=== PATIENT | male | born 1955 | race Caucasian/White ===

== ENCOUNTER 2016-09-27 17:22 | Inpatient (IN) ==
[2016-09-27] MEDS ORDERED: Nitroglycerin 0.4 MG TAB.SUBL SL ONE (17:30)
[2016-09-27] MEDS ORDERED: Aspirin 81 MG TAB.CHEW PO ONE (17:30)
[2016-09-27 17:51] LABS: Basophils % 0.3 %; Eosinophils # 0.2 K/mcL (0.0-0.6); Eosinophils % 1.7 %; Hematocrit 31.4 % (37.5-50.1); Hemoglobin 9.6 g/dL (12.9-16.9); Immature Granulocytes % 0.4 % (0-4); Immature Platelets 2.6 % (1.1-6.1); Lymphocytes # 0.9 K/mcL (0.6-4.6); Lymphocytes % 7.9 %; Mean Corpuscular HGB Conc 30.6 g/dL (31.6-35.5); Mean Corpuscular Hemoglobin 28.2 pg (28.0-33.3); Mean Corpuscular Volume 92.1 fL (83.0-100.0); Mean Platelet Volume 9.5 fL (9.4-12.4); Monocytes # 0.7 K/mcL (0.0-1.3); Monocytes % 5.8 %; Neutrophils # 9.5 K/mcL (1.6-8.9); Platelet Count 266 K/mcL (140-400); Red Blood Count 3.41 M/mcL (4.19-5.50); Red Cell Distribution Width 14.7 % (11.5-14.5); Segmented Neutrophils % 83.9 %
[2016-09-27 17:54] LABS: INR 3.6; Prothrombin Time 40.9 Seconds (9.4-12.1)
--- NOTE | 2016-09-27 17:55 | Emergency Department Note ---
START Narrative - START START: I examined this patient and my medical decision-making was reviewed with the SUPERVISOR HARVESTING/PA/Advanced Practice Nurse/Resident Physician. I agree with the documented findings, disposition and treatment plan as described except to the extent set forth below. ED attending note: Patient seen with emergency medicine resident Dr. Granados. Please see a copy of his note for details of the H&P, evaluation, management and disposition of this patient. We independently had [id number] contact with the patient Briefly: A 61-year-old morbidly obese patient with history of congestive heart failure presents with dyspnea on exertion and increasing shortness of breath and edema. She does mild chest discomfort but denies chest pain. EKG shows no acute ischemic changes. He does have moderate to severe bilateral lower extremity symmetrical pitting edema. He has bibasilar rales and some expiratory wheezes. Patient is 94% with supplemental oxygen on 4 L/m nasal cannula. Patient will be getting a cardiac workup admission anticipated. Provided 40 minutes of critical care services for this patient. Disposition pending.
[2016-09-27 17:56] LABS: Activated Partial Thrombo Time 54.4 Seconds (26.0-36.0)
[2016-09-27 18:00] LABS: Calcium 9.4 mg/dL (8.6-10.8); Potassium 4.2 mEq/L (3.5-4.5)
[2016-09-27] MEDS ORDERED: Furosemide 40 MG/4 ML VIAL IVP ONE (18:41)
[2016-09-27] MEDS ORDERED: Nitroglycerin 1 INCH/GM PACKET TP ONE (18:41)
[2016-09-27] MEDS ORDERED: *HR* HYDROcodone/Acet 5/325 mg TABLET PO ONE (18:50)
--- NOTE | 2016-09-27 18:53 | Emergency Department Note ---
Disposition Clinical Impression: CHF (congestive heart failure) Disposition: Admitted As Inpatient Condition: Good Referrals: Ruby Cano CNP [Primary Care Provider] - Forms: ED Satisfaction Letter Time of Disposition: 19:00 SOB HPI - General Chief Complaint: ED Shortness of Breath/Dyspnea Stated Complaint: FABI / Fluid retention Time Seen by Provider: 09/27/16 17:30 Source: patient Mode of arrival: ambulatory Limitations: no limitations Nursing Notes Reviewed: Yes Vital Signs Reviewed: Yes - History of Present Illness 61-year-old male with reported history of congestive heart failure present from primary care office with shortness of breath and pedal edema that is significantly worse than baseline over the last few days. He states that he has been taking his Lasix 80 mg daily as well as hydrochlorothiazide as directed. Dr. Cano felt that he should be admitted for his significant shortness of breath with associated chest heaviness with any exertion. He states that he is not able to go from one room to another without having chest heaviness and shortness of breath. Patient reports that he has had a normal left heart catheter in the last 6 months. He states that his symptoms are worse with lying flat. He admits to nonproductive cough. He denies fever, chills, nausea or vomiting, change in urination or bowel movements. He states that his left lower extremity is slightly more swollen than his right which is usual for him due to a history of a blood clot in that leg. He is anticoagulated with Coumadin. He has history of PE and states that that did not feel anything like this. Pt Subjective Complaint: shortness of breath - Related Data Home Medications Medication Instructions Recorded Confirmed Amlodipine Besylate 10 mg PO DAILY 05/16/16 09/27/16 Carvedilol [Coreg] 25 mg PO BID 05/16/16 09/27/16 Duloxetine [Cymbalta] 30 mg PO QPM 05/16/16 09/27/16 Duloxetine [Cymbalta] 60 mg PO QAM 05/16/16 09/27/16 GlipiZIDE [Glipizide] 10 mg PO DAILY 05/16/16 09/27/16 HYDROcodone/Acet 5/325 mg [[place] 1 tab PO TID PRN 05/16/16 09/27/16 5-325 mg] Insulin NPH Hum/Reg Insulin Hm 55 unit SQ BID 05/16/16 09/27/16 [Novolin 70-30 100 Unit/ml Vial] Pravastatin Sodium [Pravachol] 80 mg PO DAILY 05/16/16 09/27/16 Warfarin [Coumadin] 6 mg PO QPM 05/22/16 09/27/16 Furosemide [Lasix] 40 mg PO BID 09/27/16 09/27/16 Losartan Potassium [Cozaar] 100 mg PO DAILY 09/27/16 09/27/16 Previous Rx's Medication Instructions Recorded Hydrochlorothiazide 50 mg PO DAILY #30 tablet 05/23/16 HydrALAZINE 50 mg PO Q8HR #60 tab 07/31/16 Allergies Allergy/AdvReac Type Severity Reaction Status Date / Time acetaminophen [From Percocet] Allergy Hives Verified 05/22/16 17:15 Oxycodone [From Percocet] Allergy Hives Verified 05/22/16 17:15 tetanus immune globulin Allergy Anaphylaxis Verified 05/22/16 17:15 All systems ED: reviewed and negative except as stated. Past Medical History - Past Medical History Attestation: Yes The following information was validated with the patient. Source: patient Medical history: Reports: CHF, COPD, coronary artery disease, DVT, diabetes, fibromyalgia, hyperlipidemia, hypertension, pulmonary embolus Surgical history: Reports: other Psychiatric history: Reports: anxiety, depression, other - Social History Smoking Status: Never smoker Smokeless Tobacco Status: Yes (Chews tobacco) Alcohol use: Reports: none Drug use: Reports: none Physical Exam - Head Head exam: atraumatic, normocephalic, normal inspection - Eye Eye exam: Present: normal appearance, PERRL, EOMI - ENT ENT exam: normal exam, normal oropharynx, mucous membranes moist - Neck Neck exam: Present: normal inspection, full ROM, trachea midline - Chest Chest inspection: Present: normal inspection, symmetric chest wall rise - Respiratory Limited by obesity, but diminished at the bilateral bases. Cardiovascular Cardiovascular exam: Present: regular rate, normal rhythm, normal heart sounds - Abdominal Exam Abdominal exam: Present: soft, Non-Tender. Absent: tenderness, distention, guarding, rebound, rigidity - Extremities Exam Pedal edema bilaterally left slightly greater than right. - Back Exam Back exam: Present: normal inspection, full ROM. Absent: tenderness, CVA tenderness (R), CVA tenderness (L) - Neurological Exam Neurological exam: Present: alert, oriented X3, CN II-XII intact - Psychiatric Psychiatric exam: Present: normal affect, normal mood - Skin Skin exam: Present: warm, dry, intact, normal color - General Limitations: no limitations General appearance: alert, in no apparent distress Course - Reevaluation(s) Reevaluation #1: Shortness of breath significantly improved after nitroglycerin sublingual. Patient feeling much better with BiPAP on. Hospitalist paged for admission. Topical nitroglycerin and Lasix ordered. Time: 18:54 Reevaluation #2: Accepted by Dr. Cyr. Time: 19:01 Vital Signs Temperature 97.3 F L 09/27/16 17:24 Pulse Rate 62 09/27/16 17:24 Respiratory Rate 20 09/27/16 17:24 Blood Pressure 180/82 09/27/16 17:24 O2 Sat by Pulse Oximetry 95 09/27/16 17:24 Temperature 97.3 F L 09/27/16 17:24 Pulse Rate 62 09/27/16 18:53 Respiratory Rate 14 09/27/16 18:56 Blood Pressure 143/73 09/27/16 18:53 O2 Sat by Pulse Oximetry 97 09/27/16 18:56 Oxygen Delivery Oxygen Delivery CPAP Mask O2 Shortness of Breath/Dyspnea - Lab Data Result diagrams: 09/27/16 17:42 09/27/16 17:42 Lab Results 09/27/16 09/27/16 09/27/16 Range/Units 17:42 17:42 17:42 WBC 11.3 H (4.3-11.1) K/mcL RBC 3.41 L (4.19-5.50) M/mcL Hgb 9.6 L (12.9-16.9) g/dL Hct 31.4 L (37.5-50.1) % MCV 92.1 (83.0-100.0) fL MCH 28.2 (28.0-33.3) pg MCHC 30.6 L (31.6-35.5) g/dL RDW 14.7 H (11.5-14.5) % Plt Count 266 (140-400) K/mcL MPV 9.5 (9.4-12.4) fL Immature Gran % 0.4 (0-4) % Seg Neutrophils % 83.9 % Lymphocytes % 7.9 % Monocytes % 5.8 % Eosinophils % 1.7 % Basophils % 0.3 % Neutrophils # 9.5 H (1.6-8.9) K/mcL Lymphocytes # 0.9 (0.6-4.6) K/mcL Monocytes # 0.7 (0.0-1.3) K/mcL Eosinophils # 0.2 (0.0-0.6) K/mcL Basophils # 0.0 (0.0-0.2) K/mcL Immature Plt Fraction 2.6 (1.1-6.1) % PT 40.9 H (9.4-12.1) Seconds INR 3.6 APTT 54.4 H (26.0-36.0) Seconds Sodium (136-145) mEq/L Potassium (3.5-4.5) mEq/L Chloride (98-109) mEq/L Carbon Dioxide (19-29) mEq/L BUN (8-26) mg/dL Creatinine (0.72-1.25) mg/dL Est GFR ( Amer) (> 60) Est GFR (Non-Af Amer) (> 60) BUN/Creatinine Ratio (6-26) Glucose (70-99) mg/dL Calculated Osmolality (280-300) Calcium (8.6-10.8) mg/dL Troponin I (0-0.03) ng/mL B-Natriuretic Peptide 238 H (0-100) pg/mL 09/27/16 09/27/16 Range/Units 17:42 17:42 WBC (4.3-11.1) K/mcL RBC (4.19-5.50) M/mcL Hgb (12.9-16.9) g/dL Hct (37.5-50.1) % MCV (83.0-100.0) fL MCH (28.0-33.3) pg MCHC (31.6-35.5) g/dL RDW (11.5-14.5) % Plt Count (140-400) K/mcL MPV (9.4-12.4) fL Immature Gran % (0-4) % Seg Neutrophils % % Lymphocytes % % Monocytes % % Eosinophils % % Basophils % % Neutrophils # (1.6-8.9) K/mcL Lymphocytes # (0.6-4.6) K/mcL Monocytes # (0.0-1.3) K/mcL Eosinophils # (0.0-0.6) K/mcL Basophils # (0.0-0.2) K/mcL Immature Plt Fraction (1.1-6.1) % PT (9.4-12.1) Seconds INR APTT (26.0-36.0) Seconds Sodium 142 (136-145) mEq/L Potassium 4.2 (3.5-4.5) mEq/L Chloride 101 (98-109) mEq/L Carbon Dioxide 26 (19-29) mEq/L BUN 36 H (8-26) mg/dL Creatinine 2.00 H (0.72-1.25) mg/dL Est GFR ( Amer) 41 L (> 60) Est GFR (Non-Af Amer) 34 L (> 60) BUN/Creatinine Ratio 18 (6-26) Glucose 251 H (70-99) mg/dL Calculated Osmolality 311 H (280-300) Calcium 9.4 (8.6-10.8) mg/dL Troponin I 0.02 (0-0.03) ng/mL B-Natriuretic Peptide (0-100) pg/mL - Radiology Data Radiology results reviewed: Yes I reviewed the patient's radiology results. - EKG Data EKG attestation: Yes I reviewed and interpreted this EKG. EKG results narrative: Normal sinus rhythm at 60 with left axis deviation and normal intervals. No ST elevation or depression. There is no significant change compared with 2015.
[2016-09-27] MEDS ORDERED: Naloxone 0.4 MG/ML INJ IVP PRN (19:32)
[2016-09-27] MEDS ORDERED: Ondansetron 4 MG/2 ML VIAL IVP PRN (19:32)
[2016-09-27] MEDS ORDERED: *HR* HYDROcodone/Acet 5/325 mg TABLET PO PRN (19:33)
[2016-09-27] MEDS ORDERED: Dextrose Gel 15 GM PO PRN ×2 (19:39)
[2016-09-27] MEDS ORDERED: D5% in Water 1,000 ML IV PRN (19:39)
[2016-09-27] MEDS ORDERED: *HR* Dextrose 50 % in Water (Syg) 50 ML SYRINGE IVP PRN (19:39)
--- NOTE | 2016-09-27 20:54 | Internal Med History&Physical ---
Date of Encounter: 09/27/16 Time of Encounter: 20:30 Assessment and Plan (1) Acute exacerbation of CHF (congestive heart failure) Current visit: Yes Status: Acute Patient reported to have multiple CHF exacerbation in the last few months Last 2-D echo from April 2016 is nonconclusive with LVEF of 60-65% We will repeat 2-D echo Patient reported taking 40 mg of by mouth Lasix at home and received 40 mg of IV Lasix in the ER We will continue Lasix 40 mg IV every 12h Monitor daily weight, monitor strict I's/O's Strict fluid restriction diet Continue to monitor O2 saturation O2 supplementation as needed BiPAP overnight Consider cardiology eval if heart failure symptoms persist despite diuretic therapy. Qualifiers: Congestive heart failure type: unspecified congestive heart failure type Qualified Code(s): I50.9 - Heart failure, unspecified (2) [id number] kidney injury Current visit: Yes Status: Acute Likely secondary to diuretic therapy however given acute exacerbation will need to continue diuretic therapy will hold ARB and glipizide at this time Continue to monitor kidney function (3) Hyperglycemia due to type 2 diabetes mellitus Current visit: Yes Status: Resolved Restart home basal insulin dosage Hold oral antihyperglycemic agents Continue to monitor fingerstick and blood glucose Started on medium dose insulin sliding scale correctional as needed Qualifiers: Diabetes mellitus senior care insulin use: with senior care use Qualified Code( s): E11.65 - Type 2 diabetes mellitus with hyperglycemia; Z79.4 - penitentiary ( current) use of insulin (4) Chest pain Current visit: Yes Status: Acute Chest pain relieved with nitroglycerin and typical presentation of the pain is concerning for ACS will trend serial troponins Serial EKG Consider cardiology eval if symptoms persist Given the acute exacerbation of CHF, patient not a candidate for nuclear stress test at this time Qualifiers: Chest pain type: unspecified Qualified Code(s): R07.9 - Chest pain, unspecified (5) Hypertension Current visit: Yes Status: Chronic BP within acceptable range Continue home medications Qualifiers: Hypertension type: essential hypertension Qualified Code(s): I10 - Essential (primary) hypertension (6) Obstructive sleep apnea Current visit: Yes Status: Chronic BiPAP support overnight Patient scheduled for a sleep study this coming Saturday (7) Morbid obesity with BMI of 45.0-49.9, adult Current visit: Yes Status: Chronic (8) On anticoagulant therapy Current visit: Yes Status: Acute Supratherapeutic INR Hold Coumadin until INR within therapeutic range, INR goal 2-3 On anticoagulation for history of DVT/PE (9) DVT prophylaxis Current visit: Yes Status: Acute Anticoagulated with Coumadin (10) Leukocytosis, unspecified Current visit: Yes Status: Acute No clinical signs of infection present at this time will monitor off antibiotics Qualifiers: Leukocytosis type: unspecified Qualified Code(s): D72.829 - Elevated white blood cell count, unspecified Internal Medicine - H&P: HPI Chief complaint: shortness of breath Admitted From: Home Plans for Post Hospital Care: Home History of present illness: Mr. Hernandez is a 61 year old male with past medical history of CHF, DVT/PE on anticoagulation, hypertension, COPD, CT, diabetes, CKD stage III, hyperlipidemia was brought to the ER for evaluation of shortness of breath. Patient states he went to see his primary care physician earlier today and was noted to be in severe shortness of breath for which he was directed to the ER. He states his primary care physician was looking into increasing his diuretic therapy along with adding another agent for his CHF. In the ER patient also reported of having pressure-like midsternal chest pain which was relieved with nitroglycerin sublingual. He states he has been having this pressure-like chest pain for months now which gets resolved with rest. He also reports of being scheduled for a sleep study this coming Saturday. At this time he is resting comfortably in bed and saturating well on BiPAP support. As per son, present at bedside, patient is not able to tolerate BiPAP at home due to the uncomfortable mask, however at this time patient appears to not have any issues with the BiPAP. Patient denies any headache, dizziness, lightheadedness, chest pain, palpitations, shortness of breath, abdominal pain, nausea, vomiting, fever , or chills at this time. I had detailed discussion about patient's advanced directives, and patient wishes to be full code at this time. Past Med Surg Social Fam HX - Past Medical History Medical history: CHF, COPD, coronary artery disease, DVT, diabetes, fibromyalgia , hyperlipidemia, hypertension, pulmonary embolus Psychiatric history: anxiety, depression, other - Past Surgical History Surgical History: other - Social History Smoking Status: Never smoker Smokeless Tobacco Status: Yes (Chews tobacco) Alcohol use: none Drug use: none - Family History Mother Adopted: No Family Member Ethnicity: Non- Living Status: Hx Family Cardiac Disorders: Yes (HTN; Aneurysm) Brother Hx Family Cardiac Disorders: Yes (HTN) Hx Family Endocrine Disorder: Yes (DM-2) Internal Medicine - H&P: Meds Amlodipine Besylate 10 mg PO DAILY 05/16/16 [History] Carvedilol [Coreg] 25 mg PO BID 05/16/16 [History] Duloxetine [Cymbalta] 30 mg PO QPM 05/16/16 [History] Duloxetine [Cymbalta] 60 mg PO QAM 05/16/16 [History] GlipiZIDE [Glipizide] 10 mg PO DAILY 05/16/16 [History] HYDROcodone/Acet 5/325 mg [[place] 5-325 mg] 1 tab PO TID PRN 05/16/16 [History] Insulin NPH Hum/Reg Insulin Hm [Novolin 70-30 100 Unit/ml Vial] 55 unit SQ BID 05/16/16 [History] Pravastatin Sodium [Pravachol] 80 mg PO DAILY 05/16/16 [History] Warfarin [Coumadin] 6 mg PO QPM 05/22/16 [History] Hydrochlorothiazide 50 mg PO DAILY #30 tablet 05/23/16 [Rx] HydrALAZINE 50 mg PO Q8HR #60 tab 07/31/16 [Rx] Furosemide [Lasix] 40 mg PO BID 09/27/16 [History] Losartan Potassium [Cozaar] 100 mg PO DAILY 09/27/16 [History] Allergies acetaminophen [From Percocet] Allergy (Verified 05/22/16 17:15) Hives Oxycodone [From Percocet] Allergy (Verified 05/22/16 17:15) Hives tetanus immune globulin Allergy (Verified 05/22/16 17:15) Anaphylaxis All Systems PM: A 10-system review of systems was performed and is negative for pertinent findings except as documented above in the HPI. - Constitutional Constitutional: as per HPI - Constitutional Vitals: Temp Pulse Resp BP Pulse Ox 0 F L 62 0 0/0 97 09/27/16 20:16 09/27/16 18:53 09/27/16 20:16 09/27/16 20:16 09/27/16 18:56 General appearance: Present: cooperative, A&O X 3, morbidly obese, pleasant, no acute distress, answers questions appropriately - Head Head exam: Present: atraumatic, normocephalic - Eye Eye exam: Present: normal appearance, conjuntiva pink, sclera anicteric - Respiratory Respiratory exam: Present: decreased breath sounds. Absent: respiratory distress, wheezes - Cardiovascular Cardiovascular exam: Present: RRR, +S1, +S2 - GI/Abdominal GI/Abdominal exam: Present: distended (obese), normal bowel sounds, soft. Absent: tenderness - Extremities Exam Extremities exam: Present: pedal edema (bilateral 2+pitting edema), warm, radial pulses palpable and symetrical. Absent: calf tenderness, tenderness - Neurological Exam Neurological exam: Present: alert, oriented X3 - Psychiatric Psychiatric exam: Present: normal affect, normal mood Internal Med - H&P Results - Labs CBC & Chem 7: 09/27/16 17:42 09/27/16 17:42
[2016-09-27] MEDS ORDERED: Insulin LISPRO 300 UNITS/3 ML VIAL SQ SCH (21:00)
[2016-09-27] MEDS: Insulin NPH/REG 70/30 100 UNIT/ML (x5UNIT) SQ SCH (21:27)
[2016-09-27] MEDS: hydrALAZINE 25 MG TABLET PO SCH (22:43)
[2016-09-28 05:28] LABS: Basophils % 0.5 %; Eosinophils # 0.2 K/mcL (0.0-0.6); Eosinophils % 3.2 %; Hematocrit 29.7 % (37.5-50.1); Immature Granulocytes % 0.3 % (0-4); Lymphocytes # 1.1 K/mcL (0.6-4.6); Lymphocytes % 17.4 %; Mean Corpuscular HGB Conc 30.3 g/dL (31.6-35.5); Mean Corpuscular Volume 92.5 fL (83.0-100.0); Monocytes # 0.7 K/mcL (0.0-1.3); Monocytes % 11.4 %; Neutrophils # 4.4 K/mcL (1.6-8.9); Platelet Count 259 K/mcL (140-400); Red Blood Count 3.21 M/mcL (4.19-5.50); Red Cell Distribution Width 14.7 % (11.5-14.5); Segmented Neutrophils % 67.2 %
[2016-09-28] MEDS: Furosemide 20 MG/2 ML VIAL IVP SCH ×3 (05:34→21:10)
[2016-09-28 05:49] LABS: Calcium 8.9 mg/dL (8.6-10.8); Magnesium 1.8 mg/dL (1.6-2.6); Phosphorous 4.3 mg/dL (2.3-4.7); Potassium 4.1 mEq/L (3.5-4.5)
[2016-09-28] MEDS: Insulin LISPRO 300 UNITS/3 ML VIAL SQ SCH ×2 (07:54→11:47)
[2016-09-28] MEDS: Insulin NPH/REG 70/30 100 UNIT/ML (x5UNIT) SQ SCH ×2 (09:31→17:30)
[2016-09-28] MEDS: amLODIPine 5 MG TABLET PO SCH (09:41)
[2016-09-28] MEDS: hydroCHLOROthiazide 25 MG TABLET PO SCH (09:41)
[2016-09-28] MEDS: hydrALAZINE 25 MG TABLET PO SCH ×2 (09:42→17:30)
--- NOTE | 2016-09-28 15:09 | Electrocardiograph Report ---
[place] [id number] Test Date: 2016-09-27 Pat Name: Imtiaz Hernandez Department: 105 Room: [facility] Gender: M Weed Control Inspector: : 1955 Requested By: Onesimo Granados Order Number: [id number] Reading MD: Lorraine Cruz Measurements Intervals Bouse Rate: 60 P: 10 LA: 126 QRS: 4 QRSD: 118 T: 60 QT: 462 QTc: 464 Interpretive Statements SINUS RHYTHM MODERATE INTRAVENTRICULAR CONDUCTION DELAY [110+ ms QRS DURATION] NONSPECIFIC T-WAVE ABNORMALITY PROLONGED QT INTERVAL Electronically Signed On 09-28-2016 15:07:30 EST by Lorraine Cruz
--- NOTE | 2016-09-28 15:35 | ECHO - Doppler Report ---
Echocardiogram Name: Imtiaz Hernandez Date of Study: 09/28/2016 Date: 1955 Ht: 72.0 in Medical Record#: [id number] Age: 61 Wt: 340.0 lb Gender: Male BSA: 2.67 Order #: [id number] Location: [facility] Room #: [id number] Reading Physician: Marek Alcantar DO, BARRY, NATE AARON Tortilla Maker: Alexandre Rojo RDCS Ordering Physician: Payton Cyr MD Primary Physician: Ruby Cano CNP Indications: Congestive heart failure Impressions: LVEF 60%. Mild concentric left ventricular hypertrophy. Normal LV chamber size, wall thickness and function. Moderate left ventricular diastolic dysfunction. Right ventricle was not well visualized. Grossly, it is normal in function. Severely dilated left atrium. Pulmonic valve not well visualized. No pulmonic regurgitation. No evidence of pulmonary hypertension. RVSP not well obtained and could be underestimated. No obvious significant valvular dysfunction. Findings: Study Quality * Technically sub-optimal due to body habitus. ECG Findings * Normal sinus rhythm. Left Ventricle * LVEF 60%. * Normal LV chamber size and function. * Mild concentric left ventricular hypertrophy. * Moderate left ventricular diastolic dysfunction. Right Ventricle * Right ventricle was not well visualized. Grossly, it is normal in function. Left Atrium * Severely dilated left atrium. Right Atrium * Moderately dilated right atrium. Interatrial Septum * Interatrial septum not well evaluated. Aortic Valve * Aortic valve not well visualized. * No aortic regurgitation. * No aortic stenosis. Mitral Valve * Normal mitral valve structure and function. * No mitral regurgitation. * No mitral stenosis. Tricuspid Valve * Normal tricuspid valve structure and function. * Trace tricuspid regurgitation. * No evidence of pulmonary hypertension. RVSP not well obtained and could be underestimated. Pulmonic Valve * Pulmonic valve not well visualized. * No pulmonic regurgitation. Aorta * Normally sized aortic root. Pericardium * The pericardium appears normal. IVC * Normal IVC dimensions and inspiratory collapse. Pulmonary Artery * Normal visualized portions of the main pulmonary artery. History Hypertension Diabetes Hypercholesteremia Family History of CAD History of CAD/PTCA Congestive Heart Failure 05/17/16 a Previous Echo was performed. Measurements: BP: 181/ 92 2D Normal Values RVIDd: 2.30 cm <2.7 cm IVSd: 1.30 cm 0.6 - 1.0 cm LVIDd: 6.10 cm 3.7 - 5.6 cm LVPWd: 1.20 cm 0.6 - 1.1 cm LVIDs: 3.80 cm 1.5 - 3.6 cm AO: 3.00 cm < 4.0 cm LA: 4.40 cm 2.0 - 4.0cm %FS: 37.70 cm >25 % LA volume: 108 Mitral Valve Peak E:1.04 m/sec Peak A:.62 m/sec E/A Ratio:1.7 Peak E' Lat Lewis:9.36 cm/s Peak E' Med Lewis:9.85 cm/s E/E' Lat Ratio:11.1 E/E' Med Ratio:10.6 Tricuspid Valve TV Regurg Peak Grad: 21.00mmHg TV Regurg Peak Lewis: 2.29m/sec Updated by Marek Alcantar DO, BARRY, NATE AARON on 09/28/2016 3:30:16 PM electronically signed on 09/28/2016 3:30:53 PM with status of Final
--- NOTE | 2016-09-28 18:22 | Internal Med Progress Note ---
<Ashutosh Francis - Last Filed: 09/28/16 18:34> Date of Encounter: 09/28/16 - Constitutional Vitals: Temp Pulse Resp BP Pulse Ox 98.2 F 65 18 186/88 94 L 09/28/16 11:20 09/28/16 15:00 09/28/16 15:00 09/28/16 15:00 09/28/16 15:00 Internal Medicine: Result - Labs CBC & Chem 7: 09/28/16 04:52 09/28/16 04:52 Labs: Short CBC 09/28/16 Range/Units 04:52 WBC 6.5 (4.3-11.1) K/mcL Hgb 9.0 L (12.9-16.9) g/dL Hct 29.7 L (37.5-50.1) % Plt Count 259 (140-400) K/mcL Neutrophils # 4.4 (1.6-8.9) K/mcL BMP 09/28/16 04:52 Sodium 143 Potassium 4.1 Chloride 104 Carbon Dioxide 29 BUN 40 H Creatinine 2.01 H Glucose 55 L Calcium 8.9 Cardiac Enzymes 09/27/16 09/28/16 Range/Units 21:47 04:52 Troponin I 0.02 0.02 (0-0.03) ng/mL - ABG Interpretation ABG results: PT/INR, D-dimer PT 40.9 Seconds (9.4-12.1) H 09/27/16 17:42 Consult Discharge Plan - Plan Referrals: Ruby Cano, FUR FEEDER [Primary Care Provider] - - Attending Attestation I examined this patient and my medical decision-making was reviewed with the COMPUTER COMPOSITOR/PA/Advanced Practice Nurse/Resident Physician. I agree with the documented findings, disposition and treatment plan as described except to the extent set forth below. <Napoleon Fischer - Last Filed: 09/28/16 20:36> Date of Encounter: 09/28/16 Time of Encounter: 08:15 - Assessment and plan (1) Chest pain Current Visit: Yes Status: Acute Assessment and plan: 09/28/16 -Chest pain that is exceptional and resolves with rest -Extensive PMH. -Trop 0.2 x 2. CXR shows no acute process, -ECHO LVEF 60% with Severely dilated Left Atrium. BMP <300. With BMP <500, CHF less likely on differential. However, patient has pitting edema and ECHO abnormality and symptoms are improving with current treatment. -PE on differential, However, patient HR <90, O2 stats >95, patient INR 3.6. Wont get D-dimer because creatinine 2.0 and level will most likely be elevated regardless. -Leukocytosis resolved, no fever, chills. Not concern for pneumonia. Plan -Continue current treatment including laxis. Monitor Cr. -Continue Bipap, and O2 NC Qualifiers: Chest pain type: unspecified Qualified Code(s): R07.9 - Chest pain, unspecified (2) CHF (congestive heart failure) Current Visit: Yes Status: Acute Assessment and plan: -see above Qualifiers: Congestive heart failure type: diastolic Congestive heart failure chronicity: chronic Qualified Code(s): I50.32 - Chronic diastolic (congestive ) heart failure (3) CKD (chronic kidney disease) stage 3, GFR 30-59 ml/min Current Visit: No Status: Acute Assessment and plan: -See above (4) Morbid obesity with BMI of 45.0-49.9, adult Current Visit: Yes Status: Chronic (5) Obstructive sleep apnea Current Visit: Yes Status: Chronic Assessment and plan: -Will get overnight pulse ox on 09/28/16 Plan -5am ABG (6) On anticoagulant therapy Current Visit: Yes Status: Acute Assessment and plan: -History of DVT/PE -Patient INR 3.6, holding warfarin for now. However, patient INR may fall dramatically once fluid overload is resolved. Continue to monitor closely. Plan -Monitor INR closely. -Hold warfarin for now. Desire INR 2-3 (7) Diabetes Current Visit: No Status: Chronic Assessment and plan: -Patient hyoglycemic episode because patient had not eaten and patient given insulin. Recheck this morning was 125 -Patient home DM regimen obtained. Would rather have patient hyperglycemic than hypo. Plan -Please work with patients eating habits and administer insulin based upon his home regimen. -Home regimine slightly reduced to avoid another hypoglycemic episode. Sliding scale cancelled. -Continue to monitor. Qualifiers: Diabetes mellitus type: type 2 Diabetes mellitus complication status: with kidney complications Diabetes mellitus complication detail: with chronic kidney disease Diabetes mellitus termite exterminator helper insulin use: with termite exterminator helper use Chronic kidney disease stage: stage 3 (moderate) Qualified Code(s): E11.22 - Type 2 diabetes mellitus with diabetic chronic kidney disease; N18.3 - Chronic kidney disease, stage 3 (moderate); Z79.4 - jail (current) use of insulin (8) Hypertension Current Visit: Yes Status: Chronic Assessment and plan: -Spoke with patient personally. Per his PCP and other health reservoir caretaker , patient has permissive HTN. His bloodpressure should not be lower than 140/x. Blood pressure 220/x is acceptable. If lower than 140/x, patient begins to become symptomatic-dizzy, headache, syncope. Plan -Will resume home medication and allow permissive HTN. Qualifiers: Hypertension type: essential hypertension Qualified Code(s): I10 - Essential (primary) hypertension - Time Spent With Patient 25 - 35 minutes - Subjective Interval history: 61-year-old male past medical history of CHF, DVT/PE on anticoagulation, hypertension, COPD, [place], diabetes, CAD stage III, hyperlipidemia admitted for SOB. Patient on way to PCP, in which he was going to increase dieuretic therapy for CHF. Also had pressure-like midernal chestpain which was relieved with Nirto sublingual. This CP has been occuring for months and resolves with rest. Patient uses friends home oxygen and BIPAP.Scheduled for sleep study within the week. Patient has been hospitalized for CHF exacerbation 3 times in the past 4 months. Family and friends present at bedside. 09/28/16 Patient resting comfortably in bed on nasal cannula. Bipap off and in patients lap. Admits to mild SOB. Denies headache, dizziness, CP, palpitations, cough, abdominal pain, N/V, fevers or chills. Patient able to have a full conversation and answer questions appropriately. - Constitutional Vitals: Temp Pulse Resp BP Pulse Ox 98.2 F 65 18 186/88 94 L 09/28/16 11:20 09/28/16 15:00 09/28/16 15:00 09/28/16 15:00 09/28/16 15:00 General appearance: Present: cooperative, A&O X 3, morbidly obese, pleasant, no acute distress, answers questions appropriately - Head Head exam: Present: atraumatic, normocephalic - Eye Eye exam: Present: PERRL, conjuntiva pink, sclera anicteric Pupils: Present: PERRL - Neck Neck exam general surgery: Present: supple, trachea midline. Absent: lymphadenopathy - Respiratory Respiratory exam: Present: wheezes. Absent: accessory muscle use, CTAB, rales, rhonchi - Cardiovascular Cardiovascular exam: Present: RRR, +S1, +S2. Absent: diastolic murmur, gallop, rubs, systolic murmur - GI/Abdominal GI/Abdominal exam: Present: normal bowel sounds, soft, no peritoneal signs. Absent: distended, tenderness - Extremities Exam Extremities exam: Present: pedal edema (Mild to moderate pedal edema.), warm, radial pulses palpable and symetrical. Absent: calf tenderness, cyanotic - Neurological Exam Neurological exam: Present: CN II-XII intact, oriented X3, no focal deficits. Absent: pronater drift, facial droop, speech deficit - Skin Skin exam: Present: dry, intact Internal Medicine: Result - Labs CBC & Chem 7: 09/28/16 04:52 09/28/16 04:52 Labs: Short CBC 09/28/16 Range/Units 04:52 WBC 6.5 (4.3-11.1) K/mcL Hgb 9.0 L (12.9-16.9) g/dL Hct 29.7 L (37.5-50.1) % Plt Count 259 (140-400) K/mcL Neutrophils # 4.4 (1.6-8.9) K/mcL BMP 09/28/16 04:52 Sodium 143 Potassium 4.1 Chloride 104 Carbon Dioxide 29 BUN 40 H Creatinine 2.01 H Glucose 55 L Calcium 8.9 Cardiac Enzymes 09/27/16 09/28/16 Range/Units 21:47 04:52 Troponin I 0.02 0.02 (0-0.03) ng/mL - ABG Interpretation ABG results: PT/INR, D-dimer PT 40.9 Seconds (9.4-12.1) H 09/27/16 17:42
[2016-09-29] MEDS: hydrALAZINE 25 MG TABLET PO SCH ×3 (00:26→17:44)
[2016-09-29 00:55] LABS: Bilirubin,Urine Negative (Negative); Blood,Urine Negative (Negative); Clarity,Urine Clear (Clear); Color,Urine Yellow (Yellow); Glucose,Urine (UA) Normal (Normal); Ketones,Urine Negative (Negative); Leukocyte Esterase,Urine Negative (Negative); Nitrite,Urine Negative (Negative); Protein,Urine 100 mg/dL (Neg-Trace); Urobilinogen,Urine Normal (Normal)
[2016-09-29 00:57] LABS: Bacteria,Urine None Seen per hpf (None-Few); Hyaline Casts,Urine None Seen per lpf (None-Few); RBC,Urine 0-3 per hpf (0-3); Squamous Epithelial Cell,Urine Moderate per lpf (None-Few); WBC,Urine 0-3 per hpf (0-3)
[2016-09-29 06:21] LABS: Basophils % 0.4 %; Eosinophils # 0.2 K/mcL (0.0-0.6); Eosinophils % 2.7 %; Hematocrit 28.8 % (37.5-50.1); Hemoglobin 8.8 g/dL (12.9-16.9); Immature Granulocytes % 0.5 % (0-4); Lymphocytes # 1.1 K/mcL (0.6-4.6); Lymphocytes % 13.5 %; Mean Corpuscular HGB Conc 30.6 g/dL (31.6-35.5); Mean Corpuscular Hemoglobin 27.8 pg (28.0-33.3); Mean Corpuscular Volume 91.1 fL (83.0-100.0); Mean Platelet Volume 10.3 fL (9.4-12.4); Monocytes # 0.8 K/mcL (0.0-1.3); Monocytes % 9.2 %; Neutrophils # 6.1 K/mcL (1.6-8.9); Platelet Count 226 K/mcL (140-400); Red Blood Count 3.16 M/mcL (4.19-5.50); Red Cell Distribution Width 14.8 % (11.5-14.5); Segmented Neutrophils % 73.7 %
[2016-09-29 06:32] LABS: INR 2.4; Prothrombin Time 27.1 Seconds (9.4-12.1)
[2016-09-29 06:42] LABS: Calcium 8.7 mg/dL (8.6-10.8); Potassium 4.2 mEq/L (3.5-4.5)
[2016-09-29 09:02] LABS: ABG PCO2 46 mmHg (35-45); ABG PH 7.47 pH Units (7.32-7.45)
[2016-09-29 09:03] LABS: ABG Base Excess 8.7 mEq/L (-2.0 to 3.0); ABG HCO3 33.5 mEQ/L (21-27); ABG Oxygen Saturation 79 % (95-98); ABG TCO2 34.9 mEq/L (20-26)
[2016-09-29 09:07] LABS: ABG PO2 40 mmHg (85-104); Blood Gas FiO2 28 %
[2016-09-29] MEDS: hydroCHLOROthiazide 25 MG TABLET PO SCH (09:47)
[2016-09-29] MEDS: Insulin NPH/REG 70/30 100 UNIT/ML (x5UNIT) SQ SCH ×2 (09:48→17:40)
[2016-09-29] MEDS: amLODIPine 5 MG TABLET PO SCH (09:48)
[2016-09-29] MEDS: Furosemide 20 MG/2 ML VIAL IVP SCH ×2 (09:48→22:08)
[2016-09-29] MEDS: *HR* HYDROcodone/Acet 5/325 mg TABLET PO PRN ×3 (13:35→22:08)
[2016-09-29] MEDS ORDERED: *HR* Warfarin 5 MG TABLET PO ONE (18:00)
[2016-09-29] MEDS ORDERED: Warfarin perPT PO PRN (18:00)
--- NOTE | 2016-09-29 18:01 | Internal Med Progress Note ---
Date of Encounter: 09/29/16 Time of Encounter: 17:59 - Assessment and plan (1) Chest pain Current Visit: Yes Status: Acute Assessment and plan: 09/28/16 -Chest pain that is exceptional and resolves with rest -Extensive PMH. -Trop 0.2 x 2. CXR shows no acute process, -ECHO LVEF 60% with Severely dilated Left Atrium. BMP <300. With BMP <500, CHF less likely on differential. However, patient has pitting edema and ECHO abnormality and symptoms are improving with current treatment. -PE on differential, However, patient HR <90, O2 stats >95, patient INR 3.6. Wont get D-dimer because creatinine 2.0 and level will most likely be elevated regardless. -Leukocytosis resolved, no fever, chills. Not concern for pneumonia. Plan -Continue current treatment including laxis. Monitor Cr. -Continue Bipap, and O2 NC 09/29/2016 no chest pain will continue present treatment. Qualifiers: Chest pain type: unspecified Qualified Code(s): R07.9 - Chest pain, unspecified (2) CHF (congestive heart failure) Current Visit: Yes Status: Acute Assessment and plan: multifactorial will continue present treatment Qualifiers: Congestive heart failure type: diastolic Congestive heart failure chronicity: chronic Qualified Code(s): I50.32 - Chronic diastolic (congestive ) heart failure (3) CKD (chronic kidney disease) stage 3, GFR 30-59 ml/min Current Visit: No Status: Acute Assessment and plan: base line around 1.6 will observe (4) Hypertension Current Visit: Yes Status: Chronic Assessment and plan: -Spoke with patient personally. Per his PCP and other health career resource technician , patient has permissive HTN. His bloodpressure should not be lower than 140/x. Blood pressure 220/x is acceptable. If lower than 140/x, patient begins to become symptomatic-dizzy, headache, syncope. Plan -Will resume home medication and allow permissive HTN. Qualifiers: Hypertension type: essential hypertension Qualified Code(s): I10 - Essential (primary) hypertension - Subjective Interval history: seen and examined no new complaints results of ABG and overnight Oxygen saturation noted. - Constitutional Vitals: Temp Pulse Resp BP Pulse Ox 97.9 F 58 16 169/82 95 09/29/16 16:00 09/29/16 16:00 09/29/16 16:00 09/29/16 16:00 09/29/16 16:00 General appearance: Present: cooperative, A&O X 3, morbidly obese, pleasant, no acute distress, answers questions appropriately - Head Head exam: Present: atraumatic, normocephalic - Eye Eye exam: Present: PERRL, conjuntiva pink, sclera anicteric Pupils: Present: PERRL - Neck Neck exam general surgery: Present: supple, trachea midline. Absent: lymphadenopathy - Respiratory Respiratory exam: Present: CTAB. Absent: accessory muscle use, rales, rhonchi, wheezes - Cardiovascular Cardiovascular exam: Present: RRR, +S1, +S2. Absent: diastolic murmur, gallop, rubs, systolic murmur - GI/Abdominal GI/Abdominal exam: Present: normal bowel sounds, soft, no peritoneal signs. Absent: distended, tenderness - Extremities Exam Extremities exam: Present: warm, radial pulses palpable and symetrical. Absent : calf tenderness, cyanotic, pedal edema - Neurological Exam Neurological exam: Present: CN II-XII intact, oriented X3, no focal deficits. Absent: pronater drift, facial droop, speech deficit - Skin Skin exam: Present: dry, intact Internal Medicine: Result - Labs CBC & Chem 7: 09/29/16 05:57 09/29/16 05:57 - ABG Interpretation ABG results: ABG ABG pH 7.47 pH Units (7.32-7.45) H 09/29/16 08:00 ABG pCO2 46 mmHg (35-45) H 09/29/16 08:00 ABG pO2 40 mmHg (85-104) L* 09/29/16 08:00 ABG O2 Saturation 79 % (95-98) L 09/29/16 08:00 PT/INR, D-dimer PT 27.1 Seconds (9.4-12.1) H 09/29/16 05:57 Consult Discharge Plan - Plan Referrals: Ruby Cano, PLANNING MANAGER [Primary Care Provider] -
[2016-09-30] MEDS: hydrALAZINE 25 MG TABLET PO SCH ×3 (00:07→17:35)
[2016-09-30 05:02] LABS: Basophils % 0.3 %; Eosinophils # 0.3 K/mcL (0.0-0.6); Eosinophils % 3.8 %; Hematocrit 28.6 % (37.5-50.1); Hemoglobin 8.7 g/dL (12.9-16.9); Immature Granulocytes % 0.4 % (0-4); Lymphocytes # 1.1 K/mcL (0.6-4.6); Lymphocytes % 15.9 %; Mean Corpuscular HGB Conc 30.4 g/dL (31.6-35.5); Mean Corpuscular Hemoglobin 28.4 pg (28.0-33.3); Mean Corpuscular Volume 93.5 fL (83.0-100.0); Mean Platelet Volume 10.3 fL (9.4-12.4); Monocytes # 0.7 K/mcL (0.0-1.3); Monocytes % 9.2 %; Platelet Count 218 K/mcL (140-400); Red Blood Count 3.06 M/mcL (4.19-5.50); Red Cell Distribution Width 14.7 % (11.5-14.5); Segmented Neutrophils % 70.4 %
[2016-09-30 05:06] LABS: INR 1.8
[2016-09-30 05:08] LABS: Activated Partial Thrombo Time 42.1 Seconds (26.0-36.0)
[2016-09-30 05:13] LABS: Potassium 4.1 mEq/L (3.5-4.5)
[2016-09-30] MEDS: Insulin NPH/REG 70/30 100 UNIT/ML (x5UNIT) SQ SCH ×2 (11:11→17:35)
[2016-09-30] MEDS: amLODIPine 5 MG TABLET PO SCH (11:11)
[2016-09-30] MEDS: hydroCHLOROthiazide 25 MG TABLET PO SCH (11:11)
[2016-09-30] MEDS: Furosemide 20 MG/2 ML VIAL IVP SCH ×2 (11:11→22:05)
[2016-09-30] MEDS: *HR* HYDROcodone/Acet 5/325 mg TABLET PO PRN ×3 (11:17→22:05)
[2016-09-30] MEDS ORDERED: *HR* Warfarin 5 MG TABLET PO ONE (18:00)
--- NOTE | 2016-09-30 18:15 | Internal Med Progress Note ---
Date of Encounter: 09/30/16 Time of Encounter: 18:13 - Assessment and plan (1) Chest pain Current Visit: Yes Status: Acute Assessment and plan: 09/28/16 -Chest pain that is exceptional and resolves with rest -Extensive PMH. -Trop 0.2 x 2. CXR shows no acute process, -ECHO LVEF 60% with Severely dilated Left Atrium. BMP <300. With BMP <500, CHF less likely on differential. However, patient has pitting edema and ECHO abnormality and symptoms are improving with current treatment. -PE on differential, However, patient HR <90, O2 stats >95, patient INR 3.6. Wont get D-dimer because creatinine 2.0 and level will most likely be elevated regardless. -Leukocytosis resolved, no fever, chills. Not concern for pneumonia. Plan -Continue current treatment including laxis. Monitor Cr. -Continue Bipap, and O2 NC 09/29/2016 no chest pain will continue present treatment. 09/30/2016 no more chest pain will continue present treatment. Qualifiers: Chest pain type: unspecified Qualified Code(s): R07.9 - Chest pain, unspecified (2) CHF (congestive heart failure) Current Visit: Yes Status: Acute Assessment and plan: multifactorial will continue present treatment Qualifiers: Congestive heart failure type: diastolic Congestive heart failure chronicity: chronic Qualified Code(s): I50.32 - Chronic diastolic (congestive ) heart failure (3) CKD (chronic kidney disease) stage 3, GFR 30-59 ml/min Current Visit: No Status: Acute Assessment and plan: base line around 1.6 will observe (4) Hypertension Current Visit: Yes Status: Chronic Assessment and plan: -Spoke with patient personally. Per his PCP and other health acute care occupational therapist , patient has permissive HTN. His bloodpressure should not be lower than 140/x. Blood pressure 220/x is acceptable. If lower than 140/x, patient begins to become symptomatic-dizzy, headache, syncope. Plan -Will resume home medication and allow permissive HTN. Qualifiers: Hypertension type: essential hypertension Qualified Code(s): I10 - Essential (primary) hypertension - Subjective Interval history: seen and examined no new complaints results of ABG and overnight Oxygen saturation noted. 09/30/2016 seen and examined. possible home tomorrow after approval of DME - Constitutional Vitals: Temp Pulse Resp BP Pulse Ox 97.9 F 61 18 171/79 95 09/30/16 16:13 09/30/16 16:13 09/30/16 16:13 09/30/16 16:13 09/30/16 16:13 General appearance: Present: cooperative, A&O X 3, morbidly obese, pleasant, no acute distress, answers questions appropriately - Head Head exam: Present: atraumatic, normocephalic - Eye Eye exam: Present: PERRL, conjuntiva pink, sclera anicteric Pupils: Present: PERRL - Neck Neck exam general surgery: Present: supple, trachea midline. Absent: lymphadenopathy - Respiratory Respiratory exam: Present: CTAB. Absent: accessory muscle use, rales, rhonchi, wheezes - Cardiovascular Cardiovascular exam: Present: RRR, +S1, +S2. Absent: diastolic murmur, gallop, rubs, systolic murmur - GI/Abdominal GI/Abdominal exam: Present: normal bowel sounds, soft, no peritoneal signs. Absent: distended, tenderness - Extremities Exam Extremities exam: Present: warm, radial pulses palpable and symetrical. Absent : calf tenderness, cyanotic, pedal edema - Neurological Exam Neurological exam: Present: CN II-XII intact, oriented X3, no focal deficits. Absent: pronater drift, facial droop, speech deficit - Skin Skin exam: Present: dry, intact Internal Medicine: Result - Labs CBC & Chem 7: 09/30/16 04:39 09/30/16 04:39 Labs: Short CBC 09/30/16 Range/Units 04:39 WBC 7.2 (4.3-11.1) K/mcL Hgb 8.7 L (12.9-16.9) g/dL Hct 28.6 L (37.5-50.1) % Plt Count 218 (140-400) K/mcL Neutrophils # 5.0 (1.6-8.9) K/mcL BMP 09/30/16 04:39 Sodium 142 Potassium 4.1 Chloride 102 Carbon Dioxide 31 H BUN 43 H Creatinine 2.18 H Glucose 196 H Calcium 9.0 - ABG Interpretation ABG results: ABG ABG pH 7.47 pH Units (7.32-7.45) H 09/29/16 08:00 ABG pCO2 46 mmHg (35-45) H 09/29/16 08:00 ABG pO2 40 mmHg (85-104) L* 09/29/16 08:00 ABG O2 Saturation 79 % (95-98) L 09/29/16 08:00 PT/INR, D-dimer PT 20.0 Seconds (9.4-12.1) H 09/30/16 04:39 Consult Discharge Plan - Plan Referrals: Ruby Cano, PRODUCT DESIGN SPECIALIST [Primary Care Provider] -
[2016-10-01] MEDS: hydrALAZINE 25 MG TABLET PO SCH ×3 (00:58→17:42)
[2016-10-01 04:48] LABS: Basophils % 0.4 %; Eosinophils # 0.3 K/mcL (0.0-0.6); Eosinophils % 3.3 %; Hematocrit 30.8 % (37.5-50.1); Hemoglobin 9.2 g/dL (12.9-16.9); Immature Granulocytes % 0.4 % (0-4); Lymphocytes # 1.2 K/mcL (0.6-4.6); Lymphocytes % 13.5 %; Mean Corpuscular HGB Conc 29.9 g/dL (31.6-35.5); Mean Corpuscular Hemoglobin 27.7 pg (28.0-33.3); Mean Corpuscular Volume 92.8 fL (83.0-100.0); Mean Platelet Volume 10.1 fL (9.4-12.4); Monocytes # 0.7 K/mcL (0.0-1.3); Neutrophils # 6.9 K/mcL (1.6-8.9); Platelet Count 251 K/mcL (140-400); Red Blood Count 3.32 M/mcL (4.19-5.50); Red Cell Distribution Width 14.6 % (11.5-14.5); Segmented Neutrophils % 74.4 %
[2016-10-01 05:05] LABS: Calcium 9.2 mg/dL (8.6-10.8); Potassium 4.1 mEq/L (3.5-4.5)
[2016-10-01 05:06] LABS: INR 1.6; Prothrombin Time 17.5 Seconds (9.4-12.1)
[2016-10-01 05:09] LABS: Activated Partial Thrombo Time 39.1 Seconds (26.0-36.0)
--- NOTE | 2016-10-01 07:03 | Discharge Summary ---
<AmadoNapoleon Sreekanth - Last Filed: 10/01/16 12:04> Date of Encounter: 10/01/16 Time of Encounter: 09:00 - Discharge Diagnosis (1) Chest pain Status: Acute Qualifiers: Chest pain type: unspecified Qualified Code(s): R07.9 - Chest pain, unspecified (2) CHF (congestive heart failure) Status: Acute Qualifiers: Congestive heart failure type: diastolic Congestive heart failure chronicity: chronic Qualified Code(s): I50.32 - Chronic diastolic (congestive ) heart failure (3) CKD (chronic kidney disease) stage 3, GFR 30-59 ml/min Status: Acute (4) Morbid obesity with BMI of 45.0-49.9, adult Status: Chronic (5) Obstructive sleep apnea Status: Chronic (6) On anticoagulant therapy Status: Acute (7) Diabetes Status: Chronic Qualifiers: Diabetes mellitus type: type 2 Diabetes mellitus complication status: with kidney complications Diabetes mellitus complication detail: with chronic kidney disease Diabetes mellitus terminal carman insulin use: with nursing home use Chronic kidney disease stage: stage 3 (moderate) Qualified Code(s): E11.22 - Type 2 diabetes mellitus with diabetic chronic kidney disease; N18.3 - Chronic kidney disease, stage 3 (moderate); Z79.4 - terminal supervisor (current) use of insulin (8) Hypertension Status: Chronic Qualifiers: Hypertension type: essential hypertension Qualified Code(s): I10 - Essential (primary) hypertension (9) COPD (chronic obstructive pulmonary disease) Status: Chronic Comments: -Patient is stable. -Will need home oxygen Qualifiers: COPD type: emphysema Emphysema type: panlobular Qualified Code(s): J43.1 - Panlobular emphysema - Discharge Medications Home Medications: Amlodipine Besylate 10 mg PO DAILY 05/16/16 [History] Carvedilol [Coreg] 25 mg PO BID 05/16/16 [History] Duloxetine [Cymbalta] 30 mg PO QPM 05/16/16 [History] Duloxetine [Cymbalta] 60 mg PO QAM 05/16/16 [History] GlipiZIDE [Glipizide] 10 mg PO DAILY 05/16/16 [History] HYDROcodone/Acet 5/325 mg [Crockett 5-325 mg] 1 tab PO TID PRN 05/16/16 [History] Insulin NPH Hum/Reg Insulin Hm [Novolin 70-30 100 Unit/ml Vial] 55 unit SQ BID 05/16/16 [History] Pravastatin Sodium [Pravachol] 80 mg PO DAILY 05/16/16 [History] Warfarin [Coumadin] 6 mg PO QPM 05/22/16 [History] Hydrochlorothiazide 50 mg PO DAILY #30 tablet 05/23/16 [Rx] HydrALAZINE 50 mg PO Q8HR #60 tab 07/31/16 [Rx] Furosemide [Lasix] 40 mg PO BID 09/27/16 [History] Losartan Potassium [Cozaar] 100 mg PO DAILY 09/27/16 [History] Allergies/Adverse Reactions: Allergies acetaminophen [From Percocet] Allergy (Verified 05/22/16 17:15) Hives Oxycodone [From Percocet] Allergy (Verified 05/22/16 17:15) Hives tetanus immune globulin Allergy (Verified 05/22/16 17:15) Anaphylaxis Date of admission: 09/29/16 15:22 Primary care physician: Ruby Cano CNP Discharging clinician: Napoleon Fiscehr Anticipated date of discharge: 10/01/16 - Patient Status Disposition: Home, Self-Care Condition: Good Functional capacity at discharge: independent ambulation Overall status at discharge: patient is back to baseline - Discharge Instructions Instructions: Heart Failure (DC), Chest Pain (DC), Dyspnea (GEN), Heart Failure , Maintenance Job Titles (GEN) Follow Up With: Ruby Cano CNP [Primary Care Provider] - 10/05/16 10:10 am (CHF exacerbation. ECHO showed Severely Dialated Left atrium. Patient didn't want cardiology followup at this time. ) Additional Instructions: Please followup with PCP in next 4-5 days. Return to the ED to be evaluated if you have new or worsening symptoms. - Diet and Activity Activity: increase activity as tolerated Diet: diabetic diet, low salt diet Hospital course: Mr. Hernandez is a 61 year old male who was admitted for shortness of breath/CHF exacerbation and chest pain. EKG unchanged, troponin negative, echo showed LVEF 60-65% with severe dilated left atrium. cxr showed CHF. Patient placed on BIpap , lasixs. Throughout the hospital course, patients condition improved. Discussed results with patient, particularly his ECHO showing severely dilated L atrium and creatinine elevatoion (2.0). patient has CKD, uncontrolled DM, and permissive HTN >180/100. Prior hospital admissions show elevated creatinine, so I feel like this is not an acute process that the patient would need to stay admitted for. Patient does not wish to have a refractory technician followup, did see Dr. Najera previously. Patient denies SOB, CP, cough, fever, nausea, vomiting or trouble with his bowels. Resting comfortably in bed and on room air. Patient would like to go home and feels like he is back to his baseline. Nutrition/ adult educator has come and talked to the patient at bedside. Patient does not wish to have home health. - Time Spent with Patient Total time spent providing and/or coordinating discharge services: Greater than 30 minutes - Constitutional Vitals: Temp Pulse Resp BP Pulse Ox 97.3 F L 65 18 188/86 94 L 10/01/16 04:00 10/01/16 04:00 10/01/16 04:00 10/01/16 04:00 10/01/16 06:41 General appearance: Present: cooperative, A&O X 3, morbidly obese, pleasant, no acute distress, answers questions appropriately - Head Head exam: Present: atraumatic, normocephalic - Eye Eye exam: Present: PERRL, conjuntiva pink, sclera anicteric Pupils: Present: PERRL Additional comments: Lazy eye. Chronic condition. - Neck Neck exam general surgery: Present: supple, trachea midline. Absent: lymphadenopathy - Respiratory Respiratory exam: Present: CTAB. Absent: accessory muscle use, rales, rhonchi, wheezes - Cardiovascular Cardiovascular exam: Present: diastolic murmur, gallop, RRR, +S1, +S2. Absent: rubs - GI/Abdominal GI/Abdominal exam: Present: normal bowel sounds, soft, no peritoneal signs. Absent: distended, tenderness - Extremities Exam Extremities exam: Present: warm, radial pulses palpable and symetrical. Absent : calf tenderness, cyanotic, pedal edema - Neurological Exam Neurological exam: Present: CN II-XII intact, oriented X3, no focal deficits. Absent: pronater drift, facial droop, speech deficit - Skin Skin exam: Present: dry, intact <Penny,Ashutosh P - Last Filed: 10/01/16 18:40> Date of Encounter: 10/01/16 - Discharge Diagnosis (1) Chest pain Priority: Primary Status: Acute Qualifiers: Chest pain type: unspecified Qualified Code(s): R07.9 - Chest pain, unspecified (2) CHF (congestive heart failure) Priority: Primary Status: Acute Qualifiers: Congestive heart failure type: diastolic Congestive heart failure chronicity: chronic Qualified Code(s): I50.32 - Chronic diastolic (congestive ) heart failure (3) CKD (chronic kidney disease) stage 3, GFR 30-59 ml/min Priority: Secondary Status: Acute (4) Hypertension Priority: Secondary Status: Chronic Qualifiers: Hypertension type: essential hypertension Qualified Code(s): I10 - Essential (primary) hypertension Date of admission: 09/29/16 15:22 Primary care physician: Ruby Cano CNP Consults: 10/01/16 07:29 Consult to Nutrition [CONS] Routine Comment: Consulting Provider: NUTRITION Reason for Dietary Consult: Diet Education Other:: Patient wants advice on eating healthier with his health history before d/c Hospital course: Mr. Hernandez is a 61 year old male - Time Spent with Patient Total time spent providing and/or coordinating discharge services: - Constitutional Vitals: Temp Pulse Resp BP Pulse Ox 98.2 F 61 14 184/89 94 L 10/01/16 15:16 10/01/16 15:16 10/01/16 15:16 10/01/16 15:16 10/01/16 06:41 - Attending Attestation I examined this patient and my medical decision-making was reviewed with the ENVIRONMENTAL COMPLIANCE INSPECTOR/PA/Advanced Practice Nurse/Resident Physician. I agree with the documented findings, disposition and treatment plan as described except to the extent set forth below.
[2016-10-01] MEDS: amLODIPine 5 MG TABLET PO SCH (08:45)
[2016-10-01] MEDS: *HR* HYDROcodone/Acet 5/325 mg TABLET PO PRN ×2 (08:45→17:42)
[2016-10-01] MEDS: Insulin NPH/REG 70/30 100 UNIT/ML (x5UNIT) SQ SCH ×2 (08:45→17:22)
[2016-10-01] MEDS: hydroCHLOROthiazide 25 MG TABLET PO SCH (08:45)
[2016-10-01] MEDS: Furosemide 20 MG/2 ML VIAL IVP SCH (08:45)
[2016-10-01 15:20] VITALS: BP 184/89
[2016-10-01] MEDS ORDERED: *HR* Warfarin 3 MG TABLET PO ONE (18:00)
== END 2016-10-01 18:11 | disposition home or self-care (01) | DRG 291 ==
LOC: 2NENU 17:22 → EMEROO 17:22 → 2NENU 20:45
PROVIDERS: ADMIT Internal Medicine; ATTEND Internal Medicine

== ENCOUNTER 2017-12-03 14:07 | Inpatient (IN) ==
[2017-12-03] MEDS ORDERED: Furosemide 40 MG/4 ML VIAL IVP ONE (14:32)
[2017-12-03] MEDS ORDERED: Nitroglycerin 0.4 MG TAB.SUBL SL PRN (14:33)
--- NOTE | 2017-12-03 14:39 | Emergency Department Note ---
Disposition Clinical Impression: Acute exacerbation of CHF (congestive heart failure) Disposition: Admitted As Inpatient Condition: Critical Referrals: Ruby Cano CNP [Primary Care Provider] - Forms: ED Satisfaction Letter Time of Disposition: 16:29 SOB HPI - General Chief Complaint: ED Shortness of Breath/Dyspnea Stated Complaint: FABI Time Seen by Provider: 12/03/17 14:20 Source: patient Limitations: no limitations Nursing Notes Reviewed: Yes Vital Signs Reviewed: Yes - History of Present Illness Mr. Hernandez, a 62-year-old male, presents from home for evaluation of dyspnea. Onset gradual over the last 2 days when he stopped taking all his medications as he did not feel up to taking any medications. Patient states, "it is my CHF. " He notes progressive dyspnea. Worse with laying flat, worse with light exertion. Associated dry cough. No fevers or chills. No nausea or vomiting. Patient has not noticed any increase in pedal edema. No chest pains or diaphoresis. No unusual weakness. No hematochezia, melena chronic secondary to iron supplement. Patient has history of COPD secondary to remote PE; no current anticoagulation. He uses no home oxygen. CKD not on dialysis, follows with Dr. Raul Loredo. 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 Hypertension, insulin-dependent type 2 diabetes (has not been taking his insulin ). Iron deficient anemia on iron supplement. Approximately 2 weeks ago had a colonoscopy with a "bleeding spot" that was cauterized. - Related Data Home Medications Medication Instructions Recorded Confirmed Carvedilol [Coreg] 25 mg PO BID 05/16/16 12/03/17 DULoxetine [Cymbalta] 30 mg PO QPM 05/16/16 10/14/17 DULoxetine [Cymbalta] 60 mg PO QAM 05/16/16 12/03/17 HYDROcodone/Acet 5/325 mg [[place] 1 tab PO TID PRN 05/16/16 12/03/17 5-325 mg] Insulin NPH Hum/Reg Insulin Hm 55 unit SQ BID 05/16/16 12/03/17 [Novolin 70-30 100 Unit/ml Vial] glipiZIDE [Glipizide] 10 mg PO DAILY 05/16/16 12/03/17 Furosemide [Lasix] 80 mg PO BID 09/27/16 12/03/17 Ferrous Sulfate [Iron] 325 mg PO BID 08/07/17 12/03/17 NIFEdipine XL (24 HR) [Procardia 60 mg PO BID 08/07/17 12/03/17 XL] hydrALAZINE [HydrALAZINE] 25 mg PO TID 08/07/17 12/03/17 Losartan Potassium [Cozaar] 50 mg PO DAILY 12/03/17 12/03/17 Pravastatin Sodium [Pravachol] 40 mg PO BID 12/03/17 Allergies Allergy/AdvReac Type Severity Reaction Status Date / Time acetaminophen [From Percocet] Allergy Hives Verified 09/04/17 09:46 gabapentin Allergy Itching Verified 10/14/17 14:22 Oxycodone [From Percocet] Allergy Hives Verified 09/04/17 09:46 tetanus immune globulin Allergy Anaphylaxis Verified 09/04/17 09:46 All systems ED: reviewed and negative except as stated. Review of Systems: As Per HPI Past Medical History - Past Medical History Medical history: Reports: CHF, COPD, diabetes, hypertension, renal disease, other Surgical history: Reports: non-contributory, other Psychiatric history: Reports: anxiety, depression, other - Social History Smoking Status: Never smoker Smokeless Tobacco Status: Yes Alcohol use: Reports: none Drug use: Reports: none Physical Exam Vital Signs Reviewed General: Patient is alert, oriented, and in acute respiratory distress-dyspneic on 4 L nasal cannula, dyspnea worse when transitioning from chair to bed. Head: atraumatic, normocephalic Eye: normal appearance, PERRL, EOMI, no scleral icterus, no conjunctival injection ENT: mucous membranes moist, normal external ear exam Neck: normal inspection, trachea midline, full ROM. Chest: normal inspection, symmetric chest rise. Diminished global breath sounds , sparse wheezing bibasliar crackles. Respiratory: Good respiratory effort. Bilateral breath sounds are clear without wheezing, crackles, or rhonchi. Cardiovascular: Regular rate and rhythm. No clicks, rubs, gallops, or murmors. Normal heart sounds. Abdomen: Bowel sounds present normoactive x-4 quadrants. Abdomen is soft, nondistended, and nontender. No guarding or rebound. Unable to assess organomegaly secondary to patient's body habitus-obese abdomen. Musculoskeletal: Spontaneously moving all extremities. Skin: Pale. warm, dry, intact. Neuro: Alert and oriented x4. Sensation light touch intact. Psych: Patient's affect is appropriate for situation. - General Limitations: no limitations General appearance: alert Course Course Narrative: Patient's history and physical exam are concerning for congestive heart failure. Last cardiac echo was September 2016: LVEF 60%. Chest x-ray shows bilateral interstitial edema consistent with CHF. Patient's symptoms did improve with BiPAP in subacromial nitroglycerin. Will begin nitroglycerin drip. He remains hypertensive; will continue to monitor. He does have elevated BNP. Additionally, his troponin slightly elevated at 0.05. No acute ischemic changes on EKG. Will provide aspirin. This is also in the context of chronic kidney disease with creatinine 2.88 which is below his baseline normal. Clinically suspect demand ischemia in the setting of his acute exacerbation of congestive heart failure. I discussed the patient with the admitting hospitalist, Dr. Burns, who prefers the patient be admitted to the ICU. Discussed the patient with the admitting elementary school music teacher, Dr. Sin, who agrees to accept the patient for continued evaluation and management. Vital Signs Temperature 98.3 F 12/03/17 14:10 Pulse Rate 88 12/03/17 14:10 Respiratory Rate 18 12/03/17 14:10 Blood Pressure 227/98 12/03/17 14:10 O2 Sat by Pulse Oximetry 70 12/03/17 14:10 Temperature 98.3 F 12/03/17 14:10 Pulse Rate 80 12/03/17 16:10 Respiratory Rate 16 12/03/17 16:10 Blood Pressure 206/109 12/03/17 16:10 O2 Sat by Pulse Oximetry 96 12/03/17 16:10 Oxygen Delivery Oxygen Delivery Bipap Shortness of Breath/Dyspnea - Lab Data Result diagrams: 12/03/17 14:36 12/03/17 14:36 Lab Results 12/03/17 12/03/17 12/03/17 Range/Units 14:36 14:36 14:36 WBC 13.3 H (4.3-11.1) K/mcL RBC 3.07 L (4.19-5.50) M/mcL Hgb 8.8 L (12.9-16.9) g/dL Hct 28.6 L (37.5-50.1) % MCV 93.2 (83.0-100.0) fL MCH 28.7 (28.0-33.3) pg MCHC 30.8 L (31.6-35.5) g/dL RDW 14.9 H (11.5-14.5) % Plt Count 245 (140-400) K/mcL MPV 9.8 (9.4-12.4) fL Immature Gran % 0.5 (0-4) % Seg Neutrophils % 87.0 % Lymphocytes % 4.5 % Monocytes % 6.1 % Eosinophils % 1.5 % Basophils % 0.4 % Neutrophils # 11.6 H (1.6-8.9) K/mcL Lymphocytes # 0.6 (0.6-4.6) K/mcL Monocytes # 0.8 (0.0-1.3) K/mcL Eosinophils # 0.2 (0.0-0.6) K/mcL Basophils # 0.1 (0.0-0.2) K/mcL Sample Site ABG pH (7.32-7.45) pH Units ABG pCO2 (35-45) mmHg ABG pO2 (85-104) mmHg ABG HCO3 (21-27) mEq/L ABG Total CO2 (20-26) mEq/L ABG O2 Saturation (95-98) % ABG Base Excess (-2 to 3) mEq/L Angelo Test O2 Delivery Device Blood Gas Modality Inspired O2 (1-15=lpm [id number]=%) Sodium 141 (136-145) mEq/L Potassium 4.0 (3.5-5.1) mEq/L Chloride 107 (98-107) mEq/L Carbon Dioxide 20 L (23-29) mEq/L BUN 53 H (8-23) mg/dL Creatinine 2.88 H (0.70-1.30) mg/dL Est GFR ( Amer) 27 L (> 60) Est GFR (Non-Af Amer) 22 L (> 60) BUN/Creatinine Ratio 18 (6-26) Glucose 193 H (70-105) mg/dL Calculated Osmolality 312 H (280-300) Calcium 9.5 (8.6-10.3) mg/dL Troponin I 0.05 H* (< 0.04) ng/mL B-Natriuretic Peptide 457 H (Less than 100) pg/mL 04/10/18 Range/Units 16:09 WBC (4.3-11.1) K/mcL RBC (4.19-5.50) M/mcL Hgb (12.9-16.9) g/dL Hct (37.5-50.1) % MCV (83.0-100.0) fL MCH (28.0-33.3) pg MCHC (31.6-35.5) g/dL RDW (11.5-14.5) % Plt Count (140-400) K/mcL MPV (9.4-12.4) fL Immature Gran % (0-4) % Seg Neutrophils % % Lymphocytes % % Monocytes % % Eosinophils % % Basophils % % Neutrophils # (1.6-8.9) K/mcL Lymphocytes # (0.6-4.6) K/mcL Monocytes # (0.0-1.3) K/mcL Eosinophils # (0.0-0.6) K/mcL Basophils # (0.0-0.2) K/mcL Sample Site R Radial ABG pH 7.35 (7.32-7.45) pH Units ABG pCO2 44 (35-45) mmHg ABG pO2 76 L (85-104) mmHg ABG HCO3 24 (21-27) mEq/L ABG Total CO2 26 (20-26) mEq/L ABG O2 Saturation 94 L (95-98) % ABG Base Excess -1 (-2 to 3) mEq/L Angelo Test N/A O2 Delivery Device BiPAP Blood Gas Modality BiLevel Inspired O2 35.0 (1-15=lpm [id number]=%) Sodium (136-145) mEq/L Potassium (3.5-5.1) mEq/L Chloride (98-107) mEq/L Carbon Dioxide (23-29) mEq/L BUN (8-23) mg/dL Creatinine (0.70-1.30) mg/dL Est GFR ( Amer) (> 60) Est GFR (Non-Af Amer) (> 60) BUN/Creatinine Ratio (6-26) Glucose (70-105) mg/dL Calculated Osmolality (280-300) Calcium (8.6-10.3) mg/dL Troponin I (< 0.04) ng/mL B-Natriuretic Peptide (Less than 100) pg/mL
[2017-12-03 14:52] LABS: Basophils # 0.1 K/mcL (0.0-0.2); Basophils % 0.4 %; Eosinophils # 0.2 K/mcL (0.0-0.6); Eosinophils % 1.5 %; Hematocrit 28.6 % (37.5-50.1); Hemoglobin 8.8 g/dL (12.9-16.9); Immature Granulocytes % 0.5 % (0-4); Lymphocytes # 0.6 K/mcL (0.6-4.6); Lymphocytes % 4.5 %; Mean Corpuscular HGB Conc 30.8 g/dL (31.6-35.5); Mean Corpuscular Hemoglobin 28.7 pg (28.0-33.3); Mean Corpuscular Volume 93.2 fL (83.0-100.0); Mean Platelet Volume 9.8 fL (9.4-12.4); Monocytes # 0.8 K/mcL (0.0-1.3); Monocytes % 6.1 %; Neutrophils # 11.6 K/mcL (1.6-8.9); Platelet Count 245 K/mcL (140-400); Red Blood Count 3.07 M/mcL (4.19-5.50); Red Cell Distribution Width 14.9 % (11.5-14.5)
[2017-12-03 15:19] LABS: Calcium 9.5 mg/dL (8.6-10.3)
[2017-12-03 15:21] LABS: Troponin I 0.05 ng/mL (< 0.04)
[2017-12-03] MEDS: Nitroglycerin 25 MG/250 ML INFUS..BTL IVC SCH ×2 (15:48→21:20)
[2017-12-03] MEDS ORDERED: Aspirin 81 MG TAB.CHEW PO ONE (15:54)
[2017-12-03 16:18] LABS: ABG Base Excess -1 mEq/L (-2 to 3); ABG HCO3 24 mEq/L (21-27); ABG Oxygen Saturation 94 % (95-98); ABG PCO2 44 mmHg (35-45); ABG PH 7.35 pH Units (7.32-7.45); ABG PO2 76 mmHg (85-104); ABG TCO2 26 mEq/L (20-26); Blood Gas Modality BiLevel
[2017-12-03] MEDS ORDERED: Naloxone 0.4 MG/ML INJ IVP PRN (16:35)
[2017-12-03] MEDS ORDERED: Acetaminophen 325 MG TABLET PO PRN (16:35)
--- NOTE | 2017-12-03 16:48 | Pulmonology History & Physical ---
<Bala Crowe - Last Filed: 12/03/17 17:14> Date of Encounter: 12/03/17 Time of Encounter: 16:44 Assessment and Plan (1) Hypertensive crisis Current visit: Yes Status: Acute Patient presents with systolic blood pressures >200 systolic with evidence of acute heart failure with resultant pleural effusions and elevated troponin. Suspect secondary to noncompliance with antihypertensive regimen. EKG reviewed without ischemic features. Continue nitroglycerin infusion with goal systolic blood pressure of 160. Resume home antihypertensive medications. Continue serial troponin levels Q6H Consider changing to Cardene infusion if no improvement with nitroglycerin. (2) Acute exacerbation of CHF (congestive heart failure) Current visit: Yes Status: Acute As evident by elevated BNP, elevated troponin as well as chest x-ray demonstrating pulmonary vascular congestion and bilateral effusions. Again likely secondary to medication noncompliance. Previous echo reviewed. Echo: 2016 Impressions: LVEF 60-65%. This was a limited echocardiogram with contrast to evaluate LV function. Left Ventricle * LVEF 60-65%. * Normal LV chamber size and function. * Mild concentric left ventricular hypertrophy. Plan to continue preload reduction with nitroglycerin infusion as well as resumption of home Lasix regimen 80 mg twice daily. Repeat echocardiogram for assessment of ejection fraction and function. Qualifiers: Heart failure type: unspecified Qualified Code(s): I50.9 - Heart failure, unspecified (3) Acute respiratory failure Current visit: Yes Status: Acute Likely secondary to acute exacerbation of congestive heart failure. Necessitated BiPAP initiation in the emergency department. Settings of 14/8 with 35% FiO2. Wean as tolerated to nasal cannula. Qualifiers: Respiratory failure complication: unspecified whether with hypoxia or hypercapnia Qualified Code(s): J96.00 - Acute respiratory failure, unspecified whether with hypoxia or hypercapnia (4) Anemia Current visit: No Status: Acute Prior history of iron deficiency anemia followed previously by oncology Hemoglobin of 8.8 upon admission. Type and screen. Transfuse if less than 8. Resume iron supplementation. CBC daily. Qualifiers: Anemia type: iron deficiency Iron deficiency anemia type: unspecified iron deficiency Qualified Code(s): D50.9 - Iron deficiency anemia, unspecified (5) Renal insufficiency Current visit: No Status: Acute Baseline history of renal insufficiency followed with nephrology. Creatinine 2.88 on presentation. Electrolytes within normal limits. Avoid nephrotoxic agents. Daily BMP. (6) COPD (chronic obstructive pulmonary disease) Current visit: No Status: Chronic BiPAP at night as needed and tolerated. Qualifiers: COPD type: emphysema Emphysema type: panlobular Qualified Code(s): J43.1 - Panlobular emphysema (7) Diabetes Current visit: No Status: Chronic Glucose 193 on arrival. Resume home insulin regimen. Accu-Chek every 6 hours. 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 Prior history of noncompliance. History of Present Illness Chief complaint: Shortness of breath HPI: Mr. Hernandez is a 62 year old male with a past medical history of COPD, obstructive sleep apnea with noncompliance with his BiPAP, congestive heart failure, renal insufficiency, GERD, prior DVT and pulmonary embolism previously on anticoagulation who presented to the ED on 12/03/17 with a chief complaint of shortness of breath. Patient reports he has been noncompliant with his medications for the last 2 days. During this time he has noticed increasing shortness of breath more noted with exertion or with laying flat. He reports that he does wear oxygen at home by nasal cannula as needed usually more in the morning and afternoon. He remarks over the last few days that it has been increasingly difficult to do any of his usual activities. No recent illnesses. He denies any fevers chest pain nausea vomiting or diarrhea. He does report a nonproductive cough. He has not noted any weight gain or swelling in his legs outside of his usual. Reports that he saw his emergency veterinarian last week and everything was okay from a kidney standpoint. He denies any recent admissions to any health care facilities. Denies a prior history requiring dialysis. He was previously on Coumadin for multiple DVTs and pulmonary embolism but was stopped due to bleeding. No other complaints. Past Med Surg Social Fam HX - Past Medical History Attestation: Yes The following information was validated with the patient. Source: patient Medical history: CHF, COPD, diabetes, hypertension, renal disease, other Psychiatric history: anxiety, depression, other - Past Surgical History Surgical History: non-contributory, other - Social History Smoking Status: Never smoker Smokeless Tobacco Status: Yes Alcohol use: none Drug use: none - Family History Mother Adopted: No Family Member Ethnicity: Non- Living Status: Hx Family Cardiac Disorders: Yes (HTN; Aneurysm) Brother Hx Family Cardiac Disorders: Yes (HTN) Hx Family Endocrine Disorder: Yes (DM-2) Medications and Allergies Carvedilol [Coreg] 25 mg PO BID 05/16/16 [History] DULoxetine [Cymbalta] 30 mg PO QPM 05/16/16 [History] DULoxetine [Cymbalta] 60 mg PO QAM 05/16/16 [History] HYDROcodone/Acet 5/325 mg [[place] 5-325 mg] 1 tab PO TID PRN 05/16/16 [History] Insulin NPH Hum/Reg Insulin Hm [Novolin 70-30 100 Unit/ml Vial] 55 unit SQ BID 05/16/16 [History] glipiZIDE [Glipizide] 10 mg PO DAILY 05/16/16 [History] Furosemide [Lasix] 80 mg PO BID 09/27/16 [History] Ferrous Sulfate [Iron] 325 mg PO BID 08/07/17 [History] NIFEdipine XL (24 HR) [Procardia XL] 60 mg PO BID 08/07/17 [History] hydrALAZINE [HydrALAZINE] 25 mg PO TID 08/07/17 [History] Losartan Potassium [Cozaar] 50 mg PO DAILY 12/03/17 [History] Pravastatin Sodium [Pravachol] 40 mg PO BID 12/03/17 [History] 3 Allergy/AdvReac Type Severity Reaction Status Date / Time acetaminophen [From Percocet] Allergy Hives Verified 09/04/17 09:46 gabapentin Allergy Itching Verified 10/14/17 14:22 Oxycodone [From Percocet] Allergy Hives Verified 09/04/17 09:46 tetanus immune globulin Allergy Anaphylaxis Verified 09/04/17 09:46 All Systems: The remainder of the systems were reviewed and are negative - Constitutional Constitutional: as per HPI - EENT Eyes: as per HPI Ears: as per HPI Nose, mouth and throat: as per HPI - Cardiovascular Cardiovascular: as per HPI - Respiratory Respiratory: as per HPI - Gastrointestinal Gastrointestinal: as per HPI - Genitourinary Genitourinary: as per HPI - Integumentary Integumentary: as per HPI - Neurological Neurological: as per HPI Physical Examination Vital Signs: Vital Signs, Last 4 Hours Temp Pulse Resp BP Pulse Ox 12/03/17 16:10 80 16 206/109 96 12/03/17 15:45 79 18 233/114 97 12/03/17 15:00 80 18 258/144 97 12/03/17 14:42 22 95 12/03/17 14:10 98.3 F 88 18 227/98 70 General appearance: no acute distress Eyes: nonicteric Neck: supple Effort: other (Currently on BiPAP. 08/04 at 35% FiO2. His breathing is unlabored. He is clear to auscultation with diminishment in the bases.) Inspection: normal Cardiovascular: regular rate and rhythm Gastrointestinal: normoactive bowel sounds, soft, non-tender Integumentary: normal Extremities: no cyanosis, other (1+ bilateral lower extremity pitting edema) Musculoskeletal: no deformities normal mental status, non-focal exam mood appropriate Results - Laboratory Findings CBC and BMP: 12/03/17 14:36 12/03/17 14:36 ABG ABG pH 7.35 pH Units (7.32-7.45) 12/03/17 16:09 ABG pCO2 44 mmHg (35-45) 12/03/17 16:09 ABG pO2 76 mmHg (85-104) L 12/03/17 16:09 ABG O2 Saturation 94 % (95-98) L 12/03/17 16:09 Abnormal lab findings: Abnormal lab results WBC 13.3 K/mcL (4.3-11.1) H 12/03/17 14:36 RBC 3.07 M/mcL (4.19-5.50) L 12/03/17 14:36 Hgb 8.8 g/dL (12.9-16.9) L 12/03/17 14:36 Hct 28.6 % (37.5-50.1) L 12/03/17 14:36 MCHC 30.8 g/dL (31.6-35.5) L 12/03/17 14:36 RDW 14.9 % (11.5-14.5) H 12/03/17 14:36 Neutrophils # 11.6 K/mcL (1.6-8.9) H 12/03/17 14:36 ABG pO2 76 mmHg (85-104) L 12/03/17 16:09 ABG O2 Saturation 94 % (95-98) L 12/03/17 16:09 Carbon Dioxide 20 mEq/L (23-29) L 12/03/17 14:36 BUN 53 mg/dL (8-23) H 12/03/17 14:36 Creatinine 2.88 mg/dL (0.70-1.30) H 12/03/17 14:36 Est GFR ( Amer) 27 (> 60) L 12/03/17 14:36 Est GFR (Non-Af Amer) 22 (> 60) L 12/03/17 14:36 Glucose 193 mg/dL (70-105) H 12/03/17 14:36 Calculated Osmolality 312 (280-300) H 12/03/17 14:36 Troponin I 0.05 ng/mL (< 0.04) H* 12/03/17 14:36 B-Natriuretic Peptide 457 pg/mL (Less than 100) H 12/03/17 14:36 - Diagnostic Findings Chest x-ray: report reviewed, image reviewed <Jemma Sin - Last Filed: 12/03/17 21:27> Date of Encounter: 12/03/17 History of Present Illness HPI: Mr. Hernandez is a 62 year old male All Systems: The remainder of the systems were reviewed and are negative Results - Laboratory Findings CBC and BMP: 12/03/17 14:36 12/03/17 14:36 ABG ABG pH 7.35 pH Units (7.32-7.45) 12/03/17 16:09 ABG pCO2 44 mmHg (35-45) 12/03/17 16:09 ABG pO2 76 mmHg (85-104) L 12/03/17 16:09 ABG O2 Saturation 94 % (95-98) L 12/03/17 16:09 Abnormal lab findings: Abnormal lab results WBC 13.3 K/mcL (4.3-11.1) H 12/03/17 14:36 RBC 3.07 M/mcL (4.19-5.50) L 12/03/17 14:36 Hgb 8.8 g/dL (12.9-16.9) L 12/03/17 14:36 Hct 28.6 % (37.5-50.1) L 12/03/17 14:36 MCHC 30.8 g/dL (31.6-35.5) L 12/03/17 14:36 RDW 14.9 % (11.5-14.5) H 12/03/17 14:36 Neutrophils # 11.6 K/mcL (1.6-8.9) H 12/03/17 14:36 ABG pO2 76 mmHg (85-104) L 12/03/17 16:09 ABG O2 Saturation 94 % (95-98) L 12/03/17 16:09 Carbon Dioxide 20 mEq/L (23-29) L 12/03/17 14:36 BUN 53 mg/dL (8-23) H 12/03/17 14:36 Creatinine 2.88 mg/dL (0.70-1.30) H 12/03/17 14:36 Est GFR ( Amer) 27 (> 60) L 12/03/17 14:36 Est GFR (Non-Af Amer) 22 (> 60) L 12/03/17 14:36 Glucose 193 mg/dL (70-105) H 12/03/17 14:36 Calculated Osmolality 312 (280-300) H 12/03/17 14:36 Troponin I 0.05 ng/mL (< 0.04) H* 12/03/17 14:36 B-Natriuretic Peptide 457 pg/mL (Less than 100) H 12/03/17 14:36 - Attending Attestation I examined this patient and my medical decision-making was reviewed with the Resident Physician. I agree with the documented findings, disposition and treatment plan as described except to the extent set forth below. I was called by ER physician to evaluate this patient in the ER and I have found patient sick looking patient on NIV and he is hypertensive. Patient started to feel slightly better with current treatment. In short he is 62 year male non-compliant with his treatment and have hypertensive crises. Patient seen and examined. Labs, radiology, chart personally reviewed. 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 Patient with NIV and diuresis, I expect he will feel better. Patient is not compliant with his treatment for his sleep-disordered breathing and advised him to follow up as outpatient when his discharged from hospital. Cardiovascular: Hypertensive crises and suspect acute/chronic diastolic heart failure. GI: Nutrition per dietary and GI prophylaxis per routine Heme: DVT prophylaxis per routine ID: Continue antibiotics and plan to de-escalation Renal; urine out put and renal funtion reviewed. May need nephrology consult. Endorcine: blood glucose is monitored Lines: all lines checked and no evidence of infections Skin: skin care to prevent pressure ulcers per nursing routine care I spent 35 min of Critical Care time with this patient. It involved decision making of high complexity to assess, manipulate, and support vital organ system failure and/or to prevent further life threatening deterioration of the patient' s condition. The time involved in the performance of separately reportable procedures was not counted toward critical care time.
--- NOTE | 2017-12-03 17:52 | Emergency Department Note ---
Disposition Clinical Impression: Acute exacerbation of CHF (congestive heart failure) Qualifiers: Heart failure type: unspecified Qualified Code(s): I50.9 - Heart failure, unspecified Disposition: Admitted As Inpatient Condition: Critical Referrals: Ruby Cano CNP [Primary Care Provider] - SOB HPI - General Chief Complaint: ED Shortness of Breath/Dyspnea Stated Complaint: FABI Time Seen by Provider: 12/03/17 14:20 Source: patient Limitations: no limitations Nursing Notes Reviewed: Yes Vital Signs Reviewed: Yes - Related Data Home Medications Medication Instructions Recorded Confirmed Carvedilol [Coreg] 25 mg PO BID 05/16/16 12/03/17 DULoxetine [Cymbalta] 30 mg PO QPM 05/16/16 10/14/17 DULoxetine [Cymbalta] 60 mg PO QAM 05/16/16 12/03/17 HYDROcodone/Acet 5/325 mg [[place] 1 tab PO TID PRN 05/16/16 12/03/17 5-325 mg] Insulin NPH Hum/Reg Insulin Hm 55 unit SQ BID 05/16/16 12/03/17 [Novolin 70-30 100 Unit/ml Vial] glipiZIDE [Glipizide] 10 mg PO DAILY 05/16/16 12/03/17 Furosemide [Lasix] 80 mg PO BID 09/27/16 12/03/17 Ferrous Sulfate [Iron] 325 mg PO BID 08/07/17 12/03/17 NIFEdipine XL (24 HR) [Procardia 60 mg PO BID 08/07/17 12/03/17 XL] hydrALAZINE [HydrALAZINE] 25 mg PO TID 08/07/17 12/03/17 Losartan Potassium [Cozaar] 50 mg PO DAILY 12/03/17 12/03/17 Pravastatin Sodium [Pravachol] 40 mg PO BID 12/03/17 Allergies Allergy/AdvReac Type Severity Reaction Status Date / Time acetaminophen [From Percocet] Allergy Hives Verified 09/04/17 09:46 gabapentin Allergy Itching Verified 10/14/17 14:22 Oxycodone [From Percocet] Allergy Hives Verified 09/04/17 09:46 tetanus immune globulin Allergy Anaphylaxis Verified 09/04/17 09:46 Past Medical History - Past Medical History Medical history: Reports: arthritis, CHF, COPD, DVT, diabetes, hypertension, myocardial infarction, pulmonary embolus, renal disease, other Surgical history: Reports: non-contributory, other Psychiatric history: Reports: anxiety, depression, other - Social History Smoking Status: Never smoker Smokeless Tobacco Status: Yes Alcohol use: Reports: none Drug use: Reports: none Physical Exam - General Limitations: no limitations General appearance: alert Course Vital Signs Temperature 98.3 F 12/03/17 14:10 Pulse Rate 88 12/03/17 14:10 Respiratory Rate 18 12/03/17 14:10 Blood Pressure 227/98 12/03/17 14:10 O2 Sat by Pulse Oximetry 70 12/03/17 14:10 Temperature 98.3 F 12/03/17 14:10 Pulse Rate 80 12/03/17 16:10 Respiratory Rate 17 12/03/17 17:17 Blood Pressure 231/99 12/03/17 17:17 O2 Sat by Pulse Oximetry 99 12/03/17 17:38 Oxygen Delivery Oxygen Delivery Bipap Shortness of Breath/Dyspnea - Lab Data Result diagrams: 12/03/17 14:36 12/03/17 14:36 Lab Results 12/03/17 12/03/17 12/03/17 Range/Units 14:36 14:36 14:36 WBC 13.3 H (4.3-11.1) K/mcL RBC 3.07 L (4.19-5.50) M/mcL Hgb 8.8 L (12.9-16.9) g/dL Hct 28.6 L (37.5-50.1) % MCV 93.2 (83.0-100.0) fL MCH 28.7 (28.0-33.3) pg MCHC 30.8 L (31.6-35.5) g/dL RDW 14.9 H (11.5-14.5) % Plt Count 245 (140-400) K/mcL MPV 9.8 (9.4-12.4) fL Immature Gran % 0.5 (0-4) % Seg Neutrophils % 87.0 % Lymphocytes % 4.5 % Monocytes % 6.1 % Eosinophils % 1.5 % Basophils % 0.4 % Neutrophils # 11.6 H (1.6-8.9) K/mcL Lymphocytes # 0.6 (0.6-4.6) K/mcL Monocytes # 0.8 (0.0-1.3) K/mcL Eosinophils # 0.2 (0.0-0.6) K/mcL Basophils # 0.1 (0.0-0.2) K/mcL Sample Site ABG pH (7.32-7.45) pH Units ABG pCO2 (35-45) mmHg ABG pO2 (85-104) mmHg ABG HCO3 (21-27) mEq/L ABG Total CO2 (20-26) mEq/L ABG O2 Saturation (95-98) % ABG Base Excess (-2 to 3) mEq/L Angelo Test O2 Delivery Device Blood Gas Modality Inspired O2 (1-15=lpm [id number]=%) Sodium 141 (136-145) mEq/L Potassium 4.0 (3.5-5.1) mEq/L Chloride 107 (98-107) mEq/L Carbon Dioxide 20 L (23-29) mEq/L BUN 53 H (8-23) mg/dL Creatinine 2.88 H (0.70-1.30) mg/dL Est GFR ( Amer) 27 L (> 60) Est GFR (Non-Af Amer) 22 L (> 60) BUN/Creatinine Ratio 18 (6-26) Glucose 193 H (70-105) mg/dL POC Glucose (70-99) mg/dL Calculated Osmolality 312 H (280-300) Calcium 9.5 (8.6-10.3) mg/dL Troponin I 0.05 H* (< 0.04) ng/mL B-Natriuretic Peptide 457 H (Less than 100) pg/mL Blood Type Antibody Screen 12/03/17 12/03/17 12/03/17 Range/Units 16:09 16:45 16:45 WBC (4.3-11.1) K/mcL RBC (4.19-5.50) M/mcL Hgb (12.9-16.9) g/dL Hct (37.5-50.1) % MCV (83.0-100.0) fL MCH (28.0-33.3) pg MCHC (31.6-35.5) g/dL RDW (11.5-14.5) % Plt Count (140-400) K/mcL MPV (9.4-12.4) fL Immature Gran % (0-4) % Seg Neutrophils % % Lymphocytes % % Monocytes % % Eosinophils % % Basophils % % Neutrophils # (1.6-8.9) K/mcL Lymphocytes # (0.6-4.6) K/mcL Monocytes # (0.0-1.3) K/mcL Eosinophils # (0.0-0.6) K/mcL Basophils # (0.0-0.2) K/mcL Sample Site R Radial ABG pH 7.35 (7.32-7.45) pH Units ABG pCO2 44 (35-45) mmHg ABG pO2 76 L (85-104) mmHg ABG HCO3 24 (21-27) mEq/L ABG Total CO2 26 (20-26) mEq/L ABG O2 Saturation 94 L (95-98) % ABG Base Excess -1 (-2 to 3) mEq/L Angelo Test N/A O2 Delivery Device BiPAP Blood Gas Modality BiLevel Inspired O2 35.0 (1-15=lpm [id number]=%) Sodium (136-145) mEq/L Potassium (3.5-5.1) mEq/L Chloride (98-107) mEq/L Carbon Dioxide (23-29) mEq/L BUN (8-23) mg/dL Creatinine (0.70-1.30) mg/dL Est GFR ( Amer) (> 60) Est GFR (Non-Af Amer) (> 60) BUN/Creatinine Ratio (6-26) Glucose (70-105) mg/dL POC Glucose (70-99) mg/dL Calculated Osmolality (280-300) Calcium (8.6-10.3) mg/dL Troponin I 0.05 H* (< 0.04) ng/mL B-Natriuretic Peptide (Less than 100) pg/mL Blood Type A NEGATIVE Antibody Screen NEGATIVE 12/03/17 Range/Units 17:23 WBC (4.3-11.1) K/mcL RBC (4.19-5.50) M/mcL Hgb (12.9-16.9) g/dL Hct (37.5-50.1) % MCV (83.0-100.0) fL MCH (28.0-33.3) pg MCHC (31.6-35.5) g/dL RDW (11.5-14.5) % Plt Count (140-400) K/mcL MPV (9.4-12.4) fL Immature Gran % (0-4) % Seg Neutrophils % % Lymphocytes % % Monocytes % % Eosinophils % % Basophils % % Neutrophils # (1.6-8.9) K/mcL Lymphocytes # (0.6-4.6) K/mcL Monocytes # (0.0-1.3) K/mcL Eosinophils # (0.0-0.6) K/mcL Basophils # (0.0-0.2) K/mcL Sample Site ABG pH (7.32-7.45) pH Units ABG pCO2 (35-45) mmHg ABG pO2 (85-104) mmHg ABG HCO3 (21-27) mEq/L ABG Total CO2 (20-26) mEq/L ABG O2 Saturation (95-98) % ABG Base Excess (-2 to 3) mEq/L Angelo Test O2 Delivery Device Blood Gas Modality Inspired O2 (1-15=lpm [id number]=%) Sodium (136-145) mEq/L Potassium (3.5-5.1) mEq/L Chloride (98-107) mEq/L Carbon Dioxide (23-29) mEq/L BUN (8-23) mg/dL Creatinine (0.70-1.30) mg/dL Est GFR ( Amer) (> 60) Est GFR (Non-Af Amer) (> 60) BUN/Creatinine Ratio (6-26) Glucose (70-105) mg/dL POC Glucose 188 H (70-99) mg/dL Calculated Osmolality (280-300) Calcium (8.6-10.3) mg/dL Troponin I (< 0.04) ng/mL B-Natriuretic Peptide (Less than 100) pg/mL Blood Type Antibody Screen Attestation Statement - Attestation Attestation: I, Pete Schwartz, examined this patient and my medical decision-making was reviewed with the MAGENTO DEVELOPER/PA/Advanced Practice Nurse/Resident Physician. I agree with the documented findings, disposition and treatment plan as described except to the extent set forth below. 62-year-old male presents emergency Department with concerns of difficulty in breathing has been worsening over the past 5 days. Patient has increased swelling in his bilateral lower extremities. This feels similar to his previous CHF exacerbations. Patient neglected to take his medications over the past 3-4 days per the . Patient denies any fever, chills, nausea, vomiting. Patient hypoxic on initial evaluation. Patient improved significantly with BiPAP. Patient given nitroglycerin for elevated BP in the setting of acute congestive heart failure. He was then started on nitro drip. Patient resting comfortably prior to admission to the ICU
[2017-12-03] MEDS: *HR* Heparin 5,000 UNIT/ML VIAL SQ SCH (19:02)
[2017-12-03] MEDS: hydrALAZINE 25 MG TABLET PO SCH (19:40)
[2017-12-03] MEDS: Furosemide 40 MG TABLET PO SCH (19:40)
[2017-12-03] MEDS: NIFEdipine XL (24 HR) 60 MG TAB.ER.24 PO SCH (19:40)
[2017-12-03] MEDS: Insulin NPH/REG 70/30 100 UNIT/ML (x5UNIT) SQ SCH (21:20)
[2017-12-03] MEDS: niCARdipine 40 MG/200 ML MLS IVC SCH (23:21)
[2017-12-04] MEDS: *HR* HYDROcodone/Acet 5/325 mg TABLET PO PRN ×3 (02:40→15:57)
[2017-12-04] MEDS ORDERED: *HR* Dextrose 50 % in Water (Syg) 50 ML SYRINGE ONE (03:12)
[2017-12-04] MEDS ORDERED: *HR* Dextrose 50 % in Water (Syg) 50 ML SYRINGE IVP PRN (03:24)
[2017-12-04] MEDS ORDERED: D5% in Water 1,000 ML IVC PRN (03:24)
[2017-12-04] MEDS ORDERED: Dextrose Gel 15 GM/37.5 ML TUBE PO PRN ×2 (03:24)
[2017-12-04 03:41] LABS: Basophils % 0.5 %; Eosinophils # 0.4 K/mcL (0.0-0.6); Hematocrit 23.6 % (37.5-50.1); Hemoglobin 7.3 g/dL (12.9-16.9); Immature Granulocytes % 0.5 % (0-4); Lymphocytes # 0.8 K/mcL (0.6-4.6); Mean Corpuscular HGB Conc 30.9 g/dL (31.6-35.5); Mean Corpuscular Hemoglobin 28.4 pg (28.0-33.3); Mean Corpuscular Volume 91.8 fL (83.0-100.0); Mean Platelet Volume 10.3 fL (9.4-12.4); Monocytes # 0.9 K/mcL (0.0-1.3); Monocytes % 10.4 %; Neutrophils # 6.6 K/mcL (1.6-8.9); Platelet Count 231 K/mcL (140-400); Red Blood Count 2.57 M/mcL (4.19-5.50); Red Cell Distribution Width 14.8 % (11.5-14.5); Segmented Neutrophils % 75.6 %
[2017-12-04 03:51] LABS: Troponin I 0.07 ng/mL (< 0.04)
[2017-12-04] MEDS: *HR* Heparin 5,000 UNIT/ML VIAL SQ SCH ×2 (06:51→18:07)
[2017-12-04] MEDS: niCARdipine 40 MG/200 ML MLS IVC SCH ×3 (06:58→23:20)
--- NOTE | 2017-12-04 07:21 | Pulmonology Progress Note ---
<Bala Crowe - Last Filed: 12/04/17 11:10> Date of Encounter: 12/04/17 Time of Encounter: 07:21 Assessment and Plan (1) Hypertensive crisis Current Visit: Yes Status: Acute Patient presented with systolic blood pressures >200 systolic with evidence of acute heart failure with resultant pleural effusions and elevated troponin. Suspect secondary to noncompliance with antihypertensive regimen. EKG reviewed without ischemic features. Blood pressure has improved with systolic less than 160. We will hold nitroglycerin infusion at this time and wean nicardipine. Consultation to nephrology for hypertension management. On home antihypertensive medication regimen with the exception of his ARB (2) Acute exacerbation of CHF (congestive heart failure) Current Visit: Yes Status: Acute As evident by elevated BNP, elevated troponin as well as chest x-ray demonstrating pulmonary vascular congestion and bilateral effusions. Again likely secondary to medication noncompliance. Previous echo reviewed. Echo: 2016 Impressions: LVEF 60-65%. This was a limited echocardiogram with contrast to evaluate LV function. Left Ventricle * LVEF 60-65%. * Normal LV chamber size and function. * Mild concentric left ventricular hypertrophy. Continue home Lasix 80 mg twice daily Repeat echocardiogram for assessment of ejection fraction and function. Qualifiers: Heart failure type: unspecified Qualified Code(s): I50.9 - Heart failure, unspecified (3) Acute respiratory failure Current Visit: Yes Status: Acute Likely secondary to acute exacerbation of congestive heart failure. Necessitated BiPAP initiation in the emergency department. Weaned to nasal cannula on 12/03/17 at 5 L Qualifiers: Respiratory failure complication: unspecified whether with hypoxia or hypercapnia Qualified Code(s): J96.00 - Acute respiratory failure, unspecified whether with hypoxia or hypercapnia (4) Anemia Current Visit: No Status: Acute Prior history of iron deficiency anemia followed previously by oncology Hemoglobin of 8.8 upon admission. Repeat hemoglobin of 7.3 this morning. Will send a repeat H&H this morning. Type and screen. Continue iron supplementation. CBC daily. Qualifiers: Anemia type: iron deficiency Iron deficiency anemia type: unspecified iron deficiency Qualified Code(s): D50.9 - Iron deficiency anemia, unspecified (5) Renal insufficiency Current Visit: No Status: Acute Baseline history of renal insufficiency followed with nephrology. Creatinine 2.88 on presentation. Up to 3.06 Consult to nephrology Electrolytes within normal limits. Avoid nephrotoxic agents. Daily BMP. (6) COPD (chronic obstructive pulmonary disease) Current Visit: No Status: Chronic BiPAP at night as needed and tolerated. Qualifiers: COPD type: emphysema Emphysema type: panlobular Qualified Code(s): J43.1 - Panlobular emphysema (7) Diabetes Current Visit: No Status: Chronic Glucose 193 on arrival. Patient was hypoglycemic overnight requiring D50. His renal function is slightly worse than yesterday with hypoglycemia likely secondary to decreased clearance of glipizide. Plan to stop NPH and glipizide and start sliding scale insulin. Qualifiers: Diabetes mellitus type: type 2 Diabetes mellitus penitentiary insulin use: with penitentiary use Diabetes mellitus complication status: with kidney complications Diabetes mellitus complication detail: with chronic kidney disease Chronic kidney disease stage: stage 3 (moderate) Qualified Code(s): E11.22 - Type 2 diabetes mellitus with diabetic chronic kidney disease; N18.3 - Chronic kidney disease, stage 3 (moderate); N18.3 - Chronic kidney disease, stage 3 (moderate); Z79.4 - half-way (current) use of insulin; Z79.4 - half-way (current) use of insulin; Z79.4 - half-way (current) use of insulin; Z79.4 - half-way (current) use of insulin (8) Obstructive sleep apnea Current Visit: No Status: Chronic BiPAP at night as tolerated. Prior history of noncompliance. Subjective Principal diagnosis: Hypertensive crisis, acute CHF exacerbation Interval history: Admitted to the ICU on 12/03/17 secondary to acute hypertensive crisis precipitating congestive heart failure exacerbation. Overnight nicardipine infusion was initiated with an appropriate response. Patient able to weaned from BiPAP to nasal cannula 5 L. Appears improved this morning and remarks that his shortness of breath has improved. Noted to have a hemoglobin of 7.3 this morning down from 8.8. Objective PUL Vital signs: Last Vital Signs Temp 98.5 F 12/04/17 05:30 Pulse 59 12/04/17 06:00 Resp 16 12/04/17 06:00 BP 141/71 12/04/17 06:00 Pulse Ox 94 12/04/17 06:00 General appearance: no acute distress Eyes: nonicteric ENT: oropharynx moist Neck: supple Effort: normal Auscultation: bilateral: diminished breath sounds Cardiovascular: regular rate and rhythm Gastrointestinal: soft, non-tender, non-distended Integumentary: normal Extremities: no cyanosis, edema (Scant lower extremity pitting edema) Musculoskeletal: no deformities normal mental status mood appropriate, affect normal Results - Laboratory Findings CBC and BMP: 12/04/17 10:15 12/04/17 02:48 ABG ABG pH 7.35 pH Units (7.32-7.45) 12/03/17 16:09 ABG pCO2 44 mmHg (35-45) 12/03/17 16:09 ABG pO2 76 mmHg (85-104) L 12/03/17 16:09 ABG O2 Saturation 94 % (95-98) L 12/03/17 16:09 Abnormal lab findings: Abnormal lab results RBC 2.57 M/mcL (4.19-5.50) L 12/04/17 02:48 Hgb 7.3 g/dL (12.9-16.9) L D 12/04/17 02:48 Hct 23.6 % (37.5-50.1) L 12/04/17 02:48 MCHC 30.9 g/dL (31.6-35.5) L 12/04/17 02:48 RDW 14.8 % (11.5-14.5) H 12/04/17 02:48 ABG pO2 76 mmHg (85-104) L 12/03/17 16:09 ABG O2 Saturation 94 % (95-98) L 12/03/17 16:09 Carbon Dioxide 20 mEq/L (23-29) L 12/03/17 14:36 BUN 53 mg/dL (8-23) H 12/03/17 14:36 Creatinine 2.88 mg/dL (0.70-1.30) H 12/03/17 14:36 Est GFR ( Amer) 27 (> 60) L 12/03/17 14:36 Est GFR (Non-Af Amer) 22 (> 60) L 12/03/17 14:36 Glucose 193 mg/dL (70-105) H 12/03/17 14:36 Calculated Osmolality 312 (280-300) H 12/03/17 14:36 Troponin I 0.07 ng/mL (< 0.04) H* 12/04/17 02:48 B-Natriuretic Peptide 520 pg/mL (Less than 100) H 12/04/17 02:48 - Clinical Findings Intake & Output: Intake & Output 12/03/17 12/03/17 12/04/17 15:59 23:59 07:59 Intake Total 255 / 255 383 / 383 Output Total 575 / 575 150 / 150 Balance -320 / -320 233 / 233 Weight 133.6 kg - VTE Documentation of Mechanical Device: Graduated compression elastic hosiery Consult Discharge Plan - Plan Referrals: Ruby Cano, JOB MOLDER [Primary Care Provider] - <Jemma Sin - Last Filed: 12/04/17 13:10> Date of Encounter: 12/04/17 Objective PUL Vital signs: Last Vital Signs Temp 98.5 F 12/04/17 11:53 Pulse 60 12/04/17 11:43 Resp 18 12/04/17 11:00 BP 151/75 12/04/17 11:00 Pulse Ox 96 12/04/17 11:00 Results - Laboratory Findings CBC and BMP: 12/04/17 10:15 12/04/17 02:48 ABG ABG pH 7.35 pH Units (7.32-7.45) 12/03/17 16:09 ABG pCO2 44 mmHg (35-45) 12/03/17 16:09 ABG pO2 76 mmHg (85-104) L 12/03/17 16:09 ABG O2 Saturation 94 % (95-98) L 12/03/17 16:09 Abnormal lab findings: Abnormal lab results RBC 2.57 M/mcL (4.19-5.50) L 12/04/17 02:48 Hgb 7.4 g/dL (12.9-16.9) L 12/04/17 10:15 Hct 23.9 % (37.5-50.1) L 12/04/17 10:15 MCHC 30.9 g/dL (31.6-35.5) L 12/04/17 02:48 RDW 14.8 % (11.5-14.5) H 12/04/17 02:48 ABG pO2 76 mmHg (85-104) L 12/03/17 16:09 ABG O2 Saturation 94 % (95-98) L 12/03/17 16:09 Chloride 108 mEq/L (98-107) H 12/04/17 02:48 BUN 54 mg/dL (8-23) H 12/04/17 02:48 Creatinine 3.06 mg/dL (0.70-1.30) H 12/04/17 02:48 Est GFR ( Amer) 25 (> 60) L 12/04/17 02:48 Est GFR (Non-Af Amer) 21 (> 60) L 12/04/17 02:48 Glucose 49 mg/dL (70-105) L 12/04/17 02:48 POC Glucose 254 mg/dL (70-99) H 12/04/17 11:19 Calculated Osmolality 308 (280-300) H 12/04/17 02:48 Troponin I 0.07 ng/mL (< 0.04) H* 12/04/17 02:48 B-Natriuretic Peptide 520 pg/mL (Less than 100) H 12/04/17 02:48 - Clinical Findings Intake & Output: Intake & Output 12/03/17 12/04/17 12/04/17 23:59 07:59 15:59 Intake Total 255 / 255 432.5 / 432.5 606 / 606 Output Total 575 / 575 150 / 150 Balance -320 / -320 282.5 / 282.5 606 / 606 Weight 133.6 kg - Attending Attestation I examined this patient and my medical decision-making was reviewed with the Resident Physician. I agree with the documented findings, disposition and treatment plan as described except to the extent set forth below. Patient seen and examined. Labs, radiology, chart personally reviewed. Agree with resident's history and physical, assessment, plan with following comments: OFFICE SERVICES MANAGER: Patient follows commands, Pulmonary: Acceptable oxygenation and ventilation Cardiovascular: Hypertension is better and once completely wean off Cardene and nitroglycerin drip will consider transferring patient out of ICU. GI: Nutrition per dietary and GI prophylaxis per routine Heme: DVT prophylaxis per routine Renal; urine out put and renal funtion reviewed Endorcine: blood glucose is monitored Lines: all lines checked and no evidence of infections Skin: skin care to prevent pressure ulcers per nursing routine care
[2017-12-04 07:38] LABS: Calcium 8.9 mg/dL (8.6-10.3)
[2017-12-04] MEDS: Furosemide 40 MG TABLET PO SCH ×2 (08:54→20:33)
[2017-12-04] MEDS: NIFEdipine XL (24 HR) 60 MG TAB.ER.24 PO SCH ×2 (08:54→23:22)
[2017-12-04] MEDS: hydrALAZINE 25 MG TABLET PO SCH ×3 (08:54→20:34)
[2017-12-04] MEDS ORDERED: *HR* GlipiZIDE XL (24 HR) 10 MG TABLET PO SCH (09:00)
[2017-12-04 10:40] LABS: Hematocrit 23.9 % (37.5-50.1); Hemoglobin 7.4 g/dL (12.9-16.9)
[2017-12-04] MEDS: Insulin NPH/REG 70/30 100 UNIT/ML (x5UNIT) SQ SCH (10:47)
--- NOTE | 2017-12-04 11:46 | Nephrology Consult Note ---
Date of Encounter: 12/04/17 Time of Encounter: 11:44 Assessment and Plan (1) [id number] kidney injury Current Visit: No Status: Acute The patient is CKD stage IV with slight worsening of his creatinine that is likely secondary to hypertensive crisis. His chronic kidney disease is likely the result of both hypertension and diabetes. I will check a limited workup including a renal ultrasound. I am hopeful that his renal function returns to baseline. There is also the possibility that his rising creatinine is simply a progression of his underlying kidney disease. Adjust medications for renal function. Avoid nephrotoxins. Qualifiers: Qualified Code(s): N17.9 - Acute kidney failure, unspecified; N18.9 - Chronic kidney disease, unspecified; N18.9 - Chronic kidney disease, unspecified (2) Acute exacerbation of CHF (congestive heart failure) Current Visit: Yes Status: Acute Management per primary team. Respiratory status is improving. Awaiting echo to evaluate for diastolic dysfunction versus systolic dysfunction. Qualifiers: Heart failure type: unspecified Qualified Code(s): I50.9 - Heart failure, unspecified (3) Hypertensive crisis Current Visit: Yes Status: Acute Patient's hypertensive crisis may be secondary to nonadherence to medical therapy. Agree with aggressive control, but his blood pressure needs to be brought down slowly. At this time his symptoms seem to be improving and his blood pressure seems to be controlled although not ideal. Resume at Dr. Murguia's last appointment was controlled. (4) Anemia Current Visit: No Status: Acute Start folic acid. Continue iron supplementation. Check iron stores. Vitamin B12 levels seem normal. Monitor for bleeding. Qualifiers: Anemia type: iron deficiency Iron deficiency anemia type: unspecified iron deficiency Qualified Code(s): D50.9 - Iron deficiency anemia, unspecified (5) Acute respiratory failure Current Visit: Yes Status: Acute See CHF Qualifiers: Respiratory failure complication: unspecified whether with hypoxia or hypercapnia Qualified Code(s): J96.00 - Acute respiratory failure, unspecified whether with hypoxia or hypercapnia (6) Diabetes Current Visit: No Status: Chronic We will check hemoglobin A1c. Management per primary team. 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 Agree with aggressive control, but his blood pressure needs to be brought down slowly. At this time his symptoms seem to be improving and his blood pressure seems to be controlled although not ideal. Resume at Dr. Murguai's last appointment was controlled. Qualifiers: Hypertension type: essential hypertension Qualified Code(s): I10 - Essential (primary) hypertension (8) Hypercoagulable state Current Visit: Yes Status: Acute Per review of the oncology note the patient has a history of DVT in his legs and a pulmonary embolus, but his anticoagulation was discontinued secondary to concerns of bleeding. We will defer management to the primary team. Repeat lupus anticoagulant. (9) Obesity (BMI 30-39.9) Current Visit: Yes Status: Acute Outpatient management. History of Present Illness - Reason for Consult Consult date: 12/04/17 Acute Kidney Injury, Chronic Kidney Disease, accelerated hypertension - Chief Complaint GLORIA on CKD 4 and hypertension - History of Present Illness Mr. Hernandez is a 62 yo man with a history of CKD Stage [address] Murguia. He presents with dyspnea and accelerated hypertension. He was seen with his family in the ICU room at the time of evaluation. The patient reports that he thinks he missed a few days of his medications. At the time of evaluation he denies chest pain and states his breathing is improving. He denies any nausea or lower extremity swelling. He denies chest pain, he denies dysuria, he denies hematuria. Past Med Surg Social Fam HX - Past Medical History Medical history: arthritis, CHF, COPD, DVT, diabetes, hypertension, myocardial infarction, pulmonary embolus, renal disease, other Psychiatric history: anxiety, depression, other - Past Surgical History Surgical History: non-contributory, other - Social History Smoking Status: Never smoker Smokeless Tobacco Status: Yes Alcohol use: none Drug use: none - Family History Mother Adopted: No Family Member Ethnicity: Non- Living Status: Hx Family Cardiac Disorders: Yes Brother Hx Family Cardiac Disorders: Yes (HTN) Hx Family Endocrine Disorder: Yes (DM-2) Medications and Allergies Carvedilol [Coreg] 25 mg PO BID 05/16/16 [History] DULoxetine [Cymbalta] 30 mg PO QPM 05/16/16 [History] DULoxetine [Cymbalta] 60 mg PO QAM 05/16/16 [History] HYDROcodone/Acet 5/325 mg [[place] 5-325 mg] 1 tab PO TID PRN 05/16/16 [History] Insulin NPH Hum/Reg Insulin Hm [Novolin 70-30 100 Unit/ml Vial] 55 unit SQ BID 05/16/16 [History] glipiZIDE [Glipizide] 10 mg PO DAILY 05/16/16 [History] Furosemide [Lasix] 80 mg PO BID 09/27/16 [History] Ferrous Sulfate [Iron] 325 mg PO BID 08/07/17 [History] NIFEdipine XL (24 HR) [Procardia XL] 60 mg PO BID 08/07/17 [History] hydrALAZINE [HydrALAZINE] 25 mg PO TID 08/07/17 [History] Losartan Potassium [Cozaar] 50 mg PO DAILY 12/03/17 [History] Pravastatin Sodium [Pravachol] 40 mg PO BID 12/03/17 [History] 3 Allergy/AdvReac Type Severity Reaction Status Date / Time acetaminophen [From Percocet] Allergy Hives Verified 09/04/17 09:46 gabapentin Allergy Itching Verified 10/14/17 14:22 Oxycodone [From Percocet] Allergy Hives Verified 09/04/17 09:46 tetanus immune globulin Allergy Anaphylaxis Verified 09/04/17 09:46 Review of Systems All Systems: reviewed and no additional remarkable complaints except as stated ( As documented in the history of present illness) Exam - Vital Signs Vital signs: Initial Vital Signs Temp Pulse Resp BP Pulse Ox 98.3 F 88 18 227/98 70 12/03/17 14:10 12/03/17 14:10 12/03/17 14:10 12/03/17 14:10 12/03/17 14:10 Vital Signs - Last 8 Hours Temp Pulse Resp BP Pulse Ox 12/04/17 09:00 67 20 151/74 95 12/04/17 08:00 61 18 137/70 97 12/04/17 07:50 98.7 F 12/04/17 07:00 61 16 147/78 96 12/04/17 06:00 59 16 141/71 94 12/04/17 05:30 98.5 F 12/04/17 05:00 56 16 130/70 94 12/04/17 04:00 56 16 117/72 95 Intake and Output 12/03/17 12/04/17 12/04/17 23:59 07:59 15:59 Intake Total 255 / 255 432.5 / 432.5 606 / 606 Output Total 575 / 575 150 / 150 Balance -320 / -320 282.5 / 282.5 606 / 606 Intake: IV Fluids 255 / 255 432.5 / 432.5 6 / 6 Nitroglycerin Premix 25 MG/250 250 / 250 225 / 225 6 / 6 ML 25 mg In 250 ml @ 80 MCG/MIN 48 mls/hr IVC .Q5H13M [facility] Rx#: [id number] Cardene Premix 40mg/200ml 40 mg 5 / 5 207.5 / 207.5 In 200 ml @ 5 MG/HR 25 mls/hr IVC .Q8H [facility] Rx#:[id number] Oral 600 / 600 Output: Urine 575 / 575 150 / 150 Other: Meal Breakfast Percent of Meal Consumed 100% Weight 133.6 kg Blood Glucose* 250 100 Patient Weight 12/04/17 23:59 Weight 133.6 kg - General Appearance General appearance: well-developed, well-nourished EENT: ATNC Neck: supple Respiratory: clear, course breath sounds Cardiology: no edema, regular rate Gastrointestinal: no tenderness, obese Integumentary: warm and dry Neurologic: alert and oriented x3 Musculoskeletal: no cyanosis Psychiatric: mood/affect appropriate Results - Lab Results 12/04/17 10:15 12/04/17 02:48 Most recent lab results ABG pH 7.35 pH Units (7.32-7.45) 12/03/17 16:09 ABG pCO2 44 mmHg (35-45) 12/03/17 16:09 ABG pO2 76 mmHg (85-104) L 12/03/17 16:09 ABG HCO3 24 mEq/L (21-27) 12/03/17 16:09 ABG O2 Saturation 94 % (95-98) L 12/03/17 16:09 Calcium 8.9 mg/dL (8.6-10.3) 12/04/17 02:48 Consult Discharge Plan - Plan Referrals: Ruby Cano, EDUCATIONAL AUDIOLOGIST [Primary Care Provider] -
[2017-12-04] MEDS ORDERED: Insulin LISPRO 300 UNITS/3 ML VIAL SQ SCH (12:00)
[2017-12-04] MEDS: Insulin LISPRO 300 UNITS/3 ML VIAL SQ SCH ×3 (12:01→20:35)
[2017-12-04] MEDS: Folic Acid 1 MG TABLET PO SCH (12:33)
[2017-12-04 17:00] LABS: Chol/HDL Ratio 6.5 (0-4.9)
[2017-12-05] MEDS: *HR* HYDROcodone/Acet 5/325 mg TABLET PO PRN ×3 (01:28→15:19)
[2017-12-05 01:58] LABS: Bilirubin,Urine Negative (Negative); Blood,Urine Negative (Negative); Clarity,Urine Cloudy (Clear); Color,Urine Yellow (Yellow); Glucose,Urine (UA) 100 mg/dL (Normal); Ketones,Urine Negative (Negative); Leukocyte Esterase,Urine Negative (Negative); Nitrite,Urine Negative (Negative); PH,Urine 5.5 pH Units (5.0-8.0); Protein,Urine >=300 mg/dL (Neg-Trace); Specific Gravity,Urine 1.023 (1.010-1.025); Urobilinogen,Urine Normal (Normal)
[2017-12-05 02:01] LABS: Squamous Epithelial Cell,Urine Many per lpf (None-Few)
[2017-12-05 02:25] LABS: Bacteria,Urine Few per hpf (None-Few); Hyaline Casts,Urine Few per lpf (None-Few); Mucus,Urine Few (Few)
[2017-12-05 05:11] LABS: Basophils % 0.5 %; Eosinophils # 0.5 K/mcL (0.0-0.6); Eosinophils % 5.6 %; Hemoglobin 7.1 g/dL (12.9-16.9); Immature Granulocytes % 0.5 % (0-4); Lymphocytes # 0.7 K/mcL (0.6-4.6); Lymphocytes % 8.5 %; Mean Corpuscular HGB Conc 30.9 g/dL (31.6-35.5); Mean Corpuscular Hemoglobin 28.3 pg (28.0-33.3); Mean Corpuscular Volume 91.6 fL (83.0-100.0); Mean Platelet Volume 10.4 fL (9.4-12.4); Monocytes # 0.6 K/mcL (0.0-1.3); Monocytes % 7.4 %; Neutrophils # 6.7 K/mcL (1.6-8.9); Platelet Count 209 K/mcL (140-400); Red Blood Count 2.51 M/mcL (4.19-5.50); Red Cell Distribution Width 14.7 % (11.5-14.5); Segmented Neutrophils % 77.5 %
[2017-12-05 05:35] LABS: Calcium 8.8 mg/dL (8.6-10.3); Potassium 4.2 mEq/L (3.5-5.1)
[2017-12-05 05:36] LABS: Uric Acid 9.9 mg/dL (2.3-7.6)
[2017-12-05] MEDS: *HR* Heparin 5,000 UNIT/ML VIAL SQ SCH ×2 (06:07→16:43)
--- NOTE | 2017-12-05 06:53 | Pulmonology Progress Note ---
<HarriettJemma rios M - Last Filed: 12/05/17 09:05> Date of Encounter: 12/05/17 Objective PUL Vital signs: Last Vital Signs Temp 98.8 F 12/05/17 08:00 Pulse 65 12/05/17 08:00 Resp 20 12/05/17 08:00 BP 193/94 12/05/17 08:00 Pulse Ox 96 12/05/17 08:00 Results - Laboratory Findings CBC and BMP: 12/05/17 04:44 12/05/17 04:44 ABG ABG pH 7.35 pH Units (7.32-7.45) 12/03/17 16:09 ABG pCO2 44 mmHg (35-45) 12/03/17 16:09 ABG pO2 76 mmHg (85-104) L 12/03/17 16:09 ABG O2 Saturation 94 % (95-98) L 12/03/17 16:09 Abnormal lab findings: Abnormal lab results RBC 2.51 M/mcL (4.19-5.50) L 12/05/17 04:44 Hgb 7.1 g/dL (12.9-16.9) L 12/05/17 04:44 Hct 23.0 % (37.5-50.1) L 12/05/17 04:44 MCHC 30.9 g/dL (31.6-35.5) L 12/05/17 04:44 RDW 14.7 % (11.5-14.5) H 12/05/17 04:44 ABG pO2 76 mmHg (85-104) L 12/03/17 16:09 ABG O2 Saturation 94 % (95-98) L 12/03/17 16:09 BUN 67 mg/dL (8-23) H 12/05/17 04:44 Creatinine 3.83 mg/dL (0.70-1.30) H 12/05/17 04:44 Est GFR ( Amer) 19 (> 60) L 12/05/17 04:44 Est GFR (Non-Af Amer) 16 (> 60) L 12/05/17 04:44 Glucose 198 mg/dL (70-105) H 12/05/17 04:44 POC Glucose 188 mg/dL (70-99) H 12/05/17 07:39 Hemoglobin A1c 6.9 % (-5.6) H 12/05/17 04:44 Calculated Osmolality 311 (280-300) H 12/05/17 04:44 Uric Acid 9.9 mg/dL (2.3-7.6) H 12/05/17 04:44 Iron 24 mcg/dL (65-175) L 12/05/17 04:44 % Saturation 11 % (20-55) L 12/05/17 04:44 Transferrin 159 mg/dL (203-362) L 12/05/17 04:44 Ferritin 393 ng/ml (20-250) H 12/05/17 04:44 Troponin I 0.07 ng/mL (< 0.04) H* 12/04/17 02:48 B-Natriuretic Peptide 520 pg/mL (Less than 100) H 12/04/17 02:48 Triglycerides 152 mg/dL (< 150) H 12/04/17 16:27 LDL Cholesterol, Calc 125 mg/dL (0-99) H 12/04/17 16:27 HDL Cholesterol 28 mg/dL (40-59) L 12/04/17 16:27 Cholesterol/HDL Ratio 6.5 (0-4.9) H 12/04/17 16:27 Urine Clarity Cloudy (Clear) A 12/05/17 01:40 Urine Protein >=300 mg/dL (Neg-Trace) H 12/05/17 01:40 Urine Glucose (UA) 100 mg/dL (Normal) H 12/05/17 01:40 Urine Microscopic RBC 5-15 per hpf (0-3) H 12/05/17 01:40 Urine Microscopic WBC 5-15 per hpf (0-3) H 12/05/17 01:40 Ur Squamous Epith Cells Many per lpf (None-Few) H 12/05/17 01:40 - Clinical Findings Intake & Output: Intake & Output 12/04/17 12/05/17 12/05/17 23:59 07:59 15:59 Intake Total 720 / 720 0 / 0 Output Total 200 / 200 Balance 719 / 719 -200 / -200 Consult Discharge Plan - Plan Referrals: Ruby Cano, [employer] [Primary Care Provider] - - Attending Attestation I examined this patient and my medical decision-making was reviewed with the Resident Physician. I agree with the documented findings, disposition and treatment plan as described except to the extent set forth below. Patient seen and examined. Labs, radiology, chart personally reviewed. Agree with resident's history and physical, assessment, plan with following comments: EXPORT ADMINISTRATOR: Patient follows commands, Pulmonary: Acceptable oxygenation and ventilation Cardiovascular: Remain hypertensive and adjustment of his medication will be deferred to shank archer GI: Nutrition per dietary and GI prophylaxis per routine Heme: DVT prophylaxis per routine Renal; urine out put and renal funtion reviewed Endorcine: blood glucose is monitored Lines: all lines checked and no evidence of infections Skin: skin care to prevent pressure ulcers per nursing routine care Patient can be transferred to [facility]. <Bala Crowe - Last Filed: 12/05/17 10:38> Date of Encounter: 12/05/17 Time of Encounter: 07:22 Assessment and Plan (1) Hypertensive crisis Current Visit: Yes Status: Resolved Resolved Patient presented with systolic blood pressures >200 systolic with evidence of acute heart failure with resultant pleural effusions and elevated troponin. Suspect secondary to noncompliance with antihypertensive regimen. EKG reviewed without ischemic features. Off nicardipine and nitroglycerin infusions. Nephrology following On home antihypertensive medication regimen with the exception of his ARB (2) Acute exacerbation of CHF (congestive heart failure) Current Visit: Yes Status: Acute As evident by elevated BNP, elevated troponin as well as chest x-ray demonstrating pulmonary vascular congestion and bilateral effusions. Again likely secondary to medication noncompliance. Continue home Lasix 80 mg twice daily Echo 12/04: Impression: LVEF 60-65%. Mild concentric left ventricular hypertrophy. Moderate left ventricular diastolic dysfunction. Normal right ventricular structure and function. Mild mitral regurgitation. No pulmonary hypertension. Qualifiers: Heart failure type: unspecified Qualified Code(s): I50.9 - Heart failure, unspecified (3) Acute respiratory failure Current Visit: Yes Status: Acute Likely secondary to acute exacerbation of congestive heart failure. Necessitated BiPAP initiation in the emergency department. Weaned to nasal cannula on 12/03/17 at 5 L Qualifiers: Respiratory failure complication: unspecified whether with hypoxia or hypercapnia Qualified Code(s): J96.00 - Acute respiratory failure, unspecified whether with hypoxia or hypercapnia (4) Anemia Current Visit: No Status: Chronic Prior history of iron deficiency anemia followed previously by oncology Hemoglobin of 8.8 upon admission. Repeat hemoglobin of 7.1 this morning. No obvious bleeding. Type and screen. Continue iron supplementation. CBC daily. Qualifiers: Anemia type: iron deficiency Iron deficiency anemia type: unspecified iron deficiency Qualified Code(s): D50.9 - Iron deficiency anemia, unspecified (5) Acute kidney injury superimposed on chronic kidney disease Current Visit: Yes Status: Acute Baseline history of renal insufficiency followed with nephrology. Creatinine 2.88 on presentation. Up to 3.83 Retroperitoneal US 12/04: Unremarkable Consult to nephrology Electrolytes within normal limits. Avoid nephrotoxic agents. Daily BMP. (6) COPD (chronic obstructive pulmonary disease) Current Visit: No Status: Chronic BiPAP at night as needed and tolerated. Qualifiers: COPD type: emphysema Emphysema type: panlobular Qualified Code(s): J43.1 - Panlobular emphysema (7) Diabetes Current Visit: No Status: Chronic Glucose 193 on arrival. His renal function is slightly worse than yesterday Sliding scale insulin coverage. 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: with terminal computer operator use Diabetes mellitus complication status: with kidney complications Diabetes mellitus complication detail: with chronic kidney disease Chronic kidney disease stage: stage 3 (moderate) Qualified Code(s): E11.22 - Type 2 diabetes mellitus with diabetic chronic kidney disease; N18.3 - Chronic kidney disease, stage 3 (moderate); N18.3 - Chronic kidney disease, stage 3 (moderate); Z79.4 - retirement (current) use of insulin; Z79.4 - retirement (current) use of insulin; Z79.4 - medical 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 Prior history of noncompliance. (9) DVT prophylaxis Current Visit: No Status: Acute Heparin 5000U SubQ Q12H Subjective Principal diagnosis: Hypertensive crisis, acute CHF exacerbation Interval history: Admitted to the ICU on 12/03/17 secondary to acute hypertensive crisis precipitating congestive heart failure exacerbation. 12/05/17: No IV antihypertensives required overnight. Pressures did continue to slightly trend up at roughly 190/90. His Procardia was held due to concerns for bradycardia. Also noted to have slightly worsening renal function today. Nephrology evaluated the patient yesterday and we will follow up today. At the time of evaluation the patient reports no complaints. Objective PUL Vital signs: Last Vital Signs Temp 97.8 F 12/04/17 23:30 Pulse 64 12/05/17 05:52 Resp 18 12/05/17 04:00 BP 164/76 12/05/17 04:00 Pulse Ox 94 12/05/17 04:00 General appearance: no acute distress Eyes: nonicteric ENT: oropharynx moist Effort: normal Auscultation: bilateral: diminished breath sounds Cardiovascular: regular rate and rhythm Gastrointestinal: soft, non-tender, non-distended Integumentary: normal Extremities: no cyanosis Musculoskeletal: no deformities normal mental status mood appropriate, affect normal Results - Laboratory Findings CBC and BMP: 12/05/17 04:44 12/05/17 04:44 ABG ABG pH 7.35 pH Units (7.32-7.45) 12/03/17 16:09 ABG pCO2 44 mmHg (35-45) 12/03/17 16:09 ABG pO2 76 mmHg (85-104) L 12/03/17 16:09 ABG O2 Saturation 94 % (95-98) L 12/03/17 16:09 Abnormal lab findings: Abnormal lab results RBC 2.51 M/mcL (4.19-5.50) L 12/05/17 04:44 Hgb 7.1 g/dL (12.9-16.9) L 12/05/17 04:44 Hct 23.0 % (37.5-50.1) L 12/05/17 04:44 MCHC 30.9 g/dL (31.6-35.5) L 12/05/17 04:44 RDW 14.7 % (11.5-14.5) H 12/05/17 04:44 ABG pO2 76 mmHg (85-104) L 12/03/17 16:09 ABG O2 Saturation 94 % (95-98) L 12/03/17 16:09 BUN 67 mg/dL (8-23) H 12/05/17 04:44 Creatinine 3.83 mg/dL (0.70-1.30) H 12/05/17 04:44 Est GFR ( Amer) 19 (> 60) L 12/05/17 04:44 Est GFR (Non-Af Amer) 16 (> 60) L 12/05/17 04:44 Glucose 198 mg/dL (70-105) H 12/05/17 04:44 POC Glucose 155 mg/dL (70-99) H 12/04/17 20:25 Calculated Osmolality 311 (280-300) H 12/05/17 04:44 Uric Acid 9.9 mg/dL (2.3-7.6) H 12/05/17 04:44 Iron 24 mcg/dL (65-175) L 12/05/17 04:44 % Saturation 11 % (20-55) L 12/05/17 04:44 Transferrin 159 mg/dL (203-362) L 12/05/17 04:44 Ferritin 393 ng/ml (20-250) H 12/05/17 04:44 Troponin I 0.07 ng/mL (< 0.04) H* 12/04/17 02:48 B-Natriuretic Peptide 520 pg/mL (Less than 100) H 12/04/17 02:48 Triglycerides 152 mg/dL (< 150) H 12/04/17 16:27 LDL Cholesterol, Calc 125 mg/dL (0-99) H 12/04/17 16:27 HDL Cholesterol 28 mg/dL (40-59) L 12/04/17 16:27 Cholesterol/HDL Ratio 6.5 (0-4.9) H 12/04/17 16:27 Urine Clarity Cloudy (Clear) A 12/05/17 01:40 Urine Protein >=300 mg/dL (Neg-Trace) H 12/05/17 01:40 Urine Glucose (UA) 100 mg/dL (Normal) H 12/05/17 01:40 Urine Microscopic RBC 5-15 per hpf (0-3) H 12/05/17 01:40 Urine Microscopic WBC 5-15 per hpf (0-3) H 12/05/17 01:40 Ur Squamous Epith Cells Many per lpf (None-Few) H 12/05/17 01:40 - Clinical Findings Intake & Output: Intake & Output 12/04/17 12/04/17 12/05/17 15:59 23:59 07:59 Intake Total 1086 / 1086 720 / 720 0 / 0 Output Total 100 / 100 1 / 1 200 / 200 Balance 986 / 986 719 / 719 -200 / -200 - VTE Documentation of Mechanical Device: Graduated compression elastic hosiery
[2017-12-05] MEDS: niCARdipine 40 MG/200 ML MLS IVC SCH ×2 (07:27→14:36)
[2017-12-05] MEDS: NIFEdipine XL (24 HR) 60 MG TAB.ER.24 PO SCH ×2 (07:28→20:24)
[2017-12-05] MEDS: Folic Acid 1 MG TABLET PO SCH (07:28)
[2017-12-05] MEDS: Furosemide 40 MG TABLET PO SCH ×2 (07:28→20:23)
[2017-12-05] MEDS: hydrALAZINE 25 MG TABLET PO SCH ×3 (07:28→20:23)
[2017-12-05] MEDS: Insulin LISPRO 300 UNITS/3 ML VIAL SQ SCH ×3 (07:57→16:43)
[2017-12-05 08:59] LABS: Estimated Average Glucose 151 mg/dl; Hemoglobin A1C 6.9 %
[2017-12-05 10:08] LABS: Protein/Creatinine Ratio,Urine 2.22 mg/mg (0.00-0.20)
--- NOTE | 2017-12-05 10:58 | Nephrology Progress Note ---
Date of Encounter: 12/05/17 Time of Encounter: 10:52 - Assessment and Plan (1) [id number]-irqbzon kidney injury Current Visit: No Status: Acute Patient with acute on chronic kidney disease this is likely secondary to uncontrolled hypertension and now his blood pressure is at a lower level. At this time is unclear if his renal function will stabilize or we will continue to get worse. I did speak to him about the possibility of getting a renal biopsy secondary to nephrotic range proteinuria, worsening renal function , and a slightly abnormal lupus anticoagulant. The lupus anticoagulant has been repeated. I will allow permissive hypertension until his renal function stabilizes. At this time he does not need dialysis, but I did raise the issue in the event that his renal function continues to deteriorate. Avoid nephrotoxins and adjust medications for renal function. Will hold evening dose of furosemide. Qualifiers: Qualified Code(s): N17.9 - Acute kidney failure, unspecified; N18.9 - Chronic kidney disease, unspecified; N18.9 - Chronic kidney disease, unspecified (2) Acute exacerbation of CHF (congestive heart failure) Current Visit: Yes Status: Acute Echo reveals a preserved ejection fraction and diastolic dysfunction. Qualifiers: Heart failure type: unspecified Qualified Code(s): I50.9 - Heart failure, unspecified (3) Hypertensive crisis Current Visit: Yes Status: Resolved Patient presented with hypertensive crisis secondary to nonadherence to medical regimen. His blood pressures improved on his home medical regimen. (4) Anemia Current Visit: No Status: Chronic Patient with iron deficiency. We will start IV iron. We will also start Aranesp. Patient needs evaluation for iron deficiency anemia. This can be done inpatient or outpatient basis. Qualifiers: Anemia type: iron deficiency Iron deficiency anemia type: unspecified iron deficiency Qualified Code(s): D50.9 - Iron deficiency anemia, unspecified (5) Acute respiratory failure Current Visit: Yes Status: Acute Improving. Per primary team. Qualifiers: Respiratory failure complication: unspecified whether with hypoxia or hypercapnia Qualified Code(s): J96.00 - Acute respiratory failure, unspecified whether with hypoxia or hypercapnia (6) Diabetes Current Visit: No Status: Chronic Qualifiers: Diabetes mellitus type: type 2 Diabetes mellitus terminal gauger supervisor insulin use: with terminal gauger supervisor use Diabetes mellitus complication status: with kidney complications Diabetes mellitus complication detail: with chronic kidney disease Chronic kidney disease stage: stage 3 (moderate) Qualified Code(s): E11.22 - Type 2 diabetes mellitus with diabetic chronic kidney disease; N18.3 - Chronic kidney disease, stage 3 (moderate); N18.3 - Chronic kidney disease, stage 3 (moderate); Z79.4 - intermediate designer (current) use of insulin; Z79.4 - intermediate designer (current) use of insulin; Z79.4 - penitentiary (current) use of insulin; Z79.4 - intermediate designer (current) use of insulin (7) Hypertension Current Visit: No Status: Chronic Titrate antihypertensive medications as needed. Qualifiers: Hypertension type: essential hypertension Qualified Code(s): I10 - Essential (primary) hypertension (8) Hypercoagulable state Current Visit: Yes Status: Acute (9) Obesity (BMI 30-39.9) Current Visit: Yes Status: Acute Subjective Principal diagnosis: Hypertensive crisis, acute CHF exacerbation Interval history: Mr. Hernandez is a 62 yo man with a history of CKD Stage 4 who presented with uncontrolled hypertension. Today he is sleepy, but easily awakened. He has no new complaint. Objective - Vital Signs Vital signs: Vital Signs Temp Pulse Resp BP Pulse Ox 12/05/17 08:00 98.8 F 65 20 193/94 96 12/05/17 07:00 65 12/05/17 05:52 64 12/05/17 04:00 62 18 164/76 94 12/05/17 03:00 62 12/05/17 02:00 54 12/04/17 23:30 97.8 F 52 18 153/74 94 12/04/17 23:00 52 12/04/17 20:00 97.7 F 55 18 130/65 95 12/04/17 19:00 55 12/04/17 18:00 75 18 150/78 94 12/04/17 16:17 97.6 F 12/04/17 16:00 59 16 144/78 93 12/04/17 15:00 66 12/04/17 14:00 55 18 145/81 92 12/04/17 13:00 56 16 125/63 93 12/04/17 12:00 60 18 142/65 95 12/04/17 11:53 98.5 F 12/04/17 11:43 60 12/04/17 11:00 62 18 151/75 96 Intake and Output 12/04/17 12/05/17 12/05/17 23:59 07:59 15:59 Intake Total 720 / 720 0 / 0 120 / 120 Output Total 200 / 200 300 / 300 Balance 719 / 719 -200 / -200 -180 / -180 Intake: Oral 720 / 720 0 / 0 120 / 120 Output: Urine 200 / 200 300 / 300 Urine/Stool Mix Other: Meal Dinner Breakfast Percent of Meal Consumed 100% 95% # Voids 1 Blood Glucose* 166 188 - General Appearance General appearance: Present: well-developed, well-nourished, obese EENT: Present: ATNC Neck: Present: supple Respiratory: Present: course breath sounds Cardiology: Present: no edema, regular rate Gastrointestinal: Present: obese Integumentary: Present: warm and dry Neurologic: Present: alert and oriented x3 Musculoskeletal: Present: no cyanosis Psychiatric: Present: mood/affect appropriate - Lab 12/05/17 04:44 12/05/17 04:44 Most recent lab results ABG pH 7.35 pH Units (7.32-7.45) 12/03/17 16:09 ABG pCO2 44 mmHg (35-45) 12/03/17 16:09 ABG pO2 76 mmHg (85-104) L 12/03/17 16:09 ABG HCO3 24 mEq/L (21-27) 12/03/17 16:09 ABG O2 Saturation 94 % (95-98) L 12/03/17 16:09 Calcium 8.8 mg/dL (8.6-10.3) 12/05/17 04:44 Urine Creatinine 111 mg/dL 12/05/17 08:36 Urine Total Protein 246 mg/dL (1-14) H 12/05/17 08:36 - VTE Documentation of Mechanical Device: Graduated compression elastic hosiery Consult Discharge Plan - Plan Referrals: Ruby Cano, PATIENT ACCOUNT SPECIALIST [Primary Care Provider] -
[2017-12-05] MEDS: Iron Sucrose Complex 200 MG in 0.9 % Sodium Chloride 100 ML IVPB SCH (11:46)
--- NOTE | 2017-12-05 16:58 | Electrocardiograph Report ---
[address] [address] Test Date: 2017-12-03 Pat Name: Imitaz Hernandez Department: 103 Room: [facility] Gender: M Advertising Assistant: AM : 1955 Requested By: Gerard Mckeon Order Number: [id number] Reading MD: Pete Cruz Measurements Intervals [place] Rate: 86 P: 23 MD: 147 QRS: 18 QRSD: 120 T: 97 QT: 355 QTc: 398 Interpretive Statements SINUS RHYTHM MODERATE INTRAVENTRICULAR CONDUCTION DELAY ARTIFACT Electronically Signed On 12-05-2017 16:57:18 EDT by Pete Cruz
[2017-12-06] MEDS: Insulin LISPRO 300 UNITS/3 ML VIAL SQ SCH ×4 (00:02→16:47)
[2017-12-06 04:53] LABS: Basophils % 0.5 %; Eosinophils # 0.5 K/mcL (0.0-0.6); Eosinophils % 5.6 %; Hematocrit 22.7 % (37.5-50.1); Immature Granulocytes % 0.5 % (0-4); Lymphocytes # 0.8 K/mcL (0.6-4.6); Lymphocytes % 9.6 %; Mean Corpuscular HGB Conc 30.8 g/dL (31.6-35.5); Mean Corpuscular Hemoglobin 28.5 pg (28.0-33.3); Mean Corpuscular Volume 92.3 fL (83.0-100.0); Mean Platelet Volume 10.2 fL (9.4-12.4); Monocytes # 0.7 K/mcL (0.0-1.3); Monocytes % 8.4 %; Neutrophils # 6.3 K/mcL (1.6-8.9); Platelet Count 199 K/mcL (140-400); Red Blood Count 2.46 M/mcL (4.19-5.50); Red Cell Distribution Width 14.8 % (11.5-14.5); Segmented Neutrophils % 75.4 %
[2017-12-06 05:19] LABS: Calcium 8.8 mg/dL (8.6-10.3); Potassium 4.4 mEq/L (3.5-5.1)
[2017-12-06] MEDS: *HR* Heparin 5,000 UNIT/ML VIAL SQ SCH (06:03)
[2017-12-06] MEDS: Furosemide 40 MG TABLET PO SCH ×2 (10:06→22:26)
[2017-12-06] MEDS: NIFEdipine XL (24 HR) 60 MG TAB.ER.24 PO SCH ×2 (10:06→22:27)
[2017-12-06] MEDS: hydrALAZINE 25 MG TABLET PO SCH ×3 (10:06→22:27)
[2017-12-06] MEDS: Folic Acid 1 MG TABLET PO SCH (10:06)
[2017-12-06] MEDS: *HR* HYDROcodone/Acet 5/325 mg TABLET PO PRN ×2 (10:08→16:36)
[2017-12-06] MEDS ORDERED: 0.9 % Sodium Chloride 500 ML ONE (13:16)
--- NOTE | 2017-12-06 14:15 | Internal Med Progress Note ---
<Genaro Ward - Last Filed: 12/06/17 15:46> Date of Encounter: 12/06/17 Time of Encounter: 14:13 - Assessment and plan (1) Anemia Current Visit: Yes Status: Acute Assessment and plan: hgb today was 7.0. has slowly dropped since hospitalization. Per chart review , patient has known hemorrhagic ulcers in GI tract. Paged GI, Dr. Mario, and patient will most likely be scoped on Saturday. - closely follow h/h - serial exam for anemic symptoms - continue B12, folate, iron - possible scope on saturday - replenish rbc hgb <7.0 Qualifiers: Qualified Code(s): D64.9 - Anemia, unspecified (2) Acute respiratory failure Current Visit: Yes Status: Acute Assessment and plan: currently controlled. Qualifiers: Respiratory failure complication: unspecified whether with hypoxia or hypercapnia Qualified Code(s): J96.00 - Acute respiratory failure, unspecified whether with hypoxia or hypercapnia (3) Obesity (BMI 30-39.9) Current Visit: Yes Status: Acute Assessment and plan: chronic. educated patient on the benefit of weight loss. Patient states the he is unwilling to move around "and I can't make him" (4) Diabetes Current Visit: Yes Status: Chronic Assessment and plan: poorly controlled at home. Will continue SSI, and monitor BG Qualifiers: Diabetes mellitus type: type 2 Diabetes mellitus prison insulin use: with prison use Diabetes mellitus complication status: with kidney complications Diabetes mellitus complication detail: with chronic kidney disease Chronic kidney disease stage: stage 3 (moderate) Qualified Code(s): E11.22 - Type 2 diabetes mellitus with diabetic chronic kidney disease; N18.3 - Chronic kidney disease, stage 3 (moderate); N18.3 - Chronic kidney disease, stage 3 (moderate); Z79.4 - keno terminal operator (current) use of insulin; Z79.4 - long-term (current) use of insulin; Z79.4 - long-term (current) use of insulin; Z79.4 - keno terminal operator (current) use of insulin (5) Hypertensive crisis Current Visit: Yes Status: Resolved Assessment and plan: currently controlled. continue to closely monitor (6) Acute exacerbation of CHF (congestive heart failure) Current Visit: Yes Status: Acute Assessment and plan: continue patient on home meds. Will continue to monitor for PND, orthopnea, swelling, and SOB. - cardiac diet: 1.5 L fluids and 2g Na+ restrictions Qualifiers: Heart failure type: unspecified Qualified Code(s): I50.9 - Heart failure, unspecified (7) Obstructive sleep apnea Current Visit: Yes Status: Chronic Assessment and plan: patient has known hx of noncompliance, BiPAP at night. (8) DVT prophylaxis Current Visit: Yes Status: Acute Assessment and plan: subq heparin ct. (9) Acute kidney injury superimposed on chronic kidney disease Current Visit: Yes Status: Acute Assessment and plan: Neph is following. Cr mildly improved to 3.80. - encourage PO fluid intake - appreciate nephro input: renal diet, avoid nephrotoxins - Time Spent With Patient Total time spent is greater than 50% in coordination of care (as documented) at patient's floor/unit and/or counseling patient: - Subjective Interval history: Mr Hernandez is seen and examined. He was recently transferred from ICU for management of hypertensive crisis, exacerbation of CHF, and GLORIA on CKD. Patient denies events over night or new complaints. Patient states that he does not want a renal biopsy but is ok with getting RBC. He says he still feels awful. Patient denies n/v/f/c/cp/sob. - Constitutional Vitals: Temp Pulse Resp BP Pulse Ox 98 F 57 16 172/74 94 12/06/17 13:55 12/06/17 13:55 12/06/17 13:55 12/06/17 13:55 12/06/17 13:55 General appearance: Present: mild distress, A&O X 3, morbidly obese, answers questions appropriately. Absent: pleasant - Neck Neck exam general surgery: Present: supple - GI/Abdominal GI/Abdominal exam: Present: normal bowel sounds - Psychiatric Psychiatric exam: Present: normal affect, normal mood Internal Medicine: Result - Labs CBC & Chem 7: 12/06/17 04:36 12/06/17 04:36 Labs: Short CBC 12/06/17 Range/Units 04:36 WBC 8.4 (4.3-11.1) K/mcL Hgb 7.0 L (12.9-16.9) g/dL Hct 22.7 L (37.5-50.1) % Plt Count 199 (140-400) K/mcL Neutrophils # 6.3 (1.6-8.9) K/mcL BMP 12/06/17 04:36 Sodium 137 Potassium 4.4 Chloride 105 Carbon Dioxide 22 L BUN 68 H Creatinine 3.80 H Glucose 156 H Calcium 8.8 - ABG Interpretation ABG results: ABG ABG pH 7.35 pH Units (7.32-7.45) 12/03/17 16:09 ABG pCO2 44 mmHg (35-45) 12/03/17 16:09 ABG pO2 76 mmHg (85-104) L 12/03/17 16:09 ABG O2 Saturation 94 % (95-98) L 12/03/17 16:09 - VTE Documentation of Mechanical Device: Graduated compression elastic hosiery Consult Discharge Plan - Plan Referrals: Ruby Cano CNP [Primary Care Provider] - <Alejandro Fontaine - Last Filed: 12/06/17 20:24> Date of Encounter: 12/06/17 - Assessment and plan (1) Acute respiratory failure Current Visit: Yes Status: Acute Qualifiers: Respiratory failure complication: hypoxia Qualified Code(s): J96.01 - Acute respiratory failure with hypoxia (2) Diabetes Current Visit: Yes Status: Chronic Qualifiers: Diabetes mellitus type: type 2 Diabetes mellitus prison insulin use: with prison use Diabetes mellitus complication status: with kidney complications Diabetes mellitus complication detail: with chronic kidney disease Chronic kidney disease stage: stage 3 (moderate) Qualified Code(s): E11.22 - Type 2 diabetes mellitus with diabetic chronic kidney disease; N18.3 - Chronic kidney disease, stage 3 (moderate); N18.3 - Chronic kidney disease, stage 3 (moderate); Z79.4 - keno terminal operator (current) use of insulin; Z79.4 - keno terminal operator (current) use of insulin; Z79.4 - long-term (current) use of insulin; Z79.4 - long-term (current) use of insulin (3) Hypertensive crisis Current Visit: Yes Status: Resolved (4) Acute exacerbation of CHF (congestive heart failure) Current Visit: Yes Status: Acute Qualifiers: Heart failure type: diastolic Qualified Code(s): I50.33 - Acute on chronic diastolic (congestive) heart failure (5) Obstructive sleep apnea Current Visit: Yes Status: Chronic (6) DVT prophylaxis Current Visit: Yes Status: Acute (7) Anemia Current Visit: Yes Status: Acute Qualifiers: Anemia type: iron deficiency Iron deficiency anemia type: chronic blood loss Qualified Code(s): D50.0 - Iron deficiency anemia secondary to blood loss (chronic) (8) Obesity (BMI 30-39.9) Current Visit: Yes Status: Acute (9) Acute kidney injury superimposed on chronic kidney disease Current Visit: Yes Status: Acute - Time Spent With Patient Total time spent is greater than 50% in coordination of care (as documented) at patient's floor/unit and/or counseling patient: - Constitutional Vitals: Temp Pulse Resp BP Pulse Ox 97.8 F 56 17 163/85 93 12/06/17 19:26 12/06/17 19:26 12/06/17 19:26 12/06/17 19:26 12/06/17 19:26 Internal Medicine: Result - Labs CBC & Chem 7: 12/06/17 17:13 12/06/17 04:36 Labs: Short CBC 12/06/17 12/06/17 Range/Units 04:36 17:13 WBC 8.4 8.1 (4.3-11.1) K/mcL Hgb 7.0 L 8.0 L (12.9-16.9) g/dL Hct 22.7 L 25.9 L (37.5-50.1) % Plt Count 199 227 (140-400) K/mcL Neutrophils # 6.3 (1.6-8.9) K/mcL BMP 12/06/17 04:36 Sodium 137 Potassium 4.4 Chloride 105 Carbon Dioxide 22 L BUN 68 H Creatinine 3.80 H Glucose 156 H Calcium 8.8 - ABG Interpretation ABG results: ABG ABG pH 7.35 pH Units (7.32-7.45) 12/03/17 16:09 ABG pCO2 44 mmHg (35-45) 12/03/17 16:09 ABG pO2 76 mmHg (85-104) L 12/03/17 16:09 ABG O2 Saturation 94 % (95-98) L 12/03/17 16:09 - Attending Attestation I examined this patient and my medical decision-making was reviewed with the Resident Physician on 12/06/17. I agree with the documented findings, disposition and treatment plan as described except to the extent set forth below. Mr Hernandez is currently admitted for resp failure. He is anemic today and will get blood. He remains moderate to high risk due to potential for worsening clinical status. Mr David feels oK. He is to get blood. No CP or SOB at this time. No abd pain. Exam alert Comfortable Mucus membranes dry Heart not tachy Lungs diminished Abd soft I/P 1. Resp failure 2. Anemia Further diagnoses and plan as above.
--- NOTE | 2017-12-06 16:25 | Nephrology Progress Note ---
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 Objective - Vital Signs Vital signs: Vital Signs Temp Pulse Resp BP Pulse Ox 12/06/17 13:55 98 F 57 16 172/74 94 12/06/17 13:40 98.6 F 56 16 158/74 96 12/06/17 11:12 97.9 F 64 16 175/76 96 12/06/17 07:54 98 F 59 17 158/70 93 12/06/17 04:42 98.6 F 60 16 182/75 96 12/06/17 04:17 59 12/05/17 23:28 97.9 F 65 19 153/62 90 12/05/17 20:19 58 12/05/17 19:45 97.9 F 58 16 135/72 96 12/05/17 16:30 97.5 F L 64 18 170/71 93 Intake and Output 12/06/17 12/06/17 12/06/17 07:59 15:59 23:59 Intake Total 400 / 400 360 / 360 Output Total 150 / 150 Balance 250 / 250 360 / 360 Intake: Oral 400 / 400 360 / 360 Blood Product 0 / 0 Rbcs Leuko Poor As-1 Unit 0 / 0 [id number] Output: Urine 150 / 150 Other: Meal Lunch Percent of Meal Consumed 65% # Voids 1 Weight 134.9 kg Blood Glucose* 183 231 Patient Weight 12/06/17 23:59 Weight 134.9 kg - General Appearance General appearance: Present: well-developed, well-nourished EENT: Present: ATNC, mucous membranes moist Neck: Present: no JVD, supple Respiratory: Present: clear Cardiology: Present: no edema, normal S1, normal S2 Gastrointestinal: Present: no guarding, obese Integumentary: Present: warm and dry Neurologic: Present: no focal deficit Musculoskeletal: Present: no deformities Psychiatric: Present: mood/affect appropriate - Lab 12/10/17 03:46 12/10/17 03:46 Most recent lab results ABG pH 7.35 pH Units (7.32-7.45) 12/03/17 16:09 ABG pCO2 44 mmHg (35-45) 12/03/17 16:09 ABG pO2 76 mmHg (85-104) L 12/03/17 16:09 ABG HCO3 24 mEq/L (21-27) 12/03/17 16:09 ABG O2 Saturation 94 % (95-98) L 12/03/17 16:09 Calcium 8.8 mg/dL (8.6-10.3) 12/06/17 04:36 Urine Creatinine 111 mg/dL 12/05/17 08:36 Urine Total Protein 246 mg/dL (1-14) H 12/05/17 08:36 - VTE Documentation of Mechanical Device: Graduated compression elastic hosiery Consult Discharge Plan - Plan Instructions: Hypertensive Crisis (DC) Referrals: Ruby Cano CNP [Primary Care Provider] - 12/17/17 3:00 pm Agustin Ramirez MD [Partnered Physician] - 12/30/17 9:45 am
[2017-12-06] MEDS: Sucralfate 1 GM TABLET PO SCH ×2 (16:36→22:27)
[2017-12-06] MEDS: Pantoprazole 40 MG VIAL IVP SCH (16:37)
[2017-12-06 18:02] LABS: Hematocrit 25.9 % (37.5-50.1); Mean Corpuscular HGB Conc 30.9 g/dL (31.6-35.5); Mean Corpuscular Hemoglobin 28.4 pg (28.0-33.3); Mean Corpuscular Volume 91.8 fL (83.0-100.0); Mean Platelet Volume 10.7 fL (9.4-12.4); Platelet Count 227 K/mcL (140-400); Red Blood Count 2.82 M/mcL (4.19-5.50); Red Cell Distribution Width 14.6 % (11.5-14.5)
[2017-12-06] MEDS ORDERED: Insulin LISPRO 300 UNITS/3 ML VIAL SQ SCH (21:00)
[2017-12-07 04:59] LABS: Hematocrit 25.5 % (37.5-50.1); Hemoglobin 8.1 g/dL (12.9-16.9); Mean Corpuscular HGB Conc 31.8 g/dL (31.6-35.5); Mean Corpuscular Hemoglobin 28.8 pg (28.0-33.3); Mean Corpuscular Volume 90.7 fL (83.0-100.0); Mean Platelet Volume 10.6 fL (9.4-12.4); Platelet Count 231 K/mcL (140-400); Red Blood Count 2.81 M/mcL (4.19-5.50); Red Cell Distribution Width 14.6 % (11.5-14.5)
[2017-12-07 05:18] LABS: Potassium 4.4 mEq/L (3.5-5.1)
[2017-12-07] MEDS: *HR* HYDROcodone/Acet 5/325 mg TABLET PO PRN ×2 (05:30→12:06)
[2017-12-07] MEDS: Pantoprazole 40 MG VIAL IVP SCH ×2 (05:31→16:49)
[2017-12-07] MEDS: Insulin LISPRO 300 UNITS/3 ML VIAL SQ SCH ×3 (08:19→16:51)
[2017-12-07] MEDS: Folic Acid 1 MG TABLET PO SCH (08:22)
[2017-12-07] MEDS: hydrALAZINE 25 MG TABLET PO SCH ×3 (08:23→21:20)
[2017-12-07] MEDS: NIFEdipine XL (24 HR) 60 MG TAB.ER.24 PO SCH ×2 (08:23→21:20)
[2017-12-07] MEDS: Furosemide 40 MG TABLET PO SCH ×2 (08:23→21:29)
[2017-12-07] MEDS: Sucralfate 1 GM TABLET PO SCH ×4 (08:23→21:29)
[2017-12-07] MEDS ORDERED: Insulin LISPRO 300 UNITS/3 ML VIAL SQ SCH ×3 (09:40→09:43)
--- NOTE | 2017-12-07 09:43 | Internal Med Progress Note ---
<Genaro Ward - Last Filed: 12/07/17 13:10> Date of Encounter: 12/07/17 Time of Encounter: 09:24 - Assessment and plan (1) Anemia Current Visit: Yes Status: Acute Assessment and plan: hgb yesterday was 7.0, replaced with 1 unit, appropriately responded last night to 8.1 Currently holding stable. Per chart review, patient has known hemorrhagic ulcers in GI tract. Paged GI, Dr. Mario, and patient will most likely be scoped on Saturday. Iron workup shows Iron is low but Ferritin is high ; suggestive that iron deficiency is in the setting of acute illness. - closely follow h/h - serial exam for anemic symptoms - continue B12, folate, iron - possible scope on saturday - replenish rbc hgb <7.0 - hemoccult pending - continue ferrous sulfate replacement - concern for GI bleed, continue carafate and protonix IV Qualifiers: Anemia type: iron deficiency Iron deficiency anemia type: chronic blood loss Qualified Code(s): D50.0 - Iron deficiency anemia secondary to blood loss (chronic) (2) Diabetes Current Visit: Yes Status: Chronic Assessment and plan: poorly controlled at home. BG is above >200 today; if continues tomorrow will increase SSI to high dose. Qualifiers: Diabetes mellitus type: type 2 Diabetes mellitus snf insulin use: with long term care administrator use Diabetes mellitus complication status: with kidney complications Diabetes mellitus complication detail: with chronic kidney disease Chronic kidney disease stage: stage 3 (moderate) Qualified Code(s): E11.22 - Type 2 diabetes mellitus with diabetic chronic kidney disease; N18.3 - Chronic kidney disease, stage 3 (moderate); N18.3 - Chronic kidney disease, stage 3 (moderate); Z79.4 - senior care (current) use of insulin; Z79.4 - terminal superintendent (current) use of insulin; Z79.4 - terminal superintendent (current) use of insulin; Z79.4 - terminal superintendent (current) use of insulin (3) Hypertensive crisis Current Visit: Yes Status: Resolved Assessment and plan: currently controlled. continue to closely monitor (4) Acute exacerbation of CHF (congestive heart failure) Current Visit: Yes Status: Acute Assessment and plan: continue patient on home meds. Will continue to monitor for PND, orthopnea, swelling, and SOB. - cardiac diet: 1.5 L fluids and 2g Na+ restrictions Qualifiers: Heart failure type: diastolic Qualified Code(s): I50.33 - Acute on chronic diastolic (congestive) heart failure (5) Obstructive sleep apnea Current Visit: Yes Status: Chronic Assessment and plan: patient has known hx of noncompliance, BiPAP at night. - Ordered oxygen, BiPAP, and elevate bed for support (6) DVT prophylaxis Current Visit: Yes Status: Acute Assessment and plan: concern for GI bleed, continue intermittent pneumatic compression devices (7) Acute respiratory failure Current Visit: Yes Status: Acute Assessment and plan: currently controlled. Qualifiers: Respiratory failure complication: hypoxia Qualified Code(s): J96.01 - Acute respiratory failure with hypoxia (8) Obesity (BMI 30-39.9) Current Visit: Yes Status: Acute Assessment and plan: chronic. educated patient on the benefit of weight loss. Patient states the he is unwilling to move around "and I can't make him" (9) Acute kidney injury superimposed on chronic kidney disease Current Visit: Yes Status: Acute Assessment and plan: Neph is following. Cr mildly improved to 3.80. - encourage PO fluid intake - appreciate nephro input: renal diet, avoid nephrotoxins - Time Spent With Patient Total time spent is greater than 50% in coordination of care (as documented) at patient's floor/unit and/or counseling patient: - Subjective Interval history: Mr Hernandez is seen and examined. Patient states he's feeling better after receiving the blood transfusion yesterday. He denies any new complaints. Patient denies n/v/f/c/cp/sob. - Constitutional Vitals: Temp Pulse Resp BP Pulse Ox 97.9 F 72 16 182/80 93 12/07/17 07:27 12/07/17 07:27 12/07/17 07:27 12/07/17 07:27 12/07/17 07:27 General appearance: Present: mild distress, A&O X 3, morbidly obese, answers questions appropriately. Absent: pleasant - Respiratory Respiratory exam: Present: decreased breath sounds - Cardiovascular Cardiovascular exam: Present: RRR - GI/Abdominal GI/Abdominal exam: Present: normal bowel sounds - Neurological Exam Neurological exam: Present: alert, oriented X3 - Psychiatric Psychiatric exam: Present: normal affect, normal mood Internal Medicine: Result - Labs CBC & Chem 7: 12/07/17 04:20 12/07/17 04:20 Labs: Short CBC 12/06/17 12/07/17 Range/Units 17:13 04:20 WBC 8.1 8.6 (4.3-11.1) K/mcL Hgb 8.0 L 8.1 L (12.9-16.9) g/dL Hct 25.9 L 25.5 L (37.5-50.1) % Plt Count 227 231 (140-400) K/mcL BMP 12/07/17 04:20 Sodium 136 Potassium 4.4 Chloride 105 Carbon Dioxide 20 L BUN 73 H Creatinine 3.75 H Glucose 226 H Calcium 9.0 - ABG Interpretation ABG results: ABG ABG pH 7.35 pH Units (7.32-7.45) 12/03/17 16:09 ABG pCO2 44 mmHg (35-45) 12/03/17 16:09 ABG pO2 76 mmHg (85-104) L 12/03/17 16:09 ABG O2 Saturation 94 % (95-98) L 12/03/17 16:09 - VTE Documentation of Mechanical Device: Intermittent pneumatic compression device Consult Discharge Plan - Plan Referrals: Ruby Cano, POLICE CRIME SCENE TECHNICIAN [Primary Care Provider] - <Alejandro Fontaine - Last Filed: 12/07/17 18:29> Date of Encounter: 12/07/17 - Assessment and plan (1) Acute respiratory failure Current Visit: Yes Status: Acute Qualifiers: Respiratory failure complication: hypoxia Qualified Code(s): J96.01 - Acute respiratory failure with hypoxia (2) Acute exacerbation of CHF (congestive heart failure) Current Visit: Yes Status: Acute Qualifiers: Heart failure type: diastolic Qualified Code(s): I50.33 - Acute on chronic diastolic (congestive) heart failure (3) Diabetes Current Visit: Yes Status: Chronic Qualifiers: Diabetes mellitus type: type 2 Diabetes mellitus snf insulin use: with snf use Diabetes mellitus complication status: with kidney complications Diabetes mellitus complication detail: with chronic kidney disease Chronic kidney disease stage: stage 3 (moderate) Qualified Code(s): E11.22 - Type 2 diabetes mellitus with diabetic chronic kidney disease; N18.3 - Chronic kidney disease, stage 3 (moderate); N18.3 - Chronic kidney disease, stage 3 (moderate); Z79.4 - terminal superintendent (current) use of insulin; Z79.4 - senior care (current) use of insulin; Z79.4 - terminal superintendent (current) use of insulin; Z79.4 - terminal superintendent (current) use of insulin (4) Hypertensive crisis Current Visit: Yes Status: Resolved (5) Obstructive sleep apnea Current Visit: Yes Status: Chronic (6) DVT prophylaxis Current Visit: Yes Status: Acute (7) Anemia Current Visit: Yes Status: Acute Qualifiers: Anemia type: iron deficiency Iron deficiency anemia type: chronic blood loss Qualified Code(s): D50.0 - Iron deficiency anemia secondary to blood loss (chronic) (8) Obesity (BMI 30-39.9) Current Visit: Yes Status: Acute (9) Acute kidney injury superimposed on chronic kidney disease Current Visit: Yes Status: Acute - Time Spent With Patient Total time spent is greater than 50% in coordination of care (as documented) at patient's floor/unit and/or counseling patient: - Constitutional Vitals: Temp Pulse Resp BP Pulse Ox 98.2 F 60 16 176/87 100 12/07/17 16:46 12/07/17 16:46 12/07/17 16:46 12/07/17 16:46 12/07/17 16:46 Internal Medicine: Result - Labs CBC & Chem 7: 12/07/17 04:20 12/07/17 04:20 Labs: Short CBC 12/07/17 Range/Units 04:20 WBC 8.6 (4.3-11.1) K/mcL Hgb 8.1 L (12.9-16.9) g/dL Hct 25.5 L (37.5-50.1) % Plt Count 231 (140-400) K/mcL BMP 12/07/17 04:20 Sodium 136 Potassium 4.4 Chloride 105 Carbon Dioxide 20 L BUN 73 H Creatinine 3.75 H Glucose 226 H Calcium 9.0 - ABG Interpretation ABG results: ABG ABG pH 7.35 pH Units (7.32-7.45) 12/03/17 16:09 ABG pCO2 44 mmHg (35-45) 12/03/17 16:09 ABG pO2 76 mmHg (85-104) L 12/03/17 16:09 ABG O2 Saturation 94 % (95-98) L 12/03/17 16:09 - Attending Attestation I examined this patient and my medical decision-making was reviewed with the Resident Physician on 12/07/17. I agree with the documented findings, disposition and treatment plan as described except to the extent set forth below. Mr Hernandez is currently admitted for acute CHF and anemia. He remains moderate to high risk due to potential for worsening clinical status. Mr Hernandez is resting comfortably. He refused PT today. No fever. No CP or worsening SOB. No cough. Exam Alert Comfortable Mucus membranes dry Heart distant No wheeze Abd soft I/P 1. Anemia 2. CHF Further diagnoses and plan as above.
[2017-12-07 11:07] LABS: Folate > 22.3 ng/mL (3.0-16.0); Vitamin B12 700 pg/mL (250-1100)
[2017-12-07] MEDS: Iron Sucrose Complex 200 MG in 0.9 % Sodium Chloride 100 ML IVPB SCH (12:04)
--- NOTE | 2017-12-07 14:34 | Nephrology Progress Note ---
Date of Encounter: 12/07/17 Time of Encounter: 14:25 - Assessment and Plan (1) Acute kidney injury superimposed on chronic kidney disease Status: Acute SCr improving ever so slightly at 3.75, GFR 16 No acute indication for FINE JEWELRY SALES ASSOCIATE at thi point Continue to avoid nephrotoxins if possible UOP acceptable at 900cc in the past 24hrs, will monitor (2) Anemia Status: Acute Hgb improved after transfuison 1u pRBCs at 8.1, continue EPO as well Qualifiers: Anemia type: iron deficiency Iron deficiency anemia type: chronic blood loss Qualified Code(s): D50.0 - Iron deficiency anemia secondary to blood loss (chronic) (3) CKD (chronic kidney disease) stage 4, GFR 15-29 ml/min Status: Acute baseline GFR in the 20s prior to admission (4) Hypertensive crisis Status: Resolved BP still fluctuating but pt reportedly also has a history of orthostatic hypotension making too low of BP readings problematic. goal BP likely around 150s systolic. He also reportedly has a history of isolated systolic hypertension meaning diastolic reading typically under 80s maintian current Bp regimen for now Subjective Principal diagnosis: Hypertensive crisis, acute CHF exacerbation Interval history: Pt seen and examined conversing with his head covered, says he is fine but tired.No new complaints Objective - Vital Signs Vital signs: Vital Signs Temp Pulse Resp BP Pulse Ox 12/07/17 11:45 98.6 F 64 16 170/80 97 12/07/17 07:27 97.9 F 72 16 182/80 93 12/07/17 04:00 97.6 F 66 18 173/77 100 12/06/17 23:36 98.0 F 63 19 163/77 93 12/06/17 19:26 97.8 F 56 17 163/85 93 12/06/17 16:38 98 F 62 158/92 Intake and Output 12/06/17 12/07/17 12/07/17 23:59 07:59 15:59 Intake Total 540 / 540 110 / 110 210 / 210 Output Total 750 / 750 250 / 250 Balance -210 / -210 -140 / -140 210 / 210 Intake: IV Fluids 110 / 110 110 / 110 Venofer 200 MG In 0.9 % Sodium 110 / 110 110 / 110 Chloride 100 ML @ 200 mls/hr IVPB Q48H [facility] Rx#:[id number] Oral 240 / 240 0 / 0 100 / 100 Blood Product 300 / 300 Rbcs Leuko Poor As-1 Unit 300 / 300 [id number] Output: Urine 750 / 750 250 / 250 Other: Meal Dinner Breakfast Percent of Meal Consumed 40% 0% Weight 132.2 kg Blood Glucose* 232 220 169 Patient Weight 12/07/17 23:59 Weight 132.2 kg - General Appearance General appearance: Present: well-developed, well-nourished EENT: Present: ATNC, mucous membranes moist Neck: Present: no JVD, supple Respiratory: Present: clear Cardiology: Present: edema, normal S1, normal S2 Gastrointestinal: Present: no tenderness, no guarding, obese Integumentary: Present: warm and dry Neurologic: Present: no focal deficit Musculoskeletal: Present: no deformities Psychiatric: Present: mood/affect appropriate, cooperative - Lab 12/10/17 03:46 12/10/17 03:46 Most recent lab results ABG pH 7.35 pH Units (7.32-7.45) 12/03/17 16:09 ABG pCO2 44 mmHg (35-45) 12/03/17 16:09 ABG pO2 76 mmHg (85-104) L 12/03/17 16:09 ABG HCO3 24 mEq/L (21-27) 12/03/17 16:09 ABG O2 Saturation 94 % (95-98) L 12/03/17 16:09 Calcium 9.0 mg/dL (8.6-10.3) 12/07/17 04:20 Urine Creatinine 111 mg/dL 12/05/17 08:36 Urine Total Protein 246 mg/dL (1-14) H 12/05/17 08:36 - VTE Documentation of Mechanical Device: Intermittent pneumatic compression device Consult Discharge Plan - Plan Instructions: Hypertensive Crisis (DC) Referrals: Ruby Cano CNP [Primary Care Provider] - 12/17/17 3:00 pm Agustin Ramirez MD [Partnered Physician] - 12/30/17 9:45 am
[2017-12-07 18:49] LABS: APTT (LE Anticoag) 61 sec (32-48); Diluted Russell Viper Venom 43 sec (33-44); LE Coag APTT Mixing 56 sec (32-48); PT (LE-Anticoag) 14.7 sec (12.0-15.5)
[2017-12-08 03:40] LABS: Hemoglobin 7.7 g/dL (12.9-16.9); Mean Corpuscular HGB Conc 32.1 g/dL (31.6-35.5); Mean Corpuscular Hemoglobin 29.4 pg (28.0-33.3); Mean Corpuscular Volume 91.6 fL (83.0-100.0); Mean Platelet Volume 10.4 fL (9.4-12.4); Platelet Count 222 K/mcL (140-400); Red Blood Count 2.62 M/mcL (4.19-5.50); Red Cell Distribution Width 14.7 % (11.5-14.5)
[2017-12-08 03:59] LABS: Calcium 8.8 mg/dL (8.6-10.3); Potassium 4.3 mEq/L (3.5-5.1)
[2017-12-08] MEDS: Pantoprazole 40 MG VIAL IVP SCH ×2 (05:29→17:45)
[2017-12-08] MEDS: *HR* HYDROcodone/Acet 5/325 mg TABLET PO PRN ×3 (05:56→17:44)
[2017-12-08] MEDS: NIFEdipine XL (24 HR) 60 MG TAB.ER.24 PO SCH ×2 (08:56→21:14)
[2017-12-08] MEDS: Sucralfate 1 GM TABLET PO SCH ×4 (08:56→21:15)
[2017-12-08] MEDS: hydrALAZINE 25 MG TABLET PO SCH ×3 (08:57→21:14)
[2017-12-08] MEDS: Folic Acid 1 MG TABLET PO SCH (08:57)
[2017-12-08] MEDS: Insulin LISPRO 300 UNITS/3 ML VIAL SQ SCH ×4 (08:57→21:14)
[2017-12-08] MEDS: Furosemide 40 MG TABLET PO SCH ×2 (08:57→21:14)
--- NOTE | 2017-12-08 10:17 | Internal Med Progress Note ---
<Genaro Ward - Last Filed: 12/08/17 10:15> Date of Encounter: 12/08/17 Time of Encounter: 10:15 - Assessment and plan (1) Diabetes Current Visit: Yes Status: Chronic Assessment and plan: poorly controlled at home. BG is above >200 again today; will increase to SSI high Qualifiers: Diabetes mellitus type: type 2 Diabetes mellitus superintendent marine oil terminal insulin use: with senior care use Diabetes mellitus complication status: with kidney complications Diabetes mellitus complication detail: with chronic kidney disease Chronic kidney disease stage: stage 3 (moderate) Qualified Code(s): E11.22 - Type 2 diabetes mellitus with diabetic chronic kidney disease; N18.3 - Chronic kidney disease, stage 3 (moderate); N18.3 - Chronic kidney disease, stage 3 (moderate); Z79.4 - assisted (current) use of insulin; Z79.4 - assisted (current) use of insulin; Z79.4 - assisted (current) use of insulin; Z79.4 - termite control technician (current) use of insulin (2) Hypertensive crisis Current Visit: Yes Status: Resolved Assessment and plan: elevated overnight, will continue to closely monitor if it goes any higher (3) Acute exacerbation of CHF (congestive heart failure) Current Visit: Yes Status: Acute Assessment and plan: continue patient on home meds. Will continue to monitor for PND, orthopnea, swelling, and SOB. - cardiac diet: 1.5 L fluids and 2g Na+ restrictions Qualifiers: Heart failure type: diastolic Qualified Code(s): I50.33 - Acute on chronic diastolic (congestive) heart failure (4) Obstructive sleep apnea Current Visit: Yes Status: Chronic Assessment and plan: patient has known hx of noncompliance, BiPAP at night. - Ordered oxygen, BiPAP, and elevate bed for support (5) DVT prophylaxis Current Visit: Yes Status: Acute Assessment and plan: concern for GI bleed, continue intermittent pneumatic compression devices (6) Anemia Current Visit: Yes Status: Acute Assessment and plan: replaced with 1 unit after hgb was 7.0, responded to 8.1, today remains stable at 7.7. Will continue to closely monitor. Per chart review, patient has known hemorrhagic ulcers in GI tract. Paged GI, Dr. Mario, and patient will most likely be scoped on Saturday. Iron workup shows Iron is low but Ferritin is high ; suggestive that iron deficiency is in the setting of acute illness. - closely follow h/h - serial exam for anemic symptoms - continue B12, folate, iron - possible scope on saturday - replenish rbc hgb <7.0 - hemoccult pending - continue ferrous sulfate replacement - concern for GI bleed, continue carafate and protonix IV Qualifiers: Anemia type: iron deficiency Iron deficiency anemia type: chronic blood loss Qualified Code(s): D50.0 - Iron deficiency anemia secondary to blood loss (chronic) (7) Acute respiratory failure Current Visit: Yes Status: Acute Assessment and plan: currently controlled. Qualifiers: Respiratory failure complication: hypoxia Qualified Code(s): J96.01 - Acute respiratory failure with hypoxia (8) Obesity (BMI 30-39.9) Current Visit: Yes Status: Acute Assessment and plan: chronic. educated patient on the benefit of weight loss. Patient states the he is unwilling to move around "and I can't make him" (9) Acute kidney injury superimposed on chronic kidney disease Current Visit: Yes Status: Acute Assessment and plan: Neph is following. Cr continues to mildly improve today. PAtient in the last 24 hours has been non-oliguric - encourage PO fluid intake - appreciate nephro input: renal diet, avoid nephrotoxins - Time Spent With Patient Total time spent is greater than 50% in coordination of care (as documented) at patient's floor/unit and/or counseling patient: - Subjective Interval history: Mr Hernandez is seen and examined. PAtient states he's feeling fine today. He denies any new complaints. Patient denies n/v/f/c/cp/sob. - Constitutional Vitals: Temp Pulse Resp BP Pulse Ox 97.6 F 63 18 173/88 97 12/08/17 07:35 12/08/17 07:35 12/08/17 07:35 12/08/17 07:35 12/08/17 07:35 General appearance: Present: mild distress, A&O X 3, morbidly obese, answers questions appropriately. Absent: pleasant - Head Head exam: Present: normal inspection - ENT ENT exam: Present: mucous membranes moist - Respiratory Respiratory exam: Present: CTAB - Cardiovascular Cardiovascular exam: Present: RRR - GI/Abdominal GI/Abdominal exam: Present: normal bowel sounds Internal Medicine: Result - Labs CBC & Chem 7: 12/08/17 03:12 12/08/17 03:12 Labs: Short CBC 12/08/17 Range/Units 03:12 WBC 8.2 (4.3-11.1) K/mcL Hgb 7.7 L (12.9-16.9) g/dL Hct 24.0 L (37.5-50.1) % Plt Count 222 (140-400) K/mcL BMP 12/08/17 03:12 Sodium 139 Potassium 4.3 Chloride 106 Carbon Dioxide 23 BUN 71 H Creatinine 3.64 H Glucose 245 H Calcium 8.8 - ABG Interpretation ABG results: ABG ABG pH 7.35 pH Units (7.32-7.45) 12/03/17 16:09 ABG pCO2 44 mmHg (35-45) 12/03/17 16:09 ABG pO2 76 mmHg (85-104) L 12/03/17 16:09 ABG O2 Saturation 94 % (95-98) L 12/03/17 16:09 - VTE Documentation of Mechanical Device: Graduated compression elastic hosiery Consult Discharge Plan - Plan Referrals: Ruby Cano, COMMUNICATION LECTURER [Primary Care Provider] - <Alejandro Fontaine - Last Filed: 12/08/17 15:52> Date of Encounter: 12/08/17 - Assessment and plan (1) Acute respiratory failure Current Visit: Yes Status: Acute Qualifiers: Respiratory failure complication: hypoxia Qualified Code(s): J96.01 - Acute respiratory failure with hypoxia (2) Acute exacerbation of CHF (congestive heart failure) Current Visit: Yes Status: Acute Qualifiers: Heart failure type: diastolic Qualified Code(s): I50.33 - Acute on chronic diastolic (congestive) heart failure (3) Anemia Current Visit: Yes Status: Acute Qualifiers: Anemia type: iron deficiency Iron deficiency anemia type: chronic blood loss Qualified Code(s): D50.0 - Iron deficiency anemia secondary to blood loss (chronic) (4) Diabetes Current Visit: Yes Status: Chronic Qualifiers: Diabetes mellitus type: type 2 Diabetes mellitus senior care insulin use: with senior care use Diabetes mellitus complication status: with kidney complications Diabetes mellitus complication detail: with chronic kidney disease Chronic kidney disease stage: stage 3 (moderate) Qualified Code(s): E11.22 - Type 2 diabetes mellitus with diabetic chronic kidney disease; N18.3 - Chronic kidney disease, stage 3 (moderate); N18.3 - Chronic kidney disease, stage 3 (moderate); Z79.4 - termite control technician (current) use of insulin; Z79.4 - termite control technician (current) use of insulin; Z79.4 - assisted (current) use of insulin; Z79.4 - termite control technician (current) use of insulin (5) Obstructive sleep apnea Current Visit: Yes Status: Chronic (6) Hypertensive crisis Current Visit: Yes Status: Resolved (7) Obesity (BMI 30-39.9) Current Visit: Yes Status: Acute (8) Acute kidney injury superimposed on chronic kidney disease Current Visit: Yes Status: Acute (9) DVT prophylaxis Current Visit: Yes Status: Acute - Time Spent With Patient Total time spent is greater than 50% in coordination of care (as documented) at patient's floor/unit and/or counseling patient: - Constitutional Vitals: Temp Pulse Resp BP Pulse Ox 97.6 F 61 18 176/80 93 12/08/17 07:35 12/08/17 11:00 12/08/17 11:00 12/08/17 11:00 12/08/17 11:00 Internal Medicine: Result - Labs CBC & Chem 7: 12/08/17 03:12 12/08/17 03:12 Labs: Short CBC 12/08/17 Range/Units 03:12 WBC 8.2 (4.3-11.1) K/mcL Hgb 7.7 L (12.9-16.9) g/dL Hct 24.0 L (37.5-50.1) % Plt Count 222 (140-400) K/mcL BMP 12/08/17 03:12 Sodium 139 Potassium 4.3 Chloride 106 Carbon Dioxide 23 BUN 71 H Creatinine 3.64 H Glucose 245 H Calcium 8.8 - ABG Interpretation ABG results: ABG ABG pH 7.35 pH Units (7.32-7.45) 12/03/17 16:09 ABG pCO2 44 mmHg (35-45) 12/03/17 16:09 ABG pO2 76 mmHg (85-104) L 12/03/17 16:09 ABG O2 Saturation 94 % (95-98) L 12/03/17 16:09 - Attending Attestation I examined this patient and my medical decision-making was reviewed with the Resident Physician on 12/08/17. I agree with the documented findings, disposition and treatment plan as described except to the extent set forth below. Mr Hernandez is currently admitted for HTN and anemia. He remains moderate to high risk due to potential for worsening clinical status. Mr Hernandez is doing OK. He is resting at this time. No fever. No CP or SOB. Hemoglobin dropped again today. Exam alert Comfortable Mucus membranes dry Heart not tachy No wheeze abd soft I/P 1. HTN 2. anemia with probable GI bleed Further diagnoses and plan as above.
--- NOTE | 2017-12-08 15:17 | Nephrology Progress Note ---
Date of Encounter: 12/08/17 Time of Encounter: 13:00 - Assessment and Plan (1) Acute kidney injury superimposed on chronic kidney disease Status: Acute SCr improving ever so slightly at 3.64, GFR 17 No acute indication for MANAGER MANUFACTURING at this point Continue to avoid nephrotoxins if possible UOP acceptable at 1150cc in the past 24hrs, will monitor (2) Anemia Status: Acute Hgb improved after transfusion 1u pRBCs at 8.1 but dropped to 7.7, agree with GI workup per primary team continue EPO as well but will increase dose transfusion parameters per primary team Qualifiers: Anemia type: iron deficiency Iron deficiency anemia type: chronic blood loss Qualified Code(s): D50.0 - Iron deficiency anemia secondary to blood loss (chronic) (3) CKD (chronic kidney disease) stage 4, GFR 15-29 ml/min Status: Acute baseline GFR in the 20s prior to admission (4) Hypertensive crisis Status: Resolved BP still fluctuating but pt reportedly also has a history of orthostatic hypotension making too low of BP readings problematic. goal BP likely around 150s systolic. He also reportedly has a history of isolated systolic hypertension meaning diastolic reading typically under 80s maintian current Bp regimen for now Subjective Principal diagnosis: Hypertensive crisis, acute CHF exacerbation Interval history: Pt seen and examined with no new complaints, eager to go home Objective - Vital Signs Vital signs: Vital Signs Temp Pulse Resp BP Pulse Ox 12/08/17 11:00 61 18 176/80 93 12/08/17 07:35 97.6 F 63 18 173/88 97 12/08/17 03:35 98.0 F 65 17 188/86 94 12/07/17 23:41 97.6 F 62 17 180/87 96 12/07/17 19:25 97.5 F L 58 18 152/70 94 12/07/17 16:46 98.2 F 60 16 176/87 100 Intake and Output 12/07/17 12/08/17 12/08/17 23:59 07:59 15:59 Intake Total 200 / 200 0 / 0 780 / 780 Output Total 900 / 900 400 / 400 Balance -700 / -700 -400 / -400 780 / 780 Intake: Oral 200 / 200 0 / 0 780 / 780 Output: Urine 900 / 900 400 / 400 Other: Meal Lunch Percent of Meal Consumed 80% Weight 131.9 kg Blood Glucose* 147 226 212 Patient Weight 12/08/17 23:59 Weight 131.9 kg - General Appearance General appearance: Present: well-developed, well-nourished EENT: Present: ATNC, mucous membranes moist Neck: Present: no JVD, supple Respiratory: Present: clear Cardiology: Present: edema, normal S1, normal S2 Gastrointestinal: Present: no tenderness, no guarding, obese Integumentary: Present: warm and dry Neurologic: Present: no focal deficit Musculoskeletal: Present: no deformities Psychiatric: Present: mood/affect appropriate - Lab 12/10/17 03:46 12/10/17 03:46 Most recent lab results ABG pH 7.35 pH Units (7.32-7.45) 12/03/17 16:09 ABG pCO2 44 mmHg (35-45) 12/03/17 16:09 ABG pO2 76 mmHg (85-104) L 12/03/17 16:09 ABG HCO3 24 mEq/L (21-27) 12/03/17 16:09 ABG O2 Saturation 94 % (95-98) L 12/03/17 16:09 Calcium 8.8 mg/dL (8.6-10.3) 12/08/17 03:12 Urine Creatinine 111 mg/dL 12/05/17 08:36 Urine Total Protein 246 mg/dL (1-14) H 12/05/17 08:36 - VTE Documentation of Mechanical Device: Graduated compression elastic hosiery Consult Discharge Plan - Plan Instructions: Hypertensive Crisis (DC) Referrals: Ruby Cano CNP [Primary Care Provider] - 12/17/17 3:00 pm Agustin Ramirez MD [Partnered Physician] - 12/30/17 9:45 am
[2017-12-08] MEDS: Insulin NPH/REG 70/30 100 UNIT/ML (x5UNIT) SQ SCH (17:46)
[2017-12-09 04:41] LABS: Hematocrit 24.3 % (37.5-50.1); Hemoglobin 7.6 g/dL (12.9-16.9); Mean Corpuscular HGB Conc 31.3 g/dL (31.6-35.5); Mean Corpuscular Hemoglobin 28.6 pg (28.0-33.3); Mean Corpuscular Volume 91.4 fL (83.0-100.0); Mean Platelet Volume 10.1 fL (9.4-12.4); Platelet Count 198 K/mcL (140-400); Red Blood Count 2.66 M/mcL (4.19-5.50); Red Cell Distribution Width 14.6 % (11.5-14.5)
[2017-12-09 04:59] LABS: Calcium 8.8 mg/dL (8.6-10.3); Potassium 4.3 mEq/L (3.5-5.1)
[2017-12-09] MEDS: Pantoprazole 40 MG VIAL IVP SCH ×2 (06:15→17:56)
[2017-12-09] MEDS: Furosemide 40 MG TABLET PO SCH ×2 (08:32→21:08)
[2017-12-09] MEDS: hydrALAZINE 25 MG TABLET PO SCH ×3 (08:32→21:08)
[2017-12-09] MEDS: NIFEdipine XL (24 HR) 60 MG TAB.ER.24 PO SCH ×2 (08:33→21:08)
[2017-12-09] MEDS: Sucralfate 1 GM TABLET PO SCH ×4 (08:33→21:08)
[2017-12-09] MEDS: Folic Acid 1 MG TABLET PO SCH (08:33)
[2017-12-09] MEDS: Insulin LISPRO 300 UNITS/3 ML VIAL SQ SCH ×4 (08:34→21:09)
[2017-12-09] MEDS: Insulin NPH/REG 70/30 100 UNIT/ML (x5UNIT) SQ SCH ×3 (08:38→18:04)
[2017-12-09] MEDS: *HR* HYDROcodone/Acet 5/325 mg TABLET PO PRN ×3 (08:40→21:12)
[2017-12-09] MEDS ORDERED: Lidocaine -MPF 2% 2 ML VIAL ONE (10:13)
[2017-12-09] MEDS ORDERED: *HR* Propofol 200 MG/20 ML VIAL IVP ONE (10:13)
[2017-12-09] MEDS ORDERED: Ondansetron 4 MG/2 ML VIAL ONE (10:13)
--- NOTE | 2017-12-09 10:56 | Internal Med Progress Note ---
<Genaro Ward - Last Filed: 12/09/17 13:54> Date of Encounter: 12/09/17 Time of Encounter: 10:49 - Assessment and plan (1) Anemia Current Visit: Yes Status: Acute Assessment and plan: replaced with 1 unit after hgb was 7.0, responded to 8.1. Today hgb had mild decrease. Will continue to closely monitor. Per chart review, patient has known hemorrhagic ulcers in GI tract. Paged GI, Dr. Mario, and patient will most likely be scoped on Saturday. Iron workup shows Iron is low but Ferritin is high ; suggestive that iron deficiency is in the setting of acute illness. patient had elevation in lupus anticoagulants, will most likely need heme/onc outpatient follow up. Patient to also have GI outpatient follow up. - transfuse 1 unit prbc, and blood smear - closely follow h/h - serial exam for anemic symptoms - continue B12, folate, iron - replenish rbc hgb <7.0 - hemoccult pending - continue ferrous sulfate replacement - concern for GI bleed, continue carafate and protonix IV - per GI post EGD - EGD, and will have outpatient follow up Qualifiers: Anemia type: iron deficiency Iron deficiency anemia type: chronic blood loss Qualified Code(s): D50.0 - Iron deficiency anemia secondary to blood loss (chronic) (2) Hypertensive crisis Current Visit: Yes Status: Resolved Assessment and plan: elevated overnight, will continue to closely monitor if it goes any higher (3) Acute exacerbation of CHF (congestive heart failure) Current Visit: Yes Status: Acute Assessment and plan: continue patient on home meds. Will continue to monitor for PND, orthopnea, swelling, and SOB. - cardiac diet: 1.5 L fluids and 2g Na+ restrictions Qualifiers: Heart failure type: diastolic Qualified Code(s): I50.33 - Acute on chronic diastolic (congestive) heart failure (4) Obstructive sleep apnea Current Visit: Yes Status: Chronic Assessment and plan: patient has known hx of noncompliance, BiPAP at night. - Ordered oxygen, BiPAP, and elevate bed for support (5) DVT prophylaxis Current Visit: Yes Status: Acute Assessment and plan: concern for GI bleed, continue intermittent pneumatic compression devices (6) Acute respiratory failure Current Visit: Yes Status: Acute Assessment and plan: currently controlled. Qualifiers: Respiratory failure complication: hypoxia Qualified Code(s): J96.01 - Acute respiratory failure with hypoxia (7) Obesity (BMI 30-39.9) Current Visit: Yes Status: Acute Assessment and plan: chronic. educated patient on the benefit of weight loss. Patient states the he is unwilling to move around "and I can't make him" (8) Diabetes Current Visit: Yes Status: Chronic Assessment and plan: poorly controlled at home. BG is above >200 again today; will increase to SSI high Qualifiers: Diabetes mellitus type: type 2 Diabetes mellitus moth exterminator insulin use: with longterm use Diabetes mellitus complication status: with kidney complications Diabetes mellitus complication detail: with chronic kidney disease Chronic kidney disease stage: stage 3 (moderate) Qualified Code(s): E11.22 - Type 2 diabetes mellitus with diabetic chronic kidney disease; N18.3 - Chronic kidney disease, stage 3 (moderate); N18.3 - Chronic kidney disease, stage 3 (moderate); Z79.4 - correction (current) use of insulin; Z79.4 - vermin exterminator (current) use of insulin; Z79.4 - vermin exterminator (current) use of insulin; Z79.4 - correction (current) use of insulin (9) Acute kidney injury superimposed on chronic kidney disease Current Visit: Yes Status: Acute Assessment and plan: Neph is following. Cr continues to mildly improve today, most likely stable. BUN has been elevated since hospitalization, azotemia most likely suggestive of GI bleed. Patient in the last 24 hours has been non-oliguric - encourage PO fluid intake - appreciate nephro input: renal diet, avoid nephrotoxins - Time Spent With Patient Total time spent is greater than 50% in coordination of care (as documented) at patient's floor/unit and/or counseling patient: - Subjective Interval history: Mr Hernandez is seen and examined. Patient states he's feeling fine today. He denies any new complaints. He says he didn't sleep well last night, and has a mild headache. Patient denies PND, orthopnea, or swelling. Patient denies n/v /f/c/cp/sob. - Constitutional Vitals: Temp Pulse Resp BP Pulse Ox 98 F 64 5 165/78 96 12/09/17 07:03 12/09/17 07:03 12/09/17 07:03 12/09/17 07:03 12/09/17 07:03 General appearance: Present: mild distress, A&O X 3, morbidly obese, answers questions appropriately. Absent: pleasant - Head Head exam: Present: atraumatic, normocephalic - Respiratory Respiratory exam: Present: CTAB. Absent: accessory muscle use, rales, rhonchi, wheezes - Cardiovascular Cardiovascular exam: Present: RRR - GI/Abdominal GI/Abdominal exam: Present: normal bowel sounds. Absent: distended - Extremities Exam Extremities exam: Absent: pedal edema Internal Medicine: Result - Labs CBC & Chem 7: 12/09/17 04:22 12/09/17 04:22 Labs: Short CBC 12/09/17 Range/Units 04:22 WBC 8.2 (4.3-11.1) K/mcL Hgb 7.6 L (12.9-16.9) g/dL Hct 24.3 L (37.5-50.1) % Plt Count 198 (140-400) K/mcL BMP 12/09/17 04:22 Sodium 139 Potassium 4.3 Chloride 108 H Carbon Dioxide 24 BUN 69 H Creatinine 3.48 H Glucose 181 H Calcium 8.8 - ABG Interpretation ABG results: ABG ABG pH 7.35 pH Units (7.32-7.45) 12/03/17 16:09 ABG pCO2 44 mmHg (35-45) 12/03/17 16:09 ABG pO2 76 mmHg (85-104) L 12/03/17 16:09 ABG O2 Saturation 94 % (95-98) L 12/03/17 16:09 - VTE Documentation of Mechanical Device: Graduated compression elastic hosiery Consult Discharge Plan - Plan Referrals: Ruby Cano, POSTMASTER [Primary Care Provider] - <Alejandro Fontaine - Last Filed: 12/09/17 18:59> Date of Encounter: 12/09/17 - Assessment and plan (1) Acute respiratory failure Current Visit: Yes Status: Acute Qualifiers: Respiratory failure complication: hypoxia Qualified Code(s): J96.01 - Acute respiratory failure with hypoxia (2) Acute exacerbation of CHF (congestive heart failure) Current Visit: Yes Status: Acute Qualifiers: Heart failure type: diastolic Qualified Code(s): I50.33 - Acute on chronic diastolic (congestive) heart failure (3) Anemia Current Visit: Yes Status: Acute Qualifiers: Anemia type: iron deficiency Iron deficiency anemia type: chronic blood loss Qualified Code(s): D50.0 - Iron deficiency anemia secondary to blood loss (chronic) (4) Diabetes Current Visit: Yes Status: Chronic Qualifiers: Diabetes mellitus type: type 2 Diabetes mellitus longterm insulin use: with longterm use Diabetes mellitus complication status: with kidney complications Diabetes mellitus complication detail: with chronic kidney disease Chronic kidney disease stage: stage 3 (moderate) Qualified Code(s): E11.22 - Type 2 diabetes mellitus with diabetic chronic kidney disease; N18.3 - Chronic kidney disease, stage 3 (moderate); N18.3 - Chronic kidney disease, stage 3 (moderate); Z79.4 - vermin exterminator (current) use of insulin; Z79.4 - vermin exterminator (current) use of insulin; Z79.4 - correction (current) use of insulin; Z79.4 - vermin exterminator (current) use of insulin (5) Hypertensive crisis Current Visit: Yes Status: Resolved (6) Obstructive sleep apnea Current Visit: Yes Status: Chronic (7) DVT prophylaxis Current Visit: Yes Status: Acute (8) Obesity (BMI 30-39.9) Current Visit: Yes Status: Acute (9) Acute kidney injury superimposed on chronic kidney disease Current Visit: Yes Status: Acute - Time Spent With Patient Total time spent is greater than 50% in coordination of care (as documented) at patient's floor/unit and/or counseling patient: - Constitutional Vitals: Temp Pulse Resp BP Pulse Ox 97.9 F 61 16 167/75 96 12/09/17 17:50 12/09/17 17:50 12/09/17 17:50 12/09/17 17:50 12/09/17 17:07 Internal Medicine: Result - Labs CBC & Chem 7: 12/09/17 04:22 12/09/17 04:22 Labs: Short CBC 12/09/17 Range/Units 04:22 WBC 8.2 (4.3-11.1) K/mcL Hgb 7.6 L (12.9-16.9) g/dL Hct 24.3 L (37.5-50.1) % Plt Count 198 (140-400) K/mcL BMP 12/09/17 04:22 Sodium 139 Potassium 4.3 Chloride 108 H Carbon Dioxide 24 BUN 69 H Creatinine 3.48 H Glucose 181 H Calcium 8.8 - ABG Interpretation ABG results: ABG ABG pH 7.35 pH Units (7.32-7.45) 12/03/17 16:09 ABG pCO2 44 mmHg (35-45) 12/03/17 16:09 ABG pO2 76 mmHg (85-104) L 12/03/17 16:09 ABG O2 Saturation 94 % (95-98) L 12/03/17 16:09 - Attending Attestation I examined this patient and my medical decision-making was reviewed with the Resident Physician on 12/09/17. I agree with the documented findings, disposition and treatment plan as described except to the extent set forth below. Mr Hernandez is currently admitted for HTN crisis, anemia and renal failure. He remains moderate to high risk due to potential for worsening clinical status. Mr Hernandez had EGD today -no active bleeding. No fever. Still anemic. Renal following for BP and renal failure. No other issues. Exam alert Comfortable Mucus membranes dry Heart distant Lungs diminished I/P 1. Anemia - ? cause. Peripheral smear ordered. Receiving IV iron and Aranesp. 2. Renal failure 3. HTN - per nephrology Further diagnoses and plan as above.
--- NOTE | 2017-12-09 12:01 | Anesthesia Evaluation PreOp ---
Date of Encounter: 12/09/17 Time of Encounter: 11:59 - Past History Planned Operation: EGD Cardiac History: Denies any Significant Hx, [place] (> 10 years ago), CHF, HTN, Hyperlipidemia, Other (CAD, DVT) Pulmonary History: COPD, GRIS Dx POLO COACH History: Other (A/D) Other Medical History: Renal (CRF), Diabetes Type II Anesthesia History: Past Anesthesia Alcohol Use: none Drug use: none Medications and Allergies Carvedilol [Coreg] 25 mg PO BID 05/16/16 [History] DULoxetine [Cymbalta] 30 mg PO QPM 05/16/16 [History] DULoxetine [Cymbalta] 60 mg PO QAM 05/16/16 [History] HYDROcodone/Acet 5/325 mg [Cardwell 5-325 mg] 1 tab PO TID PRN 05/16/16 [History] Insulin NPH Hum/Reg Insulin Hm [Novolin 70-30 100 Unit/ml Vial] 55 unit SQ BID 05/16/16 [History] glipiZIDE [Glipizide] 10 mg PO DAILY 05/16/16 [History] Furosemide [Lasix] 80 mg PO BID 09/27/16 [History] Ferrous Sulfate [Iron] 325 mg PO BID 08/07/17 [History] NIFEdipine XL (24 HR) [Procardia XL] 60 mg PO BID 08/07/17 [History] hydrALAZINE [HydrALAZINE] 25 mg PO TID 08/07/17 [History] Losartan Potassium [Cozaar] 50 mg PO DAILY 12/03/17 [History] Pravastatin Sodium [Pravachol] 40 mg PO BID 12/03/17 [History] 3 Allergy/AdvReac Type Severity Reaction Status Date / Time acetaminophen [From Percocet] Allergy Hives Verified 09/04/17 09:46 gabapentin Allergy Itching Verified 10/14/17 14:22 Oxycodone [From Percocet] Allergy Hives Verified 09/04/17 09:46 tetanus immune globulin Allergy Anaphylaxis Verified 09/04/17 09:46 - Meds/Allergy Pre-op Review Medications Reviewed: Yes Allergies Reviewed: Yes Anesthesia Results - Labs 12/09/17 04:22 12/09/17 04:22 Echo 12/04/17 EF-60% Mild MR Moderate Diastolic Dysfunction No Pulm. HTN - Imaging EKG: report reviewed (SINUS RHYTHM MODERATE INTRAVENTRICULAR CONDUCTION DELAY) Anesthesia Exam Vital Signs/O2 Sat, Most Current Temp Pulse Resp BP Pulse Ox 97.9 F 57 16 173/78 93 12/09/17 11:38 12/09/17 11:38 12/09/17 11:38 12/09/17 11:38 12/09/17 11:38 NPO (# of Hours): > 8 hrs Pain Scale: 0 Pain Scale Used: Numeric (1 - 10) - HEENT Pupil (Motor): Pupils equal, EOMI Mallampati: III Teeth: Normal Oral Opening: Greater than 3 - POLO COACH LOC: Oriented POLO COACH Motor: Normal RUE, Normal LUE, Normal RLE, Normal LLE, Normal Face POLO COACH Sensory: Normal: RUE, LUE, RLE, LLE, Face - Cardiac Rhythm: Regular Murmur: None JVD: No Carotid Bruit: No - Pulmonary Breath Sounds: bilateral Clear Respiratory Effort: Symmetrical Anesthesia Assess/Plan ASA Score: 3 Modified Emory Scale for Level of Consciousness: Cooperative, oriented, and tranquil Anesthetic Plan: MAC Autologous Blood: Yes Monitoring Plan: Standard Monitors Recovery Plan: Other
--- NOTE | 2017-12-09 12:40 | Gastroenterology Consult Note ---
<Stu Rodriguezlyn M - Last Filed: 12/09/17 12:36> Date of Encounter: 12/09/17 Time of Encounter: 09:45 - Assessment and plan (1) Anemia Status: Acute Assessment and plan: Pt has a history of hemorrhagic gastritis. Will proceed with EGD. Continue PPI. pt has been transfused, continue PPI. Qualifiers: Anemia type: iron deficiency Iron deficiency anemia type: chronic blood loss Qualified Code(s): D50.0 - Iron deficiency anemia secondary to blood loss (chronic) - Time Spent With Patient Total time spent is greater than 50% in coordination of care (as documented) at patient's floor/unit and/or counseling patient: GI History of Present Illness - Data of Consult Patient: known to practice within the last 3 years Consult date: 12/09/17 Requesting Physician: Alejandro Fontaine DO - Consult Narrative Reason for consult: anemia History of present illness: Mr. Hernandez is a 62 year old male with a past medical history of COPD, obstructive sleep apnea with noncompliance with his BiPAP, congestive heart failure, renal insufficiency, GERD, prior DVT and pulmonary embolism previously on anticoagulation who presented to the ED on 12/03/17 with a chief complaint of shortness of breath. He remarks over the last few days that it has been increasingly difficult to do any of his usual activities. No recent illnesses. He denies any fevers. He was previously on Coumadin for multiple DVTs and pulmonary embolism but was stopped due to bleeding. No other complaints. He was admitted with a Hgb of 7.0 and has a history of gastric ulcer and GI bleed therefore GI was consulted. He denies any bloody or black tarry stools. He states his stools are dark but he is on po iron and has been on iron injections for the past couple months. He complains of GERD and states he has been taking pepto bismol or douglas seltzer denies any PPI at home. He denies nausea, vomiting, abdominal pain, or constipation. He states he only has diarrhea if he eats onions. Colonoscopy: 09/12 15 mm polyp sigmoid colon (tubular adenoma), diverticulosis EGD: 08/11 chronic gastritis with hemorrhage (biopsy negative) NSAIDS/ASA: Anticoagulants: stopped 6 months ago Past Med Surg Social Fam HX - Past Medical History Medical history: arthritis, CHF, COPD, DVT, diabetes, hypertension, myocardial infarction, pulmonary embolus, renal disease, other Psychiatric history: anxiety, depression, other - Past Surgical History Surgical History: non-contributory, other - Social History Smoking Status: Never smoker Smokeless Tobacco Status: Yes Alcohol use: none Drug use: none - Family History Mother Adopted: No Family Member Ethnicity: Non- Living Status: Hx Family Cardiac Disorders: Yes Brother Hx Family Cardiac Disorders: Yes (HTN) Hx Family Endocrine Disorder: Yes (DM-2) Review of Systems: GI: as per KAW GENERAL: denies fever, or chills EYES: denies yellow discoloration ENT: denies pain with swallowing or difficulty swallowing CARDIO: denies chest pain, palpitations RESP: increased Shortness of breath with exertion : denies change in color of urine NEURO: weakness HEME: Denies any bruising MS: chronic back and joint pain DERM: denies rash or itching PSYCH: Denies history of anxiety or depression - Constitutional Vitals: Temp Pulse Resp BP Pulse Ox 97.9 F 57 16 173/78 93 12/09/17 11:38 12/09/17 11:38 12/09/17 11:38 12/09/17 11:38 12/09/17 11:38 Exam: CONSTITUTIONAL:~alert, no acute distress.~HEAD:~normocephalic.~EYES:~no jaundice.~NECK:~no obvious swelling.~HEART:~regular rate and rhythm, no murmurs. ~LUNGS:~bilateral fair air entry.~ABDOMEN:~non distended, soft, non tender, no masses palpable, no organomegaly.~RECTAL EXAM:~Deferred.~EXTREMITIES:~no clubbing, cyanosis, 1+ ble edema.~SKIN:~no stigmata of chronic liver disease.~ NEUROLOGIC:~no obvious focal defect.~~~~ Results - Labs CBC & Chem 7: 12/09/17 04:22 12/09/17 04:22 Labs: Last Result Calcium 8.8 mg/dL (8.6-10.3) 12/09/17 04:22 Iron 24 mcg/dL (65-175) L 12/05/17 04:44 % Saturation 11 % (20-55) L 12/05/17 04:44 Transferrin 159 mg/dL (203-362) L 12/05/17 04:44 Ferritin 393 ng/ml (20-250) H 12/05/17 04:44 Troponin I 0.07 ng/mL (< 0.04) H* 12/04/17 02:48 Triglycerides 152 mg/dL (< 150) H 12/04/17 16:27 Vitamin B12 700 pg/mL (250-1100) 12/07/17 09:58 Folate > 22.3 ng/mL (3.0-16.0) H 12/07/17 09:58 Entire Visit Hgb 7.6 g/dL (12.9-16.9) L 12/09/17 04:22 Hct 24.3 % (37.5-50.1) L 12/09/17 04:22 Ferritin 393 ng/ml (20-250) H 12/05/17 04:44 Folate > 22.3 ng/mL (3.0-16.0) H 12/07/17 09:58 - ABG ABG results: ABG ABG pH 7.35 pH Units (7.32-7.45) 12/03/17 16:09 ABG pCO2 44 mmHg (35-45) 12/03/17 16:09 ABG pO2 76 mmHg (85-104) L 12/03/17 16:09 ABG O2 Saturation 94 % (95-98) L 12/03/17 16:09 Consult Discharge Plan - Plan Instructions: Hypertensive Crisis (DC) Referrals: Ruby Cano CNP [Primary Care Provider] - 12/17/17 3:00 pm Agustin Ramirez MD [Partnered Physician] - 12/30/17 9:45 am <Camden Busch - Last Filed: 12/18/17 05:23> Date of Encounter: 12/09/17 - Time Spent With Patient Total time spent is greater than 50% in coordination of care (as documented) at patient's floor/unit and/or counseling patient: GI History of Present Illness - Data of Consult Requesting Physician: Pancho Mason MD - Consult Narrative History of present illness: Mr. Hernandez is a 62 year old male - Constitutional Vitals: Temp Pulse Resp BP Pulse Ox 98.2 F 60 18 185/80 94 12/10/17 07:21 12/10/17 07:21 12/10/17 07:21 12/10/17 11:27 12/10/17 07:21 Results - Labs CBC & Chem 7: 12/10/17 03:46 12/10/17 03:46 Labs: Last Result Calcium 9.2 mg/dL (8.6-10.3) 12/10/17 03:46 Iron 24 mcg/dL (65-175) L 12/05/17 04:44 % Saturation 11 % (20-55) L 12/05/17 04:44 Transferrin 159 mg/dL (203-362) L 12/05/17 04:44 Ferritin 393 ng/ml (20-250) H 12/05/17 04:44 Troponin I 0.07 ng/mL (< 0.04) H* 12/04/17 02:48 Triglycerides 152 mg/dL (< 150) H 12/04/17 16:27 Vitamin B12 700 pg/mL (250-1100) 12/07/17 09:58 Folate > 22.3 ng/mL (3.0-16.0) H 12/07/17 09:58 Stool Occult Blood Positive (Negative) A 12/09/17 14:10 Entire Visit Hgb 8.5 g/dL (12.9-16.9) L 12/10/17 03:46 Hct 27.0 % (37.5-50.1) L 12/10/17 03:46 Ferritin 393 ng/ml (20-250) H 12/05/17 04:44 Folate > 22.3 ng/mL (3.0-16.0) H 12/07/17 09:58 - ABG ABG results: ABG ABG pH 7.35 pH Units (7.32-7.45) 12/03/17 16:09 ABG pCO2 44 mmHg (35-45) 12/03/17 16:09 ABG pO2 76 mmHg (85-104) L 12/03/17 16:09 ABG O2 Saturation 94 % (95-98) L 12/03/17 16:09 - Attending Attestation Iron deficiency anemia. Agree with assessment. I examined this patient and my medical decision-making was reviewed with the Resident Physician. I agree with the documented findings, disposition and treatment plan as described except to the extent set forth below.
[2017-12-09] MEDS: Iron Sucrose Complex 200 MG in 0.9 % Sodium Chloride 100 ML IVPB SCH (14:14)
[2017-12-09] MEDS ORDERED: 0.9 % Sodium Chloride 500 ML ONE (15:06)
--- NOTE | 2017-12-09 23:38 | Nephrology Progress Note ---
Date of Encounter: 12/09/17 Time of Encounter: 12:00 - Assessment and Plan (1) Acute kidney injury superimposed on chronic kidney disease Current Visit: Yes Status: Acute SCr improving slowly at 3.48, GFR 18, continue supportive measures No acute indication for AGENT TICKETING GATE at this point Continue to avoid nephrotoxins if possible UOP acceptable at 1750cc in the past 24hrs, will monitor (2) Anemia Current Visit: Yes Status: Acute Hgb improved after transfusion 1u pRBCs at 8.1 but dropped to 7.7 yesterday and now down to 7.6. GI workup today continue EPO dose increased yesterday transfusion parameters per primary team Qualifiers: Anemia type: iron deficiency Iron deficiency anemia type: chronic blood loss Qualified Code(s): D50.0 - Iron deficiency anemia secondary to blood loss (chronic) (3) CKD (chronic kidney disease) stage 4, GFR 15-29 ml/min Current Visit: Yes Status: Acute baseline GFR in the 20s prior to admission (4) Hypertensive crisis Current Visit: Yes Status: Resolved BP still fluctuating but pt reportedly also has a history of orthostatic hypotension making too low of BP readings problematic. goal BP likely around 150s systolic. He also reportedly has a history of isolated systolic hypertension meaning diastolic reading typically under 80s maintain current Bp regimen for now Subjective Principal diagnosis: Hypertensive crisis, acute CHF exacerbation Interval history: Pt seen and examined with no new complaints, EGD pending today. Objective - Vital Signs Vital signs: Vital Signs Temp Pulse Resp BP Pulse Ox 12/09/17 19:23 98.1 F 62 17 183/89 93 12/09/17 17:50 97.9 F 61 16 167/75 12/09/17 17:07 98.6 F 65 16 141/80 96 12/09/17 15:44 97.9 F 60 16 177/77 93 12/09/17 15:29 97.6 F 62 16 174/81 12/09/17 12:50 98.0 F 61 16 179/82 93 12/09/17 11:38 97.9 F 57 16 173/78 93 12/09/17 07:03 98 F 64 5 165/78 96 12/09/17 03:00 98.3 F 63 19 174/69 94 Intake and Output 12/09/17 12/09/17 12/09/17 07:59 15:59 23:59 Intake Total 600 / 600 0 / 0 350 / 350 Output Total 1000 / 1000 Balance -400 / -400 0 / 0 350 / 350 Intake: Oral 600 / 600 0 / 0 0 / 0 Blood Product 0 / 0 350 / 350 Rbcs Leuko Poor As-1 Unit 0 / 0 350 / 350 [id number] Output: Urine 1000 / 1000 Other: Meal Breakfast Dinner Percent of Meal Consumed 0% 0% # Voids 1 Weight 137.7 kg Blood Glucose* 189 142 216 Patient Weight 12/09/17 23:59 Weight 137.7 kg - General Appearance General appearance: Present: well-developed, well-nourished EENT: Present: ATNC, mucous membranes moist Neck: Present: no JVD, supple Respiratory: Present: clear Cardiology: Present: no edema, normal S1, normal S2 Gastrointestinal: Present: no tenderness, no guarding, obese Integumentary: Present: warm and dry Neurologic: Present: no focal deficit Musculoskeletal: Present: no deformities Psychiatric: Present: mood/affect appropriate - Lab 12/09/17 04:22 12/09/17 04:22 Most recent lab results ABG pH 7.35 pH Units (7.32-7.45) 12/03/17 16:09 ABG pCO2 44 mmHg (35-45) 12/03/17 16:09 ABG pO2 76 mmHg (85-104) L 12/03/17 16:09 ABG HCO3 24 mEq/L (21-27) 12/03/17 16:09 ABG O2 Saturation 94 % (95-98) L 12/03/17 16:09 Calcium 8.8 mg/dL (8.6-10.3) 12/09/17 04:22 Urine Creatinine 111 mg/dL 12/05/17 08:36 Urine Total Protein 246 mg/dL (1-14) H 12/05/17 08:36 - VTE Documentation of Mechanical Device: Graduated compression elastic hosiery Consult Discharge Plan - Plan Referrals: Ruby Cano, PHOTO OPT[employer] TECHNICIAN [Primary Care Provider] -
[2017-12-10 04:01] LABS: Hemoglobin 8.5 g/dL (12.9-16.9); Mean Corpuscular HGB Conc 31.5 g/dL (31.6-35.5); Mean Corpuscular Hemoglobin 28.6 pg (28.0-33.3); Mean Corpuscular Volume 90.9 fL (83.0-100.0); Mean Platelet Volume 10.3 fL (9.4-12.4); Platelet Count 220 K/mcL (140-400); Red Blood Count 2.97 M/mcL (4.19-5.50); Red Cell Distribution Width 15.8 % (11.5-14.5)
[2017-12-10 04:23] LABS: Calcium 9.2 mg/dL (8.6-10.3); Potassium 3.8 mEq/L (3.5-5.1)
[2017-12-10] MEDS: Pantoprazole 40 MG VIAL IVP SCH (06:28)
[2017-12-10] MEDS: *HR* HYDROcodone/Acet 5/325 mg TABLET PO PRN (08:04)
[2017-12-10] MEDS: hydrALAZINE 25 MG TABLET PO SCH (08:04)
[2017-12-10] MEDS: Sucralfate 1 GM TABLET PO SCH ×2 (08:04→12:12)
[2017-12-10] MEDS: NIFEdipine XL (24 HR) 60 MG TAB.ER.24 PO SCH (08:04)
[2017-12-10] MEDS: Furosemide 40 MG TABLET PO SCH (08:04)
[2017-12-10] MEDS: Insulin NPH/REG 70/30 100 UNIT/ML (x5UNIT) SQ SCH (08:05)
[2017-12-10] MEDS: Insulin LISPRO 300 UNITS/3 ML VIAL SQ SCH ×2 (08:05→12:13)
[2017-12-10] MEDS: Folic Acid 1 MG TABLET PO SCH (08:05)
--- NOTE | 2017-12-10 10:21 | Discharge Summary ---
<Genaro Ward - Last Filed: 12/10/17 13:21> Orders not resulted at time of discharge: Pending orders 12/11/17 04:00 BMP [Basic Metabolic Panel] AM 0400 CBC no Diff [Complete Blood Count w/o Diff] [HEME] AM 0400 12/12/17 04:00 BMP [Basic Metabolic Panel] AM 0400 CBC no Diff [Complete Blood Count w/o Diff] [HEME] AM 0400 12/13/17 04:00 BMP [Basic Metabolic Panel] AM 0400 CBC no Diff [Complete Blood Count w/o Diff] [HEME] AM 0400 Date of Encounter: 12/10/17 Time of Encounter: 09:00 - Discharge Diagnosis (1) Diabetes Priority: Secondary Status: Chronic Qualifiers: Diabetes mellitus type: type 2 Diabetes mellitus longterm insulin use: with longterm use Diabetes mellitus complication status: with kidney complications Diabetes mellitus complication detail: with chronic kidney disease Chronic kidney disease stage: stage 3 (moderate) Qualified Code(s): E11.22 - Type 2 diabetes mellitus with diabetic chronic kidney disease; N18.3 - Chronic kidney disease, stage 3 (moderate); N18.3 - Chronic kidney disease, stage 3 (moderate); Z79.4 - director long term care (current) use of insulin; Z79.4 - group home (current) use of insulin; Z79.4 - group home (current) use of insulin; Z79.4 - group home (current) use of insulin (2) Hypertensive crisis Priority: Primary Status: Resolved (3) Acute exacerbation of CHF (congestive heart failure) Priority: Secondary Status: Acute Qualifiers: Heart failure type: diastolic Qualified Code(s): I50.33 - Acute on chronic diastolic (congestive) heart failure (4) Obstructive sleep apnea Priority: Secondary Status: Chronic (5) DVT prophylaxis Priority: Secondary Status: Acute (6) Anemia Priority: Secondary Status: Acute Qualifiers: Anemia type: iron deficiency Iron deficiency anemia type: chronic blood loss Qualified Code(s): D50.0 - Iron deficiency anemia secondary to blood loss (chronic) (7) Acute respiratory failure Priority: Secondary Status: Acute Qualifiers: Respiratory failure complication: hypoxia Qualified Code(s): J96.01 - Acute respiratory failure with hypoxia (8) Obesity (BMI 30-39.9) Priority: Secondary Status: Acute (9) Acute kidney injury superimposed on chronic kidney disease Priority: Secondary Status: Acute Hospital course: Mr. Hernandez is a 62 year old male Who presented from home for difficulty breathing that had been progressing for the last 2 days. Patient has pmh of CHF, COPD, PE, poor medication compliance, DM, Iron deficiency anemia, and gastritis seen on colonoscopy two weeks prior to admission. Patient supported SOB, PND, orthopnea, and edema. On admission patient BP was found to be SBP > 200 2/2 acute heart failure w/ resultant pleural effusion and elevated trops. Patient was admitted to ICU. EKG was reviewed and showed now ischemic features. PAtient was started on nitroglycerin with goal SBP of 160 in 24 hours. And home hypertensives were restarted. Patient was initeated on BiPAP at this time and soon after weaned to 5L NC. Patient then was put on nicardipine drip for BP control. Patient remained in ICU for 2 days prior to being brought to the floor. BP remianed in target range on floor with home BP medications. Patient on initial presentation also presented with GLORIA on CKD4. Cr steadly improved throughout hospitalization. The GLORIA was most likely due to secondary to hypertensive crisis with contributions of known GI bleed as patient also had azotemia. Nephrology was consulted. Patient was also found to be anemic, GI was consulted for EGD, and 2 units of pRBC were transfused. No active bleeds were seen on EGD, and GI recommended outpatient follow up. Patient after 2 units remained stable around hgb 8.5. Patient was also given b12, folate, iron. Patient had previous workup suspicious of Lupus, patient recommended to follow up with rheumatology outpatient. Patient educated on the importance of taking home BP medications multiple times during stay. Patient to have follow up with GI, PCP, nephrology, and rheumatology within 1 week of discharge. *update* patient's elevated BP was discussed with Dr. Triana, summer camp counselor, due to patients orthostatic hypertension and isolated systolic hypertension. Patient's normally SBP elevated and would not recommend treating BP at this time as it could be detrimental to patient. Discharge discussed with: patient - Time Spent with Patient Total time spent providing and/or coordinating discharge services: Greater than 30 minutes - Discharge Medications Home Medications: Carvedilol [Coreg] 25 mg PO BID 05/16/16 [History] DULoxetine [Cymbalta] 30 mg PO QPM 05/16/16 [History] DULoxetine [Cymbalta] 60 mg PO QAM 05/16/16 [History] HYDROcodone/Acet 5/325 mg [[place] 5-325 mg] 1 tab PO TID PRN 05/16/16 [History] Insulin NPH Hum/Reg Insulin Hm [Novolin 70-30 100 Unit/ml Vial] 55 unit SQ BID 05/16/16 [History] glipiZIDE [Glipizide] 10 mg PO DAILY 05/16/16 [History] Furosemide [Lasix] 80 mg PO BID 09/27/16 [History] Ferrous Sulfate [Iron] 325 mg PO BID 08/07/17 [History] NIFEdipine XL (24 HR) [Procardia XL] 60 mg PO BID 08/07/17 [History] hydrALAZINE [HydrALAZINE] 25 mg PO TID 08/07/17 [History] Losartan Potassium [Cozaar] 50 mg PO DAILY 12/03/17 [History] Pravastatin Sodium [Pravachol] 40 mg PO BID 12/03/17 [History] Allergies/Adverse Reactions: 3 Allergy/AdvReac Type Severity Reaction Status Date / Time acetaminophen [From Percocet] Allergy Hives Verified 09/04/17 09:46 gabapentin Allergy Itching Verified 10/14/17 14:22 Oxycodone [From Percocet] Allergy Hives Verified 09/04/17 09:46 tetanus immune globulin Allergy Anaphylaxis Verified 09/04/17 09:46 Date of admission: 12/03/17 16:44 Primary care physician: Ruby Cano CNP Consults: 12/04/17 08:13 Consult to Nephrology [CONS] Routine Consulting Provider: [facility]/EMILEE/NAHID/JANET Reason for Consult: hypertensive crisis, antihypertensive medication management Time Notified: 08:16 Call Completed: Yes 12/06/17 13:19 Consult to Proof Plate Maker [CONS] Routine Reason for SW Consult: Step-down from ICU. Will most likely need rehab placement at d/c. PT/OT consulted today. Please see Rachel's notes from ER. 12/06/17 14:09 Consult to Gastroenterology [CONS] Routine Consulting Provider: Gastroenterology [facility] Reason for Consult: hgb 7.0 previous gastric ulcer/hemorrhage last EGD 12/13/ 17 Call Completed: Yes Discharging clinician: Genaro Ward Anticipated date of discharge: 12/10/17 - Constitutional Vitals: Temp Pulse Resp BP Pulse Ox 98.2 F 60 18 166/76 94 12/10/17 07:21 12/10/17 07:21 12/10/17 07:21 12/10/17 07:21 12/10/17 07:21 General appearance: Present: mild distress, A&O X 3, morbidly obese, answers questions appropriately. Absent: pleasant - Head Head exam: Present: atraumatic, normocephalic - Respiratory Respiratory exam: Present: CTAB. Absent: accessory muscle use, rales, rhonchi, wheezes - Cardiovascular Cardiovascular exam: Present: RRR - GI/Abdominal GI/Abdominal exam: Absent: distended, firm, guarding, rebound - Extremities Exam Extremities exam: Present: pedal edema (1+ BLE) - Patient Status Disposition: Home, Self-Care Functional capacity at discharge: independent ambulation Overall status at discharge: patient is not back to baseline - Discharge Instructions Instructions: Hypertensive Crisis (DC) Follow Up With: Ruby Cano CNP [Primary Care Provider] - 12/17/17 3:00 pm Agustin Ramirez MD [Partnered Physician] - 12/30/17 9:45 am Forms: ED Satisfaction Letter - Diet and Activity Activity: as per physical therapy Diet: diabetic diet, low salt diet - VTE Documentation of Mechanical Device: Graduated compression elastic hosiery <Pancho Mason - Last Filed: 12/10/17 17:59> Date of Encounter: 12/10/17 Hospital course: Mr. Hernandez is a 62 year old male - Time Spent with Patient Total time spent providing and/or coordinating discharge services: Date of admission: 12/03/17 16:44 Primary care physician: Ruby Cano CNP Consults: 12/04/17 08:13 Consult to Nephrology [CONS] Routine Consulting Provider: [facility] [place]/EMILEE/NAHID/JANET Reason for Consult: hypertensive crisis, antihypertensive medication management Time Notified: 08:16 Call Completed: Yes 12/06/17 13:19 Consult to Proof Plate Maker [CONS] Routine Reason for SW Consult: Step-down from ICU. Will most likely need rehab placement at d/c. PT/OT consulted today. Please see Rachel's notes from ER. 12/06/17 14:09 Consult to Gastroenterology [CONS] Routine Consulting Provider: Gastroenterology Argelia Reason for Consult: hgb 7.0 previous gastric ulcer/hemorrhage last EGD Call Completed: Yes - Constitutional Vitals: Temp Pulse Resp BP Pulse Ox 98.2 F 60 18 185/80 94 12/10/17 07:21 12/10/17 07:21 12/10/17 07:21 12/10/17 11:27 12/10/17 07:21 - Patient Status Functional capacity at discharge: independent ambulation - Diet and Activity Activity: as per physical therapy - Attending Attestation I saw and examined this patient independently, and my medical decision making was reviewed with the resident physician on 12/10/2017. I agree with the documented findings, assessment and treatment plan as described in the discharge summary.
[2017-12-10 11:27] VITALS: BP 185/80
[2017-12-10] MEDS ORDERED: hydrALAZINE 25 MG TABLET PO SCH ×2 (11:45→16:00)
== END 2017-12-10 14:27 | disposition home or self-care (01) | DRG 291 ==
LOC: EMEROO 14:07 → SUATTDRO 16:44 → ICNU 16:44 → 2NENU 12-05 16:18
PROVIDERS: ADMIT Internal Medicine Pulmonary Disease; ATTEND Hospitalist

== ENCOUNTER 2018-05-07 20:04 | Observation (INO) ==
[2018-05-07] MEDS ORDERED: Aspirin 325 MG TABLET PO ONE (21:50)
--- NOTE | 2018-05-07 21:54 | Emergency Department Note ---
Disposition Clinical Impression: Hypoglycemia Chest pain Qualifiers: Chest pain type: unspecified Qualified Code(s): R07.9 - Chest pain, unspecified Disposition: Still a Patient Referrals: Ruby Cano CNP [Primary Care Provider] - Forms: ED Satisfaction Letter General Adult HPI - General Chief complaint: ED Shortness of Breath/Dyspnea Stated complaint: FABI Time Seen by Provider: 05/07/18 21:26 Source: patient Mode of arrival: private vehicle Limitations: no limitations Nursing Notes Reviewed: Yes Vital Signs Reviewed: Yes - History of Present Illness HPI Narrative: Patient is a 63-year-old male with past medical history including diabetes mellitus on insulin, hypertension, coronary artery disease, who presents with chief complaint of chest pain after an episode of low blood sugar. Patient states he took 25 units of his insulin today and his blood sugar still remained elevated this afternoon so he took an additional 10 units. Around 6 PM he states he started becoming very lightheaded and confused. He also became short of breath and he knew his blood sugar was low as this has happened in the past and his blood sugar has dropped as low as 30. He called his brother who came to his house. He is able to drink some milk shakes to bring up his sugar. After some time he started becoming more awake and alert and his brother brought him to the ED. He states he developed left-sided chest pain that worsens when he takes a deep breath. He states he has had this in the past and was diagnosed with a heart attack but he did not have any stents placed. At present his chest pain is improved. Pain Scale: 6 - Related Data Home Medications Medication Instructions Recorded Confirmed Carvedilol [Coreg] 25 mg PO BID 05/16/16 12/03/17 DULoxetine [Cymbalta] 30 mg PO QPM 05/16/16 10/14/17 DULoxetine [Cymbalta] 60 mg PO QAM 05/16/16 12/03/17 HYDROcodone/Acet 5/325 mg [[place] 1 tab PO TID PRN 05/16/16 12/03/17 5-325 mg] Insulin NPH Hum/Reg Insulin Hm 55 unit SQ BID 05/16/16 12/03/17 [Novolin 70-30 100 Unit/ml Vial] glipiZIDE [Glipizide] 10 mg PO DAILY 05/16/16 12/03/17 Furosemide [Lasix] 80 mg PO BID 09/27/16 12/03/17 Ferrous Sulfate [Iron] 325 mg PO BID 08/07/17 12/03/17 NIFEdipine XL (24 HR) [Procardia 60 mg PO BID 08/07/17 12/03/17 XL] hydrALAZINE [HydrALAZINE] 25 mg PO TID 08/07/17 12/03/17 Losartan Potassium [Cozaar] 50 mg PO DAILY 12/03/17 12/03/17 Pravastatin Sodium [Pravachol] 40 mg PO BID 12/03/17 Allergies Allergy/AdvReac Type Severity Reaction Status Date / Time acetaminophen [From Percocet] Allergy Hives Verified 05/07/18 22:54 All systems ED: reviewed and negative except as stated. Review of Systems: As Per HPI Constitutional: Denies: fever, chills Eyes: Denies: vision change ENT ED: Denies: throat pain, congestion Cardiovascular: Reports: chest pain, other (lightheaded). Denies: palpitations Respiratory: Reports: dyspnea. Denies: cough, hemoptysis Gastrointestinal: Denies: abdominal pain, nausea, diarrhea Genitourinary: Denies: dysuria, hematuria Musculoskeletal: Denies: back pain, neck pain Integumentary: Denies: rash Neurological: Reports: confusion. Denies: headache Allergic/Immunologic: Denies: itchy eyes Past Medical History - Past Medical History Attestation: Yes The following information was validated with the patient. Source: patient Medical history: Reports: arthritis, CHF, COPD, DVT, diabetes, hypertension, myocardial infarction, pulmonary embolus, renal disease, other Surgical history: Reports: non-contributory, other Psychiatric history: Reports: anxiety, depression, other - Social History Smoking Status: Never smoker Smokeless Tobacco Status: Yes Alcohol use: Reports: none Drug use: Reports: none Physical Exam - General Limitations: no limitations General appearance: alert, in no apparent distress - Head Head exam: atraumatic, normocephalic - Eye Eye exam: Present: normal appearance, EOMI - ENT ENT exam: mucous membranes moist - Respiratory Respiratory exam: Present: normal lung sounds bilaterally. Absent: respiratory distress, wheezes - Cardiovascular Cardiovascular exam: Present: regular rate, normal rhythm, normal heart sounds - Abdominal Exam Abdominal exam: Present: soft, Non-Tender. Absent: guarding - Extremities Exam Extremities exam: Present: full ROM - Neurological Exam Neurological exam: Present: alert, oriented X3, CN II-XII intact, other (tremor at rest of left hand) - Psychiatric Psychiatric exam: Present: normal affect, normal mood - Skin Skin exam: Present: warm, dry. Absent: diaphoresis, pallor Course Vital Signs Temperature 97.9 F 05/07/18 20:22 Pulse Rate 69 05/07/18 20:22 Respiratory Rate 16 05/07/18 20:22 Blood Pressure 182/74 05/07/18 20:22 O2 Sat by Pulse Oximetry 96 05/07/18 20:22 Temperature 97.9 F 05/07/18 20:22 Pulse Rate 71 05/07/18 21:43 Respiratory Rate 18 05/07/18 21:43 Blood Pressure 208/81 05/07/18 21:43 O2 Sat by Pulse Oximetry 98 05/07/18 21:43 Oxygen Delivery Oxygen Delivery Room Air Medical Decision Making - MDM Narrative Medical decision making narrative: Patient's glucose is 151. He is alert and oriented. Chest pain is improved at this time. Will obtain cardiac workup, urinalysis, CXR. EKG and troponin pending. Aspirin ordered. HEART score is 4. EKG shows new T wave inversion in aVL. No ST elevation. 22:43 BMP hemolized and will need to be redrawn. Troponin is 0.03. CXR with stable cardiomegaly with mild edema. Patient will need to be admitted for further cardiac workup. 23:00 BMP still pending at this time. WIll sign the patient out to Dr. Schwartz. CANDIDO completed and plan of care discussed with him. - Medical Records Medical records reviewed: Yes I reviewed the patient's medical records. - Lab Data Lab results reviewed: Yes I reviewed the patient's lab results. Result diagrams: 05/07/18 21:00 Lab Results 05/07/18 05/07/18 05/07/18 Range/Units 20:30 21:00 21:44 WBC 12.4 H (4.3-11.1) K/mcL RBC 3.63 L (4.19-5.50) M/mcL Hgb 11.0 L (12.9-16.9) g/dL Hct 33.5 L (37.5-50.1) % MCV 92.3 (83.0-100.0) fL MCH 30.3 (28.0-33.3) pg MCHC 32.8 (31.6-35.5) g/dL RDW 13.2 (11.5-14.5) % Plt Count 184 (140-400) K/mcL MPV 10.2 (9.4-12.4) fL Immature Gran % 0.6 (0-4) % Seg Neutrophils % 87.8 % Lymphocytes % 5.1 % Monocytes % 4.3 % Eosinophils % 1.9 % Basophils % 0.3 % Neutrophils # 10.8 H (1.6-8.9) K/mcL Lymphocytes # 0.6 (0.6-4.6) K/mcL Monocytes # 0.5 (0.0-1.3) K/mcL Eosinophils # 0.2 (0.0-0.6) K/mcL Basophils # 0.0 (0.0-0.2) K/mcL PT 9.9 (9.4-12.1) Seconds INR 0.9 APTT 32.5 (26.0-36.0) Seconds POC Glucose 151 H (70-99) mg/dL - EKG Data EKG #1 EKG attestation: Yes I reviewed and interpreted this EKG. EKG results narrative: EKG on 05/07/2018 at 20:34 shows sinus rhythm with rate 67. SD interval 166. QT 447. QTc 463. There is no T-wave inversions in aVL no ST elevation. The T wave depression in aVL is new compared to prior EKG on 12/03/2017. Both EKGs have moderate intraventricular conduction delay. Heart Score - Score History: Slightly Suspicious EKG: Non Specific repolarisation Disturbance Age: 45-65 Risk Factors: Equal/Greater than 3 risk factor or history of atherosclerotic disease Troponin: Less than normal limit HEART Score Total: 4
[2018-05-07 22:03] LABS: Hematocrit 33.5 % (37.5-50.1); Immature Granulocytes % 0.6 % (0-4); Lymphocytes % 5.1 %; Mean Corpuscular HGB Conc 32.8 g/dL (31.6-35.5); Mean Corpuscular Hemoglobin 30.3 pg (28.0-33.3); Mean Corpuscular Volume 92.3 fL (83.0-100.0); Mean Platelet Volume 10.2 fL (9.4-12.4); Platelet Count 184 K/mcL (140-400); Red Blood Count 3.63 M/mcL (4.19-5.50); Red Cell Distribution Width 13.2 % (11.5-14.5); Segmented Neutrophils % 87.8 %
[2018-05-07 22:04] LABS: Basophils % 0.3 %; Eosinophils # 0.2 K/mcL (0.0-0.6); Eosinophils % 1.9 %; Lymphocytes # 0.6 K/mcL (0.6-4.6); Monocytes # 0.5 K/mcL (0.0-1.3); Monocytes % 4.3 %; Neutrophils # 10.8 K/mcL (1.6-8.9)
[2018-05-07 22:09] LABS: INR 0.9; Prothrombin Time 9.9 Seconds (9.4-12.1)
[2018-05-07 22:12] LABS: Activated Partial Thrombo Time 32.5 Seconds (26.0-36.0)
--- NOTE | 2018-05-07 22:33 | Emergency Department Note ---
Disposition Clinical Impression: Hypoglycemia, Chest pain Disposition: Admitted As Inpatient Condition: Fair General Adult HPI - General Chief complaint: ED Shortness of Breath/Dyspnea Stated complaint: FABI Time Seen by Provider: 05/07/18 21:26 Source: patient Mode of arrival: private vehicle Limitations: no limitations - History of Present Illness Pain Scale: 6 - Related Data Home Medications Medication Instructions Recorded Confirmed Carvedilol [Coreg] 25 mg PO BID 05/16/16 05/07/18 DULoxetine [Cymbalta] 30 mg PO QPM 05/16/16 05/07/18 DULoxetine [Cymbalta] 60 mg PO QAM 05/16/16 05/07/18 HYDROcodone/Acet 5/325 mg [[facility] 1 tab PO TID PRN 05/16/16 05/07/18 5-325 mg] Insulin NPH Hum/Reg Insulin Hm 10 - 40 unit SQ BID 05/16/16 05/07/18 [Novolin 70-30 100 Unit/ml Vial] glipiZIDE [Glipizide] 10 mg PO DAILY 05/16/16 05/07/18 Furosemide [Lasix] 80 mg PO BID 09/27/16 05/07/18 Ferrous Sulfate [Iron] 325 mg PO BID 08/07/17 05/07/18 NIFEdipine XL (24 HR) [Procardia 60 mg PO BID 08/07/17 05/07/18 XL] hydrALAZINE [HydrALAZINE] 25 mg PO TID 08/07/17 05/07/18 Losartan Potassium [Cozaar] 50 mg PO DAILY 12/03/17 05/07/18 Pravastatin Sodium [Pravachol] 40 mg PO DAILY 12/03/17 05/07/18 Allergies Allergy/AdvReac Type Severity Reaction Status Date / Time acetaminophen [From Percocet] Allergy Hives Verified 05/07/18 22:54 Constitutional: Denies: fever, chills Eyes: Denies: vision change ENT ED: Denies: throat pain, congestion Cardiovascular: Reports: chest pain, other (lightheaded). Denies: palpitations Respiratory: Reports: dyspnea. Denies: cough, hemoptysis Gastrointestinal: Denies: abdominal pain, nausea, diarrhea Genitourinary: Denies: dysuria, hematuria Musculoskeletal: Denies: back pain, neck pain Integumentary: Denies: rash Neurological: Reports: confusion. Denies: headache Allergic/Immunologic: Denies: itchy eyes Past Medical History - Past Medical History Medical history: Reports: arthritis, CHF, COPD, DVT, diabetes, hypertension, myocardial infarction, pulmonary embolus, renal disease, other Surgical history: Reports: non-contributory, other Psychiatric history: Reports: anxiety, depression, other - Social History Smoking Status: Never smoker Smokeless Tobacco Status: Yes Alcohol use: Reports: none Drug use: Reports: none Physical Exam - General Limitations: no limitations General appearance: alert, in no apparent distress Course Vital Signs Temperature 97.9 F 05/07/18 20:22 Pulse Rate 69 05/07/18 20:22 Respiratory Rate 16 05/07/18 20:22 Blood Pressure 182/74 05/07/18 20:22 O2 Sat by Pulse Oximetry 96 05/07/18 20:22 Temperature 97.6 F 05/09/18 07:13 Pulse Rate 64 05/09/18 07:13 Respiratory Rate 18 05/09/18 07:13 Blood Pressure 188/80 05/09/18 07:13 O2 Sat by Pulse Oximetry 96 05/09/18 07:13 Oxygen Delivery Oxygen Delivery Room Air Medical Decision Making - Lab Data Result diagrams: 05/09/18 05:09 05/09/18 05:09 Lab Results 05/07/18 05/07/18 05/07/18 Range/Units 20:30 21:00 21:00 WBC 12.4 H (4.3-11.1) K/mcL RBC 3.63 L (4.19-5.50) M/mcL Hgb 11.0 L (12.9-16.9) g/dL Hct 33.5 L (37.5-50.1) % MCV 92.3 (83.0-100.0) fL MCH 30.3 (28.0-33.3) pg MCHC 32.8 (31.6-35.5) g/dL RDW 13.2 (11.5-14.5) % Plt Count 184 (140-400) K/mcL MPV 10.2 (9.4-12.4) fL Immature Gran % 0.6 (0-4) % Seg Neutrophils % 87.8 % Lymphocytes % 5.1 % Monocytes % 4.3 % Eosinophils % 1.9 % Basophils % 0.3 % Neutrophils # 10.8 H (1.6-8.9) K/mcL Lymphocytes # 0.6 (0.6-4.6) K/mcL Monocytes # 0.5 (0.0-1.3) K/mcL Eosinophils # 0.2 (0.0-0.6) K/mcL Basophils # 0.0 (0.0-0.2) K/mcL PT (9.4-12.1) Seconds INR APTT (26.0-36.0) Seconds Sodium Cancelled Potassium Cancelled Chloride Cancelled Carbon Dioxide Cancelled BUN Cancelled Creatinine Cancelled Est GFR ( Amer) Cancelled Est GFR (Non-Af Amer) Cancelled BUN/Creatinine Ratio Cancelled Glucose Cancelled POC Glucose 151 H (70-99) mg/dL Calculated Osmolality Cancelled Calcium Cancelled Troponin I 0.03 (< 0.04) ng/mL Urine Color (Yellow) Urine Clarity (Clear) Urine pH (5.0-8.0) pH Units Ur Specific [place] (1.010-1.025) Urine Protein (Neg-Trace) mg/dL Urine Glucose (UA) (Normal) mg/dL Urine Ketones (Negative) mg/dL Urine Blood (Negative) Urine Nitrite (Negative) Urine Bilirubin (Negative) Urine Urobilinogen (Normal) mg/dL Ur Leukocyte Esterase (Negative) Urine Microscopic RBC (0-3) per hpf Urine Microscopic WBC (0-3) per hpf Ur Squamous Epith Cells (None-Few) per lpf Urine Bacteria (None-Few) per hpf Hyaline Casts (None-Few) per lpf Ur Culture Indicated? (NO) 05/07/18 05/07/18 05/07/18 Range/Units 21:39 21:44 23:14 WBC (4.3-11.1) K/mcL RBC (4.19-5.50) M/mcL Hgb (12.9-16.9) g/dL Hct (37.5-50.1) % MCV (83.0-100.0) fL MCH (28.0-33.3) pg MCHC (31.6-35.5) g/dL RDW (11.5-14.5) % Plt Count (140-400) K/mcL MPV (9.4-12.4) fL Immature Gran % (0-4) % Seg Neutrophils % % Lymphocytes % % Monocytes % % Eosinophils % % Basophils % % Neutrophils # (1.6-8.9) K/mcL Lymphocytes # (0.6-4.6) K/mcL Monocytes # (0.0-1.3) K/mcL Eosinophils # (0.0-0.6) K/mcL Basophils # (0.0-0.2) K/mcL PT 9.9 (9.4-12.1) Seconds INR 0.9 APTT 32.5 (26.0-36.0) Seconds Sodium 138 Potassium 4.2 Chloride 104 Carbon Dioxide 24 BUN 70 H Creatinine 3.85 H Est GFR ( Amer) 19 L Est GFR (Non-Af Amer) 16 L BUN/Creatinine Ratio 18 Glucose 297 H POC Glucose 233 H (70-99) mg/dL Calculated Osmolality 318 H Calcium 9.4 Troponin I (< 0.04) ng/mL Urine Color (Yellow) Urine Clarity (Clear) Urine pH (5.0-8.0) pH Units Ur Specific [place] (1.010-1.025) Urine Protein (Neg-Trace) mg/dL Urine Glucose (UA) (Normal) mg/dL Urine Ketones (Negative) mg/dL Urine Blood (Negative) Urine Nitrite (Negative) Urine Bilirubin (Negative) Urine Urobilinogen (Normal) mg/dL Ur Leukocyte Esterase (Negative) Urine Microscopic RBC (0-3) per hpf Urine Microscopic WBC (0-3) per hpf Ur Squamous Epith Cells (None-Few) per lpf Urine Bacteria (None-Few) per hpf Hyaline Casts (None-Few) per lpf Ur Culture Indicated? (NO) 05/08/18 Range/Units 00:56 WBC (4.3-11.1) K/mcL RBC (4.19-5.50) M/mcL Hgb (12.9-16.9) g/dL Hct (37.5-50.1) % MCV (83.0-100.0) fL MCH (28.0-33.3) pg MCHC (31.6-35.5) g/dL RDW (11.5-14.5) % Plt Count (140-400) K/mcL MPV (9.4-12.4) fL Immature Gran % (0-4) % Seg Neutrophils % % Lymphocytes % % Monocytes % % Eosinophils % % Basophils % % Neutrophils # (1.6-8.9) K/mcL Lymphocytes # (0.6-4.6) K/mcL Monocytes # (0.0-1.3) K/mcL Eosinophils # (0.0-0.6) K/mcL Basophils # (0.0-0.2) K/mcL PT (9.4-12.1) Seconds INR APTT (26.0-36.0) Seconds Sodium Potassium Chloride Carbon Dioxide BUN Creatinine Est GFR ( Amer) Est GFR (Non-Af Amer) BUN/Creatinine Ratio Glucose POC Glucose (70-99) mg/dL Calculated Osmolality Calcium Troponin I (< 0.04) ng/mL Urine Color Yellow (Yellow) Urine Clarity Clear (Clear) Urine pH 6.0 (5.0-8.0) pH Units Ur Specific [place] 1.009 L (1.010-1.025) Urine Protein >=300 H (Neg-Trace) mg/dL Urine Glucose (UA) 500 H (Normal) mg/dL Urine Ketones Negative (Negative) mg/dL Urine Blood Negative (Negative) Urine Nitrite Negative (Negative) Urine Bilirubin Negative (Negative) Urine Urobilinogen Normal (Normal) mg/dL Ur Leukocyte Esterase Negative (Negative) Urine Microscopic RBC 5-15 H (0-3) per hpf Urine Microscopic WBC 0-3 (0-3) per hpf Ur Squamous Epith Cells Many H (None-Few) per lpf Urine Bacteria None Seen (None-Few) per hpf Hyaline Casts None Seen (None-Few) per lpf Ur Culture Indicated? NO (NO) Attestation Statement - Attestation Attestation: I examined this patient and my medical decision-making was reviewed with the Resident Physician. I agree with the documented findings, disposition and treatment plan as described except to the extent set forth below. Patient to the ED with a chief complaint of not feeling well. Week. Short of breath. Patient states he took a lot of insulin today because his sugar was high this morning. He is not eating much. He felt like his sugar got very low around 6 PM. He did not check it but states he is very familiar with how he feels when he is low. He states he feels like his sugar is up now but he still feels bad. Still short of breath. On exam he does not appear short of breath. His lungs are diminished but clear. Heart regular. Plan. Cardiac workup. Signed out at shift change pending labs and re-eval
[2018-05-07 23:51] LABS: Calcium 9.4 mg/dL (8.6-10.3); Potassium 4.2 mEq/L (3.5-5.1)
--- NOTE | 2018-05-08 01:03 | Emergency Department Note ---
Disposition Clinical Impression: Hypoglycemia Chest pain Qualifiers: Chest pain type: unspecified Qualified Code(s): R07.9 - Chest pain, unspecified Disposition: Admitted As Inpatient Condition: Fair Referrals: Ruby Cano CNP [Primary Care Provider] - Forms: ED Satisfaction Letter Time of Disposition: 01:00 General Adult HPI - General Chief complaint: ED Shortness of Breath/Dyspnea Stated complaint: FABI Time Seen by Provider: 05/07/18 21:26 Source: patient Mode of arrival: private vehicle Limitations: no limitations Nursing Notes Reviewed: Yes Vital Signs Reviewed: Yes - History of Present Illness Pain Scale: 6 - Related Data Home Medications Medication Instructions Recorded Confirmed Carvedilol [Coreg] 25 mg PO BID 05/16/16 05/07/18 DULoxetine [Cymbalta] 30 mg PO QPM 05/16/16 05/07/18 DULoxetine [Cymbalta] 60 mg PO QAM 05/16/16 05/07/18 HYDROcodone/Acet 5/325 mg [[facility] 1 tab PO TID PRN 05/16/16 05/07/18 5-325 mg] Insulin NPH Hum/Reg Insulin Hm 10 - 40 unit SQ BID 05/16/16 05/07/18 [Novolin 70-30 100 Unit/ml Vial] glipiZIDE [Glipizide] 10 mg PO DAILY 05/16/16 05/07/18 Furosemide [Lasix] 80 mg PO BID 09/27/16 05/07/18 Ferrous Sulfate [Iron] 325 mg PO BID 08/07/17 05/07/18 NIFEdipine XL (24 HR) [Procardia 60 mg PO BID 08/07/17 05/07/18 XL] hydrALAZINE [HydrALAZINE] 25 mg PO TID 08/07/17 05/07/18 Losartan Potassium [Cozaar] 50 mg PO DAILY 12/03/17 05/07/18 Pravastatin Sodium [Pravachol] 40 mg PO DAILY 12/03/17 05/07/18 Allergies Allergy/AdvReac Type Severity Reaction Status Date / Time acetaminophen [From Percocet] Allergy Hives Verified 05/07/18 22:54 Constitutional: Denies: fever, chills Eyes: Denies: vision change ENT ED: Denies: throat pain, congestion Cardiovascular: Reports: chest pain, other (lightheaded). Denies: palpitations Respiratory: Reports: dyspnea. Denies: cough, hemoptysis Gastrointestinal: Denies: abdominal pain, nausea, diarrhea Genitourinary: Denies: dysuria, hematuria Musculoskeletal: Denies: back pain, neck pain Integumentary: Denies: rash Neurological: Reports: confusion. Denies: headache Allergic/Immunologic: Denies: itchy eyes Past Medical History - Past Medical History Medical history: Reports: arthritis, CHF, COPD, DVT, diabetes, hypertension, myocardial infarction, pulmonary embolus, renal disease, other Surgical history: Reports: non-contributory, other Psychiatric history: Reports: anxiety, depression, other - Social History Smoking Status: Never smoker Smokeless Tobacco Status: Yes Alcohol use: Reports: none Drug use: Reports: none Physical Exam - General Limitations: no limitations General appearance: alert, in no apparent distress Course Vital Signs Temperature 97.9 F 05/07/18 20:22 Pulse Rate 69 05/07/18 20:22 Respiratory Rate 16 05/07/18 20:22 Blood Pressure 182/74 05/07/18 20:22 O2 Sat by Pulse Oximetry 96 05/07/18 20:22 Temperature 97.9 F 05/07/18 20:22 Pulse Rate 78 05/07/18 23:27 Respiratory Rate 18 05/07/18 23:27 Blood Pressure 182/89 05/07/18 23:27 O2 Sat by Pulse Oximetry 97 05/07/18 23:27 Oxygen Delivery Oxygen Delivery Room Air Medical Decision Making - MDM Narrative Medical decision making narrative: 63-year-old male received in sign out at 11:00 pending BMP and reevaluation and admission to the hospital. Patient has a history of diabetes and coronary artery disease, he had chest pain prior to arrival to the emergency department and he does not have pain in the emergency department. Initial troponin negative. Laboratory evaluation is not far from his baseline. He felt comfortable with the plan for admission to the hospital for further care and evaluation. Patient accepted by Dr. Cedillo - Medical Records Medical records reviewed: Yes I reviewed the patient's medical records. - Lab Data Result diagrams: 05/07/18 21:00 05/07/18 23:14 Lab Results 05/07/18 05/07/18 05/07/18 Range/Units 20:30 21:00 21:00 WBC 12.4 H (4.3-11.1) K/mcL RBC 3.63 L (4.19-5.50) M/mcL Hgb 11.0 L (12.9-16.9) g/dL Hct 33.5 L (37.5-50.1) % MCV 92.3 (83.0-100.0) fL MCH 30.3 (28.0-33.3) pg MCHC 32.8 (31.6-35.5) g/dL RDW 13.2 (11.5-14.5) % Plt Count 184 (140-400) K/mcL MPV 10.2 (9.4-12.4) fL Immature Gran % 0.6 (0-4) % Seg Neutrophils % 87.8 % Lymphocytes % 5.1 % Monocytes % 4.3 % Eosinophils % 1.9 % Basophils % 0.3 % Neutrophils # 10.8 H (1.6-8.9) K/mcL Lymphocytes # 0.6 (0.6-4.6) K/mcL Monocytes # 0.5 (0.0-1.3) K/mcL Eosinophils # 0.2 (0.0-0.6) K/mcL Basophils # 0.0 (0.0-0.2) K/mcL PT (9.4-12.1) Seconds INR APTT (26.0-36.0) Seconds Sodium Cancelled Potassium Cancelled Chloride Cancelled Carbon Dioxide Cancelled BUN Cancelled Creatinine Cancelled Est GFR ( Amer) Cancelled Est GFR (Non-Af Amer) Cancelled BUN/Creatinine Ratio Cancelled Glucose Cancelled POC Glucose 151 H (70-99) mg/dL Calculated Osmolality Cancelled Calcium Cancelled Troponin I 0.03 (< 0.04) ng/mL 05/07/18 05/07/18 Range/Units 21:44 23:14 WBC (4.3-11.1) K/mcL RBC (4.19-5.50) M/mcL Hgb (12.9-16.9) g/dL Hct (37.5-50.1) % MCV (83.0-100.0) fL MCH (28.0-33.3) pg MCHC (31.6-35.5) g/dL RDW (11.5-14.5) % Plt Count (140-400) K/mcL MPV (9.4-12.4) fL Immature Gran % (0-4) % Seg Neutrophils % % Lymphocytes % % Monocytes % % Eosinophils % % Basophils % % Neutrophils # (1.6-8.9) K/mcL Lymphocytes # (0.6-4.6) K/mcL Monocytes # (0.0-1.3) K/mcL Eosinophils # (0.0-0.6) K/mcL Basophils # (0.0-0.2) K/mcL PT 9.9 (9.4-12.1) Seconds INR 0.9 APTT 32.5 (26.0-36.0) Seconds Sodium 138 Potassium 4.2 Chloride 104 Carbon Dioxide 24 BUN 70 H Creatinine 3.85 H Est GFR ( Amer) 19 L Est GFR (Non-Af Amer) 16 L BUN/Creatinine Ratio 18 Glucose 297 H POC Glucose (70-99) mg/dL Calculated Osmolality 318 H Calcium 9.4 Troponin I (< 0.04) ng/mL
[2018-05-08 01:04] LABS: Bilirubin,Urine Negative (Negative); Blood,Urine Negative (Negative); Clarity,Urine Clear (Clear); Color,Urine Yellow (Yellow); Glucose,Urine (UA) 500 mg/dL (Normal); Ketones,Urine Negative (Negative); Leukocyte Esterase,Urine Negative (Negative); Nitrite,Urine Negative (Negative); Protein,Urine >=300 mg/dL (Neg-Trace); Specific Gravity,Urine 1.009 (1.010-1.025); Urobilinogen,Urine Normal (Normal)
[2018-05-08 01:06] LABS: Bacteria,Urine None Seen per hpf (None-Few); Hyaline Casts,Urine None Seen per lpf (None-Few); Squamous Epithelial Cell,Urine Many per lpf (None-Few); WBC,Urine 0-3 per hpf (0-3)
[2018-05-08] MEDS ORDERED: hydrALAZINE 25 MG TABLET PO ONE (01:22)
[2018-05-08] MEDS ORDERED: Dextrose Gel 15 GM/37.5 ML TUBE PO PRN ×2 (01:23)
[2018-05-08] MEDS ORDERED: Ondansetron 4 MG/2 ML VIAL IVP ONE (01:25)
[2018-05-08] MEDS ORDERED: Ondansetron 4 MG/2 ML VIAL IVP PRN (01:25)
[2018-05-08] MEDS ORDERED: Ipratropium/Albuterol Neb 3 ML IH PRN (01:33)
--- NOTE | 2018-05-08 01:36 | Internal Med History&Physical ---
Date of Encounter: 05/08/18 Time of Encounter: 01:34 Internal Medicine - H&P: HPI Chief complaint: chest pain Admitted From: Home Plans for Post Hospital Care: Home History of present illness: Mr. Hernandez is a 63 year old man with a past medical history of COPD, obstructive sleep apnea with noncompliance with his BiPAP, congestive heart failure, stage 4 CKD, GERD, prior DVT and pulmonary embolism previously on anticoagulation but stopped due to bleeding, who has been admitted on multiple occasions this year and now is brought in for chest pain which occurred during an episode of hypoglycemia while at home during the day. He states he took 25 units of his insulin today and his blood sugar still remained elevated this afternoon so he took an additional 10 units. Around 6 PM he states he started becoming very lightheaded and confused. He also became short of breath and he knew his blood sugar was low as this has happened in the past and his blood sugar has dropped as low as 30. He called his brother who came to his house. He was able to drink some milk shakes to bring up his sugar. After some time he started becoming more awake and alert and his brother brought him to the ED. He states he then developed left-sided chest pain that worsened when he takes a deep breath. He states he has had this in the past and was diagnosed with a heart attack but he did not have any stents placed. At present his chest pain is improved. In the ER his glycemic value was within normal limits and EKG non-diagnostic. His labs were grossly unremarkable. He is admitted for further observation. He says that he lives alone at home but has a girlfriend who cares for him during the day. He says he no longer has chest pain but now feels nauseated and is vomiting there in the ER as witnessed by me however he does not have diarrhea. Past Med Surg Social Fam HX - Past Medical History Medical history: arthritis, CHF, COPD, DVT, diabetes, hypertension, myocardial infarction, pulmonary embolus, renal disease, other Additional medical history: kidney failure, Psychiatric history: anxiety, depression, other - Past Surgical History Surgical History: non-contributory, other Additional surgical history: SPUR IN FOOT, EYE SURGERY - Social History Smoking Status: Never smoker Smokeless Tobacco Status: Yes Alcohol use: none Drug use: none - Family History Mother Adopted: No Family Member Ethnicity: Non- Living Status: Hx Family Cardiac Disorders: Yes Brother Hx Family Cardiac Disorders: Yes (HTN) Hx Family Endocrine Disorder: Yes (DM-2) Internal Medicine - H&P: Meds Carvedilol [Coreg] 25 mg PO BID 05/16/16 [History] DULoxetine [Cymbalta] 30 mg PO QPM 05/16/16 [History] DULoxetine [Cymbalta] 60 mg PO QAM 05/16/16 [History] HYDROcodone/Acet 5/325 mg [[facility] 5-325 mg] 1 tab PO TID PRN 05/16/16 [History] Insulin NPH Hum/Reg Insulin Hm [Novolin 70-30 100 Unit/ml Vial] 10 - 40 unit SQ BID 05/16/16 [History] glipiZIDE [Glipizide] 10 mg PO DAILY 05/16/16 [History] Furosemide [Lasix] 80 mg PO BID 09/27/16 [History] Ferrous Sulfate [Iron] 325 mg PO BID 08/07/17 [History] NIFEdipine XL (24 HR) [Procardia XL] 60 mg PO BID 08/07/17 [History] hydrALAZINE [HydrALAZINE] 25 mg PO TID 08/07/17 [History] Losartan Potassium [Cozaar] 50 mg PO DAILY 12/03/17 [History] Pravastatin Sodium [Pravachol] 40 mg PO DAILY 12/03/17 [History] 3 Allergy/AdvReac Type Severity Reaction Status Date / Time acetaminophen [From Percocet] Allergy Hives Verified 05/07/18 22:54 All Systems PM: A 10-system review of systems was performed and is negative for pertinent findings except as documented above in the HPI. - Constitutional Vitals: Temp Pulse Resp BP Pulse Ox 97.9 F 78 18 182/89 97 05/07/18 20:22 05/07/18 23:27 05/07/18 23:27 05/07/18 23:27 05/07/18 23:27 Exam: Vitals: Reviewed General: Obese, unkempt, NAD Skin: Warm and dry. HEENT: Moist mucous membranes. Neck: No lymphadenopathy. No JVD. No carotid bruits. Chest: Normal thoracic expansion. Normal breath sounds. Heart: Normal S1 & S2; rhythmic. Abdomen: Non-distended, soft and non-tender to palpation. Extremities: No clubbing, cyanosis or edema. No calf tenderness. Neurological: Awake, alert and oriented to person, place and time. Psych: Affect appropriate. Internal Med - H&P Results - Labs CBC & Chem 7: 05/07/18 21:00 05/07/18 23:14 - Assessment and plan (1) Chest pain Current Visit: Yes Status: Acute Assessment and plan: The one episode of chest pain from earlier in the day related to his hypoglycemic episode and no recurrences since then suggests a low likelihood that this is ACS. Given his significant medical history observation is warranted. For now he is comfortable and has no complaints. His EKG was non- ischemic appearing and first troponin is negative. Will obtain another troponin at 4am. If this second is negative, given the prolonged time span, would not order more. He can be followed as an outpatient and have a stress test scheduled as was done 2 year ago with his last negative stress test. For now monitor on telemetry. Qualifiers: Chest pain type: unspecified Qualified Code(s): R07.9 - Chest pain, unspecified (2) Hypoglycemia Current Visit: Yes Status: Acute Assessment and plan: Associated with excess exogenous insulin. Normoglycemic now. Tolerating diet. Will monitor fingersticks and keep on sliding scale for now. (3) Anemia Current Visit: Yes Status: Chronic Assessment and plan: Chronic. No signs of acute blood loss. Continue FeSO4 supplementation. Qualifiers: Anemia type: iron deficiency Iron deficiency anemia type: chronic blood loss Qualified Code(s): D50.0 - Iron deficiency anemia secondary to blood loss (chronic) (4) CHF (congestive heart failure) Current Visit: Yes Status: Chronic Assessment and plan: No clinical signs of exacerbation at this time. We will resume home medications of beta blockers and SEGUNDO inhibitor. Qualifiers: Qualified Code(s): I50.32 - Chronic diastolic (congestive) heart failure (5) CKD (chronic kidney disease) stage 4, GFR 15-29 ml/min Current Visit: Yes Status: Chronic Assessment and plan: Stable. Medications to be renally adjusted. (6) COPD (chronic obstructive pulmonary disease) Current Visit: Yes Status: Chronic Assessment and plan: Stable at this time and is not presenting signs of an acute exacerbation. We will keep on duo nebs when necessary. Qualifiers: COPD type: emphysema Emphysema type: panlobular Qualified Code(s): J43.1 - Panlobular emphysema (7) Hypertension Current Visit: Yes Status: Chronic Assessment and plan: Poorly controlled likely due to nonadherence to medications. We will resume his home antihypertensives and monitor trend. Qualifiers: Hypertension type: essential hypertension Qualified Code(s): I10 - Essential (primary) hypertension (8) DVT prophylaxis Current Visit: Yes Status: Acute Assessment and plan: subcutaneous heparin indicated - Time Spent With Patient Total time spent is greater than 50% in coordination of care (as documented) at patient's floor/unit and/or counseling patient: Greater than 35 minutes
[2018-05-08] MEDS: *HR* Heparin 5,000 UNIT/ML VIAL SQ SCH ×3 (05:44→23:44)
[2018-05-08] MEDS ORDERED: D5% in Water 1,000 ML IVC PRN (07:25)
[2018-05-08] MEDS ORDERED: *HR* Dextrose 50 % in Water (Syg) 50 ML SYRINGE IVP PRN (07:25)
[2018-05-08] MEDS ORDERED: Furosemide 40 MG TABLET PO SCH (09:00)
[2018-05-08] MEDS ORDERED: NIFEdipine XL (24 HR) 60 MG TAB.ER.24 PO SCH (09:00)
[2018-05-08] MEDS: Furosemide 40 MG TABLET PO SCH ×2 (09:15→16:58)
[2018-05-08] MEDS: Aspirin 81 MG TAB.CHEW PO SCH (09:17)
[2018-05-08] MEDS: NIFEdipine XL (24 HR) 60 MG TAB.ER.24 PO SCH (09:17)
[2018-05-08] MEDS: hydrALAZINE 25 MG TABLET PO SCH ×3 (09:17→21:00)
[2018-05-08] MEDS: *HR* HYDROcodone/Acet 5/325 mg TABLET PO PRN ×2 (09:25→14:13)
[2018-05-08] MEDS: Insulin LISPRO 300 UNITS/3 ML VIAL SQ SCH ×3 (09:26→16:59)
--- NOTE | 2018-05-08 12:22 | Event Note ---
Date of Encounter: 05/08/18 Time of Encounter: 12:20 Patient seen and examined at bedside. H&P reviewed and agree with assessment and plan. Patient with no further chest pain and troponins are negative. Patient with chronic kidney disease stage IV with slightly worsened creatinine. This could be progression of his kidney disease. Patient with mild edema on chest x-ray and crackles on exam as well as orthopnea therefore we will continue Lasix and evaluate renal function in the morning. We will monitor overnight if remains chest pain-free and renal function stable anticipate discharge tomorrow. If renal function worsens we will get nephrology involved.
--- NOTE | 2018-05-08 15:46 | Electrocardiograph Report ---
[place] [id number] Test Date: 2018-05-07 Pat Name: Imtiaz Hernandez Department: 104 Room: 2A Gender: M [place] Stitcher: MARLYS : 1955 Requested By: Carroll Kulkarni Order Number: [id number] Reading MD: Francisca Flores Measurements Intervals Sharon Rate: 67 P: 65 CO: 166 QRS: -37 QRSD: 118 T: 77 QT: 447 QTc: 463 Interpretive Statements SINUS RHYTHM LEFT AXIS DEVIATION INTRAVENTRICULAR CONDUCTION DELAY PROLONGED QT INTERVAL Electronically Signed On 05-08-2018 15:44:25 EDT by Francisca Flores
[2018-05-08] MEDS ORDERED: Insulin LISPRO 300 UNITS/3 ML VIAL SQ SCH (21:00)
[2018-05-09] MEDS: *HR* Heparin 5,000 UNIT/ML VIAL SQ SCH (05:28)
[2018-05-09 05:52] LABS: Basophils % 0.5 %; Eosinophils # 0.4 K/mcL (0.0-0.6); Eosinophils % 5.7 %; Hematocrit 26.7 % (37.5-50.1); Immature Granulocytes % 0.6 % (0-4); Lymphocytes # 1.2 K/mcL (0.6-4.6); Lymphocytes % 15.6 %; Mean Corpuscular HGB Conc 32.6 g/dL (31.6-35.5); Mean Corpuscular Hemoglobin 30.5 pg (28.0-33.3); Mean Corpuscular Volume 93.7 fL (83.0-100.0); Mean Platelet Volume 10.7 fL (9.4-12.4); Monocytes # 0.5 K/mcL (0.0-1.3); Monocytes % 6.8 %; Neutrophils # 5.5 K/mcL (1.6-8.9); Platelet Count 147 K/mcL (140-400); Red Blood Count 2.85 M/mcL (4.19-5.50); Red Cell Distribution Width 13.2 % (11.5-14.5); Segmented Neutrophils % 70.8 %
[2018-05-09 05:55] LABS: Hemoglobin 8.7 g/dL (12.9-16.9)
[2018-05-09 06:10] LABS: Calcium 8.8 mg/dL (8.6-10.3); Magnesium 1.8 mg/dL (1.6-2.6); Phosphorous 4.5 mg/dL (2.7-4.5); Potassium 4.4 mEq/L (3.5-5.1)
[2018-05-09] MEDS: NIFEdipine XL (24 HR) 60 MG TAB.ER.24 PO SCH (08:14)
[2018-05-09] MEDS: hydrALAZINE 25 MG TABLET PO SCH (08:14)
[2018-05-09] MEDS: Aspirin 81 MG TAB.CHEW PO SCH (08:15)
[2018-05-09] MEDS: Furosemide 40 MG TABLET PO SCH (08:15)
[2018-05-09] MEDS: Insulin LISPRO 300 UNITS/3 ML VIAL SQ SCH (08:17)
[2018-05-09] MEDS: *HR* HYDROcodone/Acet 5/325 mg TABLET PO PRN (08:20)
--- NOTE | 2018-05-09 10:41 | Nephrology Consult Note ---
Date of Encounter: 05/09/18 Time of Encounter: 10:41 Assessment and Plan (1) CKD (chronic kidney disease) stage 4, GFR 15-29 ml/min Current Visit: Yes Status: Chronic Past Med Surg Social Fam HX - Past Medical History Medical history: arthritis, CHF, COPD, DVT, diabetes, hypertension, myocardial infarction, pulmonary embolus, renal disease, other Additional medical history: kidney failure, Psychiatric history: anxiety, depression, other - Past Surgical History Surgical History: non-contributory, other Additional surgical history: SPUR IN FOOT, EYE SURGERY - Social History Smoking Status: Never smoker Smokeless Tobacco Status: Yes Alcohol use: none Drug use: none - Family History Mother Adopted: No Family Member Ethnicity: Non- Living Status: Hx Family Cardiac Disorders: Yes Brother Hx Family Cardiac Disorders: Yes (HTN) Hx Family Endocrine Disorder: Yes (DM-2) Medications and Allergies Carvedilol [Coreg] 25 mg PO BID 05/16/16 [History] DULoxetine [Cymbalta] 30 mg PO QPM 05/16/16 [History] DULoxetine [Cymbalta] 60 mg PO QAM 05/16/16 [History] HYDROcodone/Acet 5/325 mg [[place] 5-325 mg] 1 tab PO TID PRN 05/16/16 [History] Insulin NPH Hum/Reg Insulin Hm [Novolin 70-30 100 Unit/ml Vial] 10 - 40 unit SQ BID 05/16/16 [History] glipiZIDE [Glipizide] 10 mg PO DAILY 05/16/16 [History] Furosemide [Lasix] 80 mg PO BID 09/27/16 [History] Ferrous Sulfate [Iron] 325 mg PO BID 08/07/17 [History] NIFEdipine XL (24 HR) [Procardia XL] 60 mg PO BID 08/07/17 [History] hydrALAZINE [HydrALAZINE] 25 mg PO TID 08/07/17 [History] Losartan Potassium [Cozaar] 50 mg PO DAILY 12/03/17 [History] Pravastatin Sodium [Pravachol] 40 mg PO DAILY 12/03/17 [History] 3 Allergy/AdvReac Type Severity Reaction Status Date / Time acetaminophen [From Percocet] Allergy Hives Verified 05/07/18 22:54 Exam - Vital Signs Vital signs: Initial Vital Signs Temp Pulse Resp BP Pulse Ox 97.9 F 69 16 182/74 96 05/07/18 20:22 05/07/18 20:22 05/07/18 20:22 05/07/18 20:22 05/07/18 20:22 Vital Signs - Last 8 Hours Temp Pulse Resp BP Pulse Ox 05/09/18 07:13 97.6 F 64 18 188/80 96 05/09/18 04:40 98 F 68 17 167/75 95 Intake and Output 05/08/18 05/09/18 05/09/18 23:59 07:59 15:59 Intake Total 240 / 240 240 / 240 Output Total 300 / 300 400 / 400 250 / 250 Balance -60 / -60 -400 / -400 -10 / -10 Intake: Oral 240 / 240 240 / 240 Output: Urine 300 / 300 400 / 400 250 / 250 Other: Meal Dinner Breakfast Percent of Meal Consumed 100% 85% # Voids 1 Weight 124.6 kg Blood Glucose* 200 182 Patient Weight 05/09/18 23:59 Weight 124.6 kg Results - Lab Results 05/09/18 05:09 05/09/18 05:09 Most recent lab results Calcium 8.8 mg/dL (8.6-10.3) 05/09/18 05:09 Phosphorus 4.5 mg/dL (2.7-4.5) 05/09/18 05:09 Magnesium 1.8 mg/dL (1.6-2.6) 05/09/18 05:09 Consult Discharge Plan - Plan Referrals: Ruby Cano CNP [Primary Care Provider] - 05/13/18 2:00 pm (Please follow up as schedule..)
[2018-05-09 11:08] VITALS: BP 163/79
--- NOTE | 2018-05-09 11:16 | Discharge Summary ---
- NOTES TO OUTPATIENT PROVIDER Notes to Outpatient Provider: Pt with progression of CKD stage 4, follow up with nephrology likely needs referral for access soon. Date of Encounter: 05/09/18 Time of Encounter: 11:12 - Discharge Diagnosis (1) Chest pain Priority: Primary Status: Acute Qualifiers: Chest pain type: unspecified Qualified Code(s): R07.9 - Chest pain, unspecified (2) Hypertension Priority: Secondary Status: Chronic Qualifiers: Hypertension type: essential hypertension Qualified Code(s): I10 - Essential (primary) hypertension (3) COPD (chronic obstructive pulmonary disease) Priority: Secondary Status: Chronic Qualifiers: COPD type: emphysema Emphysema type: panlobular Qualified Code(s): J43.1 - Panlobular emphysema (4) DVT prophylaxis Priority: Secondary Status: Acute (5) Anemia Priority: Secondary Status: Chronic Qualifiers: Anemia type: iron deficiency Iron deficiency anemia type: chronic blood loss Qualified Code(s): D50.0 - Iron deficiency anemia secondary to blood loss (chronic) (6) CKD (chronic kidney disease) stage 4, GFR 15-29 ml/min Priority: Secondary Status: Chronic (7) Hypoglycemia Priority: Secondary Status: Acute Hospital course: Mr. Hernandez is a 63 year old male who presented with chest pain after hypoglycemic episode. The patient's troponins were trended and were negative. EKG was unremarkable for ischemic changes. Patient's chest pain resolved quickly after admission. Patient was observed overnight. Patient's renal function seems to be slowly progressing towards end-stage renal disease. Nephrology evaluated patient and states that he is stable for discharge from nephrology standpoint should follow-up with his coding compliance specialist and may need referral for access soon for hemodialysis; although no hemodialysis is indicated currently. The patient will be discharged and told to hold Lasix for 2 days. Patient is very eager to go home and is stable for discharge on Saturday05/09/2018. Patient will follow up with primary care physician within one week and will follow-up with nephrology at his scheduled appointment he thinks that maybe next week if not he will call to get it moved up. Agreeable for discharge and all questions answered. Told to return to the ED or call his primary care physician for any worsening of symptoms. Discharge discussed with: patient, nurse - Time Spent with Patient Total time spent providing and/or coordinating discharge services: Greater than 30 minutes - Discharge Medications Home Medications: Carvedilol [Coreg] 25 mg PO BID 05/16/16 [History] DULoxetine [Cymbalta] 30 mg PO QPM 05/16/16 [History] DULoxetine [Cymbalta] 60 mg PO QAM 05/16/16 [History] HYDROcodone/Acet 5/325 mg [[place] 5-325 mg] 1 tab PO TID PRN 05/16/16 [History] Insulin NPH Hum/Reg Insulin Hm [Novolin 70-30 100 Unit/ml Vial] 10 - 40 unit SQ BID 05/16/16 [History] glipiZIDE [Glipizide] 10 mg PO DAILY 05/16/16 [History] Ferrous Sulfate [Iron] 325 mg PO BID 08/07/17 [History] NIFEdipine XL (24 HR) [Procardia XL] 60 mg PO BID 08/07/17 [History] hydrALAZINE [HydrALAZINE] 25 mg PO TID 08/07/17 [History] Losartan Potassium [Cozaar] 50 mg PO DAILY 12/03/17 [History] Pravastatin Sodium [Pravachol] 40 mg PO DAILY 12/03/17 [History] Aspirin 81 mg PO DAILY #0 tab.chew 05/09/18 [Rx] Allergies/Adverse Reactions: 3 Allergy/AdvReac Type Severity Reaction Status Date / Time acetaminophen [From Percocet] Allergy Hives Verified 05/07/18 22:54 Date of admission: 05/08/18 01:14 Primary care physician: Ruby Cano CNP Consults: 05/09/18 07:42 Consult to Nephrology [CONS] Routine Consulting Provider: Kidney Argelia/EMILEE/NAHID/JANET Reason for Consult: progression of CKD, pt of Dr. Raul Snyder Completed: Yes - Constitutional Vitals: Temp Pulse Resp BP Pulse Ox 98.5 F 59 18 163/79 96 05/09/18 11:05 05/09/18 11:05 05/09/18 11:05 05/09/18 11:05 05/09/18 11:05 Exam: General: NAD Psych: AAO x 3 Cardio: RRR Resp: CTAB; crackles now resolved Abd: soft nt/nd Ext: no c/c/e - Patient Status Disposition: Home, Self-Care Condition: Fair Functional capacity at discharge: wheelchair bound Overall status at discharge: patient is back to baseline - Discharge Instructions Instructions: Heart Failure (DC) Follow Up With: Ruby Cano CNP [Primary Care Provider] - 05/13/18 2:00 pm (Please follow up as schedule..) - Diet and Activity Activity: increase activity as tolerated Diet: advance to your usual diet
== END 2018-05-09 12:27 | disposition home or self-care (01) ==
LOC: EMEROOARM 20:04 → 2ANU 20:04
PROVIDERS: ADMIT Internal Medicine; ATTEND Internal Medicine

== ENCOUNTER 2018-10-25 15:49 | Inpatient (IN) ==
--- NOTE | 2018-10-25 16:07 | Emergency Department Note ---
Disposition Clinical Impression: CKD (chronic kidney disease) stage 3, GFR 30-59 ml/min Bacteremia associated with intravascular line Qualifiers: Encounter type: initial encounter Qualified Code(s): T82.7XXA - Infection and inflammatory reaction due to other cardiac and vascular devices, implants and grafts, initial encounter; R78.81 - Bacteremia Disposition: Admitted As Inpatient Condition: Fair General Adult HPI - General Chief complaint: ED Recheck/Abnormal Lab/Rx Stated complaint: Abnormal Labs Time Seen by Provider: 10/25/18 15:59 Source: patient Limitations: no limitations Nursing Notes Reviewed: Yes Vital Signs Reviewed: Yes - History of Present Illness HPI Narrative: This documentation is done with the assistance of Dragon dictation. Despite efforts made to ensure accuracy, there may be inaccuracies in boat assembler or spelling and typographical errors. Chief complaint is infection and blood. History this is a 63-year-old gentleman who comes in with the son. He has been doing hemodialysis for the past couple months. They switched him over to [facility] this week. He last dialyzed on Saturday had been feeling well for 24 hours before that. Subjective fevers at home. On dialysis they said it a fever of 100.8 according to his son. They did blood cultures on Saturday and called today saying that he had 2 culture bottles positive for MRSE. Patient states that he does not think he has a fever now. He states just does not feel well altogether but is not specific on anything there had a few colds and things at home. He is not a runny nose no cough no abdominal pain. He does not have any abdominal dialysate fluid in and at this time. I spoke to his relationship advisor Bernda Sanford workup and bring him in the hospital. He is in agreement this plan. Pain Scale: 9 - Related Data Home Medications Medication Instructions Recorded Confirmed RX: Carvedilol [Coreg] 25 mg PO BID 05/16/16 09/26/18 RX: DULoxetine [Cymbalta] 30 mg PO QPM 05/16/16 09/26/18 RX: DULoxetine [Cymbalta] 60 mg PO QAM 05/16/16 09/26/18 RX: glipiZIDE [Glipizide] 10 mg PO DAILY 05/16/16 09/26/18 RX: Ferrous Sulfate [Iron] 325 mg PO BID 08/07/17 09/26/18 RX: NIFEdipine XL (24 HR) 60 mg PO BID 08/07/17 09/26/18 [Procardia XL] RX: hydrALAZINE [HydrALAZINE] 25 mg PO TID 08/07/17 09/26/18 RX: Losartan Potassium [Cozaar] 50 mg PO DAILY 12/03/17 09/26/18 RX: Pravastatin Sodium [Pravachol] 40 mg PO DAILY 12/03/17 09/26/18 RX: Furosemide [Lasix] 80 mg PO BID 07/25/18 09/26/18 RX: Cholecalciferol (Vitamin D3) 1,000 unit PO BID 09/26/18 09/26/18 [Vitamin D3] RX: HYDROcodone/Acet 5/325 mg 1 tab PO TID PRN 09/26/18 09/26/18 [[place] 5-325 mg] RX: Insulin DETEMIR [Levemir] 60 unit SQ DAILY 09/26/18 09/26/18 RX: Sevelamer [Renvela] 800 mg PO TID 09/26/18 09/26/18 RX: Vitamin B Complex [Balanced 1 each PO DAILY 09/26/18 09/26/18 B-50] Allergies Allergy/AdvReac Type Severity Reaction Status Date / Time gabapentin Allergy Dizziness Verified 09/19/18 11:07 oxycodone Allergy Hives Verified 09/19/18 11:07 propoxyphene Allergy Itching Verified 09/19/18 11:07 tetanus toxoid, adsorbed Allergy See Verified 09/19/18 11:07 Comments Onion AdvReac Severe Diarrhea Verified 09/19/18 11:05 Review of Systems: Positive for generalized weakness and subjective fevers. All systems ED: reviewed and negative except as stated. Past Medical History - Past Medical History Medical history: Reports: CHF, diabetes, fibromyalgia, hypertension, renal disease Surgical history: Reports: other Psychiatric history: Reports: anxiety, depression, other - Social History Smoking Status: Never smoker Smokeless Tobacco Status: Yes Alcohol use: Reports: none Drug use: Reports: none Physical Exam Temperature is 97.4, pulse is 60, respirations 18, BP is 220/89, pulse ox 97%. Gen. he is alert cooperative flat effect. Nontoxic in appearance. Alert person place and time GCS 14. HEENT is normocephalic makes members are dry neck is supple no nodes anterior posterior chain he has no scleral icterus. Supple neck no meningeal signs Cardia vascular is regular rate and rhythm without rubs or JVD Lungs are clear to auscultation bilaterally with good aeration Abdomen is soft nonsurgical good bowel sounds no masses he does have PD catheter site in place there is no signs of redness or drainage around the site. Chest wall has his dialysis catheter in place no signs of redness or drainage there are no tenderness. Extremities are present 4 good distal pulses Refill is brisk no calf tenderness dermatologic skin is warm and dry changes associated with age no signs or rash petechia or jaundice neurologic no focal deficits cranial nerve motor sensory exam. - General Limitations: no limitations General appearance: alert, in no apparent distress Course Vital Signs Temperature 97.4 F L 10/25/18 15:52 Pulse Rate 60 10/25/18 15:52 Respiratory Rate 18 10/25/18 15:52 Blood Pressure 220/89 10/25/18 15:52 O2 Sat by Pulse Oximetry 97 10/25/18 15:52 Temperature 97.4 F L 10/25/18 15:52 Pulse Rate 67 10/25/18 19:30 Respiratory Rate 20 10/25/18 19:30 Blood Pressure 173/72 10/25/18 19:30 O2 Sat by Pulse Oximetry 95 10/25/18 19:30 Oxygen Delivery Oxygen Delivery Nasal Cannula Medical Decision Making - [facility] Narrative Medical decision making narrative: We will go ahead and get cultures on him blood work start him on antibiotics. I am going to see if we can get the dialysis center to fax over a copy of his labs so we can see exactly what they are treating. He is in agreement with this plan and will need admission. 1648 hrs.: Her to the dialysis to try to get a copy of this lab is her second confusion as to what the patient actually has. I am and ago and started him on vancomycin here though this could be a vancomycin resistant organism. Patient EKG performed shows a sinus rhythm, rate is 64, QRS is 117, QTC is 474 left ventricular hypertrophy. He does have prominent ST complexes in V1 through V4, however he has no chest pain and now has no true ST segment elevation. Chest X-Ray 10/25/18 16:18 IMPRESSION: Mild pulmonary vascular congestion with mild perihilar and peribronchovascular opacity, which raise the possibility of pulmonary edema versus less likely pneumonia. D/ / Nathanael Buckley MD / Nathanael Buckley MD Interpreting Provider: Nathanael Buckley MD 1850 hrs: Spoke with hospitalist and with nephrology. Restroom on vancomycin here. We could not get the cultures revealed back from the dialysis center as they were closed. I spoke with Dr. Mondragon who says they told him it was MSRE. Patient's agreement to the admission he does not have a fever here does not have a white count. Hospitalist asked that we scan his chest and abdomen. Which we will put that N and he is waiting for a bed vancomycin is started. Impression is positive blood cultures in the outpatient setting with end-stage renal disease rule out bacteremia. Patient stable at this time and is in agreement to this plan - Lab Data Result diagrams: 10/25/18 16:18 10/25/18 16:18 Lab Results 10/25/18 10/25/18 10/25/18 Range/Units 16:18 16:18 16:18 WBC 5.8 (4.3-11.1) K/mcL RBC 3.34 L (4.19-5.50) M/mcL Hgb 10.4 L (12.9-16.9) g/dL Hct 31.3 L (37.5-50.1) % MCV 93.7 (83.0-100.0) fL MCH 31.1 (28.0-33.3) pg MCHC 33.2 (31.6-35.5) g/dL RDW 13.7 (11.5-14.5) % Plt Count 177 (140-400) K/mcL MPV 9.8 (9.4-12.4) fL Immature Gran % 0.5 (0-4) % Seg Neutrophils % 68.6 % Lymphocytes % 17.2 % Monocytes % 10.1 % Eosinophils % 3.3 % Basophils % 0.3 % Neutrophils # 4.0 (1.6-8.9) K/mcL Lymphocytes # 1.0 (0.6-4.6) K/mcL Monocytes # 0.6 (0.0-1.3) K/mcL Eosinophils # 0.2 (0.0-0.6) K/mcL Basophils # 0.0 (0.0-0.2) K/mcL Reactive Lymphocytes Present A (Not Present) Toxic Granulation Present A (Not Present) Platelet Estimate Normal (Normal) Sodium 136 (136-145) mEq/L Potassium 3.8 (3.5-5.1) mEq/L Chloride 101 (98-107) mEq/L Carbon Dioxide 24 (23-29) mEq/L BUN 70 H (8-23) mg/dL Creatinine 4.95 H (0.70-1.30) mg/dL Est GFR ( Amer) 14 L (> 60) Est GFR (Non-Af Amer) 12 L (> 60) BUN/Creatinine Ratio 14 (6-26) Glucose 193 H (70-105) mg/dL Calculated Osmolality 308 H (280-300) Lactic Acid (0.5-2.2) mmol/L Calcium 9.5 (8.6-10.3) mg/dL Troponin I 0.03 (< 0.04) ng/mL B-Natriuretic Peptide 171 H (Less than 100) pg/mL Urine Color (Yellow) Urine Clarity (Clear) Urine pH (5.0-8.0) pH Units Ur Specific Mcclellan (1.010-1.025) Urine Protein (Neg-Trace) mg/dL Urine Glucose (UA) (Normal) mg/dL Urine Ketones (Negative) mg/dL Urine Blood (Negative) Urine Nitrite (Negative) Urine Bilirubin (Negative) Urine Urobilinogen (Normal) mg/dL Ur Leukocyte Esterase (Negative) Urine Microscopic RBC (0-3) per hpf Urine Microscopic WBC (0-3) per hpf Ur Squamous Epith Cells (None-Few) per lpf Urine Bacteria (None-Few) per hpf Hyaline Casts (None-Few) per lpf Ur Culture Indicated? (NO) Hep Bs Antigen (Nonreactive) Hep Bs Antibody (10.00 - ) mIU/mL 10/25/18 10/25/18 10/25/18 Range/Units 16:45 16:45 19:08 WBC (4.3-11.1) K/mcL RBC (4.19-5.50) M/mcL Hgb (12.9-16.9) g/dL Hct (37.5-50.1) % MCV (83.0-100.0) fL MCH (28.0-33.3) pg MCHC (31.6-35.5) g/dL RDW (11.5-14.5) % Plt Count (140-400) K/mcL MPV (9.4-12.4) fL Immature Gran % (0-4) % Seg Neutrophils % % Lymphocytes % % Monocytes % % Eosinophils % % Basophils % % Neutrophils # (1.6-8.9) K/mcL Lymphocytes # (0.6-4.6) K/mcL Monocytes # (0.0-1.3) K/mcL Eosinophils # (0.0-0.6) K/mcL Basophils # (0.0-0.2) K/mcL Reactive Lymphocytes (Not Present) Toxic Granulation (Not Present) Platelet Estimate (Normal) Sodium (136-145) mEq/L Potassium (3.5-5.1) mEq/L Chloride (98-107) mEq/L Carbon Dioxide (23-29) mEq/L BUN (8-23) mg/dL Creatinine (0.70-1.30) mg/dL Est GFR ( Amer) (> 60) Est GFR (Non-Af Amer) (> 60) BUN/Creatinine Ratio (6-26) Glucose (70-105) mg/dL Calculated Osmolality (280-300) Lactic Acid 0.6 (0.5-2.2) mmol/L Calcium (8.6-10.3) mg/dL Troponin I (< 0.04) ng/mL B-Natriuretic Peptide (Less than 100) pg/mL Urine Color Yellow (Yellow) Urine Clarity Clear (Clear) Urine pH 6.0 (5.0-8.0) pH Units Ur Specific Mcclellan 1.018 (1.010-1.025) Urine Protein >=300 H (Neg-Trace) mg/dL Urine Glucose (UA) 250 H (Normal) mg/dL Urine Ketones Negative (Negative) mg/dL Urine Blood Negative (Negative) Urine Nitrite Negative (Negative) Urine Bilirubin Negative (Negative) Urine Urobilinogen Normal (Normal) mg/dL Ur Leukocyte Esterase Negative (Negative) Urine Microscopic RBC 5-15 H (0-3) per hpf Urine Microscopic WBC 0-3 (0-3) per hpf Ur Squamous Epith Cells Moderate H (None-Few) per lpf Urine Bacteria None Seen (None-Few) per hpf Hyaline Casts None Seen (None-Few) per lpf Ur Culture Indicated? NO (NO) Hep Bs Antigen Nonreactive (Nonreactive) Hep Bs Antibody 3.46 L (10.00 - ) mIU/mL Critical Care Time Critical Care Time: Yes Total Critical Care Time: 45 Attestation: Excluding any separately billable procedures. Attestation Statement - Attestation Attestation: This documentation is done with the assistance of Dragon dictation. Despite efforts made to ensure accuracy, there may be inaccuracies in boat assembler or spelling and typographical errors. Patient gets dialysis as an outpatient. He is a [facility] dialysis person. Had been feeling well they got cultures within the past 48 hours was called today and had MRSE and blood 2. I received a call from his relationship advisor and he said to go ahead and work him up admit him to hospitalist with him consulting this is Dr. Siddharth Mondragon. Cultures are not in our system as it was done at an outside lab.
[2018-10-25] MEDS ORDERED: 0.9 % Sodium Chloride 1,000 ML IVC SCH (16:30)
[2018-10-25] MEDS ORDERED: Vancomycin 1,750 MG in 0.9 % Sodium Chloride 250 ML IVPB ONE (16:49)
[2018-10-25 16:59] LABS: Basophils % 0.3 %; Eosinophils # 0.2 K/mcL (0.0-0.6); Eosinophils % 3.3 %; Hematocrit 31.3 % (37.5-50.1); Hemoglobin 10.4 g/dL (12.9-16.9); Immature Granulocytes % 0.5 % (0-4); Lymphocytes % 17.2 %; Mean Corpuscular HGB Conc 33.2 g/dL (31.6-35.5); Mean Corpuscular Hemoglobin 31.1 pg (28.0-33.3); Mean Corpuscular Volume 93.7 fL (83.0-100.0); Mean Platelet Volume 9.8 fL (9.4-12.4); Monocytes # 0.6 K/mcL (0.0-1.3); Monocytes % 10.1 %; Platelet Count 177 K/mcL (140-400); Red Blood Count 3.34 M/mcL (4.19-5.50); Red Cell Distribution Width 13.7 % (11.5-14.5); Segmented Neutrophils % 68.6 %
[2018-10-25 17:16] LABS: Platelet Estimate Normal (Normal); Reactive Lymphocytes Present (Not Present); Toxic Granulation Present (Not Present)
[2018-10-25 17:22] LABS: Calcium 9.5 mg/dL (8.6-10.3); Potassium 3.8 mEq/L (3.5-5.1); Troponin I 0.03 ng/mL (< 0.04)
[2018-10-25] MEDS ORDERED: Naloxone 0.4 MG/ML INJ IVP PRN (18:24)
[2018-10-25 18:27] LABS: Hepatitis B Surface Antibody 3.46 mIU/mL
--- NOTE | 2018-10-25 18:29 | Internal Med History&Physical ---
Date of Encounter: 10/25/18 Time of Encounter: 18:27 Internal Medicine - H&P: HPI Chief complaint: Positive blood culture Admitted From: Home Plans for Post Hospital Care: Home History of present illness: Mr. Hernandez is a 63 year old male with past medical history of diabetes, hypertension, diastolic CHF, anxiety, depression, fibromyalgia, end-stage renal disease recently started on hemodialysis about 3 months ago was sent from dialysis center because of positive blood cultures. Patient was admitted in July 2018 for CHF when he was diuresed and discharged with dialysis. His dialysis has been switched to peritoneal dialysis this week. He does still make urine about 5-6 times a day. He had his last dialysis on Saturday when he had some subjective fever and was noted to have fever of 100.8 per ER records as mentioned by the son. Blood cultures were collected at that time which today are growing MRSA. Patient denies having any fevers currently. He just feels some malaise and some chest cold and congestion since Saturday. Denies any difficulty breathing, chest pain, palpitation, abdominal pain, back pain, weakness numbness . 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 Past Med Surg Social Fam HX - Past Medical History Medical history: CHF, diabetes, fibromyalgia, hypertension, renal disease Additional medical history: neuropathy Psychiatric history: anxiety, depression, other - Past Surgical History Surgical History: other Additional surgical history: PD catheter placement - Social History Smoking Status: Never smoker Smokeless Tobacco Status: Yes Alcohol use: none Drug use: none - Family History Mother Adopted: No Family Member Ethnicity: Non- Living Status: Hx Family Cardiac Disorders: Yes Brother Hx Family Cardiac Disorders: Yes (HTN) Hx Family Endocrine Disorder: Yes (DM-2) - Additional Family History Additional family history: Sister had leukemia and Liver cancer. Father had liver cancer. Internal Medicine - H&P: Meds Carvedilol [Coreg] 25 mg PO BID 05/16/16 [History] DULoxetine [Cymbalta] 30 mg PO QPM 05/16/16 [History] DULoxetine [Cymbalta] 60 mg PO QAM 05/16/16 [History] glipiZIDE [Glipizide] 10 mg PO DAILY 05/16/16 [History] Ferrous Sulfate [Iron] 325 mg PO BID 08/07/17 [History] NIFEdipine XL (24 HR) [Procardia XL] 60 mg PO BID 08/07/17 [History] hydrALAZINE [HydrALAZINE] 25 mg PO TID 08/07/17 [History] Losartan Potassium [Cozaar] 50 mg PO DAILY 12/03/17 [History] Pravastatin Sodium [Pravachol] 40 mg PO DAILY 12/03/17 [History] Furosemide [Lasix] 80 mg PO BID 07/25/18 [History] Cholecalciferol (Vitamin D3) [Vitamin D3] 1,000 unit PO BID 09/26/18 [History] HYDROcodone/Acet 5/325 mg [[place] 5-325 mg] 1 tab PO TID PRN 09/26/18 [History] Insulin DETEMIR [Levemir] 60 unit SQ DAILY 09/26/18 [History] Sevelamer [Renvela] 800 mg PO TID 09/26/18 [History] Vitamin B Complex [Balanced B-50] 1 each PO DAILY 09/26/18 [History] Allergy/AdvReac Type Severity Reaction Status Date / Time gabapentin Allergy Dizziness Verified 09/19/18 11:07 oxycodone Allergy Hives Verified 09/19/18 11:07 propoxyphene Allergy Itching Verified 09/19/18 11:07 tetanus toxoid, adsorbed Allergy See Verified 09/19/18 11:07 Comments Onion AdvReac Severe Diarrhea Verified 09/19/18 11:05 All Systems PM: A 10-system review of systems was performed and is negative for pertinent findings except as documented above in the HPI. - Constitutional Vitals: Temp Pulse Resp BP Pulse Ox 97.4 F L 65 16 185/81 95 10/25/18 15:52 10/25/18 18:16 10/25/18 18:16 10/25/18 18:16 10/25/18 18:16 Exam: Constitutional: Vitals as noted. Conversant. No Apparent Distress. Obese Eyes : Sclera white, conjunctiva clear, no lid lag, PEARLA. ENT : Grossly normal hearing. Oropharyngeal exam unremarkable. Moist mucus membranes. No JVD, no cervical lymphadenopathy. no thyromegaly or mass. Respiratory : Clear to auscultation bilaterally. No accessory muscle use, rales, rhonchi or wheezes Cardiovascular : RRR, +S1, +S2. no murmur, gallop, rubs. No chest wall tenderness. Rt sided Dialysis catheter in place. GI/Abdominal : Soft, Non-tender, Non-distended, normal bowel sounds, soft, no peritoneal signs. no orgenomegaly or mass appreciated. no hernia. PD catheter in place. No sign of infection at entry point. Musculoskeletal: no deformity noted. no edema or cyanosis. warm extremities, pulses palpable and symmetrical in UE/LE. no calf tenderness. Neurological: AO X3, CN II-XII grossly intact, grossly normal motor and sensory exam. Skin: No skin rash, lesions or ulcers noted. Pych: Good insight and judgement. Intact memory. AOx3. Internal Med - H&P Results - Labs CBC & Chem 7: 10/25/18 16:18 10/25/18 16:18 Labs: Short CBC 10/25/18 Range/Units 16:18 WBC 5.8 (4.3-11.1) K/mcL Hgb 10.4 L (12.9-16.9) g/dL Hct 31.3 L (37.5-50.1) % Plt Count 177 (140-400) K/mcL Neutrophils # 4.0 (1.6-8.9) K/mcL BMP 10/25/18 16:18 Sodium 136 Potassium 3.8 Chloride 101 Carbon Dioxide 24 BUN 70 H Creatinine 4.95 H Glucose 193 H Calcium 9.5 Cardiac Enzymes 10/25/18 Range/Units 16:18 Troponin I 0.03 (< 0.04) ng/mL - Impressions ITS Impressions Chest X-Ray 10/25/18 16:18 IMPRESSION: Mild pulmonary vascular congestion with mild perihilar and peribronchovascular opacity, which raise the possibility of pulmonary edema versus less likely pneumonia. D/ / Nathanael Buckley MD / Nathanael Buckley MD Interpreting Provider: Nathanael Buckley MD - Assessment and Plan (1) MRSA bacteremia Current Visit: Yes Status: Acute Assessment and plan: MRSA bacteremia per previous blood cultures Patient clinically does not appear to be in sepsis Possible contamination. We will repeat blood cultures Received a dose of vancomycin in the ER. Pharmacy to dose further vancomycin based on renal function. Obtain echocardiogram. We will obtain infectious disease consult on Saturday. (2) ESRD (end stage renal disease) Current Visit: No Status: Acute Assessment and plan: Patient currently on hemodialysis being transitioned to peritoneal dialysis Consults nephrology for dialysis management. No acute need for emergent dialysis. (3) Hypertension Current Visit: No Status: Acute Assessment and plan: Blood pressure elevated in ER. Continue home medications, however will need confirmation of home dosages.. We will keep hydralazine IV 20 q8h scheduled for now. Qualifiers: Qualified Code(s): I10 - Essential (primary) hypertension (4) Anemia Current Visit: No Status: Chronic Assessment and plan: Chronic Stable . No acute bleeding. Monitor for now. Likely related to ESRD Continue iron supplements. Qualifiers: Iron deficiency anemia type: unspecified iron deficiency Qualified Code(s): D50.9 - Iron deficiency anemia, unspecified (5) Diabetes Current Visit: No Status: Chronic Assessment and plan: Hold home oral hypoglycemics Keep patient on Levemir 20 units at bedtime, sliding scale insulin and Accu- Cheks before meals at bedtime. Confirm home insulin dosages. Qualifiers: Diabetes mellitus type: type 2 Diabetes mellitus termite treater insulin use: with termite treater use Diabetes mellitus complication status: with kidney complications Diabetes mellitus complication detail: with chronic kidney disease Chronic kidney disease stage: stage 3 (moderate) Qualified Code(s): E11.22 - Type 2 diabetes mellitus with diabetic chronic kidney disease; N18.3 - Chronic kidney disease, stage 3 (moderate); Z79.4 - assisted (current) use of insulin (6) Diastolic CHF Current Visit: Yes Status: Acute Assessment and plan: Does not appear to be decompensated however chest x-ray with some congestion Continue home diuresis Patient would be getting dialyzed per nephrology. Qualifiers: Heart failure chronicity: chronic Qualified Code(s): I50.32 - Chronic diastolic (congestive) heart failure - Time Spent With Patient Total time spent is greater than 50% in coordination of care (as documented) at patient's floor/unit and/or counseling patient:
[2018-10-25 18:38] LABS: Hepatitis B Surface Antigen Nonreactive (Nonreactive)
[2018-10-25] MEDS ORDERED: Vancomycin 1,750 MG in 0.9 % Sodium Chloride 250 ML IVPB SCH (19:00)
[2018-10-25 19:22] LABS: Bilirubin,Urine Negative (Negative); Blood,Urine Negative (Negative); Clarity,Urine Clear (Clear); Color,Urine Yellow (Yellow); Glucose,Urine (UA) 250 mg/dL (Normal); Ketones,Urine Negative (Negative); Leukocyte Esterase,Urine Negative (Negative); Nitrite,Urine Negative (Negative); Protein,Urine >=300 mg/dL (Neg-Trace); Specific Gravity,Urine 1.018 (1.010-1.025); Urobilinogen,Urine Normal (Normal)
[2018-10-25 19:27] LABS: Bacteria,Urine None Seen per hpf (None-Few); Hyaline Casts,Urine None Seen per lpf (None-Few); Squamous Epithelial Cell,Urine Moderate per lpf (None-Few); WBC,Urine 0-3 per hpf (0-3)
[2018-10-26] MEDS: Cholecalciferol (D-3) 1,000 UNIT TABLET PO SCH ×3 (00:29→20:56)
[2018-10-26] MEDS: Furosemide 40 MG TABLET PO SCH ×3 (00:29→16:58)
[2018-10-26] MEDS: NIFEdipine XL (24 HR) 60 MG TAB.ER.24 PO SCH ×3 (00:29→20:56)
[2018-10-26] MEDS: Insulin DETEMIR 100 UNIT/ML X5UNITS SQ SCH ×2 (00:29→21:48)
[2018-10-26] MEDS: *HR* Heparin 5,000 UNIT/ML VIAL SQ SCH ×3 (00:29→16:57)
[2018-10-26] MEDS ORDERED: Ondansetron 4 MG/2 ML VIAL IVP ONE ×2 (07:17→23:46)
[2018-10-26] MEDS: Insulin LISPRO 300 UNITS/3 ML VIAL SQ SCH ×3 (07:39→16:58)
[2018-10-26] MEDS: Vitamin B Complex/Vit C/Vit E 1 EACH TABLET PO SCH (07:49)
--- NOTE | 2018-10-26 08:14 | Nephrology Consult Note ---
Date of Encounter: 10/26/18 Time of Encounter: 08:13 Assessment and Plan (1) ESRD (end stage renal disease) Current Visit: No Status: Acute CAPD Renal vitamins. Renal dose medications. Renal diet. Will initiate tonight. No indication of peritonitis based on my exam, but will send PD fluid for culture and cell count. (2) Bacteremia associated with intravascular line Current Visit: Yes Status: Acute Patient with MRSE x 2 per HD report. Repeat blood cultures. Plan to remove tunneled catheter. Continue antibiotics. Qualifiers: Encounter type: initial encounter Qualified Code(s): T82.7XXA - Infection and inflammatory reaction due to other cardiac and vascular devices, implants and grafts, initial encounter; R78.81 - Bacteremia (3) Hypertension Current Visit: No Status: Acute Titrate antihypertensive medications as needed. Qualifiers: Qualified Code(s): I10 - Essential (primary) hypertension (4) Anemia Current Visit: No Status: Chronic Aranesp as needed. Monitor for bleeding. Qualifiers: Anemia type: unspecified type Qualified Code(s): D64.9 - Anemia, unspecified (5) Diabetes Current Visit: No Status: Chronic Per primary team. Qualifiers: Diabetes mellitus type: type 2 Diabetes mellitus manager intermediate insulin use: with manager intermediate use Diabetes mellitus complication status: with kidney c omplications Diabetes mellitus complication detail: with chronic kidney d isease Chronic kidney disease stage: stage 3 (moderate) Qualified Code(s): E11.22 - Type 2 diabetes mellitus with diabetic chronic kidney disease; N18.3 - Chronic kidney disease, stage 3 (moderate); Z79.4 - long-term (current) use of insulin (6) Morbid obesity with BMI of 45.0-49.9, adult Current Visit: No Status: Chronic History of Present Illness - Reason for Consult Consult date: 10/26/18 - Chief Complaint esrd - History of Present Illness Mr. Valdivia is a 63-year-old gentleman with a history of end-stage renal disease who presents to the hospital for evaluation after outpatient but cultures revealed methicillin-resistant staph epidermidis bacteremia. The patient has not felt well for about a week prior to admission and multiple family members have not felt well. He has a slight chest congestion with a nonproductive cough. He specifically denies abdominal pain. He denies nausea, vomiting, or diarrhea. Briefly switched to peritoneal dialysis and reports he has not had any problems with home CAPD. Past Med Surg Social Fam HX - Past Medical History Medical history: CHF, diabetes, fibromyalgia, hypertension, renal disease Additional medical history: neuropathy Psychiatric history: anxiety, depression, other - Past Surgical History Surgical History: other Additional surgical history: PD catheter placement - Social History Smoking Status: Never smoker Smokeless Tobacco Status: Yes (snuff) Alcohol use: none Drug use: none - Family History Mother Adopted: No Family Member Ethnicity: Non- Living Status: Hx Family Cardiac Disorders: Yes Brother Hx Family Cardiac Disorders: Yes (HTN) Hx Family Endocrine Disorder: Yes (DM-2) Medications and Allergies Carvedilol [Coreg] 25 mg PO BID 05/16/16 [History] DULoxetine [Cymbalta] 30 mg PO QPM 05/16/16 [History] DULoxetine [Cymbalta] 60 mg PO QAM 05/16/16 [History] glipiZIDE [Glipizide] 10 mg PO DAILY 05/16/16 [History] Ferrous Sulfate [Iron] 325 mg PO BID 08/07/17 [History] NIFEdipine XL (24 HR) [Procardia XL] 60 mg PO BID 08/07/17 [History] hydrALAZINE [HydrALAZINE] 25 mg PO TID 08/07/17 [History] Losartan Potassium [Cozaar] 50 mg PO DAILY 12/03/17 [History] Pravastatin Sodium [Pravachol] 40 mg PO DAILY 12/03/17 [History] Furosemide [Lasix] 80 mg PO BID 07/25/18 [History] Cholecalciferol (Vitamin D3) [Vitamin D3] 1,000 unit PO BID 09/26/18 [History] HYDROcodone/Acet 5/325 mg [[place] 5-325 mg] 1 tab PO TID PRN 09/26/18 [History] Insulin DETEMIR [Levemir] 60 unit SQ DAILY 09/26/18 [History] Sevelamer [Renvela] 800 mg PO TID 09/26/18 [History] Vitamin B Complex [Balanced B-50] 1 each PO DAILY 09/26/18 [History] Allergy/AdvReac Type Severity Reaction Status Date / Time gabapentin Allergy Dizziness Verified 09/19/18 11:07 oxycodone Allergy Hives Verified 09/19/18 11:07 propoxyphene Allergy Itching Verified 09/19/18 11:07 tetanus toxoid, adsorbed Allergy See Verified 09/19/18 11:07 Comments Onion AdvReac Severe Diarrhea Verified 09/19/18 11:05 Review of Systems All Systems: reviewed and no additional remarkable complaints except as stated (as documented in the HPI.) Exam - Vital Signs Vital signs: Initial Vital Signs Temp Pulse Resp BP Pulse Ox 97.4 F L 60 18 220/89 97 10/25/18 15:52 10/25/18 15:52 10/25/18 15:52 10/25/18 15:52 10/25/18 15:52 Vital Signs - Last 8 Hours Temp Pulse Resp BP Pulse Ox 10/26/18 06:52 98.1 F 66 19 144/64 95 10/26/18 04:05 99.2 F 66 17 159/73 92 Intake and Output 10/25/18 10/26/18 10/26/18 23:59 07:59 15:59 Output Total 500 / 500 Balance -500 / -500 Output: Urine 500 / 500 Other: # Voids 1 Weight 115.2 kg Blood Glucose* 233 110 Patient Weight 10/26/18 23:59 Weight 115.2 kg - General Appearance General appearance: well-developed, well-nourished EENT: ATNC Neck: supple Respiratory: clear Cardiology: no edema, regular rate, regular rhythm - Dialysis Access Dialysis Vascular Access: Venous Catheter (Right IJ) Additional Comments: He has a CAPD catheter. Gastrointestinal: no tenderness Integumentary: warm and dry Neurologic: alert and oriented x3 Musculoskeletal: no cyanosis Psychiatric: mood/affect appropriate Results - Lab Results 10/26/18 07:50 10/26/18 07:50 Most recent lab results Calcium 9.5 mg/dL (8.6-10.3) 10/25/18 16:18 Consult Discharge Plan - Plan Referrals: NONE,PCP [Primary Care Provider] -
[2018-10-26] MEDS ORDERED: Vancomycin 1 EACH in EMPTY BAG 1 EACH IVPB SCH (09:00)
[2018-10-26 09:07] LABS: Basophils % 0.2 %; Eosinophils # 0.2 K/mcL (0.0-0.6); Eosinophils % 1.9 %; Hematocrit 30.6 % (37.5-50.1); Hemoglobin 9.9 g/dL (12.9-16.9); Immature Granulocytes % 0.4 % (0-4); Lymphocytes # 1.1 K/mcL (0.6-4.6); Lymphocytes % 12.4 %; Mean Corpuscular HGB Conc 32.4 g/dL (31.6-35.5); Mean Corpuscular Hemoglobin 30.6 pg (28.0-33.3); Mean Corpuscular Volume 94.4 fL (83.0-100.0); Mean Platelet Volume 10.4 fL (9.4-12.4); Monocytes # 0.7 K/mcL (0.0-1.3); Platelet Count 190 K/mcL (140-400); Red Blood Count 3.24 M/mcL (4.19-5.50); Red Cell Distribution Width 13.7 % (11.5-14.5); Segmented Neutrophils % 77.1 %
[2018-10-26 09:23] LABS: Calcium 9.1 mg/dL (8.6-10.3); Potassium 3.7 mEq/L (3.5-5.1)
[2018-10-26] MEDS: *HR* HYDROcodone/Acet 5/325 mg TABLET PO PRN (14:13)
[2018-10-26] MEDS ORDERED: Perit. Dialysis with Dex 2.5 % 12,000 ML PERITONEAL ONE (19:00)
--- NOTE | 2018-10-26 22:54 | Internal Med Progress Note ---
Hospitalist Progress Note - Encounter Date of Encounter: 10/26/18 Time of Encounter: 19:00 - Subjective Interval History: SUBJECTIVE: The patient is a 63-year-old male. He has end-stage renal disease. He has very recently started peritoneal dialysis at home; continues to have tunneled hemodialysis catheter. He was discovered to have MRSA bacteremiasent to the hospital for treatment. He feels good. Denies chest pain and difficulty breathing. Denies abdominal pain, nausea and vomiting. OBJECTIVE: Skin: Free of rash and discoloration. ENMT: Oral/pharyngeal mucosa is normal in appearance. Eyes: Sclera is white. There is no discharge from eyes. Respiratory: Normal breath sounds; no crackles or wheezes. CV: Heart is regular; no gallop or murmur. GI: Abdomen is soft and not tender. There is no palpable mass or visceromegaly. Neuro: There is no focal deficits. ADDITIONAL DATA: CT of her chest and abdomen/pelvis was obtained a yesterday. There are scattered infiltrates in lower lobesbilaterally. They may represent pneumonia. Hemoglobin is 10.4 with a WBC of 5.8 thousand and normal platelet count. Electrolytes are normal. Creatinine is 4.95 with GFR of 12. ASSESSMENT AND PLAN: MRSA bacteremia likely secondary to infected tunneled hemodialysis catheter. The patient may have pneumonia. We need to repeat his chest x-ray tomorrow. Peritoneal dialysis fluid will be sent for tests. See nephrology notes. ID will be consulted. The catheter will have to be discontinued. The patient is on IV vancomycin. End-stage renal disease. The patient is switching from hemodialysis to peritoneal dialysis. See notes from nephrology. Peritoneal dialysis orders are in place. 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 Continue insulin Levemir and when necessary insulin Humalog. He is on Coreg, Procardia XL and Cozaar. Anemia from chronic kidney disease. Relatively mild. Hemoglobin is 10.4. Chronic diastolic heart failure. It will be regulated with fluid intake and peritoneal dialysis. - Exam Vitals: Temp Pulse Resp BP Pulse Ox 97.8 F 58 18 147/72 93 10/26/18 21:42 10/26/18 21:42 10/26/18 21:42 10/26/18 21:42 10/26/18 21:42 Exam: xx - Assessment and Plan (1) MRSA bacteremia Current Visit: Yes Status: Acute (2) Diabetes Current Visit: Yes Status: Chronic (3) Hypertensive renal disease with renal failure Current Visit: Yes Status: Chronic (4) ESRD (end stage renal disease) Current Visit: No Status: Acute (5) Anemia Current Visit: No Status: Chronic (6) Diastolic CHF Current Visit: Yes Status: Acute - Time Spent with Patient Total time spent is greater than 50% in coordination of care (as documented) at patient's floor/unit and/or counseling patient: 25 - 35 minutes Plan of Care Discussed with: patient Internal Medicine: Result - Labs CBC & Chem 7: 10/26/18 07:50 10/26/18 07:50 Labs: Short CBC 10/26/18 Range/Units 07:50 WBC 9.1 D (4.3-11.1) K/mcL Hgb 9.9 L (12.9-16.9) g/dL Hct 30.6 L (37.5-50.1) % Plt Count 190 (140-400) K/mcL Neutrophils # 7.0 (1.6-8.9) K/mcL BMP 10/26/18 07:50 Sodium 140 Potassium 3.7 Chloride 104 Carbon Dioxide 23 BUN 76 H Creatinine 4.87 H Glucose 110 H Calcium 9.1 Consult Discharge Plan - Plan Referrals: NONE,PCP [Primary Care Provider] - (2) Diabetes Qualifiers: Diabetes mellitus type: type 2 Diabetes mellitus senior living insulin use: with long term care pharmacist use Diabetes mellitus complication status: with kidney complications Diabetes mellitus complication detail: with chronic kidney disease Chronic kidney disease stage: on chronic dialysis Qualified Code(s): E11.22 - Type 2 diabetes mellitus with diabetic chronic kidney disease; N18.6 - End stage renal disease; Z79.4 - half-way (current) use of insulin; Z99.2 - Dependence on renal dialysis (5) Anemia Qualifiers: Iron deficiency anemia type: unspecified iron deficiency Qualified Code(s): D50.9 - Iron deficiency anemia, unspecified (6) Diastolic CHF Qualifiers: Heart failure chronicity: chronic Qualified Code(s): I50.32 - Chronic diastolic (congestive) heart failure
[2018-10-27] MEDS: *HR* Heparin 5,000 UNIT/ML VIAL SQ SCH ×4 (00:11→23:01)
[2018-10-27] MEDS: Insulin LISPRO 300 UNITS/3 ML VIAL SQ SCH ×3 (08:35→16:35)
[2018-10-27] MEDS: *HR* HYDROcodone/Acet 5/325 mg TABLET PO PRN (08:36)
[2018-10-27] MEDS: Vitamin B Complex/Vit C/Vit E 1 EACH TABLET PO SCH (08:36)
[2018-10-27] MEDS: Cholecalciferol (D-3) 1,000 UNIT TABLET PO SCH ×2 (08:36→20:25)
[2018-10-27] MEDS: NIFEdipine XL (24 HR) 60 MG TAB.ER.24 PO SCH ×2 (08:38→20:25)
[2018-10-27] MEDS: Furosemide 40 MG TABLET PO SCH ×2 (08:38→15:55)
[2018-10-27] MEDS ORDERED: Vancomycin 1 EACH in EMPTY BAG 1 EACH IVPB PRN (11:15)
[2018-10-27 11:38] LABS: Adenovirus Not Detected (Not Detect); Coronavirus 229E Not Detected (Not Detect); Coronavirus HKU1 Not Detected (Not Detect); Coronavirus NL63 Not Detected (Not Detect); Coronavirus OC43 Not Detected (Not Detect)
[2018-10-27 11:39] LABS: Bordetella Pertussis Not Detected (Not Detect); Chlamydophila pneumoniae Not Detected (Not Detect); Human Metapneumovirus DETECTED (Not Detect); Human Rhinovirus/Enterovirus Not Detected (Not Detect); Influenza A Subtype 2009 H1 Not Detected (Not Detect); Influenza A Untypeable Not Detected (Not Detect); Influenza B Not Detected (Not Detect); Mycoplasma pneumoniae Not Detected (Not Detect); Parainfluenza Virus 1 Not Detected (Not Detect); Parainfluenza Virus 2 Not Detected (Not Detect); Parainfluenza Virus 3 Not Detected (Not Detect); Parainfluenza Virus 4 Not Detected (Not Detect); Respiratory Syncytial Virus Not Detected (Not Detect)
[2018-10-27] MEDS: Mag Hydrox/Al Hydrox/Simeth 30 ML UDC PO PRN ×2 (12:54→22:49)
--- NOTE | 2018-10-27 14:40 | Infectious Disease Consult ---
Date of Encounter: 10/27/18 Time of Encounter: 12:15 Assessment and Plan (1) Bacteremia Status: Acute Assessment and plan: Causative organism: MRSE. Source: Perma-cath. Blood cultures drawn 10/22/18 x2 sets from the HD catheter site are positive for MRSE, not MRSA. Repeat blood culture drawn (peripherally) 10/25/18 is NGTD x 1 set. Clinically, the patient appears to be doing well. No SIRS criteria on admission. Discussed with nephrology. Planning to have HD catheter removed. Currently on Vancomycin. Recommendations: Await repeat blood cultures. Supportive care for viral illness per the primary team. Continue Vancomycin IV. Pharmacy to dose. Goal trough ~15. Once perma-cath removed, okay to discontinue IV Vancomycin. Discontinue contact precautions. Continue droplet precautions for human metapneumovirus. (2) Pneumonia Status: Acute Assessment and plan: Organism: Likely human metapnuemovirus. Chest x-ray showed mild pulmonary vascular congestion with mild perihilar and peribronchovascular opacities concerning for pulmonary edema versus less likely pneumonia. CT of the chest showed scattered bilateral infiltrates left greater than right concerning for pneumonia or aspiration pneumonitis. No evidence of aspiration noted on exam. Likely secondary to viral illness. Currently on droplet precautions. Qualifiers: Pneumonia type: due to unspecified organism Laterality: bilateral Lung location: lower lobe of lung Qualified Code(s): J18.1 - Lobar pneumonia, unspecified organism (3) Viral syndrome Status: Acute Assessment and plan: Secondary to Human Metapneumovirus. Supportive care per the primary team. (4) Obesity (BMI 30-39.9) Status: Chronic (5) ESRD (end stage renal disease) Status: Acute Assessment and plan: Nephrology consulted and following. (6) CAD (coronary artery disease) Status: Chronic Qualifiers: Coronary Disease-Associated Artery/Lesion type: [place] artery [place] vs. transplanted heart: [place] heart Associated angina: without angina Qualified Code(s): I25.10 - Atherosclerotic heart disease of [place] coronary artery without angina pectoris (7) COPD (chronic obstructive pulmonary disease) Status: Chronic Qualifiers: COPD type: emphysema Emphysema type: panlobular Qualified Code(s): J43.1 - Panlobular emphysema (8) Hypertension Status: Chronic Qualifiers: Hypertension type: essential hypertension Qualified Code(s): I10 - Essential (primary) hypertension Infectious Disease HPI - Data of Consult Patient: new to practice Consult date: 10/27/18 Requesting Physician: Jimenez Macdonald Primary Care Provider: PCP NONE - Consult Narrative Reason for consult: Bacteremia History of present illness: Mr. Hernandez is a 63 year old male with a past medical history of CHF, DM, HTN, and ESRD currently on PD, previously on HD up until 11/19/18. The patient was admitted to the hospital 10/25/18 for bacteremia. We are consulted 10/27/18 for further recommendations for bacteremia. Briefly, the patient is a 63 year old male with a past medical history as stated above. The patient is the emergency department 10/25/18 at the direction of his waistband setter with ALISSA bacteremia. Upon arrival, the patient was hypertensive, but was otherwise afebrile and hemodynamically stable. Laboratory studies revealed a normal white blood cell count. Renal function was indicative of his end-stage renal disease. Lactic acid was normal. Blood cultures obtained peripherally in the emergency department are no growth to date 1 set. Flu antigen swab was negative. He had a chest x-ray that showed mild pulmonary vascular congestion with mild perihilar and peribronchial vesicular these concerning for pulmonary edema versus less likely pneumonia. He then had a CT of the chest, abdomen, and pelvis bilateral lower lobe infiltrates left greater than right concerning for pneumonia versus aspiration pneumonitis and ascites. He was started empirically on IV vancomycin and admitted to the hospital for further evaluation. During my exam today, the patient states that he went to dialysis on Saturday was feeling overall generally poor. He reported a fever of 100.8 and generalize d fatigue and malaise with congestion and a moist nonproductive cough. He denied any headache or neck pain. Denied chest pain or shortness of breath. Denies nausea, vomiting, diarrhea, or constipation. States he has heartburn right now. States his appetite is not very good. He denies any urinary complaints or abdominal pain. Denies any specific back, joint, or extremity pain. Denies any pain in his peritoneal dialysis catheter site. Denies any issues with his dialysis catheter. Patient lives at home with his son and [id number]. He is retired. He denies any tobacco, alcohol, or illicit drug use. He denies recent travel outside the [facility]. He denies any pet or animal exposures. He denies any chronic infectious diseases. CC: Jimenez Macdonald Past Med Surg Social Fam HX - Past Medical History Attestation: Yes The following information was validated with the patient. Source: patient, old records reviewed, nursing notes reviewed Medical history: CHF, diabetes, dialysis, fibromyalgia, hypertension, renal disease Additional medical history: neuropathy Psychiatric history: anxiety, depression, other - Past Surgical History Surgical History: other Additional surgical history: PD catheter placement - Social History Smoking Status: Never smoker Smokeless Tobacco Status: Yes (snuff) Alcohol use: none Drug use: none Occupational status: disabled Current living situation: Home, With Family Activity Level: Independent ambulation Recent Out of Country Travel Within the Last 8 Weeks: No Exposure or Possible Exposure to Illness During Travel: No - Family History Brother Hx Family Cardiac Disorders: Yes (HTN) Hx Family Endocrine Disorder: Yes (DM-2) Mother Adopted: No Family Member Ethnicity: Non- Living Status: Hx Family Cardiac Disorders: Yes Infectious Disease-CN:Meds RX: Carvedilol [Coreg] 25 mg PO BID 05/16/16 [History] RX: DULoxetine [Cymbalta] 30 mg PO QPM 05/16/16 [History] RX: DULoxetine [Cymbalta] 60 mg PO QAM 05/16/16 [History] RX: glipiZIDE [Glipizide] 10 mg PO DAILY 05/16/16 [History] RX: Ferrous Sulfate [Iron] 325 mg PO BID 08/07/17 [History] RX: NIFEdipine XL (24 HR) [Procardia XL] 60 mg PO BID 08/07/17 [History] RX: hydrALAZINE [HydrALAZINE] 25 mg PO TID 08/07/17 [History] RX: Losartan Potassium [Cozaar] 50 mg PO DAILY 12/03/17 [History] RX: Pravastatin Sodium [Pravachol] 40 mg PO DAILY 12/03/17 [History] RX: Cholecalciferol (Vitamin D3) [Vitamin D3] 1,000 unit PO BID 09/26/18 [History] RX: HYDROcodone/Acet 5/325 mg [[place] 5-325 mg] 1 tab PO TID PRN 09/26/18 [History] RX: Insulin DETEMIR [Levemir] 40 - 60 unit SQ DAILY 09/26/18 [History] RX: Sevelamer [Renvela] 800 mg PO TID 09/26/18 [History] RX: Vitamin B Complex [Balanced B-50] 1 each PO DAILY 09/26/18 [History] Allergy/AdvReac Type Severity Reaction Status Date / Time oxycodone Allergy Hives Verified 10/27/18 08:59 tetanus toxoid, adsorbed Allergy See Verified 10/27/18 08:59 Comments Onion AdvReac Severe Diarrhea Verified 10/27/18 08:59 gabapentin AdvReac Dizziness Verified 10/27/18 08:59 propoxyphene AdvReac Itching Verified 10/27/18 08:59 All systems: reviewed and no additional remarkable complaints except as stated Exam - Constitutional Vitals: Temp Pulse Resp BP Pulse Ox 98.5 F 57 18 135/62 97 10/27/18 11:13 10/27/18 11:13 10/27/18 11:13 10/27/18 11:13 10/27/18 11:13 General appearance: average body habitus, cooperative, no acute distress - Head Head exam: Present: atraumatic, normal inspection, normocephalic - Eye Eye exam: Present: EOMI, normal appearance, PERRL Pupils: Present: normal accommodation Additional comments: No subconjunctival hemorrhage noted. - ENT ENT exam: Present: mucous membranes moist - Neck Neck exam: Present: normal inspection - Respiratory Respiratory exam: Present: CTAB. Absent: rales, respiratory distress, rhonchi, wheezes Additional comments: Moist cough noted. - Cardiovascular Cardiovascular exam: Present: RRR, +S1, +S2 - GI/Abdominal GI/Abdominal exam: Present: normal bowel sounds, soft. Absent: distended, tenderness Additional comments: PD catheter noted to left lower abdomen without erythema, warmth, tenderness, or drainage. - Extremities Exam Extremities exam: Present: normal inspection. Absent: joint swelling, pedal edema, tenderness - Neurological Exam Neurological exam: Present: alert, oriented X3, no focal deficits - Psychiatric Psychiatric exam: Present: normal affect, normal mood - Skin Skin exam: Present: dry, intact, normal color, warm - Additional findings Additional findings: Perma-cath noted to the right upper chest with transparent dressing C/D/I. No surrounding erythema, warmth, tenderness, or drainage noted. Infectious Disease CN: Results - Labs CBC & Chem 7: 10/28/18 10:30 10/28/18 10:30 Cultures: Cultures 10/25/18 16:45 Blood Culture - Preliminary Peripheral Venipuncture Culture is incubating and being continuously monitored for growth. Final report to follow. 10/25/18 16:26 Influenza Types A,B Antigen - Final Nasopharyngeal Serology: Serology 10/27/18 10/25/18 10/25/18 Range/Units 10:30 19:08 16:45 Urine Color Yellow (Yellow) Urine Clarity Clear (Clear) Urine pH 6.0 (5.0-8.0) pH Units Ur Specific [place] 1.018 (1.010-1.025) Urine Protein >=300 H (Neg-Trace) mg/dL Urine Glucose (UA) 250 H (Normal) mg/dL Urine Ketones Negative (Negative) mg/dL Urine Blood Negative (Negative) Urine Nitrite Negative (Negative) Urine Bilirubin Negative (Negative) Urine Urobilinogen Normal (Normal) mg/dL Ur Leukocyte Esterase Negative (Negative) Urine Microscopic RBC 5-15 H (0-3) per hpf Urine Microscopic WBC 0-3 (0-3) per hpf Ur Squamous Epith Cells Moderate H (None-Few) per lpf Urine Bacteria None Seen (None-Few) per hpf Hyaline Casts None Seen (None-Few) per lpf Ur Culture Indicated? NO (NO) Chlamy pneumoniae PCR Not Detected (Not Detect) Adenovirus (PCR) Not Detected (Not Detect) B. pertussis DNA (PCR) Not Detected (Not Detect) B.parapertussis DNA PCR Not Detected (Not Detect) Coronavirus OC43 (PCR) Not Detected (Not Detect) Coronavirus HKU1 (PCR) Not Detected (Not Detect) Coronavirus 229E (PCR) Not Detected (Not Detect) Coronavirus NL63 (PCR) Not Detected (Not Detect) Hep Bs Antigen Nonreactive (Nonreactive) Hep Bs Antibody 3.46 L (10.00 - ) mIU/mL Human Metapneumovir PCR DETECTED A (Not Detect) Influenza A (H1) PCR Not Detected (Not Detect) Influ A (H1N1/09) PCR Not Detected (Not Detect) Influenza A (H3) PCR Not Detected (Not Detect) Influenza A Untype (PCR) Not Detected (Not Detect) Influenza Type B (PCR) Not Detected (Not Detect) M.pneumoniae DNA (PCR) Not Detected (Not Detect) Parainfluenza 1 (PCR) Not Detected (Not Detect) Parainfluenza 2 (PCR) Not Detected (Not Detect) Parainfluenza 3 (PCR) Not Detected (Not Detect) Parainfluenza 4 (PCR) Not Detected (Not Detect) RSV (PCR) Not Detected (Not Detect) Entero/Rhino (PCR) Not Detected (Not Detect) Consult Discharge Plan - Plan Referrals: NONE,PCP [Primary Care Provider] - - Attending Attestation I have personally performed a face to face evaluation on this patient. I have reviewed and agree with the care plan. History and Exam by me shows: Patient seen and examined. Patient with above findings, review of system and physical exam Assessment and plan: Bacteremia with coag-negative staph that is ampicillin resistant source permacath Pneumonia secondary to human meta-Pneumovirus Viral syndrome Morbid obesity End-stage renal disease on hemodialysis until last Saturday currently on peritoneal dialysis Coronary artery disease Recommendations Await repeat blood cultures. Supportive care for viral illness per the primary team. Discontinue vancomycin. Observe closely off antibiotics. Discontinue contact precautions. Continue droplet precautions for human metapneumovirus. No further recommendations from the ID team. We will sign off. Please reconsult if needed.
--- NOTE | 2018-10-27 15:28 | IR Procedure Note ---
Date of procedure: 10/27/18 Consent Obtained: Verbal consent Timeout: Correct patient and procedure verified, Correct site verified, Time out performed, Skin prep completed Local anesthetic: Lidocaine 1% Indications: Bacteremia Procedure Performed: Removal permacath Was there an entry level assistant manager present: No Results/Findings: Successful removal permacath Estimated blood loss (cc): 0 Complications: None; Tolerated procedure well Specimen: Tip sent for cx
[2018-10-27] MEDS ORDERED: Ondansetron ODT 4 MG TAB.RAPDIS SL PRN (16:06)
[2018-10-27] MEDS: Benzonatate 100 MG CAPSULE PO PRN (16:08)
[2018-10-27] MEDS ORDERED: Perit. Dialysis with Dex 2.5 % 12,000 ML PERITONEAL ONE (19:00)
[2018-10-27 20:10] LABS: RBC,Peritoneal Fluid < 0.002 M/mcL
[2018-10-27] MEDS: hydrALAZINE 25 MG TABLET PO SCH (20:26)
--- NOTE | 2018-10-27 20:38 | Nephrology Progress Note ---
Date of Encounter: 10/27/18 Time of Encounter: 20:29 - Assessment and Plan (1) ESRD (end stage renal disease) Current Visit: No Status: Acute CAPD Renal vitamins. Renal dose medications. Renal diet. Will continue nightly CAPD. Patient with MRSE bacteremia possibly from his HD line. Will discontinue HD line and culture the tip. Continue antibiotics per ID. (2) Bacteremia associated with intravascular line Current Visit: Yes Status: Acute Patient with MRSE x 2 per outside blood cultures. Per ID. Qualifiers: Encounter type: initial encounter Qualified Code(s): T82.7XXA - Infection and inflammatory reaction due to other cardiac and vascular devices, implants and grafts, initial encounter; R78.81 - Bacteremia (3) Hypertension Current Visit: No Status: Chronic Titrate antihypertensive medications as needed. Qualifiers: Hypertension type: essential hypertension Qualified Code(s): I10 - Essential (primary) hypertension (4) Anemia Current Visit: No Status: Chronic Aranesp as needed. Monitor for bleeding. Qualifiers: Anemia type: unspecified type Qualified Code(s): D64.9 - Anemia, unspecified (5) Diabetes Current Visit: Yes Status: Chronic Per primary team. Qualifiers: Diabetes mellitus type: type 2 Diabetes mellitus fpc insulin use: with ocean transportation intermediary use Diabetes mellitus complication status: with kidney complications Diabetes mellitus complication detail: with chronic kidney disease Chronic kidney disease stage: on chronic dialysis Qualified Code(s): E11.22 - Type 2 diabetes mellitus with diabetic chronic kidney disease; N18.6 - End stage renal disease; Z79.4 - manager intermediate (current) use of insulin; Z99.2 - Dependence on renal dialysis (6) Morbid obesity with BMI of 45.0-49.9, adult Current Visit: No Status: Chronic Subjective Principal diagnosis: ESRD Interval history: Mr. Hernandez is a 63 yo man with ESRD in with MRSE bacteremia. Patient without new complaint. He denies chills or any other complaint. His ROS is otherwise negative. Objective - Vital Signs Vital signs: Vital Signs Temp Pulse Resp BP Pulse Ox 10/27/18 19:07 98.8 F 56 15 130/61 96 10/27/18 19:05 98.6 F 16 130/61 10/27/18 16:23 98.3 F 56 18 134/56 97 10/27/18 11:13 98.5 F 57 18 135/62 97 10/27/18 08:13 98.2 F 61 18 157/75 94 10/27/18 07:50 98.2 F 18 157/75 10/27/18 03:40 98.9 F 60 18 156/82 96 10/27/18 00:05 98.3 F 56 18 142/64 93 10/26/18 21:42 97.8 F 58 18 147/72 93 10/26/18 21:00 98.2 F 21 137/67 10/26/18 20:55 61 123/64 95 Intake and Output 10/27/18 10/27/18 10/27/18 07:59 15:59 23:59 Intake Total 280 / 280 1750 / 1750 Output Total 2858 / 2858 150 / 150 Balance -2858 / -2858 280 / 280 1600 / 1600 Intake: IV Fluids 1750 / 1750 Vancocin 1,000 MG In 0.9 % 250 / 250 Sodium Chloride 250 ML @ 167 mls/hr IVPB ONCE ONE Rx#: [id number] Oral 280 / 280 Output: Urine 150 / 150 Total Peritoneal Dialysis (PD) 1429 / 1429 Output Peritoneal Dialysis (PD) Net 1429 / 1429 Fluid Removed Other: Meal 4 pks of saltine crackers Breakfast Percent of Meal Consumed 50% Weight 115 kg Blood Glucose* 218 82 Patient Weight 10/27/18 23:59 Weight 115 kg - General Appearance General appearance: Present: well-developed, well-nourished EENT: Present: ATNC Neck: Present: supple Additional Comments: bradycardia Integumentary: Present: warm and dry Neurologic: Present: alert and oriented x3 Psychiatric: Present: mood/affect appropriate - Lab 10/26/18 07:50 10/26/18 07:50 Most recent lab results Calcium 9.1 mg/dL (8.6-10.3) 10/26/18 07:50 Consult Discharge Plan - Plan Referrals: NONE,PCP [Primary Care Provider] -
--- NOTE | 2018-10-27 22:08 | Internal Med Progress Note ---
Hospitalist Progress Note - Encounter Date of Encounter: 10/27/18 Time of Encounter: 19:00 - Subjective Interval History: SUBJECTIVE: The patient is a 63-year-old male. He has end-stage renal disease. He has very recently started peritoneal dialysis at home. Admitted with MRSA bacteremia. Feels good. A little bit weak. Denies chest pain. He basically does not have any cough or wheezing. OBJECTIVE: Skin: Free of rash and discoloration. ENMT: Oral/pharyngeal mucosa is normal in appearance. Eyes: Sclera is white. There is no discharge from eyes. Respiratory: Normal breath sounds; no crackles or wheezes. CV: Heart is regular; no gallop or murmur. GI: Abdomen is soft and not tender. There is no palpable mass or visceromegaly. Neuro: There is no focal deficits. ADDITIONAL DATA: CT of chest and abdomen/pelvis was obtained on 10/25. There are scattered infiltrates in lower lobes bilaterally. They may represent pneumonia. Hemoglobin is 10.4 with a WBC of 5.8 thousand and normal platelet count. Electrolytes are normal. Creatinine is 4.95 with GFR of 12. ASSESSMENT AND PLAN: MRSA bacteremia likely secondary to infected tunneled hemodialysis catheter. The catheter has been removed day. Peritoneal dialysis fluid was sent for test ing. Infectious diseases is consulted. The patient is on IV vancomycin. The patient may have pneumonia. Repeated chest x-ray from today shows mild pulmonary edema and basilar atelectasis. CT of chest done 2 days ago showed changes suspected for pneumonia. Respiratory infection panel is positive for human metapneumovirus. End-stage renal disease. The patient is switching from hemodialysis to peritoneal dialysis. See notes from nephrology. Peritoneal dialysis orders are in place. 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 Continue insulin Levemir and when necessary insulin Humalog. He is on Coreg, Procardia XL and Cozaar. Anemia from chronic kidney disease. Relatively mild. Hemoglobin is 10.4. Chronic diastolic heart failure. It will be regulated with fluid intake and peritoneal dialysis. - Exam Vitals: Temp Pulse Resp BP Pulse Ox 98.8 F 56 15 130/61 96 10/27/18 19:07 10/27/18 19:07 10/27/18 19:07 10/27/18 19:07 10/27/18 19:07 Exam: xx - Assessment and Plan (1) MRSA bacteremia Current Visit: Yes Status: Acute (2) Pneumonia Current Visit: Yes Status: Acute (3) Diabetes Current Visit: Yes Status: Chronic (4) Hypertensive renal disease with renal failure Current Visit: Yes Status: Chronic (5) ESRD (end stage renal disease) Current Visit: No Status: Acute (6) Anemia Current Visit: No Status: Chronic (7) Diastolic CHF Current Visit: Yes Status: Acute - Time Spent with Patient Total time spent is greater than 50% in coordination of care (as documented) at patient's floor/unit and/or counseling patient: 25 - 35 minutes Plan of Care Discussed with: patient Internal Medicine: Result - Labs CBC & Chem 7: 10/26/18 07:50 10/26/18 07:50 - Impressions Impressions Tunnelled Catheter Removal 10/27/18 00:00 IMPRESSION: 1. Successful removal of the right chest wall tunneled dialysis catheter as discussed above. D/ / Reynold Bradley MD / Reynold Bradley MD Interpreting Provider: Reynold Bradley MD Chest X-Ray 10/27/18 07:00 IMPRESSION: 1. Stable lines and tubes. 2. Lower lung volumes with mild pulmonary edema and basilar atelectasis. 3. Stable cardiomegaly. D/ / 10/27/2018 07:34:53 Bryanna Medellin MD / stephanie Interpreting Provider: Bryanna Medellin MD Consult Discharge Plan - Plan Referrals: NONE,PCP [Primary Care Provider] - (2) Pneumonia Qualifiers: Pneumonia type: due to unspecified organism Laterality: bilateral Lung location: lower lobe of lung Qualified Code(s): J18.1 - Lobar pneumonia, unspecified organism (3) Diabetes Qualifiers: Diabetes mellitus type: type 2 Diabetes mellitus terminal superintendent insulin use: with group home use Diabetes mellitus complication status: with kidney complications Diabetes mellitus complication detail: with chronic kidney disease Chronic kidney disease stage: on chronic dialysis Qualified Code(s): E11.22 - Type 2 diabetes mellitus with diabetic chronic kidney disease; N18.6 - End stage renal disease; Z79.4 - long term care social worker (current) use of insulin; Z99.2 - Dependence on renal dialysis (6) Anemia Qualifiers: Iron deficiency anemia type: unspecified iron deficiency Qualified Code(s): D50.9 - Iron deficiency anemia, unspecified (7) Diastolic CHF Qualifiers: Heart failure chronicity: chronic Qualified Code(s): I50.32 - Chronic danielle stolic (congestive) heart failure
[2018-10-27] MEDS: Insulin DETEMIR 100 UNIT/ML X5UNITS SQ SCH (22:43)
[2018-10-27 23:32] LABS: Appearance of Peritoneal Fl CLEAR (Clear)
[2018-10-28] MEDS: *HR* Heparin 5,000 UNIT/ML VIAL SQ SCH ×2 (08:27→15:51)
[2018-10-28] MEDS: Insulin LISPRO 300 UNITS/3 ML VIAL SQ SCH ×3 (08:27→16:26)
[2018-10-28] MEDS: hydrALAZINE 25 MG TABLET PO SCH ×3 (08:28→20:20)
[2018-10-28] MEDS: NIFEdipine XL (24 HR) 60 MG TAB.ER.24 PO SCH ×2 (08:28→20:20)
[2018-10-28] MEDS: Cholecalciferol (D-3) 1,000 UNIT TABLET PO SCH ×2 (08:28→20:20)
[2018-10-28] MEDS: Vitamin B Complex/Vit C/Vit E 1 EACH TABLET PO SCH (08:28)
[2018-10-28] MEDS: Furosemide 40 MG TABLET PO SCH ×2 (08:29→17:12)
[2018-10-28] MEDS: Mag Hydrox/Al Hydrox/Simeth 30 ML UDC PO PRN ×3 (08:37→20:28)
[2018-10-28] MEDS: *HR* HYDROcodone/Acet 5/325 mg TABLET PO PRN ×2 (08:44→15:50)
--- NOTE | 2018-10-28 10:28 | Nephrology Progress Note ---
Addendum entered and electronically signed by Diomedes Mondragon MD 10/28/18 18:06: I examined this patient and discussed the medical decision-making with LAVONNE Barrera. I agree with the documented findings, disposition and treatment plan as described except to the extent set forth below. Continue CAPD. Original Note: Date of Encounter: 10/28/18 Time of Encounter: 10:26 - Assessment and Plan (1) ESRD (end stage renal disease) Current Visit: No Status: Acute CAPD Renal vitamins. Renal dose medications. Renal diet. Will continue nightly CAPD. Tunneled line removed 10/27/18, tip culture sent. (2) Bacteremia associated with intravascular line Current Visit: Yes Status: Acute Patient with MRSE x 2 per outside blood cultures. Per ID. Qualifiers: Encounter type: initial encounter Qualified Code(s): T82.7XXA - Infection and inflammatory reaction due to other cardiac and vascular devices, implants and grafts, initial encounter; R78.81 - Bacteremia (3) Diabetes Current Visit: Yes Status: Chronic Per primary team. Qualifiers: Diabetes mellitus type: type 2 Diabetes mellitus retirement insulin use: with retirement use Diabetes mellitus complication status: with kidney complications Diabetes mellitus complication detail: with chronic kidney disease Chronic kidney disease stage: on chronic dialysis Qualified Code(s): E11.22 - Type 2 diabetes mellitus with diabetic chronic kidney disease; N18.6 - End stage renal disease; Z79.4 - senior care (current) use of insulin; Z99.2 - Dependence on renal dialysis (4) Morbid obesity with BMI of 45.0-49.9, adult Current Visit: No Status: Chronic (5) Hypertension Current Visit: No Status: Chronic Titrate antihypertensive medications as needed. Qualifiers: Hypertension type: essential hypertension Qualified Code(s): I10 - Essential (primary) hypertension (6) Anemia Current Visit: No Status: Chronic Aranesp as needed. Monitor for bleeding. Qualifiers: Anemia type: unspecified type Qualified Code(s): D64.9 - Anemia, unspecified Subjective Principal diagnosis: ESRD Interval history: Patient seen and examined is lying in bed with his head covered with the blankets. No acute events overnight. Denies chest pain or shortness of breath. Denies nausea, vomiting, diarrhea. Objective - Vital Signs Vital signs: Vital Signs Temp Pulse Resp BP Pulse Ox 10/28/18 08:50 97 10/28/18 07:30 97.3 F L 16 165/77 10/28/18 06:58 98.6 F 59 18 138/70 97 10/28/18 05:08 99.0 F 60 16 145/63 96 10/28/18 01:15 98.4 F 60 16 142/62 98 10/27/18 19:07 98.8 F 56 15 130/61 96 10/27/18 19:05 98.6 F 16 130/61 10/27/18 16:23 98.3 F 56 18 134/56 97 10/27/18 11:13 98.5 F 57 18 135/62 97 Intake and Output 10/27/18 10/28/18 10/28/18 23:59 07:59 15:59 Intake Total 1750 / 1750 Output Total 150 / 150 3852 / 3852 Balance 1600 / 1600 -3852 / -3852 Intake: IV Fluids 1750 / 1750 Vancocin 1,000 MG In 0.9 % 250 / 250 Sodium Chloride 250 ML @ 167 mls/hr IVPB ONCE ONE Rx#: [id number] Output: Urine 150 / 150 Total Peritoneal Dialysis (PD) 1925 Output Peritoneal Dialysis (PD) Net 1925 Fluid Removed Other: Weight 117.1 kg Blood Glucose* 193 192 Patient Weight 10/28/18 23:59 Weight 117.1 kg - General Appearance General appearance: Present: well-developed, well-nourished EENT: Present: ATNC, hearing intact, vision intact Neck: Present: supple Respiratory: Present: clear Cardiology: Present: no edema, normal S1, normal S2 Gastrointestinal: Present: normoactive bowel sounds, no tenderness, no guarding Integumentary: Present: no rash, warm and dry Neurologic: Present: alert and oriented x3 Musculoskeletal: Present: no deformities, no erythema Psychiatric: Present: mood/affect appropriate, cooperative - Lab 10/26/18 07:50 10/26/18 07:50 Most recent lab results Calcium 9.1 mg/dL (8.6-10.3) 10/26/18 07:50 Consult Discharge Plan - Plan Referrals: NONE,PCP [Primary Care Provider] -
[2018-10-28] MEDS ORDERED: Aminoglycoside Consult 1 EACH MC ONE (10:57)
[2018-10-28 11:08] LABS: Basophils % 0.2 %; Eosinophils # 0.2 K/mcL (0.0-0.6); Eosinophils % 1.8 %; Hematocrit 26.3 % (37.5-50.1); Hemoglobin 8.6 g/dL (12.9-16.9); Immature Granulocytes % 0.3 % (0-4); Mean Corpuscular HGB Conc 32.7 g/dL (31.6-35.5); Mean Corpuscular Hemoglobin 31.2 pg (28.0-33.3); Mean Corpuscular Volume 95.3 fL (83.0-100.0); Mean Platelet Volume 10.2 fL (9.4-12.4); Monocytes # 0.6 K/mcL (0.0-1.3); Monocytes % 6.4 %; Neutrophils # 7.3 K/mcL (1.6-8.9); Platelet Count 185 K/mcL (140-400); Red Blood Count 2.76 M/mcL (4.19-5.50); Red Cell Distribution Width 13.5 % (11.5-14.5); Segmented Neutrophils % 80.3 %
[2018-10-28 11:16] LABS: Calcium 8.7 mg/dL (8.6-10.3); Potassium 4.2 mEq/L (3.5-5.1)
--- NOTE | 2018-10-28 11:47 | Infectious Disease Progress No ---
Date of Encounter: 10/28/18 Time of Encounter: 08:50 - Assessment and Plan (1) Bacteremia Current Visit: Yes Status: Acute Causative organism: MRSE. Source: Perma-cath. Blood cultures drawn 10/22/18 x2 sets from the HD catheter site are positive for MRSE, not MRSA. Repeat blood culture drawn (peripherally) 10/25/18 is NGTD x 1 set. Clinically, the patient appears to be doing well. No SIRS criteria on admission. Status post HD catheter removal 10/27/18. Catheter tip culture was sent and is pending. Currently on Vancomycin. Recommendations: Await repeat blood cultures. Supportive care for viral illness per the primary team. Discontinue vancomycin. Observe closely off antibiotics. Discontinue contact precautions. Continue droplet precautions for human metapneumovirus. No further recommendations from the ID team. We will sign off. Please reconsul t if needed. (2) Pneumonia Current Visit: Yes Status: Acute Organism: Likely human metapnuemovirus. Chest x-ray showed mild pulmonary vascular congestion with mild perihilar and peribronchovascular opacities concerning for pulmonary edema versus less likely pneumonia. CT of the chest showed scattered bilateral infiltrates left greater than right concerning for pneumonia or aspiration pneumonitis. No evidence of aspiration noted on exam. Currently on droplet precautions. Qualifiers: Pneumonia type: due to unspecified organism Laterality: bilateral Lung l ocation: lower lobe of lung Qualified Code(s): J18.1 - Lobar pneumonia, unspecified organism (3) Viral syndrome Current Visit: Yes Status: Acute Secondary to Human Metapneumovirus. Supportive care per the primary team. (4) Obesity (BMI 30-39.9) Current Visit: No Status: Chronic (5) ESRD (end stage renal disease) Current Visit: No Status: Acute Nephrology consulted and following. Currently on peritoneal dialysis. (6) CAD (coronary artery disease) Current Visit: No Status: Chronic Qualifiers: Coronary Disease-Associated Artery/Lesion type: [place] artery [place] vs. transplanted heart: [place] heart Associated angina: without angina Qualified Code(s): I25.10 - Atherosclerotic heart disease of [place] coronary artery without angina pectoris (7) COPD (chronic obstructive pulmonary disease) Current Visit: No Status: Chronic Qualifiers: COPD type: emphysema Emphysema type: panlobular Qualified Code(s): J43.1 - Panlobular emphysema (8) Hypertension Current Visit: No Status: Chronic Qualifiers: Hypertension type: essential hypertension Qualified Code(s): I10 - Essential (primary) hypertension - Subjective Interval history: Patient seen and examined. No acute events noted overnight. Patient states he feels better. Denies fevers, chills, or rigors. Denies chest pain, shortness of breath, or cough. Denies nausea, vomiting, diarrhea, or constipation. Reports his appetite is better. States he has not had a bowel movement in a few days. Denies urinary complaints or abdominal pain. Denies oral thrush or new skin lesions. Infect Dis PN-Objective Data - Labs CBC & Chem 7: 10/28/18 10:30 10/28/18 10:30 Labs: Laboratory Results - last 24 hr 10/27/18 10/27/18 10/27/18 08:08 08:20 11:18 WBC RBC Hgb Hct MCV MCH MCHC RDW Plt Count MPV Immature Gran % Seg Neutrophils % Lymphocytes % Monocytes % Eosinophils % Basophils % Neutrophils # Lymphocytes # Monocytes # Eosinophils # Basophils # Sodium Potassium Chloride Carbon Dioxide BUN Creatinine Est GFR ( Amer) Est GFR (Non-Af Amer) BUN/Creatinine Ratio Glucose POC Glucose 224 H 218 H Calculated Osmolality Calcium Peritoneal Appearance CLEAR Peritoneal Volume Test Not Performed Peritoneal RBC < 0.002 Periton Tot Nuc Cells 6 Periton Lymphocytes % 100 10/27/18 10/27/18 10/27/18 16:28 17:53 21:13 WBC RBC Hgb Hct MCV MCH MCHC RDW Plt Count MPV Immature Gran % Seg Neutrophils % Lymphocytes % Monocytes % Eosinophils % Basophils % Neutrophils # Lymphocytes # Monocytes # Eosinophils # Basophils # Sodium Potassium Chloride Carbon Dioxide BUN Creatinine Est GFR ( Amer) Est GFR (Non-Af Amer) BUN/Creatinine Ratio Glucose POC Glucose 72 82 193 H Calculated Osmolality Calcium Peritoneal Appearance Peritoneal Volume Peritoneal RBC Periton Tot Nuc Cells Periton Lymphocytes % 10/28/18 10/28/18 10:30 10:30 WBC 9.1 RBC 2.76 L Hgb 8.6 L Hct 26.3 L MCV 95.3 MCH 31.2 MCHC 32.7 RDW 13.5 Plt Count 185 MPV 10.2 Immature Gran % 0.3 Seg Neutrophils % 80.3 Lymphocytes % 11.0 Monocytes % 6.4 Eosinophils % 1.8 Basophils % 0.2 Neutrophils # 7.3 Lymphocytes # 1.0 Monocytes # 0.6 Eosinophils # 0.2 Basophils # 0.0 Sodium 139 Potassium 4.2 Chloride 102 Carbon Dioxide 26 BUN 71 H Creatinine 5.61 H Est GFR ( Amer) 13 L Est GFR (Non-Af Amer) 10 L BUN/Creatinine Ratio 13 Glucose 221 H POC Glucose Calculated Osmolality 316 H Calcium 8.7 Peritoneal Appearance Peritoneal Volume Peritoneal RBC Periton Tot Nuc Cells Periton Lymphocytes % Cultures: Cultures 10/27/18 08:08 Body Fluid Culture - Preliminary Peritoneal Fluid 10/27/18 15:28 Catheter Tip Culture - Preliminary Intravenous or Arterial Cath Culture is incubating. 10/25/18 16:45 Blood Culture - Preliminary Peripheral Venipuncture Culture is incubating and being continuously monitored for growth. Final report to follow. 10/25/18 16:26 Influenza Types A,B Antigen - Final Nasopharyngeal Serology 10/27/18 10/27/18 10/25/18 Range/Units 10:30 08:08 19:08 Urine Color Yellow (Yellow) Urine Clarity Clear (Clear) Urine pH 6.0 (5.0-8.0) pH Units Ur Specific [address] 1.018 (1.010-1.025) Urine Protein >=300 H (Neg-Trace) mg/dL Urine Glucose (UA) 250 H (Normal) mg/dL Urine Ketones Negative (Negative) mg/dL Urine Blood Negative (Negative) Urine Nitrite Negative (Negative) Urine Bilirubin Negative (Negative) Urine Urobilinogen Normal (Normal) mg/dL Ur Leukocyte Esterase Negative (Negative) Urine Microscopic RBC 5-15 H (0-3) per hpf Urine Microscopic WBC 0-3 (0-3) per hpf Ur Squamous Epith Cells Moderate H (None-Few) per lpf Urine Bacteria None Seen (None-Few) per hpf Hyaline Casts None Seen (None-Few) per lpf Ur Culture Indicated? NO (NO) Peritoneal Appearance CLEAR (Clear) Peritoneal Volume Test Not Performed Peritoneal RBC < 0.002 (0.000 - 0.002) M/mcL Periton Tot Nuc Cells 6 (0-300) TNC/mcL Periton Lymphocytes % 100 % Chlamy pneumoniae PCR Not Detected (Not Detect) Adenovirus (PCR) Not Detected (Not Detect) B. pertussis DNA (PCR) Not Detected (Not Detect) B.parapertussis DNA PCR Not Detected (Not Detect) Coronavirus OC43 (PCR) Not Detected (Not Detect) Coronavirus HKU1 (PCR) Not Detected (Not Detect) Coronavirus 229E (PCR) Not Detected (Not Detect) Coronavirus NL63 (PCR) Not Detected (Not Detect) Hep Bs Antigen (Nonreactive) Hep Bs Antibody (10.00 - ) mIU/mL Human Metapneumovir PCR DETECTED A (Not Detect) Influenza A (H1) PCR Not Detected (Not Detect) Influ A (H1N1/09) PCR Not Detected (Not Detect) Influenza A (H3) PCR Not Detected (Not Detect) Influenza A Untype (PCR) Not Detected (Not Detect) Influenza Type B (PCR) Not Detected (Not Detect) M.pneumoniae DNA (PCR) Not Detected (Not Detect) Parainfluenza 1 (PCR) Not Detected (Not Detect) Parainfluenza 2 (PCR) Not Detected (Not Detect) Parainfluenza 3 (PCR) Not Detected (Not Detect) Parainfluenza 4 (PCR) Not Detected (Not Detect) RSV (PCR) Not Detected (Not Detect) Entero/Rhino (PCR) Not Detected (Not Detect) 10/25/18 Range/Units 16:45 Urine Color (Yellow) Urine Clarity (Clear) Urine pH (5.0-8.0) pH Units Ur Specific State Road (1.010-1.025) Urine Protein (Neg-Trace) mg/dL Urine Glucose (UA) (Normal) mg/dL Urine Ketones (Negative) mg/dL Urine Blood (Negative) Urine Nitrite (Negative) Urine Bilirubin (Negative) Urine Urobilinogen (Normal) mg/dL Ur Leukocyte Esterase (Negative) Urine Microscopic RBC (0-3) per hpf Urine Microscopic WBC (0-3) per hpf Ur Squamous Epith Cells (None-Few) per lpf Urine Bacteria (None-Few) per hpf Hyaline Casts (None-Few) per lpf Ur Culture Indicated? (NO) Peritoneal Appearance (Clear) Peritoneal Volume Peritoneal RBC (0.000 - 0.002) M/mcL Periton Tot Nuc Cells (0-300) TNC/mcL Periton Lymphocytes % % Chlamy pneumoniae PCR (Not Detect) Adenovirus (PCR) (Not Detect) B. pertussis DNA (PCR) (Not Detect) B.parapertussis DNA PCR (Not Detect) Coronavirus OC43 (PCR) (Not Detect) Coronavirus HKU1 (PCR) (Not Detect) Coronavirus 229E (PCR) (Not Detect) Coronavirus NL63 (PCR) (Not Detect) Hep Bs Antigen Nonreactive (Nonreactive) Hep Bs Antibody 3.46 L (10.00 - ) mIU/mL Human Metapneumovir PCR (Not Detect) Influenza A (H1) PCR (Not Detect) Influ A (H1N1/09) PCR (Not Detect) Influenza A (H3) PCR (Not Detect) Influenza A Untype (PCR) (Not Detect) Influenza Type B (PCR) (Not Detect) M.pneumoniae DNA (PCR) (Not Detect) Parainfluenza 1 (PCR) (Not Detect) Parainfluenza 2 (PCR) (Not Detect) Parainfluenza 3 (PCR) (Not Detect) Parainfluenza 4 (PCR) (Not Detect) RSV (PCR) (Not Detect) Entero/Rhino (PCR) (Not Detect) - Impressions Impressions Tunnelled Catheter Removal 10/27/18 00:00 IMPRESSION: 1. Successful removal of the right chest wall tunneled dialysis catheter as discussed above. D/ / Reynold Bradley MD / Reynold Bradley MD Interpreting Provider: Reynold Bradley MD Exam - Constitutional Vitals: Temp Pulse Resp BP Pulse Ox 98.1 F 56 18 144/71 96 10/28/18 11:04 10/28/18 11:04 10/28/18 11:04 10/28/18 11:04 10/28/18 11:04 General appearance: cooperative, no acute distress, obese - Head Head exam: Present: atraumatic, normal inspection, normocephalic - Eye Eye exam: Present: EOMI, normal appearance, PERRL Pupils: Present: normal accommodation Additional comments: No subconjunctival hemorrhage noted. - ENT ENT exam: Present: mucous membranes moist - Neck Neck exam: Present: normal inspection - Respiratory Respiratory exam: Present: CTAB. Absent: rales, respiratory distress, rhonchi, wheezes - Cardiovascular Cardiovascular exam: Present: RRR, +S1, +S2 - GI/Abdominal GI/Abdominal exam: Present: distended (Obese), normal bowel sounds, soft. Absent: tenderness Additional comments: Peritoneal dialysis catheter noted to the left lower quadrant without erythema, warmth, tenderness, or drainage. - Extremities Exam Extremities exam: Present: normal inspection. Absent: joint swelling, pedal edema, tenderness - Neurological Exam Neurological exam: Present: alert, oriented X3, no focal deficits - Psychiatric Psychiatric exam: Present: normal affect, normal mood - Skin Skin exam: Present: dry, intact, normal color, warm Additional comments: No endocarditis stigmata noted. - Additional findings Additional findings: Previous HD catheter site noted to the right upper chest with dressing clean, dry, and intact. No surrounding erythema, warmth, tenderness, or drainage noted. Consult Discharge Plan - Plan Referrals: NONE,PCP [Primary Care Provider] -
[2018-10-28] MEDS ORDERED: Perit. Dialysis with Dex 2.5 % 12,000 ML PERITONEAL ONE (19:00)
[2018-10-28] MEDS: Insulin DETEMIR 100 UNIT/ML X5UNITS SQ SCH (20:20)
[2018-10-29] MEDS: *HR* Heparin 5,000 UNIT/ML VIAL SQ SCH ×4 (00:56→20:28)
[2018-10-29] MEDS: Benzonatate 100 MG CAPSULE PO PRN ×2 (02:09→15:18)
--- NOTE | 2018-10-29 04:00 | Internal Med Progress Note ---
Hospitalist Progress Note - Encounter Date of Encounter: 10/28/18 Time of Encounter: 19:00 - Subjective Interval History: SUBJECTIVE: The patient is a 63-year-old male. He has end-stage renal disease. He has very recently started peritoneal dialysis at home. Admitted with MRSA bacteremia. He feels good. He continues nightly CAPD. Tunneled hemodialysis catheter was removed on 10/27/18. Culture of the tip is pending. OBJECTIVE: Skin: Free of rash and discoloration. ENMT: Oral/pharyngeal mucosa is normal in appearance. Eyes: Sclera is white. There is no discharge from eyes. Respiratory: Normal breath sounds; no crackles or wheezes. CV: Heart is regular; no gallop or murmur. GI: Abdomen is soft and not tender. There is no palpable mass or visceromegaly. Neuro: There is no focal deficits. ADDITIONAL DATA: CT of chest and abdomen/pelvis was obtained on 10/25. There are scattered infiltrates in lower lobes bilaterally. They may represent pneumonia. The patient is a positive for human Metapneumovirus. ASSESSMENT AND PLAN: MRSE bacteremia likely secondary to infected tunneled hemodialysis catheter. The catheter has been removed day. Peritoneal dialysis fluid was sent for testing. Infectious diseases is consulted. The patient is on IV vancomycin. The patient may have pneumonia. Repeated chest x-ray from today shows mild pulmonary edema and basilar atelectasis. CT of chest done 2 days ago showed changes suspected for pneumonia. Respiratory infection panel is positive for human metapneumovirus. End-stage renal disease. The patient is switching from hemodialysis to peritoneal dialysis. See notes from nephrology. Peritoneal dialysis orders are in place. 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 Continue insulin Levemir and when necessary insulin Humalog. He is on Coreg, Procardia XL and Cozaar. Anemia from chronic kidney disease. Relatively mild. Hemoglobin is 10.4. Chronic diastolic heart failure. It will be regulated with fluid intake and peritoneal dialysis. - Exam Vitals: Temp Pulse Resp BP Pulse Ox 98.3 F 60 18 159/73 95 10/28/18 23:53 10/28/18 23:53 10/28/18 23:53 10/28/18 23:53 10/28/18 23:53 Exam: xx - Assessment and Plan (1) Bacteremia Current Visit: Yes Status: Acute (2) Pneumonia Current Visit: Yes Status: Acute (3) Diabetes Current Visit: Yes Status: Chronic (4) Hypertensive renal disease with renal failure Current Visit: Yes Status: Chronic (5) ESRD (end stage renal disease) Current Visit: No Status: Acute (6) Anemia Current Visit: No Status: Chronic (7) Diastolic CHF Current Visit: Yes Status: Acute - Time Spent with Patient Total time spent is greater than 50% in coordination of care (as documented) at patient's floor/unit and/or counseling patient: 25 - 35 minutes Plan of Care Discussed with: patient Internal Medicine: Result - Labs CBC & Chem 7: 10/28/18 10:30 10/28/18 10:30 Labs: Short CBC 10/28/18 Range/Units 10:30 WBC 9.1 (4.3-11.1) K/mcL Hgb 8.6 L (12.9-16.9) g/dL Hct 26.3 L (37.5-50.1) % Plt Count 185 (140-400) K/mcL Neutrophils # 7.3 (1.6-8.9) K/mcL BMP 10/28/18 10:30 Sodium 139 Potassium 4.2 Chloride 102 Carbon Dioxide 26 BUN 71 H Creatinine 5.61 H Glucose 221 H Calcium 8.7 Consult Discharge Plan - Plan Referrals: NONE,PCP [Primary Care Provider] - (2) Pneumonia Qualifiers: Pneumonia type: due to unspecified organism Laterality: bilateral Lung location: lower lobe of lung Qualified Code(s): J18.1 - Lobar pneumonia, unspecified organism (3) Diabetes Qualifiers: Diabetes mellitus type: type 2 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 Diabetes mellitus complication status: with kidney complications Diabetes mellitus complication detail: with chronic kidney disease Chronic kidney disease stage: on chronic dialysis Qualified Code(s): E11.22 - Type 2 diabetes mellitus with diabetic chronic kidney disease; N18.6 - End stage renal disease; Z79.4 - jail (current) use of insulin; Z99.2 - Dependence on renal dialysis (6) Anemia Qualifiers: Iron deficiency anemia type: unspecified iron deficiency Qualified Code(s): D50.9 - Iron deficiency anemia, unspecified (7) Diastolic CHF Qualifiers: Heart failure chronicity: chronic Qualified Code(s): I50.32 - Chronic diastolic (congestive) heart failure
[2018-10-29 06:28] LABS: Albumin 3.2 g/dL (3.5-5.7); Calcium 8.9 mg/dL (8.6-10.3); Phosphorous 3.5 mg/dL (2.7-4.5); Potassium 4.1 mEq/L (3.5-5.1)
[2018-10-29] MEDS: Mag Hydrox/Al Hydrox/Simeth 30 ML UDC PO PRN ×2 (07:44→15:18)
[2018-10-29] MEDS: hydrALAZINE 25 MG TABLET PO SCH ×3 (07:45→20:25)
[2018-10-29] MEDS: Cholecalciferol (D-3) 1,000 UNIT TABLET PO SCH ×2 (07:45→20:25)
[2018-10-29] MEDS: NIFEdipine XL (24 HR) 60 MG TAB.ER.24 PO SCH ×2 (07:45→20:24)
[2018-10-29] MEDS: Insulin LISPRO 300 UNITS/3 ML VIAL SQ SCH ×3 (07:45→17:09)
[2018-10-29] MEDS: Furosemide 40 MG TABLET PO SCH ×2 (07:45→17:09)
[2018-10-29] MEDS: *HR* HYDROcodone/Acet 5/325 mg TABLET PO PRN ×2 (07:46→15:17)
[2018-10-29] MEDS: Vitamin B Complex/Vit C/Vit E 1 EACH TABLET PO SCH (07:46)
--- NOTE | 2018-10-29 12:11 | Nephrology Progress Note ---
Addendum entered and electronically signed by Diomedes Mondragon MD 10/29/18 22:20: I examined this patient and discussed the medical decision-making with LAVONNE Barrera. I agree with the documented findings, disposition and treatment plan as described except to the extent set forth below. We will continue CAPD. Ok for discharge. Original Note: Date of Encounter: 10/29/18 Time of Encounter: 12:09 - Assessment and Plan (1) ESRD (end stage renal disease) Current Visit: No Status: Acute CAPD Renal vitamins. Renal dose medications. Renal diet. Will continue nightly CAPD. Tunneled line removed 10/27/18, tip culture sent. (2) Bacteremia associated with intravascular line Current Visit: Yes Status: Acute Patient with MRSE x 2 per outside blood cultures. Per primary, ID signed off. Qualifiers: Encounter type: initial encounter Qualified Code(s): T82.7XXA - Infection and inflammatory reaction due to other cardiac and vascular devices, implants and grafts, initial encounter; R78.81 - Bacteremia (3) Diabetes Current Visit: Yes Status: Chronic Per primary team. 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 Qualifiers: Hypertension type: essential hypertension Qualified Code(s): I10 - Essential (primary) hypertension (6) Anemia Current Visit: No Status: Chronic Aranesp as needed. Monitor for bleeding. Qualifiers: Anemia type: unspecified type Qualified Code(s): D64.9 - Anemia, unspecified Subjective Principal diagnosis: ESRD Interval history: Patient seen and examined is lying in bed. Denies nausea, vomiting, diarrhea. Denies chest pain or shortness of breath. No acute events overnight. Objective - Vital Signs Vital signs: Vital Signs Temp Pulse Resp BP Pulse Ox 10/29/18 11:44 95 10/29/18 10:51 98.2 F 54 17 155/74 95 10/29/18 07:04 98.3 F 59 17 164/78 97 10/29/18 04:15 97.9 F 60 18 164/80 97 10/28/18 23:53 98.3 F 60 18 159/73 95 10/28/18 20:44 98 10/28/18 19:12 98.5 F 16 171/76 10/28/18 18:34 97.5 F L 58 16 157/75 94 10/28/18 16:22 98.1 F 56 18 151/77 98 Intake and Output 10/28/18 10/29/18 10/29/18 23:59 07:59 15:59 Intake Total 637 / 637 Output Total 300 / 300 Balance -300 / -300 637 / 637 Intake: Oral 637 / 637 Output: Urine 300 / 300 Other: Weight 118.8 kg Blood Glucose* 288 200 151 - General Appearance General appearance: Present: well-developed, well-nourished EENT: Present: ATNC, hearing intact, vision intact Neck: Present: supple Respiratory: Present: clear Cardiology: Present: no edema, normal S1, normal S2 Additional Comments: PD cath intact, drsg c/d/i. Gastrointestinal: Present: normoactive bowel sounds, no tenderness, no guarding Integumentary: Present: no rash, warm and dry Neurologic: Present: no focal deficit, alert and oriented x3 Musculoskeletal: Present: no deformities, no erythema Psychiatric: Present: mood/affect appropriate, cooperative - Lab 10/28/18 10:30 10/29/18 04:46 Most recent lab results Calcium 8.9 mg/dL (8.6-10.3) 10/29/18 04:46 Phosphorus 3.5 mg/dL (2.7-4.5) 10/29/18 04:46 Consult Discharge Plan - Plan Referrals: NONE,PCP [Primary Care Provider] -
--- NOTE | 2018-10-29 12:54 | Electrocardiograph Report ---
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
[2018-10-29] MEDS ORDERED: Perit. Dialysis with Dex 2.5 % 12,000 ML PERITONEAL ONE (19:00)
[2018-10-29] MEDS: Insulin DETEMIR 100 UNIT/ML X5UNITS SQ SCH (20:26)
--- NOTE | 2018-10-29 21:18 | Internal Med Progress Note ---
Hospitalist Progress Note - Encounter Date of Encounter: 10/29/18 Time of Encounter: 19:00 - Subjective Interval History: SUBJECTIVE: He feels good. He continues nightly CAPD. Tunneled hemodialysis catheter was removed on 10/27/18. Culture of the tip is pending. Denies chest pain and difficulty breathing. Denies coughing and wheezing. Denies abdominal pain, nausea and vomiting. OBJECTIVE: Skin: Free of rash and discoloration. ENMT: Oral/pharyngeal mucosa is normal in appearance. Eyes: Sclera is white. There is no discharge from eyes. Respiratory: Normal breath sounds; no crackles or wheezes. CV: Heart is regular; no gallop or murmur. GI: Abdomen is soft and not tender. There is no palpable mass or visceromegaly. Neuro: There is no focal deficits. ADDITIONAL DATA: CT of chest and abdomen/pelvis was obtained on 10/25. There are scattered infiltrates in lower lobes bilaterally. They may represent pneumonia. The patient is a positive for human Metapneumovirus. Electrolytes are normal. Creatinine is 5.61. Fingersticks were glucose on 200, 151 and 211. ASSESSMENT AND PLAN: MRSE bacteremia likely secondary to infected tunneled hemodialysis catheter. The catheter has been removed. Peritoneal dialysis fluid was sent for testing. Infectious diseases is consulted. IV vancomycin has been stopped. The patient may have pneumonia. Repeated chest x-ray from today shows mild pulmonary edema and basilar atelectasis. CT of chest done 2 days ago showed changes suspected for pneumonia. Respiratory infection panel is positive for human metapneumovirus. To continue supportive treatments. End-stage renal disease. The patient is switching from hemodialysis to peritoneal dialysis. See notes from nephrology. Peritoneal dialysis orders are in place. 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 Continue insulin Levemir and when necessary insulin Humalog. He is on Coreg, Procardia XL and Cozaar. Anemia from chronic kidney disease. Relatively mild. Hemoglobin is 10.4. Chronic diastolic heart failure. It will be regulated with fluid intake and peritoneal dialysis. - Exam Vitals: Temp Pulse Resp BP Pulse Ox 99.4 F 62 17 190/77 97 10/29/18 19:06 10/29/18 19:06 10/29/18 19:06 10/29/18 19:06 10/29/18 19:06 Exam: xx - Assessment and Plan (1) Bacteremia Current Visit: Yes Status: Acute (2) Pneumonia Current Visit: Yes Status: Acute (3) Diabetes Current Visit: Yes Status: Chronic (4) Hypertensive renal disease with renal failure Current Visit: Yes Status: Chronic (5) ESRD (end stage renal disease) Current Visit: No Status: Acute (6) Anemia Current Visit: No Status: Chronic (7) Diastolic CHF Current Visit: Yes Status: Acute - Time Spent with Patient Total time spent is greater than 50% in coordination of care (as documented) at patient's floor/unit and/or counseling patient: 25 - 35 minutes Plan of Care Discussed with: patient Internal Medicine: Result - Labs CBC & Chem 7: 10/28/18 10:30 10/29/18 04:46 Labs: BMP 10/29/18 04:46 Sodium 138 Potassium 4.1 Chloride 100 Carbon Dioxide 28 BUN 66 H Creatinine 5.61 H Glucose 247 H Calcium 8.9 Liver Function 10/29/18 Range/Units 04:46 Albumin 3.2 L (3.5-5.7) g/dL Consult Discharge Plan - Plan Referrals: NONE,PCP [Primary Care Provider] - ____ (2) Pneumonia Qualifiers: Pneumonia type: due to unspecified organism Laterality: bilateral Lung location: lower lobe of lung Qualified Code(s): J18.1 - Lobar pneumonia, unspec ified organism (3) Diabetes Qualifiers: Diabetes mellitus type: type 2 Diabetes mellitus chcf insulin use: with chcf use Diabetes mellitus complication status: with kidney complications Diabetes mellitus complication detail: with chronic kidney disease Chronic kidney disease stage: on chronic dialysis Qualified Code(s): E11.22 - Type 2 diabetes mellitus with diabetic chronic kidney disease; N18.6 - End stage renal disease; Z79.4 - counter top assembler (current) use of insulin; Z99.2 - Dependence on renal dialysis (6) Anemia Qualifiers: Iron deficiency anemia type: unspecified iron deficiency Qualified Code(s): D50.9 - Iron deficiency anemia, unspecified (7) Diastolic CHF Qualifiers: Heart failure chronicity: chronic Qualified Code(s): I50.32 - Chronic diastolic (congestive) heart failure
[2018-10-30] MEDS: Benzonatate 100 MG CAPSULE PO PRN (04:07)
[2018-10-30 05:41] LABS: Albumin 3.3 g/dL (3.5-5.7); Calcium 9.1 mg/dL (8.6-10.3); Phosphorous 3.4 mg/dL (2.7-4.5); Potassium 4.4 mEq/L (3.5-5.1)
[2018-10-30] MEDS: hydrALAZINE 25 MG TABLET PO SCH ×3 (08:57→21:19)
[2018-10-30] MEDS: Cholecalciferol (D-3) 1,000 UNIT TABLET PO SCH ×2 (08:57→21:20)
[2018-10-30] MEDS: NIFEdipine XL (24 HR) 60 MG TAB.ER.24 PO SCH ×2 (08:57→21:19)
[2018-10-30] MEDS: *HR* Heparin 5,000 UNIT/ML VIAL SQ SCH ×3 (08:57→22:06)
[2018-10-30] MEDS: Vitamin B Complex/Vit C/Vit E 1 EACH TABLET PO SCH (08:57)
[2018-10-30] MEDS: *HR* HYDROcodone/Acet 5/325 mg TABLET PO PRN (09:03)
[2018-10-30] MEDS: Insulin LISPRO 300 UNITS/3 ML VIAL SQ SCH ×3 (09:08→17:43)
[2018-10-30] MEDS: Furosemide 40 MG TABLET PO SCH ×2 (09:09→17:47)
--- NOTE | 2018-10-30 09:57 | Nephrology Progress Note ---
Date of Encounter: 10/30/18 Time of Encounter: 09:55 - Assessment and Plan (1) ESRD (end stage renal disease) Current Visit: No Status: Acute CAPD Renal vitamins. Renal dose medications. Renal diet. Will continue nightly CAPD. Tunneled line removed 10/27/18, tip culture sent. (2) Bacteremia associated with intravascular line Current Visit: Yes Status: Acute Tip culture + for staphylococcus epidermidis. Per primary. Qualifiers: Encounter type: initial encounter Qualified Code(s): T82.7XXA - Infection and inflammatory reaction due to other cardiac and vascular devices, implants and grafts, initial encounter; R78.81 - Bacteremia (3) Diabetes Current Visit: Yes Status: Chronic Per primary team. Qualifiers: Diabetes mellitus type: type 2 Diabetes mellitus residential insulin use: with residential use Diabetes mellitus complication status: with kidney complications Diabetes mellitus complication detail: with chronic kidney disease Chronic kidney disease stage: on chronic dialysis Qualified Code(s): E11.22 - Type 2 diabetes mellitus with diabetic chronic kidney disease; N18.6 - End stage renal disease; Z79.4 - termite exterminator (current) use of insulin; Z99.2 - Dependence on renal dialysis (4) Morbid obesity with BMI of 45.0-49.9, adult Current Visit: No Status: Chronic (5) Hypertension Current Visit: No Status: Chronic Titrate antihypertensive medications as needed. Qualifiers: Hypertension type: essential hypertension Qualified Code(s): I10 - Essential (primary) hypertension (6) Anemia Current Visit: No Status: Chronic Aranesp as needed. Monitor for bleeding. Qualifiers: Anemia type: unspecified type Qualified Code(s): D64.9 - Anemia, unspecified Subjective Principal diagnosis: ESRD Interval history: Patient seen and examined is lying in bed. Denies nausea, vomiting, diarrhea. Denies chest pain or shortness of breath. No acute events overnight. States he would like to go home, no family at bedside. Objective - Vital Signs Vital signs: Vital Signs Temp Pulse Resp BP Pulse Ox 10/30/18 07:30 99.4 F 18 165/72 10/30/18 07:13 99.4 F 65 18 165/72 91 10/30/18 04:14 98.4 F 60 18 187/82 92 10/29/18 23:28 97.9 F 62 18 168/77 97 10/29/18 19:06 99.4 F 62 17 190/77 97 10/29/18 18:56 98.2 F 16 191/85 10/29/18 15:46 98.4 F 67 18 168/71 96 10/29/18 11:44 95 10/29/18 10:51 98.2 F 54 17 155/74 95 Intake and Output 10/29/18 10/30/18 10/30/18 23:59 07:59 15:59 Output Total 3827 / 3827 Balance -3827 / -3827 Output: Urine 325 / 325 Total Peritoneal Dialysis (PD) 1751 / 1751 Output Peritoneal Dialysis (PD) Net 1750 Fluid Removed Other: Weight 119.1 kg Blood Glucose* 288 236 - General Appearance General appearance: Present: well-developed, well-nourished EENT: Present: ATNC, hearing intact, vision intact Neck: Present: supple Respiratory: Present: clear Cardiology: Present: no edema, normal S1, normal S2 Additional Comments: PD cath intact. Gastrointestinal: Present: normoactive bowel sounds, no tenderness, no guarding Integumentary: Present: no rash, warm and dry Neurologic: Present: alert and oriented x3 Musculoskeletal: Present: no deformities, no erythema Psychiatric: Present: mood/affect appropriate, cooperative - Lab 10/28/18 10:30 10/30/18 05:02 Most recent lab results Calcium 9.1 mg/dL (8.6-10.3) 10/30/18 05:02 Phosphorus 3.4 mg/dL (2.7-4.5) 10/30/18 05:02 Consult Discharge Plan - Plan Referrals: NONE,PCP [Primary Care Provider] -
[2018-10-30] MEDS ORDERED: Ipratropium/Albuterol Neb 3 ML IH PRN (15:08)
[2018-10-30] MEDS ORDERED: Perit. Dialysis with Dex 2.5 % 12,000 ML PERITONEAL ONE (19:00)
[2018-10-30] MEDS: Insulin DETEMIR 100 UNIT/ML X5UNITS SQ SCH (21:20)
--- NOTE | 2018-10-30 23:55 | Internal Med Progress Note ---
Hospitalist Progress Note - Encounter Date of Encounter: 10/30/18 Time of Encounter: 19:00 - Subjective Interval History: SUBJECTIVE: He feels good. He continues nightly CAPD. Tunneled hemodialysis catheter was removed on 10/27/18. Culture of the tip is growing Staphylococcus epidermidis. Denies chest pain and difficulty breathing. Denies coughing and wheezing. The patient has not moved his bowels for at least a few days; feels some pain in the area of his rectum. Without nausea or vomiting. OBJECTIVE: Skin: Free of rash and discoloration. ENMT: Oral/pharyngeal mucosa is normal in appearance. Eyes: Sclera is white. There is no discharge from eyes. Respiratory: Normal breath sounds; no crackles or wheezes. CV: Heart is regular; no gallop or murmur. GI: Abdomen is soft and not tender. There is no palpable mass or visceromegaly. Hard stool was found at the rectal examination. Neuro: There is no focal deficits. ADDITIONAL DATA: CT of chest and abdomen/pelvis was obtained on 10/25. There are scattered infiltrates in lower lobes bilaterally. They may represent pneumonia. The patient is a positive for human Metapneumovirus. Electrolytes are normal. Creatinine is 5.57. Fingersticks for glucose were 236, 179 and 112. ASSESSMENT AND PLAN: MRSE bacteremia, secondary to infected tunneled hemodialysis catheter. The catheter has been removed. Peritoneal dialysis fluid was sent for testing. Infectious diseases is consulted. IV vancomycin has been stopped. The patient may have pneumonia. Repeated chest x-ray from 10/27 shows mild pulmonary edema and basilar atelectasis. CT of chest done 2 days earlier showed changes suspected for pneumonia. Respiratory infection panel is positive for human metapneumovirus. To continue supportive treatments. End-stage renal disease. The patient is switching from hemodialysis to emil toneal dialysis. See notes from nephrology. Peritoneal dialysis orders are in place. Severe constipation. I gave him a soapsuds enema on 2 occasions and 20 mg of oral bisacodyl today afternoon/evening with no results. I will give him a few doses of IV Reglan. 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 Continue insulin Levemir and when necessary insulin Humalog. He is on Coreg, Procardia XL and Cozaar. Anemia from chronic kidney disease. Relatively mild. Hemoglobin is 10.4. Chronic diastolic heart failure. It will be regulated with fluid intake and peritoneal dialysis. Disposition: He can be discharged home without any antibioticsafter his constipation is resolved. - Exam Vitals: Temp Pulse Resp BP Pulse Ox 99.0 F 64 18 190/72 96 10/30/18 19:54 10/30/18 19:54 10/30/18 19:54 10/30/18 19:54 10/30/18 19:54 Exam: xx - Assessment and Plan (1) Bacteremia Current Visit: Yes Status: Acute (2) Pneumonia Current Visit: Yes Status: Acute (3) Constipation Current Visit: Yes Status: Acute (4) Diabetes Current Visit: Yes Status: Chronic (5) Hypertensive renal disease with renal failure Current Visit: Yes Status: Chronic (6) ESRD (end stage renal disease) Current Visit: No Status: Acute (7) Anemia Current Visit: No Status: Chronic (8) Diastolic CHF Current Visit: Yes Status: Acute - Time Spent with Patient Total time spent is greater than 50% in coordination of care (as documented) at patient's floor/unit and/or counseling patient: 25 - 35 minutes Plan of Care Discussed with: patient Internal Medicine: Result - Labs CBC & Chem 7: 10/28/18 10:30 10/30/18 05:02 Labs: BMP 10/30/18 05:02 Sodium 139 Potassium 4.4 Chloride 101 Carbon Dioxide 28 BUN 62 H Creatinine 5.57 H Glucose 240 H Calcium 9.1 Liver Function 10/30/18 Range/Units 05:02 Albumin 3.3 L (3.5-5.7) g/dL Consult Discharge Plan - Plan Referrals: Ruby Cano MILITARY NURSE [Partnered Physician] - 11/07/18 2:00 pm (Please follow up as schedule....) NONE,PCP [Primary Care Provider] - (2) Pneumonia Qualifiers: Pneumonia type: due to unspecified organism Laterality: bilateral Lung location: lower lobe of lung Qualified Code(s): J18.1 - Lobar pneumonia, unspecified organism (4) Diabetes Qualifiers: Diabetes mellitus type: type 2 Diabetes mellitus penitentiary insulin use: with senior care manager use Diabetes mellitus complication status: with kidney complications Diabetes mellitus complication detail: with chronic kidney disease Chronic kidney disease stage: on chronic dialysis Qualified Code(s): E11.22 - Type 2 diabetes mellitus with diabetic chronic kidney disease; N18.6 - End stage renal disease; Z79.4 - half-way (current) use of insulin; Z99.2 - Dependence on renal dialysis (7) Anemia Qualifiers: Iron deficiency anemia type: unspecified iron deficiency Qualified Code(s): D50.9 - Iron deficiency anemia, unspecified (8) Diastolic CHF Qualifiers: Heart failure chronicity: chronic Qualified Code(s): I50.32 - Chronic diastol ic (congestive) heart failure
[2018-10-31] MEDS: Metoclopramide 10 MG/2 ML VIAL IVP SCH ×2 (01:08→05:56)
[2018-10-31 05:58] LABS: Albumin 3.2 g/dL (3.5-5.7); Calcium 9.1 mg/dL (8.6-10.3); Phosphorous 3.1 mg/dL (2.7-4.5); Potassium 4.3 mEq/L (3.5-5.1)
[2018-10-31] MEDS: hydrALAZINE 25 MG TABLET PO SCH (08:02)
[2018-10-31] MEDS: Cholecalciferol (D-3) 1,000 UNIT TABLET PO SCH (08:02)
[2018-10-31] MEDS: Furosemide 40 MG TABLET PO SCH (08:03)
[2018-10-31] MEDS: NIFEdipine XL (24 HR) 60 MG TAB.ER.24 PO SCH (08:04)
[2018-10-31] MEDS: *HR* Heparin 5,000 UNIT/ML VIAL SQ SCH (08:04)
[2018-10-31] MEDS: Insulin LISPRO 300 UNITS/3 ML VIAL SQ SCH ×2 (08:04→12:05)
[2018-10-31] MEDS: Vitamin B Complex/Vit C/Vit E 1 EACH TABLET PO SCH (08:04)
--- NOTE | 2018-10-31 10:57 | Discharge Summary ---
- NOTES TO OUTPATIENT PROVIDER Notes to Outpatient Provider: Patient was referred to the hospital for admission by instrument maintenance supervisor is supposed to blood cultures, received IV antibiotics vancomycin and Zosyn, culture tip grew staph epidermidis which was deemed a contaminant. Permacath was removed, antibiotics were discontinued by infectious disease recommendations. The patient was also diagnosed with metastases anymore virus viral syndrome and pneumonia. He is ambulatory, in no respiratory distress and is clinically stable to be discharged home. Follow up with nephrology and primary care physician Orders not resulted at time of discharge: Pending orders 11/01/18 04:00 Renal Function Panel AM 0400 11/02/18 04:00 Renal Function Panel AM 0400 Date of Encounter: 10/31/18 Time of Encounter: 10:47 - Discharge Diagnosis (1) Diabetes Priority: Secondary Status: Chronic Qualifiers: Diabetes mellitus type: type 2 Diabetes mellitus skilled nursing insulin use: with rodent exterminator use Diabetes mellitus complication status: with kidney complications Diabetes mellitus complication detail: with chronic kidney disease Chronic kidney disease stage: on chronic dialysis Qualified Code(s): E11.22 - Type 2 diabetes mellitus with diabetic chronic kidney disease; N18.6 - End stage renal disease; Z79.4 - rodent exterminator (current) use of insulin; Z99.2 - Dependence on renal dialysis (2) Anemia Priority: Secondary Status: Chronic Qualifiers: Iron deficiency anemia type: unspecified iron deficiency Qualified Code(s): D50.9 - Iron deficiency anemia, unspecified (3) ESRD (end stage renal disease) Priority: Secondary Status: Chronic (4) Diastolic CHF Priority: Secondary Status: Chronic Qualifiers: Heart failure chronicity: chronic Qualified Code(s): I50.32 - Chronic diastolic (congestive) heart failure (5) Hypertensive renal disease with renal failure Priority: Secondary Status: Chronic (6) Bacteremia Priority: Primary Status: Resolved (7) Pneumonia Priority: Primary Status: Acute Qualifiers: Pneumonia type: due to unspecified organism Laterality: bilateral Lung location: lower lobe of lung Qualified Code(s): J18.1 - Lobar pneumonia, unspecified organism (8) Constipation Priority: Secondary Status: Chronic Qualifiers: Constipation type: unspecified constipation type Qualified Code(s): K59.00 - Constipation, unspecified Hospital course: Mr. Hernandez is a 63 year old male with medical history of end-stage renal disease on peritoneal dialysis, previously on hemodialysis with the [facility]. Patient was referred to the hospital for admission by his instrument maintenance supervisor on bacteremia findings on blood culture. Blood culture was growing staph epidermidis. The patient remained afebrile, continue nightly CAPD inpatient. The patient also had infiltrates on chest x-ray and chest CT suspicious for pneumonia, respiratory infection panel was positive for him admitted to pneumonia virus. The patient was initially managed with intravenous vancomycin and Zosyn and Infectious disease was consulted. Tunneled hemodialysis catheter was removed 10/27/18, by her primary recommendation from infectious disease antibiotics were discontinued. Patient has remained afebrile, blood cultures have been negative, respiratory status is improving. He has an oxygen concentrator nebulizer at home. Seen and examined at the bedside this morning, with no new complaints, constipation is resolving. Respiratory status is satisfactory and patient is ambulatory. He is clinically stable to be discharged home with family with appropriate follow-up with primary care physician and instrument maintenance supervisor. He has been no change in his home medications. Discharge discussed with: patient, nurse - Time Spent with Patient Total time spent providing and/or coordinating discharge services: Time spent: Less than 30 minutes - Discharge Medications Prescriptions: Continue DULoxetine [Cymbalta] 60 mg PO QAM DULoxetine [Cymbalta] 30 mg PO QPM Carvedilol [Coreg] 25 mg PO BID glipiZIDE [Glipizide] 10 mg PO DAILY Ferrous Sulfate [Iron] 325 mg PO BID hydrALAZINE [HydrALAZINE] 25 mg PO TID NIFEdipine XL (24 HR) [Procardia XL] 60 mg PO BID Losartan Potassium [Cozaar] 50 mg PO DAILY Pravastatin Sodium [Pravachol] 40 mg PO DAILY HYDROcodone/Acet 5/325 mg [[place] 5-325 mg] 1 tab PO TID PRN PRN Reason: Pain Cholecalciferol (Vitamin D3) [Vitamin D3] 1,000 unit PO BID Sevelamer [Renvela] 800 mg PO TID Insulin DETEMIR [Levemir] 40 - 60 unit SQ DAILY Vitamin B Complex [Balanced B-50] 1 each PO DAILY Home Medications: Carvedilol [Coreg] 25 mg PO BID 05/16/16 [History] DULoxetine [Cymbalta] 30 mg PO QPM 05/16/16 [History] DULoxetine [Cymbalta] 60 mg PO QAM 05/16/16 [History] glipiZIDE [Glipizide] 10 mg PO DAILY 05/16/16 [History] Ferrous Sulfate [Iron] 325 mg PO BID 08/07/17 [History] NIFEdipine XL (24 HR) [Procardia XL] 60 mg PO BID 08/07/17 [History] hydrALAZINE [HydrALAZINE] 25 mg PO TID 08/07/17 [History] Losartan Potassium [Cozaar] 50 mg PO DAILY 12/03/17 [History] Pravastatin Sodium [Pravachol] 40 mg PO DAILY 12/03/17 [History] Cholecalciferol (Vitamin D3) [Vitamin D3] 1,000 unit PO BID 09/26/18 [History] HYDROcodone/Acet 5/325 mg [[place] 5-325 mg] 1 tab PO TID PRN 09/26/18 [History] Insulin DETEMIR [Levemir] 40 - 60 unit SQ DAILY 09/26/18 [History] Sevelamer [Renvela] 800 mg PO TID 09/26/18 [History] Vitamin B Complex [Balanced B-50] 1 each PO DAILY 09/26/18 [History] Allergies/Adverse Reactions: Allergy/AdvReac Type Severity Reaction Status Date / Time oxycodone Allergy Hives Verified 10/27/18 08:59 tetanus toxoid, adsorbed Allergy See Verified 10/27/18 08:59 Comments Onion AdvReac Severe Diarrhea Verified 10/27/18 08:59 gabapentin AdvReac Dizziness Verified 10/27/18 08:59 propoxyphene AdvReac Itching Verified 10/27/18 08:59 Date of admission: 10/25/18 19:22 Primary care physician: PCP NONE Consults: 10/25/18 18:12 Consult to Nephrology [CONS] Stat Consulting Provider: Kidney Argelia/EMILEE/NAHID/JANET Reason for Consult: ESRD-PD dialysis Call Completed: Yes 10/26/18 08:15 Consult to Dialysis [CONS] ONCE 10/27/18 09:33 Consult to Nurse Navigator [CONS] Routine Comment: chf, pd 10/27/18 11:41 Consult to Infectious Diseases [CONS] Routine Consulting Provider: Infectious Disease [place] Reason for Consult: MRSA BACTEREMIA. HAS TUNNELED HD CATHETER AND PD CATHETER... Time Notified: 11:30 Call Completed: Yes 10/27/18 14:42 Consult to Interventional Radiology [CONS] Routine Consulting Provider: Radiology Interventional Cols Reason for Consult: Please remove HD line and culture tip. Thanks Call Completed: No 10/27/18 15:45 Consult to Dialysis [CONS] ONCE 10/28/18 09:30 Consult to Dialysis [CONS] ONCE 10/29/18 15:15 Consult to Dialysis [CONS] ONCE 10/30/18 18:30 Consult to Dialysis [CONS] ONCE Discharging clinician: Greg Patel Anticipated date of discharge: 10/31/18 - Constitutional Vitals: Temp Pulse Resp BP Pulse Ox 98.2 F 63 18 158/68 98 10/31/18 07:30 10/31/18 06:45 10/31/18 07:30 10/31/18 07:30 10/31/18 06:45 Exam: Skin: Free of rash and discoloration. ENMT: Oral/pharyngeal mucosa is normal in appearance. Eyes: Sclera is white. There is no discharge from eyes. Respiratory: Normal breath sounds; no crackles or wheezes. CV: Heart is regular; no gallop or murmur. GI: Abdomen is soft and not tender. There is no palpable mass or visceromegaly. Neuro: There is no focal deficits. - Patient Status Disposition: Home, Self-Care Condition: Fair Functional capacity at discharge: uses cane/walker Overall status at discharge: patient is back to baseline - Discharge Instructions Follow Up With: Ruby Cano CNP [Partnered Physician] - 11/07/18 2:00 pm (Please follow up as schedule....) NONE,PCP [Primary Care Provider] - - Diet and Activity Activity: resume usual activities as tolerated Diet: low fat, low cholesterol, low salt diet
[2018-10-31 11:02] VITALS: BP 149/60
--- NOTE | 2018-10-31 12:36 | Nephrology Progress Note ---
Date of Encounter: 10/31/18 Time of Encounter: 10:00 - Assessment and Plan (1) ESRD (end stage renal disease) Status: Chronic Continue PD and I confirmed with the Mary her PD RN Angelina that the pt (and his son with whom the pt lives) has completed PD training and has supplies to continue PD after discharge. I reviewed the I.D. notes and that the pt will not be discharged on IV or PO antibiotics s/p Permcath removal. Okay to d/c from a Nephro perspective; discussed earlier today with the floor RN. Thank you. (2) Diabetes Status: Chronic Qualifiers: Diabetes mellitus type: type 2 Diabetes mellitus alf insulin use: with terminologist use Diabetes mellitus complication status: with kidney complications Diabetes mellitus complication detail: with chronic kidney disease Chronic kidney disease stage: on chronic dialysis Qualified Code(s): E11.22 - Type 2 diabetes mellitus with diabetic chronic kidney disease; N18.6 - End stage renal disease; Z79.4 - terminal operator (current) use of insulin; Z99.2 - Dependence on renal dialysis (3) Morbid obesity with BMI of 45.0-49.9, adult Status: Chronic (4) Hypertension Status: Chronic Qualifiers: Hypertension type: essential hypertension Qualified Code(s): I10 - Essential (primary) hypertension (5) Anemia Status: Chronic Qualifiers: Anemia type: unspecified type Qualified Code(s): D64.9 - Anemia, unspecified (6) Bacteremia associated with intravascular line Status: Acute Qualifiers: Encounter type: initial encounter Qualified Code(s): T82.7XXA - Infection and inflammatory reaction due to other cardiac and vascular devices, implants and grafts, initial encounter; R78.81 - Bacteremia Subjective Principal diagnosis: ESRD Interval history: The pt was seen and examined earlier today. He did not affirm havign abd pain or F/C or fibrin or other problems with his PD. I spoked with the PD RN and the floor RN. Objective - Vital Signs Vital signs: Vital Signs Temp Pulse Resp BP Pulse Ox 10/31/18 11:01 98.6 F 65 18 149/60 94 10/31/18 07:30 98.2 F 18 158/68 10/31/18 06:45 98.5 F 63 18 158/68 98 10/31/18 04:32 99.3 F 70 18 172/79 90 03/07/19 19:54 99.0 F 64 18 190/72 96 10/30/18 19:28 98 F 18 179/75 10/30/18 16:07 18 96 10/30/18 15:38 97.7 F 63 19 202/81 95 Intake and Output 10/30/18 10/31/18 10/31/18 23:59 07:59 15:59 Intake Total 240 / 240 Output Total 3388 / 3388 Balance -3388 / -3388 240 / 240 Intake: Oral 240 / 240 Output: Total Peritoneal Dialysis (PD) 1693 / 1694 Output Peritoneal Dialysis (PD) Net 1693 Fluid Removed Other: Meal Breakfast Percent of Meal Consumed 50% Stool Size Large Stool Consistency soft formed Stool Color Grijalva Black # Voids 1 Weight 120.5 kg Blood Glucose* 222 216 120 Patient Weight 10/31/18 23:59 Weight 120.5 kg - General Appearance General appearance: Present: well-developed, obese, frail EENT: Present: ATNC, mucous membranes moist Neck: Present: no JVD, supple Cardiology: Present: no edema, regular rate Gastrointestinal: Present: normoactive bowel sounds, no guarding, distended Integumentary: Present: warm and dry Neurologic: Present: no focal deficit, no asterixis Musculoskeletal: Present: no deformities, no erythema Psychiatric: Present: mood/affect appropriate, cooperative - Lab 10/28/18 10:30 10/31/18 05:03 Most recent lab results Calcium 9.1 mg/dL (8.6-10.3) 10/31/18 05:03 Phosphorus 3.1 mg/dL (2.7-4.5) 10/31/18 05:03 Consult Discharge Plan - Plan Instructions: Continuous Ambulatory Peritoneal Dialysis (DC), Continuous Ambulatory Peritoneal Dialysis (GEN), Dialysis Diet (DC), Peritoneal Dialysis Catheter Care (DC), End-Stage Kidney Disease (DC) Referrals: Ruby Cano CNP [Partnered Physician] - 11/07/18 2:00 pm (Please follow up as schedule....) NONE,PCP [Primary Care Provider] -
== END 2018-10-31 14:32 | disposition home or self-care (01) | DRG 314 ==
LOC: EMEROOARM 15:49 → 2ANU 19:22 → SUATTDRO 19:22 → 2ANU 20:40
PROVIDERS: ADMIT Internal Medicine; ATTEND Internal Medicine

== ENCOUNTER 2019-03-07 10:49 | Observation (INO) ==
--- NOTE | 2019-03-07 10:55 | Emergency Department Note ---
Disposition Clinical Impression: Sinus bradycardia, Hyperkalemia, End stage renal disease, Lightheaded Disposition: Admitted As Inpatient Referrals: NONE,PCP [Primary Care Provider] - Time of Disposition: 12:52 General Adult HPI - General Stated complaint: Low heart rate Time Seen by Provider: 03/07/19 10:52 Source: patient, EMS Mode of arrival: EMS Limitations: no limitations Nursing Notes Reviewed: Yes Vital Signs Reviewed: Yes - History of Present Illness HPI Narrative: Patient is a 64-year-old male with a past medical history including hypertension, diabetes mellitus, congestive heart failure with LVEF from 06/2018 LVEF 60 percent, end-stage renal disease on dialysis on Tuesdays, , Saturday, pulmonary embolism, presenting from dialysis with chief complaint of low heart rate. The patient states when he woke up today, he felt dizzy and lightheaded. He also felt short of breath. Symptoms began when he got up out of bed. He felt like he is going to pass out. He went to dialysis. They checked his heart rate and it was 36. Blood pressure was normal. They did not do any dialysis and sent the patient here via EMS. The patient states he still does not feel well. He denies any cardiac history, history of dysrhythmias or heart block, states this is never happened before. he denies fevers, chest pain, abdominal pain, nausea, vomiting, diarrhea. Denies weakness or numbness. - Related Data Home Medications Medication Instructions Recorded Confirmed Carvedilol [Coreg] 25 mg PO BID 05/16/16 03/07/19 DULoxetine [Cymbalta] 60 mg PO HS 05/16/16 03/07/19 glipiZIDE [Glipizide] 10 mg PO DAILY 05/16/16 03/07/19 Ferrous Sulfate [Iron] 325 mg PO BID 08/07/17 03/07/19 NIFEdipine XL (24 HR) [Procardia 60 mg PO BID 08/07/17 03/07/19 XL] Losartan Potassium [Cozaar] 50 mg PO HS 12/03/17 03/07/19 Pravastatin Sodium [Pravachol] 40 mg PO HS 12/03/17 03/07/19 HYDROcodone/Acet 5/325 mg [[place] 1 tab PO TID PRN 09/26/18 03/07/19 5-325 mg] Insulin DETEMIR [Levemir] 8 unit SQ DAILY 09/26/18 03/07/19 Sevelamer [Renvela] 800 mg PO TIDWM 09/26/18 03/07/19 Acetaminophen [Tylenol] 650 mg PO Q6HR PRN 12/26/18 03/07/19 Albuterol Sulfate [Proair Hfa] 2 puff IH Q6H PRN 12/26/18 03/07/19 Buspirone HCl [Buspar] 10 mg PO BID 12/26/18 12/26/18 Calcium Carbonate/Vitamin D3 1 tab PO DAILY 12/26/18 03/07/19 [Calcium 600 + Vit D Tablet] Cyclobenzaprine HCl 5 mg PO BID PRN 12/26/18 12/26/18 Hydralazine HCl 50 mg PO TIDWM 12/26/18 03/07/19 Insulin LISPRO [HumaLOG] 2 - 12 units SQ TIDWM 12/26/18 12/26/18 Multivitamin [One Daily] 1 tab PO DAILY 12/26/18 03/07/19 Ondansetron HCl 4 mg PO BID PRN 12/26/18 03/07/19 Pantoprazole Sodium [Protonix] 40 mg PO DAILY 12/26/18 03/07/19 Allergies Allergy/AdvReac Type Severity Reaction Status Date / Time oxycodone Allergy Hives Verified 12/26/18 11:17 tetanus toxoid, adsorbed Allergy See Verified 12/26/18 11:17 Comments Onion AdvReac Severe Diarrhea Verified 12/26/18 11:17 gabapentin AdvReac Dizziness Verified 12/26/18 11:17 propoxyphene AdvReac Itching Verified 12/26/18 11:17 All systems ED: reviewed and negative except as stated. Review of Systems: As Per HPI Constitutional: Denies: fever, chills Cardiovascular: Reports: other (bradycardia). Denies: chest pain, palpitations Respiratory: Reports: dyspnea. Denies: cough Gastrointestinal: Denies: abdominal pain, nausea, vomiting Genitourinary: Denies: dysuria, hematuria Neurological: Denies: headache, weakness Past Medical History - Past Medical History Attestation: Yes The following information was validated with the patient. Source: patient Medical history: Reports: CHF, diabetes, dialysis, fibromyalgia, hypertension, pulmonary embolus, renal disease Surgical history: Reports: other Psychiatric history: Reports: anxiety, depression, other - Social History Smoking Status: Never smoker Smokeless Tobacco Status: Yes (snuff) Alcohol use: Reports: none Drug use: Reports: none Physical Exam - General Limitations: no limitations General appearance: alert, in no apparent distress - Head Head exam: atraumatic, normocephalic - Eye Eye exam: Present: normal appearance, PERRL, EOMI - ENT ENT exam: normal exam, mucous membranes moist - Neck Neck exam: Present: normal inspection, trachea midline - Chest Chest inspection: Present: normal inspection, symmetric chest wall rise - Respiratory Respiratory exam: Present: normal lung sounds bilaterally. Absent: respiratory distress, wheezes - Cardiovascular Cardiovascular exam: Present: bradycardia, normal heart sounds, other (bilateral radial pulses equal) - Abdominal Exam Abdominal exam: Present: soft, Non-Tender. Absent: distention - Extremities Exam Extremities exam: Present: normal capillary refill. Absent: pedal edema - Neurological Exam Neurological exam: Present: alert, oriented X3, CN II-XII intact. Absent: motor sensory deficit - Expanded Neurological Exam Motor strength - LUE: 5/5 Motor strength - RUE: 5/5 Motor strength - LLE: 5/5 Motor strength - RLE: 5/5 - Psychiatric Psychiatric exam: Present: normal affect, normal mood - Skin Skin exam: Present: warm, dry. Absent: diaphoresis, pallor Course Vital Signs Temperature 98.5 F 03/07/19 10:54 Pulse Rate 36 03/07/19 10:54 Respiratory Rate 16 03/07/19 10:54 Blood Pressure 124/60 03/07/19 10:54 O2 Sat by Pulse Oximetry 95 03/07/19 10:54 Temperature 98.5 F 03/07/19 10:54 Pulse Rate 38 03/07/19 12:11 Respiratory Rate 16 03/07/19 12:35 Blood Pressure 132/62 03/07/19 12:11 O2 Sat by Pulse Oximetry 92 03/07/19 12:35 Oxygen Delivery Oxygen Delivery Room Air Medical Decision Making - [facility] Narrative Medical decision making narrative: Patient is presenting with sinus bradycardia with heart rate 36, no evidence of heart block. Patient is hemodynamically stable and alert. Blood pressure is normotensive. We will obtain electrolytes and evaluate for hyperkalemia. We will also obtain troponin, chest x-ray. Patient has end-stage renal disease on dialysis and did not receive dialysis today. Once workup is completed, we will consult cardiology for the sinus bradycardia. Patient will likely require admi ssion and will need dialysis this weekend. 11:15 Patient states he feels lightheaded. He does not have shortness of breath or chest pain at this time. His heart rate is ranging from 35-38 bpm. He has no new changes. He states this past Saturday, his potassium was high. He states he is full code and his son is power of hair designer. 11:50 Potassium is 6.2, 6.3 on March 03. WIll treat this with albuterol neb, calcium gluconate 1g, insulin 10 units IV, and amp of dextrose 50%. Cardiology paged for bradycardia. Troponin <0.03. 12:00 Discussed with Cardiology, Dr. Noland. Hold coreg for now. Treat the hyperkalemia. No evidence of heart block. He will need dialysis. Will admit. Hospitalist aury howell. 12:10 Discussed with hospitalist, Dr. Ghosh who accepts admission. Will give 80mg IV Lasix per his recommendations for the hyperkalemia. He would like me to page Nephrology for dialysis. 12:45 Discussed with nephrology, Dr. Mondragon who was placed on consult. Dialysis will be arranged. - Medical Records Medical records reviewed: Yes I reviewed the patient's medical records. - Lab Data Lab results reviewed: Yes I reviewed the patient's lab results. Result diagrams: 03/07/19 11:05 03/07/19 11:05 Lab Results 03/07/19 03/07/19 Range/Units 11:05 11:05 WBC 9.6 (4.3-11.1) K/mcL RBC 3.84 L (4.19-5.50) M/mcL Hgb 12.0 L (12.9-16.9) g/dL Hct 38.7 (37.5-50.1) % MCV 100.8 H (83.0-100.0) fL MCH 31.3 (28.0-33.3) pg MCHC 31.0 L (31.6-35.5) g/dL RDW 13.5 (11.5-14.5) % Plt Count 258 (140-400) K/mcL MPV 9.7 (9.4-12.4) fL Immature Gran % 0.4 (0-4) % Seg Neutrophils % 75.5 % Lymphocytes % 9.3 % Monocytes % 8.1 % Eosinophils % 6.1 % Basophils % 0.6 % Neutrophils # 7.2 (1.6-8.9) K/mcL Lymphocytes # 0.9 (0.6-4.6) K/mcL Monocytes # 0.8 (0.0-1.3) K/mcL Eosinophils # 0.6 (0.0-0.6) K/mcL Basophils # 0.1 (0.0-0.2) K/mcL Sodium 134 L (136-145) mEq/L Potassium 6.2 H (3.5-5.1) mEq/L Chloride 96 L (98-107) mEq/L Carbon Dioxide 25 (23-29) mEq/L BUN 70 H (8-23) mg/dL Creatinine 6.26 H (0.70-1.30) mg/dL Est GFR ( Amer) 11 L (> 60) Est GFR (Non-Af Amer) 9 L (> 60) BUN/Creatinine Ratio 11 (6-26) Glucose 434 H (70-105) mg/dL Calculated Osmolality 317 H (280-300) Calcium 9.4 (8.6-10.3) mg/dL Magnesium 2.3 (1.6-2.6) mg/dL Troponin I < 0.03 (< 0.04) ng/mL - Radiology Data Radiology results reviewed: Yes I reviewed the patient's radiology results. Chest X-Ray 03/07/19 10:55 IMPRESSION: 1. No acute abnormality. D/ / Zhen Singh MD / Zhen Singh MD Interpreting Provider: Zhen Singh MD - EKG Data EKG #1 EKG attestation: Yes I reviewed and interpreted this EKG. EKG results narrative: EKG obtained at 1056 shows sinus bradycardia with heart rate 36, SD interval 120, QRS duration 114, QTC 395, hyperacute T waves in V2 and V3. No ST elevation or depression. Compared to old EKG in 12/19/2018 which shows smaller T waves. Otherwise morphology of the QRS complexes do not differ. No evidence of first, second, third degree heart block. Critical Care Time Critical Care Time: Yes Total Critical Care Time: 35 Attestation: Critical care time 35 minutes managing patient's bradycardia. Attestation Statement - Attestation Attestation: Patient was seen with resident physician. I reviewed the history, physical, assessment and plan, and agree with the findings. I also personally evaluated this patient and had [id number] time with this patient. 64-year-old male presents to the emergency department with bradycardia. Patient says he woke up and was a little bit lightheaded and dizzy. This is especially prevalent when he got up to move around. He went to dialysis he takes 3 times a week including on Saturdays. He was found have a heart rate of 36 and he was sent to the emergency department for evaluation and treatment. He did not receive his dialysis treatment. He has end-stage renal disease. History of CHF. History of. He denies fevers chills or chest pain. He does have some mild shortness of breath. Review of systems as above remainder negative. Physical exam vital signs and bradycardic blood pressure was stable. ENT is unremarkable. Heart regular bradycardic normal heart sounds. Abdomen is soft and nontender. Extremities are unremarkable. Neurologically alert and oriented moves all extremities no focal deficits. Skin no rashes psych normal. ED course. EKG demonstrates sinus bradycardia. We will check the patient's electrolytes and other pertinent lab tests. We will discuss with cardiology how they want to move forward. They wanted us to hold his Coreg and then reevaluate his rate control also recommended dialysis. We did speak with nephrology as well.. His blood pressure stable he is mentating fine there was not as urgent need to get his heart rate up. Patient will be admitted to the hospitalist service for additional evaluation and treatment. I agree with resident physician assessment and plan. Critical care time 35 minutes. ED procedures.I reviewed the patient's EKG as well as the resident physician interpretation and I agree with the findings.
[2019-03-07 11:25] LABS: Basophils # 0.1 K/mcL (0.0-0.2); Basophils % 0.6 %; Eosinophils # 0.6 K/mcL (0.0-0.6); Eosinophils % 6.1 %; Hematocrit 38.7 % (37.5-50.1); Immature Granulocytes % 0.4 % (0-4); Lymphocytes # 0.9 K/mcL (0.6-4.6); Lymphocytes % 9.3 %; Mean Corpuscular Hemoglobin 31.3 pg (28.0-33.3); Mean Corpuscular Volume 100.8 fL (83.0-100.0); Mean Platelet Volume 9.7 fL (9.4-12.4); Monocytes # 0.8 K/mcL (0.0-1.3); Monocytes % 8.1 %; Neutrophils # 7.2 K/mcL (1.6-8.9); Platelet Count 258 K/mcL (140-400); Red Blood Count 3.84 M/mcL (4.19-5.50); Red Cell Distribution Width 13.5 % (11.5-14.5); Segmented Neutrophils % 75.5 %; White Blood Count 9.6 K/mcL (4.3-11.1)
[2019-03-07 11:47] LABS: BUN/Creatinine Ratio 11 (6-26); Blood Urea Nitrogen 70 mg/dL (8-23); Calcium 9.4 mg/dL (8.6-10.3); Carbon Dioxide 25 mEq/L (23-29); Chloride 96 mEq/L (98-107); Glucose 434 mg/dL (70-105); Magnesium 2.3 mg/dL (1.6-2.6); Osmolality,Calculated 317 (280-300); Potassium 6.2 mEq/L (3.5-5.1); Sodium 134 mEq/L (136-145); Troponin I < 0.03 ng/mL (< 0.04); eGFR For African Americans 11 (> 60); eGFR For Non-African Americans 9 (> 60)
[2019-03-07] MEDS ORDERED: Albuterol 2.5 MG/3 ML NEBULIZER IH ONE (11:54)
[2019-03-07] MEDS ORDERED: Calcium Gluconate 1gm/50mL 1 GM/50 ML BAG IVPB ONE (11:54)
[2019-03-07] MEDS ORDERED: *HR* Dextrose 50 % in Water (Syg) 50 ML SYRINGE IVP ONE (11:55)
[2019-03-07] MEDS ORDERED: Furosemide 80 MG in 0.9 % Sodium Chloride 50 ML IVPB ONE (12:10)
[2019-03-07] MEDS ORDERED: Insulin Human Regular 10 UNIT in 0.9 % Sodium Chloride 10 ML IV ONE (12:15)
[2019-03-07] MEDS ORDERED: Naloxone 0.4 MG/ML INJ IVP PRN (12:20)
[2019-03-07] MEDS ORDERED: Acetaminophen 325 MG TABLET PO PRN (12:20)
[2019-03-07] MEDS ORDERED: Ondansetron ODT 4 MG TAB.RAPDIS SL PRN (12:20)
--- NOTE | 2019-03-07 12:47 | Internal Med History&Physical ---
Date of Encounter: 03/07/19 Time of Encounter: 12:42 Internal Medicine - H&P: HPI Chief complaint: Bradycardia Admitted From: Home Plans for Post Hospital Care: Home History of present illness: Mr. Hernandez is a 64 year old male with history of diastolic heart failure, end- stage renal disease, and insulin-dependent diabetes type 2 presents with bradycardia discovered at his dialysis center. Patient notes that over the last 2 days he has had malaise and lightheadedness/dizziness. Heart rate was fine 03/05 during his dialysis session. He was at dialysis this morning when heart rate was noted to be 36. Patient was sent to the emergency department. Is on a beta lela and this has been a long-term medication for patient. No new medications. Currently denies chest pain, shortness breath, lower extremity edema, headache, and focal weakness/focal numbness or tingling. In the ED, pulse 38 but all other vitals stable. K of 6.2. Troponin negative. Glucose 434. EKG with sinus bracycardia without evidence of heart block. Case discussed with cardiology, who recommended holding beta-lela and monitoring patient on telemetry. Chest x-ray without acute pathology. Admitted to medicine. Past Med Surg Social Fam HX - Past Medical History Medical history: CHF, diabetes, dialysis, fibromyalgia, hypertension, pulmonary embolus, renal disease Additional medical history: neuropathy Psychiatric history: anxiety, depression, other - Past Surgical History Surgical History: other Additional surgical history: PD catheter placement - Social History Smoking Status: Never smoker Smokeless Tobacco Status: Yes (snuff) Alcohol use: none Drug use: none - Family History Mother Adopted: No Family Member Ethnicity: Non- Living Status: Hx Family Cardiac Disorders: Yes Brother Hx Family Cardiac Disorders: Yes (HTN) Hx Family GI Disorders: Yes Hx Family Endocrine Disorder: Yes (DM-2) Internal Medicine - H&P: Meds Carvedilol [Coreg] 25 mg PO BID 05/16/16 [History] DULoxetine [Cymbalta] 60 mg PO HS 05/16/16 [History] glipiZIDE [Glipizide] 10 mg PO DAILY 05/16/16 [History] Ferrous Sulfate [Iron] 325 mg PO BID 08/07/17 [History] NIFEdipine XL (24 HR) [Procardia XL] 60 mg PO BID 08/07/17 [History] Losartan Potassium [Cozaar] 50 mg PO HS 12/03/17 [History] Pravastatin Sodium [Pravachol] 40 mg PO HS 12/03/17 [History] HYDROcodone/Acet 5/325 mg [[place] 5-325 mg] 1 tab PO TID PRN 09/26/18 [History] Insulin DETEMIR [Levemir] 8 unit SQ DAILY 09/26/18 [History] Sevelamer [Renvela] 800 mg PO TIDWM 09/26/18 [History] Acetaminophen [Tylenol] 650 mg PO Q6HR PRN 12/26/18 [History] Albuterol Sulfate [Proair Hfa] 2 puff IH Q6H PRN 12/26/18 [History] Buspirone HCl [Buspar] 10 mg PO BID 12/26/18 [History] Calcium Carbonate/Vitamin D3 [Calcium 600 + Vit D Tablet] 1 tab PO DAILY 12/26/18 [History] Cyclobenzaprine HCl 5 mg PO BID PRN 12/26/18 [History] Hydralazine HCl 50 mg PO TIDWM 12/26/18 [History] Insulin LISPRO [HumaLOG] 2 - 12 units SQ TIDWM 12/26/18 [History] Multivitamin [One Daily] 1 tab PO DAILY 12/26/18 [History] Ondansetron HCl 4 mg PO BID PRN 12/26/18 [History] Pantoprazole Sodium [Protonix] 40 mg PO DAILY 12/26/18 [History] Allergy/AdvReac Type Severity Reaction Status Date / Time oxycodone Allergy Hives Verified 12/26/18 11:17 tetanus toxoid, adsorbed Allergy See Verified 12/26/18 11:17 Comments Onion AdvReac Severe Diarrhea Verified 12/26/18 11:17 gabapentin AdvReac Dizziness Verified 12/26/18 11:17 propoxyphene AdvReac Itching Verified 12/26/18 11:17 All Systems PM: A 10-system review of systems was performed and is negative for pertinent findi ngs except as documented above in the HPI. Review of systems: General: Fevers / Weight loss / Night sweats / Malaise Eyes: Blurry Vision / Change in Vision HENT: Ear Pain / Ear Drainage / Rhinorrhea / Throat Pain / Lymphadenopathy Cardiovascular: Chest Pain / Palpatations / Orthopnea / SHARMA / Weight gain / Diz ziness / Lightheadedness Lungs: Dyspnea / Wheezing / Cough / Sputum production / Pleurisy Abdomen: Abdomen pain / Abdominal distention Extremities: LE edema / Ext pain / Ext erythema Skin: Rashes / Abrasions / Contusions Psych: Hallucinations / Anxiety / Depression Neuro: Weakness / Numbness / Tingling / Facial Droop / Dysphagia - Constitutional Vitals: Temp Pulse Resp BP Pulse Ox 98.5 F 38 16 132/62 92 03/07/19 10:54 03/07/19 12:11 03/07/19 12:35 03/07/19 12:11 03/07/19 12:35 Exam: General: Ill-appearing and in no acute distress HEENT: No erythema of posterior pharynx. No exudates. Lymphatics: No mandibular or cervical lymphadenopathy Cardiovascular: Bradycardic. No murmurs. No chest wall tenderness. Lungs: Clear to auscelltation bilaterally. Regular chest rise. Abdomen: Non-tender. No rebound or gaurding. Nl bowel sounds. Extremities: No edema. 2+ pulses radial and pedal pulses Skin: No rahses, abrasions, or contusions. Nl cap refill. Psych: Nl attention. A&Ox3 Neuro: access analyst II-XII intact. 5/5 strength. Sensation to light touch and pinprick intact. No pericardial effusion with bedside ultrasound Internal Med - H&P Results - Labs CBC & Chem 7: 03/07/19 11:05 03/07/19 11:05 Labs: Short CBC 03/07/19 Range/Units 11:05 WBC 9.6 (4.3-11.1) K/mcL Hgb 12.0 L (12.9-16.9) g/dL Hct 38.7 (37.5-50.1) % Plt Count 258 (140-400) K/mcL Neutrophils # 7.2 (1.6-8.9) K/mcL BMP 03/07/19 11:05 Sodium 134 L Potassium 6.2 H Chloride 96 L Carbon Dioxide 25 BUN 70 H Creatinine 6.26 H Glucose 434 H Calcium 9.4 Cardiac Enzymes 03/07/19 Range/Units 11:05 Troponin I < 0.03 (< 0.04) ng/mL - Impressions ITS Impressions Chest X-Ray 03/07/19 10:55 IMPRESSION: 1. No acute abnormality. D/ / Zhen Singh MD / Zhen Singh MD Interpreting Provider: Zhen Singh MD - Assessment and Plan (1) Symptomatic sinus bradycardia Current Visit: Yes Status: Acute Assessment and plan: Patient with history of diastolic heart failure and HTN presents with b radycardia in the setting of lightheadedness/dizziness, otherwise stable vitals, unremarkable physical exam, negative troponin, and EKG with sinus bracycardia without evidence of heart block. -Currently stable: Denies chest pain, shortness breath, lower extremity edema, headache, and focal weakness/focal numbness or tingling. Negative troponin. Case discussed with cardiology, who recommended holding beta-lela and monitoring patient on telemetry. -Likely cause by beta-lela use. Doesn't need this medication (no hx of systolic HF) so recommend indefinite discontinuation PLAN: - Tele monitoring - Hold Coreg indefinitely - may need alternative medication for blood pressure before discharge - Pacer pads at bedside for precaution (2) Hyperkalemia Current Visit: Yes Status: Acute Assessment and plan: Was supposed to be dialyzed today. - Nephrology contacted for emergent dialysis - Status post temporizing measures - Repeat BMP 3 hours (3) ESRD (end stage renal disease) Current Visit: No Status: Chronic Assessment and plan: See above (4) Diastolic CHF Current Visit: No Status: Chronic Assessment and plan: Appears euvolemic currently. Does not have systolic heart failure so beta lela not indicated. Qualifiers: Heart failure chronicity: chronic Qualified Code(s): I50.32 - Chronic diastolic (congestive) heart failure (5) Renovascular hypertension Current Visit: Yes Status: Acute Assessment and plan: Will hold blood pressure medications in setting of bradycardia and normal blood pressure currently (6) Diabetes Current Visit: Yes Status: Acute Assessment and plan: Hyperglycemic on admission Qualifiers: Diabetes mellitus type: type 2 Diabetes mellitus buttermaker continuous churn insulin use: with nursing home use Diabetes mellitus complication status: with hyperglycemia Qualified Code(s): E11.65 - Type 2 diabetes mellitus with hyperglycemia; Z79.4 - residential (current) use of insulin - Time Spent With Patient Total time spent is greater than 50% in coordination of care (as documented) at patient's floor/unit and/or counseling patient: Greater than 35 minutes
[2019-03-07] MEDS ORDERED: 0.9 % Sodium Chloride 250 ML IVC PRN (13:36)
[2019-03-07] MEDS ORDERED: 0.9 % Sodium Chloride 1,000 ML PRIME SCH (13:45)
[2019-03-07 14:32] LABS: Hepatitis B Surface Antibody < 3.10 mIU/mL
[2019-03-07 14:43] LABS: Hepatitis B Surface Antigen Nonreactive (Nonreactive)
[2019-03-07] MEDS ORDERED: *HR* Dextrose 50 % in Water (Syg) 50 ML SYRINGE IVP PRN (14:44)
[2019-03-07] MEDS ORDERED: Dextrose Gel 15 GM/37.5 ML TUBE PO PRN ×2 (14:44)
[2019-03-07] MEDS ORDERED: D5% in Water 1,000 ML IVC PRN (14:44)
[2019-03-07 16:43] LABS: Calcium 9.4 mg/dL (8.6-10.3); Potassium 5.2 mEq/L (3.5-5.1)
[2019-03-07] MEDS ORDERED: Insulin LISPRO 300 UNITS/3 ML VIAL SQ SCH (17:00)
[2019-03-07] MEDS: Insulin LISPRO 300 UNITS/3 ML VIAL SQ SCH (17:49)
[2019-03-08 04:42] LABS: Basophils # 0.1 K/mcL (0.0-0.2); Basophils % 0.7 %; Eosinophils # 0.7 K/mcL (0.0-0.6); Eosinophils % 7.5 %; Hematocrit 36.9 % (37.5-50.1); Hemoglobin 11.5 g/dL (12.9-16.9); Immature Granulocytes % 0.5 % (0-4); Lymphocytes # 1.1 K/mcL (0.6-4.6); Lymphocytes % 12.8 %; Mean Corpuscular HGB Conc 31.2 g/dL (31.6-35.5); Mean Corpuscular Hemoglobin 31.2 pg (28.0-33.3); Mean Platelet Volume 9.8 fL (9.4-12.4); Monocytes # 0.7 K/mcL (0.0-1.3); Monocytes % 8.1 %; Neutrophils # 6.2 K/mcL (1.6-8.9); Platelet Count 210 K/mcL (140-400); Red Blood Count 3.69 M/mcL (4.19-5.50); Red Cell Distribution Width 13.4 % (11.5-14.5); Segmented Neutrophils % 70.4 %; White Blood Count 8.8 K/mcL (4.3-11.1)
[2019-03-08 04:44] LABS: Calcium 9.3 mg/dL (8.6-10.3); Potassium 4.7 mEq/L (3.5-5.1)
[2019-03-08] MEDS ORDERED: *HR* Enoxaparin 40 MG/0.4 ML SYRINGE SQ SCH (06:00)
[2019-03-08] MEDS ORDERED: Insulin DETEMIR 100 UNIT/ML X5UNITS SQ SCH ×2 (09:00→10:15)
[2019-03-08] MEDS: NIFEdipine XL (24 HR) 60 MG TAB.ER.24 PO SCH ×2 (10:14→21:45)
[2019-03-08] MEDS: hydrALAZINE 25 MG TABLET PO SCH ×3 (10:14→15:02)
[2019-03-08] MEDS: Insulin LISPRO 300 UNITS/3 ML VIAL SQ SCH ×3 (10:15→16:18)
--- NOTE | 2019-03-08 10:24 | Event Note ---
Date of Encounter: 03/08/19 Time of Encounter: 10:00 - Cardiology Event Note Cardiology consult for symptomatic bradycardia. Home medications include coreg 25 mg BID. Recommend BB wash-out. AVg HR= 55, min=44. No pause.
--- NOTE | 2019-03-08 11:19 | Nephrology Consult Note ---
Date of Encounter: 03/08/19 Time of Encounter: 11:15 Assessment and Plan (1) End stage renal disease Current Visit: Yes Status: Acute HD Saturday, , and Saturday Renal vitamins. Renal dose medications. Renal diet. Additional dialysis and ultrafiltration as needed. The patient received dialysis on Saturday. He seems be doing well. No need for dialysis today. (2) Renovascular hypertension Current Visit: Yes Status: Acute (3) Symptomatic sinus bradycardia Current Visit: Yes Status: Acute Patient was on a beta leal and came in with symptomatic sinus bradycardia. Today his heart rate is still bradycardic, but he is asymptomatic. His carvedilol has been held. We will defer overall management to the primary team. (4) Anemia Current Visit: No Status: Chronic Qualifiers: Anemia type: unspecified type Qualified Code(s): D64.9 - Anemia, unspecified (5) CAD (coronary artery disease) Current Visit: No Status: Chronic Qualifiers: Coronary Disease-Associated Artery/Lesion type: [place] artery [place] vs. transplanted heart: [place] heart Associated angina: without angina Qualified Code(s): I25.10 - Atherosclerotic heart disease of [place] coronary artery without angina pectoris History of Present Illness - Reason for Consult Consult date: 03/08/19 end stage renal disease - Chief Complaint esrd - History of Present Illness Mr. Hernandez is a 64 yo man with a history of ESRD who presents after developing bradycardia in the dialysis unit Saturday. He received acute dialysis on Saturday. Today he states he feels better. He reports that he feels back to his baseline. He denies chest pain, shortness of breath, nausea, vomiting, or diarrhea. He was to go home because he needs to take care of his dog. [facility] was consult it to assist with the ongoing need for dialysis. Past Med Surg Social Fam HX - Past Medical History Medical history: CHF, diabetes, dialysis, fibromyalgia, hypertension, pulmonary embolus, renal disease Additional medical history: neuropathy Psychiatric history: anxiety, depression - Past Surgical History Surgical History: other Additional surgical history: PD catheter placement - Social History Smoking Status: Never smoker Smokeless Tobacco Status: Yes (snuff) Alcohol use: none Drug use: none - Family History Mother Adopted: No Family Member Ethnicity: Non- Living Status: Hx Family Cardiac Disorders: Yes Brother Hx Family Cardiac Disorders: Yes (HTN) Hx Family GI Disorders: Yes Hx Family Endocrine Disorder: Yes (DM-2) Medications and Allergies Carvedilol [Coreg] 25 mg PO BID 05/16/16 [History] DULoxetine [Cymbalta] 60 mg PO HS 05/16/16 [History] glipiZIDE [Glipizide] 10 mg PO DAILY 05/16/16 [History] Ferrous Sulfate [Iron] 325 mg PO BID 08/07/17 [History] NIFEdipine XL (24 HR) [Procardia XL] 60 mg PO BID 08/07/17 [History] Losartan Potassium [Cozaar] 50 mg PO HS 12/03/17 [History] Pravastatin Sodium [Pravachol] 40 mg PO HS 12/03/17 [History] HYDROcodone/Acet 5/325 mg [[place] 5-325 mg] 1 tab PO TID PRN 09/26/18 [History] Insulin DETEMIR [Levemir] 8 unit SQ DAILY 09/26/18 [History] Sevelamer [Renvela] 800 mg PO TIDWM 09/26/18 [History] Acetaminophen [Tylenol] 650 mg PO Q6HR PRN 12/26/18 [History] Albuterol Sulfate [Proair Hfa] 2 puff IH Q6H PRN 12/26/18 [History] Buspirone HCl [Buspar] 10 mg PO BID 12/26/18 [History] Calcium Carbonate/Vitamin D3 [Calcium 600 + Vit D Tablet] 1 tab PO DAILY 11/11 [History] Cyclobenzaprine HCl 5 mg PO BID PRN 12/26/18 [History] Hydralazine HCl 50 mg PO TIDWM 12/26/18 [History] Insulin LISPRO [HumaLOG] 2 - 12 units SQ TIDWM 12/26/18 [History] Multivitamin [One Daily] 1 tab PO DAILY 12/26/18 [History] Ondansetron HCl 4 mg PO BID PRN 12/26/18 [History] Pantoprazole Sodium [Protonix] 40 mg PO DAILY 12/26/18 [History] Allergy/AdvReac Type Severity Reaction Status Date / Time oxycodone Allergy Hives Verified 12/26/18 11:17 tetanus toxoid, adsorbed Allergy See Verified 12/26/18 11:17 Comments Onion AdvReac Severe Diarrhea Verified 12/26/18 11:17 gabapentin AdvReac Dizziness Verified 12/26/18 11:17 propoxyphene AdvReac Itching Verified 12/26/18 11:17 Review of Systems All Systems: reviewed and no additional remarkable complaints except as stated (As documented in the history of present illness) Exam - Vital Signs Vital signs: Initial Vital Signs Temp Pulse Resp BP Pulse Ox 98.5 F 36 16 124/60 95 03/07/19 10:54 03/07/19 10:54 03/07/19 10:54 03/07/19 10:54 03/07/19 10:54 Vital Signs - Last 8 Hours Temp Pulse Resp BP Pulse Ox 03/08/19 07:44 99.0 F 56 20 162/67 96 03/08/19 04:01 98.3 F 57 17 129/68 94 Intake and Output 03/07/19 03/08/19 03/08/19 23:59 07:59 15:59 Intake Total 240 / 958.1 120 / 120 Output Total 2576 / 2576 Balance -2336 / -1617.9 120 / 120 Intake: Oral 240 / 240 120 / 120 Output: Urine 200 / 200 Total Dialysis (HD) Output 2376 / 2376 Other: Meal tv dinner with applesauce Breakfast Percent of Meal Consumed 100% 80% Blood Glucose* 176 315 Hemodialysis Net Fluid Removed 1776 (mL) - General Appearance General appearance: well-developed, well-nourished EENT: ATNC Neck: supple Respiratory: course breath sounds Cardiology: no edema Additional Comments: Bradycardia Gastrointestinal: no tenderness Integumentary: warm and dry Neurologic: alert and oriented x3 Musculoskeletal: no cyanosis Psychiatric: mood/affect appropriate Results - Lab Results 03/08/19 03:35 03/08/19 03:35 Most recent lab results 03/08/19 03:35 Calcium 9.3 Consult Discharge Plan - Plan
--- NOTE | 2019-03-08 14:59 | Internal Med Progress Note ---
Hospitalist Progress Note - Encounter Date of Encounter: 03/08/19 Time of Encounter: 14:57 - Subjective Interval History: Patient seen and examined earlier this morning. Resting in bed and denies any dizziness, lightheadedness, headache, sob, chest pain at this time. Remains bradycardic but clinically asymptomatic at this time Cardiology input requested, as per cardio MEAT WRAPPER, pt should be observed overnight off beta lela therapy. Ten point ROS is negative except as listed above - Exam Vitals: Temp Pulse Resp BP Pulse Ox 97.9 F 58 18 174/82 96 03/08/19 11:18 03/08/19 11:18 03/08/19 11:18 03/08/19 11:18 03/08/19 11:18 Exam: General: No acute distress, AAO x 3, obese HEENT: EOMI, PERRLA, NC/AT, no scleral icterus Respiratory: Clear to auscultate bilaterally, no wheezing, no rales Cardiovascular: Regular Rhythm, Sinus bradycardia, No murmurs GI: Soft, Non tender, non distended, normal bowel sounds Ext: No edema, no tenderness, positive pulses, no calf tenderness Neuro: AAO x 3, no focal deficits Rest of the clinical exam is noncontributory - Assessment and Plan (1) Symptomatic sinus bradycardia Current Visit: Yes Status: Acute (2) ESRD (end stage renal disease) Current Visit: No Status: Chronic (3) Diastolic CHF Current Visit: No Status: Chronic (4) Hyperkalemia Current Visit: Yes Status: Acute (5) Diabetes Current Visit: Yes Status: Acute (6) Renovascular hypertension Current Visit: Yes Status: Acute - Summary of Assessment and Plan Summary of Assessment and Plan: Patient is a 64y/o male with PMH of ESRD on HD, diastolic heart failure, DM, and HTN who is admitted for symptomatic bradycardia. Assessment/Plan: 1. Symptomatic Bradycardia Likely secondary to beta lela therapy Carvedilol on hold clinically asymptomatic will continue to closely monitor 2. HTN BP uncontrolled restarted home medications awaiting repeat BP after administration of home medications will closely monitor BP and adjust hypertensive medications as needed 3. Diabetes mellitus type II restarted home dose of insulin sliding scale insulin algorithm as needed 4. ESRD on HD Nephrology input appreciated will continue HD as per nephro 5. Hyperkalemia Resolved continue to monitor electrolytes closely DVT ppx: Heparin SQ Care plan discussed with patient/RN/consulting provider - Time Spent with Patient Total time spent is greater than 50% in coordination of care (as documented) at patient's floor/unit and/or counseling patient: Internal Medicine: Result - Labs CBC & Chem 7: 03/08/19 03:35 03/08/19 03:35 Labs: Short CBC 03/08/19 Range/Units 03:35 WBC 8.8 (4.3-11.1) K/mcL Hgb 11.5 L (12.9-16.9) g/dL Hct 36.9 L (37.5-50.1) % Plt Count 210 (140-400) K/mcL Neutrophils # 6.2 (1.6-8.9) K/mcL BMP 03/07/19 03/08/19 15:40 03:35 Sodium 136 133 L Potassium 5.2 H 4.7 Chloride 100 98 Carbon Dioxide 25 25 BUN 58 H 47 H Creatinine 5.45 H 5.05 H Glucose 238 H 306 H Calcium 9.4 9.3 Consult Discharge Plan - Plan Referrals: Ruby Cano, MEAT WRAPPER [Primary Care Provider] - (3) Diastolic CHF Qualifiers: Heart failure chronicity: chronic Qualified Code(s): I50.32 - Chronic diastolic (congestive) heart failure (5) Diabetes Qualifiers: Diabetes mellitus type: type 2 Diabetes mellitus dedicated intermodal truck driver insulin use: with dedicated intermodal truck driver use Diabetes mellitus complication status: with hyperglycemia Qualified Code(s): E11.65 - Type 2 diabetes mellitus with hyperglycemia; Z79.4 - residential (current) use of insulin
[2019-03-08] MEDS ORDERED: hydrALAZINE 10 MG TABLET PO PRN (15:05)
[2019-03-08] MEDS: Insulin DETEMIR 100 UNIT/ML X5UNITS SQ SCH (16:31)
[2019-03-08] MEDS: *HR* Heparin 5,000 UNIT/ML VIAL SQ SCH (16:31)
[2019-03-09] MEDS ORDERED: *HR* Enoxaparin 30 MG/0.3 ML SYRINGE SQ SCH (06:00)
[2019-03-09] MEDS: *HR* Heparin 5,000 UNIT/ML VIAL SQ SCH (06:05)
[2019-03-09 06:42] LABS: Basophils # 0.1 K/mcL (0.0-0.2); Basophils % 0.9 %; Eosinophils # 0.6 K/mcL (0.0-0.6); Hemoglobin 12.4 g/dL (12.9-16.9); Immature Granulocytes % 0.5 % (0-4); Lymphocytes # 0.9 K/mcL (0.6-4.6); Lymphocytes % 11.4 %; Mean Corpuscular Hemoglobin 31.2 pg (28.0-33.3); Mean Corpuscular Volume 100.8 fL (83.0-100.0); Mean Platelet Volume 9.5 fL (9.4-12.4); Monocytes # 0.6 K/mcL (0.0-1.3); Neutrophils # 5.6 K/mcL (1.6-8.9); Platelet Count 209 K/mcL (140-400); Red Blood Count 3.97 M/mcL (4.19-5.50); Red Cell Distribution Width 13.3 % (11.5-14.5); Segmented Neutrophils % 71.2 %; White Blood Count 7.9 K/mcL (4.3-11.1)
[2019-03-09 07:03] LABS: Calcium 9.6 mg/dL (8.6-10.3); Magnesium 2.1 mg/dL (1.6-2.6); Phosphorous 4.2 mg/dL (2.7-4.5); Potassium 5.4 mEq/L (3.5-5.1)
[2019-03-09] MEDS ORDERED: hydrALAZINE 10 MG TABLET PO PRN (08:22)
[2019-03-09] MEDS: Insulin LISPRO 300 UNITS/3 ML VIAL SQ SCH (08:38)
[2019-03-09] MEDS: NIFEdipine XL (24 HR) 60 MG TAB.ER.24 PO SCH (08:40)
[2019-03-09] MEDS: Insulin DETEMIR 100 UNIT/ML X5UNITS SQ SCH (08:43)
[2019-03-09] MEDS ORDERED: hydrALAZINE 25 MG TABLET PO SCH (09:00)
--- NOTE | 2019-03-09 09:48 | Nephrology Progress Note ---
Date of Encounter: 03/09/19 Time of Encounter: 09:46 - Assessment and Plan (1) End stage renal disease Current Visit: Yes Status: Acute HD Saturday, , and Saturday. Last session was Saturday03/07/19. Renal vitamins. Renal dose medications. Renal diet. Additional dialysis and ultrafiltration as needed. The patient received dialysis on Saturday. He seems be doing well. Plan for dialysis tomorrow. (2) CAD (coronary artery disease) Current Visit: No Status: Chronic Per cardio. Qualifiers: Coronary Disease-Associated Artery/Lesion type: [place] artery [place] vs. transplanted heart: [place] heart Associated angina: without angina Qualified Code(s): I25.10 - Atherosclerotic heart disease of [place] coronary artery without angina pectoris (3) Anemia Current Visit: No Status: Chronic Resolved, hemoglobin is 12.4, stable. Qualifiers: Anemia type: unspecified type Qualified Code(s): D64.9 - Anemia, unspecified (4) Symptomatic sinus bradycardia Current Visit: Yes Status: Resolved Patient was on a beta lela and came in with symptomatic sinus bradycardia. Continues to be asymptomatic, heart rate is 60. Carvedilol has been held, suggest starting at lower dose if okay with Cardiology. We will defer overall management to the primary team and cardiology. (5) Renovascular hypertension Current Visit: Yes Status: Chronic 170/64. Subjective Principal diagnosis: bradycardia Interval history: Pt seen and examined, doing well. States he is ready to go home. Denies nausea, vomiting, diarrhea. Denies chest pain or shortness of breath. Objective - Vital Signs Vital signs: Vital Signs Temp Pulse Resp BP Pulse Ox 03/09/19 07:17 98.0 F 60 17 170/64 93 03/09/19 03:56 97.9 F 64 17 162/66 98 03/09/19 00:08 98.0 F 61 17 176/69 97 03/08/19 20:06 97.8 F 63 17 195/74 95 03/08/19 16:18 97.2 F L 60 19 172/90 98 03/08/19 15:04 168/82 03/08/19 11:18 97.9 F 58 18 174/82 96 Intake and Output 03/08/19 03/09/19 03/09/19 23:59 07:59 15:59 Intake Total 500 / 880 340 / 340 Output Total 1000 / 1000 600 / 600 Balance -500 / -120 -600 / -260 340 / -260 Intake: Oral 500 / 880 340 / 340 Output: Urine 1000 / 1000 600 / 600 Other: Meal Dinner Breakfast Percent of Meal Consumed 100% 100% Weight 117 kg Blood Glucose* 335 255 Patient Weight 03/09/19 23:59 Weight 117 kg - General Appearance General appearance: Present: well-developed, well-nourished EENT: Present: ATNC, hearing intact, vision intact Neck: Present: supple Respiratory: Present: clear Cardiology: Present: no edema, normal S1, normal S2 Dialysis Vascular Access: Arteriovenous Fistula thrill: Yes bruit: Yes Additional Comments: Dressing clean dry and intact. Gastrointestinal: Present: normoactive bowel sounds, no tenderness, no guarding Integumentary: Present: no rash, warm and dry Neurologic: Present: no focal deficit, alert and oriented x3 Musculoskeletal: Present: no deformities, no erythema Psychiatric: Present: mood/affect appropriate, cooperative - Lab 03/09/19 06:18 03/09/19 06:18 Most recent lab results 03/09/19 06:18 Calcium 9.6 Phosphorus 4.2 Magnesium 2.1 Consult Discharge Plan - Plan Additional Instructions: 1. Please follow up with your primary care physician and button tacker within five days after your discharge from the hospital. 2. Please hold your home dose of Carvedilol after discharge 3. Please use CPAP at bedtime 4. Please resume all your other home medications as prescribed by your primary care physician. 5. Please continue hemodialysis as per your outpatient dialysis schedule 6. Seek medical help immediately if you have difficulty breathing or if chest pain occurs Referrals: Ruby Cano CNP [Primary Care Provider] - 03/16/19 10:00 am (Please follow up as schedule...) Francisca Flroes DO [Partnered Physician] - (Cardio wll call patient when they have date and time next week)
--- NOTE | 2019-03-09 10:09 | Cardiology Consult Note ---
<Jenny Worley - Last Filed: 03/09/19 10:00> Date of Encounter: 03/09/19 Time of Encounter: 09:00 Assessment and Plan (1) Symptomatic sinus bradycardia Status: Acute Per cardiology: -Symptomatic on admission with dizziness. -ECG With SB, HR 36. -Of note, bradycardia suspected to be related to hyperkalemia and BB use as outpatient. -K has been mostly corrected and BB has been held. -Average HR previous 12 hours noted to be 59, SB, however does have nocturnal pauses. Denies current symptoms. -TTE was ordered, however patient is refusing further testing. -Continue to hold BB. -See sinus pause. (2) Sinus pause Status: Acute Per cardiology: -Nocturnal sinus pauses up to 7.7 seconds. -Reports history of sleep apnea, however states he is non-compliant with CPAP. -TTE was pending, however patient is now refusing further testing. -I discussed at length with patient regarding need for CPAP. Patient states understanding and states he will be compliant with CPAP. -Patient states he is refusing further testing and is stating that he is going home today. Educated on risks of leaving without complete work up and further monitoring. Patient states understanding, and again states he is going home. Discussion w patient/family: The assessment and plan as outlined above was discussed with the patient who expressed understanding and agreement. All questions were answered. Thank you for involving us in the care of your patient. Please call with any questions. Discussed and reviewed with . History of Present Illness Consult date: 03/08/19 Requesting physician: Payton Cyr Consult reason: bradycardia Chief complaint: dizziness History of present illness: Mr. Hernandez is a 64 year old male with a relevant past medical history of DM, fibromyalgia, COPD, ESRD on HD, HTN, PE, anemia, vasodepressor syncope, who presented to [facility] with complaints of dizziness. Patient states he was at dialysis and just felt dizzy and lightheaded. Patient states his HR was noted to be low and patient was transferred to [facility]. Patient's potassium was noted to be 6.2 on admission. Patient was also on carvediolol in outpatient setting for HTN, which has been held since admission. Patient denies current dizziness, lightheadedness. Patient states he does not want any further cardiac testing and wants to be discharged from hospital. Past Med Surg Social Fam HX - Past Medical History Attestation: Yes The following information was validated with the patient. Source: patient, old records reviewed Medical history: CHF, diabetes, dialysis, fibromyalgia, hypertension, pulmonary embolus, renal disease Additional medical history: neuropathy Psychiatric history: anxiety, depression - Past Surgical History Surgical History: other Additional surgical history: PD catheter placement - Social History Smoking Status: Never smoker Smokeless Tobacco Status: Yes (snuff) Alcohol use: none Drug use: none - Family History Mother Adopted: No Family Member Ethnicity: Non- Living Status: Hx Family Cardiac Disorders: Yes Brother Hx Family Cardiac Disorders: Yes (HTN) Hx Family GI Disorders: Yes Hx Family Endocrine Disorder: Yes (DM-2) Medications and Allergies DULoxetine [Cymbalta] 60 mg PO HS 05/16/16 [History] glipiZIDE [Glipizide] 10 mg PO DAILY 05/16/16 [History] NIFEdipine XL (24 HR) [Procardia XL] 60 mg PO BID 08/07/17 [History] Pravastatin Sodium [Pravachol] 40 mg PO HS 12/03/17 [History] HYDROcodone/Acet 5/325 mg [[place] 5-325 mg] 1 tab PO TID PRN 09/26/18 [History] Sevelamer [Renvela] 800 mg PO TIDWM 09/26/18 [History] Acetaminophen [Tylenol] 650 mg PO Q6HR PRN 12/26/18 [History] Albuterol Sulfate [Proair Hfa] 2 puff IH Q6H PRN 12/26/18 [History] Buspirone HCl [Buspar] 10 mg PO BID 12/26/18 [History] Calcium Carbonate/Vitamin D3 [Calcium 600 + Vit D Tablet] 1 tab PO DAILY 12/26/18 [History] Cyclobenzaprine HCl 5 mg PO BID 12/26/18 [History] Hydralazine HCl 100 mg PO TIDWM 12/26/18 [History] Insulin LISPRO [HumaLOG] 0 units SQ TIDWM PRN 12/26/18 [History] Multivitamin [One Daily] 1 tab PO DAILY 12/26/18 [History] Ondansetron HCl 4 mg PO BID PRN 12/26/18 [History] Pantoprazole Sodium [Protonix] 40 mg PO DAILY 12/26/18 [History] Cholecalciferol (D-3) [Vitamin D] 1,000 unit PO DAILY 03/08/19 [History] Insulin Glargine,Hum.rec.anlog [Basaglar Kwikpen U-100] 30 unit SQ DAILY 03/08/19 [History] Allergy/AdvReac Type Severity Reaction Status Date / Time oxycodone Allergy Hives Verified 03/08/19 14:15 tetanus toxoid, adsorbed Allergy See Verified 03/08/19 14:15 Comments Onion AdvReac Severe Diarrhea Verified 03/08/19 14:15 gabapentin AdvReac Dizziness Verified 03/08/19 14:15 propoxyphene AdvReac Itching Verified 03/08/19 14:15 All Systems Review: The remainder of the systems were reviewed and are negative - Cardiovascular Cardiovascular: as per HPI, lightheadedness, slow heart rate - Neurological Neurological: dizziness Physical Examination Vital Signs, Last 4 Hours Temp Pulse Resp BP Pulse Ox 03/09/19 07:17 98.0 F 60 17 170/64 93 General: Conversant, No Apparent Distress HEENT: Atraumatic, Normocephaly, Mucus Membranes Moist Neck: No JVD, Normal carotid pulses Cardiac: Reg Rate and Rhythm, Normal S1 and S2, No Murmur Lungs: Normal Breath Sounds, No Wheeze, Rales, Rhonchi Neuro: Alert and responsive, No focal deficits noted Abdomen: Soft, Non-Tender Skin: No rashes noted on visualized skin Musculoskeletal: No Chest Wall Tenderness Extremities: No Clubbing, No Cyanosis, No Edema, Normal Pulses Results 03/09/19 06:18 03/09/19 06:18 Lab Results Active Medications Acetaminophen (Tylenol) 650 mg PO Q6HR PRN PRN Reason: Mild Pain/Fever Stop: 09/06/19 12:21 Albuterol Sulfate (Proventil Inhaler) 2 puff IH Q6H PRN PRN Reason: Shortness Of Breath Stop: 09/07/19 15:01 Atorvastatin Calcium (Lipitor) 10 mg PO HS SOPHIA Stop: 09/06/19 21:01 Last Admin: 03/08/19 21:44 Dose: 10 mg Documented by: Buspirone HCl (Buspar) 10 mg PO BID SOPHIA Stop: 09/07/19 21:01 Last Admin: 03/09/19 08:39 Dose: 10 mg Documented by: Calcium Carbonate (Tums) 500 mg PO DAILY@1200 [facility] Stop: 09/08/19 12:01 Last Admin: 03/09/19 08:40 Dose: 500 mg Documented by: Dextrose/Water (Dextrose 50% (Syg)) 25 ml IVP AD PRN PRN Reason: Hypoglycemia Stop: 09/06/19 14:45 Duloxetine HCl (Cymbalta) 60 mg PO HS [facility] Stop: 09/06/19 21:01 Last Admin: 03/08/19 21:44 Dose: 60 mg Documented by: Ferrous Sulfate (Ferrous Sulfate) 325 mg PO BIDWM [facility] Stop: 09/08/19 08:31 Last Admin: 03/09/19 08:39 Dose: 325 mg Documented by: Glucagon (Glucagen) 1 mg IM ONCE PRN PRN Reason: Hypoglycemia Stop: 09/06/19 14:45 Glucose (Gluctose) 15 gm PO ONCE PRN PRN Reason: Hypoglycemia Stop: 09/06/19 14:45 Glucose (Gluctose) 30 gm PO ONCE PRN PRN Reason: Hypoglycemia Stop: 09/06/19 14:45 Heparin Sodium (Porcine) (Heparin) 5,000 unit SQ Q12HCO [facility] Stop: 09/07/19 18:01 Last Admin: 03/09/19 06:05 Dose: 5,000 unit Documented by: Hydralazine HCl (Hydralazine) 10 mg PO Q6HR PRN PRN Reason: Hypertension Stop: 09/07/19 15:06 Hydralazine HCl (Hydralazine) 50 mg PO TID [facility] Stop: 09/08/19 09:01 Last Admin: 03/09/19 08:40 Dose: 50 mg Documented by: Sodium Chloride (0.9 % Sodium Chloride) 250 mls @ 937.5 mls/hr IVC .Q16M PRN PRN Reason: Hypotension Stop: 09/06/19 13:37 Sodium Chloride (0.9 % Sodium Chloride) 1,000 mls @ 0 mls/hr PRIME .Q0M [facility] Stop: 09/06/19 13:46 Dextrose (Dextrose 5%) 1,000 mls @ 100 mls/hr IVC .Q10H PRN PRN Reason: HYPOGLYCEMIA Stop: 09/06/19 14:45 Insulin Detemir (Levemir) 30 unit SQ DAILY [facility] Stop: 09/07/19 15:16 Last Admin: 03/09/19 08:43 Dose: 30 unit Documented by: Insulin Human Lispro (Humalog) 0 units SQ TIDAC [facility]; Protocol Stop: 09/06/19 16:31 Last Admin: 03/09/19 08:38 Dose: 8 units Documented by: Losartan Potassium (Cozaar) 50 mg PO HS [facility] Stop: 09/07/19 21:01 Last Admin: 03/08/19 21:44 Dose: 50 mg Documented by: Naloxone HCl (Narcan) 0.4 mg IVP Q2MPRN PRN PRN Reason: SEE COMMENTS Stop: 09/06/19 12:21 Nifedipine (Procardia Xl) 60 mg PO BID [facility]; Protocol Stop: 09/07/19 09:01 Last Admin: 03/09/19 08:40 Dose: 60 mg Documented by: Omeprazole (Prilosec) 40 mg PO 0630 [facility] Stop: 09/06/19 15:59 Last Admin: 03/09/19 06:05 Dose: 40 mg Documented by: Ondansetron HCl (Zofran Odt) 4 mg SL Q8HR PRN PRN Reason: Nausea And Vomiting Stop: 09/06/19 12:21 Sevelamer HCl (Renvela) 800 mg PO TIDWM [facility] Stop: 09/06/19 17:01 Last Admin: 03/09/19 08:39 Dose: 800 mg Documented by: Vitamin D (Vitamin D) 1,000 unit PO DAILY@1200 [facility] Stop: 09/08/19 12:01 Laboratory Tests 03/07/19 03/09/19 03/09/19 11:05 06:18 06:18 Hgb 12.4 L Potassium 6.2 H 5.4 H Creatinine 6.03 H Troponin I < 0.03 - Imaging and Cardiology Chest Xray: report reviewed Echo: report reviewed - EKG Interpretation EKG results cardiology: personally reviewed (ECG with SR, HR 36. LVH noted.), other (Telemetry reviewed with average HR previous 12 hours noted to be 59, SR. PVCs, PACS noted. Nocturnal pauses noted up to 7.7 seconds.) Consult Discharge Plan - Plan Additional Instructions: 1. Please follow up with your primary care physician and client service associate within five days after your discharge from the hospital. 2. Please hold your home dose of Carvedilol after discharge 3. Please use CPAP at bedtime 4. Please resume all your other home medications as prescribed by your primary care physician. 5. Please continue hemodialysis as per your outpatient dialysis schedule 6. Seek medical help immediately if you have difficulty breathing or if chest pain occurs Referrals: Ruby Cano CNP [Primary Care Provider] - 03/16/19 10:00 am (Please follow up as schedule...) Francisca Flores DO [Partnered Physician] - (Cardio wll call patient when they have date and time next week) <Randy Landeros - Last Filed: 03/09/19 15:01> Date of Encounter: 03/09/19 - Attending Attestation I have personally performed a face to face evaluation on this patient. I have reviewed and agree with the care plan. History and Exam by me shows: 64-year-old male presents to the [facility] after episodes of dizziness or lightheadedness. Patient was found to be any cardiac with sinus pauses exceeding 4 seconds overnight. Patient does have history of sleep apnea however refuses to wear his CPAP machine cardiac workup was ordered to her stratify the patient aggressively however patient declined all cardiac testing. Patient was on beta lela which has been stopped and presented with hyperkalemia which is resolving. Heart rate currently between 60-70 beats per minute. Patient clients any further workup for testing understanding patient has significant sinus positives which may be life-threatening. Assessment and Plan Discussion w patient/family: The assessment and plan as outlined above was discussed with the patient and/or family members who expressed understanding and agreement. All questions were answered. Thank you for involving us in the care of your patient. Please call with any questions. History of Present Illness History of present illness: Mr. Hernandez is a 64 year old male All Systems Review: The remainder of the systems were reviewed and are negative Physical Examination Vital Signs, Last 4 Hours Temp Pulse Resp BP Pulse Ox 03/09/19 11:10 98.5 F 63 16 135/76 93 Results 03/09/19 06:18 03/09/19 06:18 Lab Results 03/09/19 03/09/19 06:18 06:18 WBC 7.9 Hgb 12.4 L Hct 40.0 Plt Count 209 Sodium 135 L Potassium 5.4 H Chloride 99 Carbon Dioxide 22 L BUN 63 H Creatinine 6.03 H Glucose 273 H Calcium 9.6 Magnesium 2.1
[2019-03-09 11:12] VITALS: BP 135/76
--- NOTE | 2019-03-09 11:47 | Discharge Summary ---
- NOTES TO OUTPATIENT PROVIDER Notes to Outpatient Provider: Patient was admitted for symptomatic bradycardia. His home dose of carvedilol was discontinued. Pt refused further cardiac testing while inpatient. He is currently stable. Please closely monitor HR as outpatient and adjust medications as needed. Orders not resulted at time of discharge: Pending orders 03/07/19 10:55 ECG 12 lead ECG [ECG] Stat Date of Encounter: 03/09/19 Time of Encounter: 11:43 - Discharge Diagnosis (1) Symptomatic sinus bradycardia Priority: Primary Status: Resolved (2) ESRD (end stage renal disease) Priority: Secondary Status: Chronic (3) Diastolic CHF Priority: Secondary Status: Chronic Qualifiers: Heart failure chronicity: chronic Qualified Code(s): I50.32 - Chronic diastolic (congestive) heart failure (4) Hyperkalemia Priority: Secondary Status: Resolved (5) Diabetes Priority: Secondary Status: Chronic Qualifiers: Diabetes mellitus type: type 2 Diabetes mellitus terminal superintendent insulin use: with longterm use Diabetes mellitus complication status: with hyperglycemia Qualified Code(s): E11.65 - Type 2 diabetes mellitus with hyperglycemia; Z79.4 - senior care (current) use of insulin (6) Renovascular hypertension Priority: Secondary Status: Chronic Hospital course: Mr. Hernandez is a 64 year old male with PMH of ESRD on HD, CHF, HTN, DM type II, obesity who was admitted for symptomatic bradycardia and hyperkalemia. Pt underwent urgent HD and his home dose of BB was discontinued. Pt's hyperkalemia resolved after HD and pt was evaluated by cardiology. Pt's bradycardia resolved with holding of BB however patient refused any further cardiac workup as inpatient. He is seen and examined earlier today. Resting comfortably in bed and denies any discomfort. He is medically stable for discharge to home with outpatient follow up with PCP and cardiology. Pt is to continue HD as outpatient. Pt in agreement with the discharge care and plan, all questions were answered. BB discontinued on discharge. Discharge discussed with: patient, nurse, social work, case management - Time Spent with Patient Total time spent providing and/or coordinating discharge services: 35 minutes Time spent: Greater than 30 minutes - Discharge Medications Prescriptions: Continued DULoxetine [Cymbalta] 60 mg PO HS glipiZIDE [Glipizide] 10 mg PO DAILY NIFEdipine XL (24 HR) [Procardia XL] 60 mg PO BID Pravastatin Sodium [Pravachol] 40 mg PO HS HYDROcodone/Acet 5/325 mg [[place] 5-325 mg] 1 tab PO TID PRN PRN Reason: Pain Sevelamer [Renvela] 800 mg PO TIDWM Acetaminophen [Tylenol] 650 mg PO Q6HR PRN PRN Reason: Fever Albuterol Sulfate [Proair Hfa] 2 puff IH Q6H PRN PRN Reason: Shortness Of Breath Buspirone HCl [Buspar] 10 mg PO BID Calcium Carbonate/Vitamin D3 [Calcium 600 + Vit D Tablet] 1 tab PO DAILY Cyclobenzaprine HCl 5 mg PO BID Hydralazine HCl 100 mg PO TIDWM Insulin LISPRO [HumaLOG] 0 units SQ TIDWM PRN PRN Reason: sliding scale Multivitamin [One Daily] 1 tab PO DAILY Ondansetron HCl 4 mg PO BID PRN PRN Reason: Nausea Pantoprazole Sodium [Protonix] 40 mg PO DAILY Cholecalciferol (D-3) [Vitamin D] 1,000 unit PO DAILY Insulin Glargine,Hum.rec.anlog [Basaglar Kwikpen U-100] 30 unit SQ DAILY Discontinued Carvedilol [Coreg] 25 mg PO BID Home Medications: DULoxetine [Cymbalta] 60 mg PO HS 05/16/16 [History] glipiZIDE [Glipizide] 10 mg PO DAILY 05/16/16 [History] NIFEdipine XL (24 HR) [Procardia XL] 60 mg PO BID 08/07/17 [History] Pravastatin Sodium [Pravachol] 40 mg PO HS 12/03/17 [History] HYDROcodone/Acet 5/325 mg [[place] 5-325 mg] 1 tab PO TID PRN 09/26/18 [History] Sevelamer [Renvela] 800 mg PO TIDWM 09/26/18 [History] Acetaminophen [Tylenol] 650 mg PO Q6HR PRN 12/26/18 [History] Albuterol Sulfate [Proair Hfa] 2 puff IH Q6H PRN 12/26/18 [History] Buspirone HCl [Buspar] 10 mg PO BID 12/26/18 [History] Calcium Carbonate/Vitamin D3 [Calcium 600 + Vit D Tablet] 1 tab PO DAILY 12/26/18 [History] Cyclobenzaprine HCl 5 mg PO BID 12/26/18 [History] Hydralazine HCl 100 mg PO TIDWM 12/26/18 [History] Insulin LISPRO [HumaLOG] 0 units SQ TIDWM PRN 12/26/18 [History] Multivitamin [One Daily] 1 tab PO DAILY 12/26/18 [History] Ondansetron HCl 4 mg PO BID PRN 12/26/18 [History] Pantoprazole Sodium [Protonix] 40 mg PO DAILY 12/26/18 [History] Cholecalciferol (D-3) [Vitamin D] 1,000 unit PO DAILY 03/08/19 [History] Insulin Glargine,Hum.rec.anlog [Basaglar Kwikpen U-100] 30 unit SQ DAILY 03/08/19 [History] Allergies/Adverse Reactions: Allergy/AdvReac Type Severity Reaction Status Date / Time oxycodone Allergy Hives Verified 03/08/19 14:15 tetanus toxoid, adsorbed Allergy See Verified 03/08/19 14:15 Comments Onion AdvReac Severe Diarrhea Verified 03/08/19 14:15 gabapentin AdvReac Dizziness Verified 03/08/19 14:15 propoxyphene AdvReac Itching Verified 03/08/19 14:15 Date of admission: 03/07/19 14:42 Primary care physician: Ruby Cano CNP Consults: 03/07/19 12:50 Consult to Nephrology [CONS] Stat Consulting Provider: Kidney Argelia/EMILEE/NAHID/JANET Reason for Consult: ESRD, hyperkalemia, on dialysis Call Completed: Yes 03/07/19 13:36 Consult to Dialysis [CONS] Stat 03/08/19 08:28 Consult to Cardiology [CONS] Routine Comment: Consulting Provider: Cardiology Argelia Reason for Consult: symptomatic bradycardia Call Completed: No 03/09/19 09:13 Consult to Nurse Navigator [CONS] Routine Comment: hd Discharging clinician: Payton Cyr Anticipated date of discharge: 03/09/19 - Constitutional Vitals: Temp Pulse Resp BP Pulse Ox 98.5 F 63 16 135/76 93 03/09/19 11:10 03/09/19 11:10 03/09/19 11:10 03/09/19 11:10 03/09/19 11:10 Exam: General: No acute distress, AAO x 3, obese HEENT: EOMI, PERRLA, NC/AT, no scleral icterus Respiratory: Clear to auscultate bilaterally, no wheezing, no rales Cardiovascular: Regular Rhythm, normal rate, No murmurs GI: Soft, Non tender, non distended, normal bowel sounds Ext: No edema, no tenderness, positive pulses, no calf tenderness Neuro: AAO x 3, no focal deficits Rest of the clinical exam is noncontributory - Patient Status Disposition: Home, Self-Care - Discharge Instructions Follow Up With: Ruby Cano CNP [Primary Care Provider] - 03/16/19 10:00 am (Please follow up as schedule...) Francisca Flores DO [Partnered Physician] - (Cardio wll call patient when they have date and time next week) Forms: ED Satisfaction Letter Additional Instructions: 1. Please follow up with your primary care physician and [employer] systems administrator within five days after your discharge from the hospital. 2. Please hold your home dose of Carvedilol after discharge 3. Please use CPAP at bedtime 4. Please resume all your other home medications as prescribed by your primary care physician. 5. Please continue hemodialysis as per your outpatient dialysis schedule 6. Seek medical help immediately if you have difficulty breathing or if chest pain occurs - Diet and Activity Activity: increase activity as tolerated Diet: diabetic diet, low fat, low cholesterol, low salt diet
[2019-03-09] MEDS ORDERED: Cholecalciferol (D-3) 1,000 UNIT TABLET PO SCH (12:00)
--- NOTE | 2019-03-10 21:39 | Electrocardiograph Report ---
[facility] Date: 2019-03-07 Pat Name: Imtiaz Hernandez Department: [id number] Room: 2A35 Gender: M Director Camp: : [id number] Requested By: Sunni Gibbs Order Number: [id number] Reading MD: Silverio Smith Measurements Intervals [place] Rate: 36 P: 74 DC: 128 QRS: -33 QRSD: 114 T: 85 QT: 510 QTc: 395 Interpretive Statements Sinus bradycardia Abnormal R-wave progression, late transition LVH with secondary repolarization abnormality Anterior ST elevation, probably due to LVH Electronically Signed On 03-10-2019 21:37:54 EDT by Silverio Smith
== END 2019-03-09 14:27 | disposition home or self-care (01) ==
LOC: SUATTDRO → EMEROOARM 10:49 → 2ANU 10:49 → SUATTDRO 14:42 → 2ANU 15:01
PROVIDERS: ADMIT Internal Medicine; ATTEND Internal Medicine

== ENCOUNTER 2019-06-11 01:22 | Observation (INO) ==
[2019-06-11] MEDS ORDERED: Aspirin 81 MG TAB.CHEW PO ONE (01:34)
[2019-06-11] MEDS ORDERED: *HR* Labetalol 20 MG/4 ML SYRINGE IVP ONE (01:50)
[2019-06-11 01:57] LABS: Basophils % 0.5 %; Eosinophils # 0.3 K/mcL (0.0-0.6); Eosinophils % 3.8 %; Hematocrit 40.1 % (37.5-50.1); Hemoglobin 12.7 g/dL (12.9-16.9); Immature Granulocytes % 0.8 % (0-4); Lymphocytes # 0.8 K/mcL (0.6-4.6); Lymphocytes % 9.3 %; Mean Corpuscular HGB Conc 31.7 g/dL (31.6-35.5); Mean Corpuscular Hemoglobin 31.5 pg (28.0-33.3); Mean Corpuscular Volume 99.5 fL (83.0-100.0); Mean Platelet Volume 9.5 fL (9.4-12.4); Monocytes # 0.7 K/mcL (0.0-1.3); Monocytes % 7.9 %; Neutrophils # 6.4 K/mcL (1.6-8.9); Platelet Count 284 K/mcL (140-400); Red Blood Count 4.03 M/mcL (4.19-5.50); Red Cell Distribution Width 14.6 % (11.5-14.5); Segmented Neutrophils % 77.7 %; White Blood Count 8.2 K/mcL (4.3-11.1)
[2019-06-11 02:04] LABS: Prothrombin Time 10.9 Seconds (9.4-12.1)
[2019-06-11 02:20] LABS: Potassium 4.4 mEq/L (3.5-5.1); Troponin I 0.03 ng/mL (< 0.04)
[2019-06-11] MEDS ORDERED: Isovue-370 500 ML BOTTLE IVP ONE (02:30)
[2019-06-11] MEDS ORDERED: *HR* FentaNYL (PF) 100 MCG/2 ML VIAL IVP ONE (03:58)
[2019-06-11] MEDS: Nitroglycerin 0.4 MG TAB.SUBL SL SCH ×3 (04:11→13:10)
[2019-06-11] MEDS ORDERED: *HR* Dextrose 50 % in Water (Syg) 50 ML SYRINGE IVP PRN (05:18)
[2019-06-11] MEDS ORDERED: D5% in Water 1,000 ML IVC PRN (05:18)
[2019-06-11] MEDS ORDERED: Dextrose Gel 15 GM/37.5 ML TUBE PO PRN ×2 (05:18)
[2019-06-11] MEDS ORDERED: Naloxone 0.4 MG/ML INJ IVP PRN (05:18)
[2019-06-11] MEDS ORDERED: Regadenoson 0.4 MG/5 ML SYRINGE IVP ONE (06:27)
[2019-06-11] MEDS ORDERED: Ondansetron ODT 4 MG TAB.RAPDIS SL PRN (07:00)
[2019-06-11] MEDS ORDERED: 0.9 % Sodium Chloride 1,000 ML ONE (08:26)
[2019-06-11] MEDS ORDERED: Pantoprazole 40 MG VIAL IVP SCH (09:14)
[2019-06-11] MEDS ORDERED: GI Cocktail 40 ML EACH PO ONE (09:45)
[2019-06-11] MEDS ORDERED: 0.9 % Sodium Chloride 250 ML IVC PRN (09:52)
[2019-06-11] MEDS ORDERED: 0.9 % Sodium Chloride 1,000 ML PRIME SCH (10:00)
[2019-06-11] MEDS: Insulin LISPRO 300 UNITS/3 ML VIAL SQ SCH ×3 (13:01→16:44)
[2019-06-11] MEDS: NIFEdipine XL (24 HR) 60 MG TAB.ER.24 PO SCH ×2 (13:13→21:29)
[2019-06-11] MEDS ORDERED: *HR* HYDROcodone/Acet 5/325 mg TABLET PO PRN (15:45)
[2019-06-11 16:35] LABS: Hepatitis B Surface Antibody 3.47 mIU/mL
[2019-06-11 16:47] LABS: Hepatitis B Surface Antigen Nonreactive (Nonreactive)
[2019-06-12 05:41] LABS: Basophils # 0.1 K/mcL (0.0-0.2); Basophils % 0.8 %; Eosinophils # 0.3 K/mcL (0.0-0.6); Eosinophils % 3.3 %; Hematocrit 37.9 % (37.5-50.1); Hemoglobin 11.7 g/dL (12.9-16.9); Immature Granulocytes % 0.4 % (0-4); Lymphocytes # 0.9 K/mcL (0.6-4.6); Lymphocytes % 9.2 %; Mean Corpuscular HGB Conc 30.9 g/dL (31.6-35.5); Mean Corpuscular Volume 100.5 fL (83.0-100.0); Mean Platelet Volume 9.6 fL (9.4-12.4); Monocytes # 0.8 K/mcL (0.0-1.3); Monocytes % 8.5 %; Neutrophils # 7.5 K/mcL (1.6-8.9); Platelet Count 288 K/mcL (140-400); Red Blood Count 3.77 M/mcL (4.19-5.50); Red Cell Distribution Width 14.6 % (11.5-14.5); Segmented Neutrophils % 77.8 %; White Blood Count 9.6 K/mcL (4.3-11.1)
[2019-06-12 05:50] LABS: Prothrombin Time 11.6 Seconds (9.4-12.1)
[2019-06-12] MEDS ORDERED: *HR* Heparin 5,000 UNIT/ML VIAL SQ SCH (06:00)
[2019-06-12 06:01] LABS: Albumin 3.9 g/dL (3.5-5.7); Albumin/Globulin Ratio 1.3 (1.1-2.2); Bilirubin,Total 0.4 mg/dL (0.3-1.0); Calcium 9.7 mg/dL (8.6-10.3); Chol/HDL Ratio 5.8 (0-4.9); Globulin 3.1 g/dL (2.4-3.5); Magnesium 2.2 mg/dL (1.6-2.6); Phosphorous 5.5 mg/dL (2.7-4.5)
[2019-06-12 06:04] LABS: % Iron Saturation 24 % (20-55); Iron 52 mcg/dL (65-175); Transferrin 157 mg/dL (203-362)
[2019-06-12 06:16] LABS: Ferritin 276 ng/mL (20-250)
[2019-06-12 06:21] LABS: Folate 10.1 ng/mL (3.0-16.0)
[2019-06-12] MEDS: Insulin LISPRO 300 UNITS/3 ML VIAL SQ SCH ×2 (09:11→11:45)
[2019-06-12] MEDS: NIFEdipine XL (24 HR) 60 MG TAB.ER.24 PO SCH (09:12)
[2019-06-12 09:39] LABS: Estimated Average Glucose 186 mg/dl
[2019-06-12 11:15] VITALS: BP 127/62
== END 2019-06-12 14:11 | disposition home or self-care (01) ==
LOC: EMEROOARM 01:22 → 2ANU 01:22 → SUATTDRO 04:31 → 2ANU 04:54
PROVIDERS: ADMIT Internal Medicine; ATTEND Internal Medicine

== ENCOUNTER 2019-08-13 14:19 | Inpatient (IN) ==
[2019-08-13] MEDS ORDERED: Isovue-370 500 ML BOTTLE IVP ONE (14:40)
[2019-08-13] MEDS ORDERED: Aspirin 325 MG TABLET PO ONE (14:41)
[2019-08-13 15:25] LABS: Basophils # 0.1 K/mcL (0.0-0.2); Basophils % 0.5 %; Eosinophils # 0.3 K/mcL (0.0-0.6); Eosinophils % 2.5 %; Hemoglobin 9.1 g/dL (12.9-16.9); Immature Granulocytes % 0.7 % (0-4); Lymphocytes # 0.4 K/mcL (0.6-4.6); Lymphocytes % 3.6 %; Mean Corpuscular HGB Conc 32.5 g/dL (31.6-35.5); Mean Corpuscular Hemoglobin 31.9 pg (28.0-33.3); Mean Corpuscular Volume 98.2 fL (83.0-100.0); Mean Platelet Volume 9.9 fL (9.4-12.4); Monocytes # 0.7 K/mcL (0.0-1.3); Monocytes % 6.5 %; Neutrophils # 9.8 K/mcL (1.6-8.9); Platelet Count 237 K/mcL (140-400); Red Blood Count 2.85 M/mcL (4.19-5.50); Red Cell Distribution Width 14.7 % (11.5-14.5); Segmented Neutrophils % 86.2 %; White Blood Count 11.4 K/mcL (4.3-11.1)
[2019-08-13 15:47] LABS: Calcium 9.3 mg/dL (8.6-10.3); Potassium 4.2 mEq/L (3.5-5.1); Troponin I 0.05 ng/mL (< 0.04)
[2019-08-13] MEDS ORDERED: Naloxone 0.4 MG/ML INJ IVP PRN (18:17)
[2019-08-13] MEDS ORDERED: Ondansetron ODT 4 MG TAB.RAPDIS SL PRN (18:17)
[2019-08-13] MEDS ORDERED: Nitroglycerin 0.4 MG TAB.SUBL SL PRN (18:22)
[2019-08-13] MEDS ORDERED: Ipratropium/Albuterol Neb 3 ML IH PRN (18:30)
[2019-08-13] MEDS ORDERED: D5% in Water 1,000 ML IVC PRN (18:42)
[2019-08-13] MEDS ORDERED: *HR* Dextrose 50 % in Water (Syg) 50 ML SYRINGE IVP PRN (18:42)
[2019-08-13] MEDS ORDERED: Dextrose Gel 15 GM/37.5 ML TUBE PO PRN ×2 (18:42)
[2019-08-13 18:56] LABS: ABG Base Excess 3 mEq/L (-2 to 3); ABG HCO3 26 mEq/L (21-27); ABG Oxygen Saturation 85 % (95-98); ABG PCO2 34 mmHg (35-45); ABG PH 7.49 pH Units (7.32-7.45); ABG PO2 46 mmHg (85-104); ABG TCO2 27 mEq/L (20-26)
[2019-08-13] MEDS ORDERED: Azithromycin 500 MG in 0.9 % Sodium Chloride 250 ML IVPB SCH (19:00)
[2019-08-13] MEDS ORDERED: cefTRIAXone 1,000 MG in Water for inj. (sterile) 10 ML IVP SCH (19:00)
[2019-08-13 19:05] LABS: ABG Base Excess 3 mEq/L (-2 to 3); ABG HCO3 27 mEq/L (21-27); ABG Oxygen Saturation 91 % (95-98); ABG PCO2 36 mmHg (35-45); ABG PH 7.48 pH Units (7.32-7.45); ABG PO2 56 mmHg (85-104); ABG TCO2 28 mEq/L (20-26)
[2019-08-13] MEDS: Furosemide 40 MG/4 ML VIAL IVP SCH (20:05)
[2019-08-13] MEDS: *HR* HYDROcodone/Acet 5/325 mg TABLET PO PRN (21:17)
[2019-08-13] MEDS: Insulin LISPRO 300 UNITS/3 ML VIAL SQ SCH (21:17)
[2019-08-14] MEDS: *HR* HYDROcodone/Acet 5/325 mg TABLET PO PRN ×2 (01:49→09:07)
[2019-08-14 04:21] LABS: Hemoglobin 8.7 g/dL (12.9-16.9); Mean Corpuscular HGB Conc 32.2 g/dL (31.6-35.5); Mean Corpuscular Volume 99.3 fL (83.0-100.0); Mean Platelet Volume 9.8 fL (9.4-12.4); Platelet Count 223 K/mcL (140-400); Red Blood Count 2.72 M/mcL (4.19-5.50); Red Cell Distribution Width 14.8 % (11.5-14.5); White Blood Count 9.1 K/mcL (4.3-11.1)
[2019-08-14 04:42] LABS: Calcium 9.1 mg/dL (8.6-10.3); Potassium 5.4 mEq/L (3.5-5.1)
[2019-08-14] MEDS: *HR* Heparin 5,000 UNIT/ML VIAL SQ SCH ×2 (05:23→16:57)
[2019-08-14] MEDS: Insulin LISPRO 300 UNITS/3 ML VIAL SQ SCH ×4 (07:24→21:40)
[2019-08-14] MEDS: carvediloL 6.25 MG TABLET PO SCH ×2 (08:58→16:56)
[2019-08-14] MEDS: NIFEdipine XL (24 HR) 60 MG TAB.ER.24 PO SCH ×2 (08:59→21:49)
[2019-08-14] MEDS: Furosemide 40 MG/4 ML VIAL IVP SCH ×2 (08:59→16:57)
[2019-08-14] MEDS: Azithromycin 250 MG TABLET PO SCH (08:59)
[2019-08-14] MEDS: Aspirin 81 MG TAB.CHEW PO SCH (08:59)
[2019-08-14] MEDS: hydrALAZINE 25 MG TABLET PO SCH ×3 (08:59→16:56)
[2019-08-14] MEDS: cefTRIAXone 1,000 MG in 0.9 % Sodium Chloride Mini Bag 100 ML IVPB SCH (08:59)
[2019-08-14 10:36] LABS: Hepatitis B Surface Antigen Nonreactive (Nonreactive)
[2019-08-14 11:55] LABS: Hepatitis B Surface Antibody < 3.10 mIU/mL
[2019-08-15] MEDS: *HR* HYDROcodone/Acet 5/325 mg TABLET PO PRN ×2 (05:12→22:45)
[2019-08-15] MEDS: *HR* Heparin 5,000 UNIT/ML VIAL SQ SCH ×2 (05:12→18:45)
[2019-08-15 05:58] LABS: Hematocrit 27.9 % (37.5-50.1); Hemoglobin 8.6 g/dL (12.9-16.9); Mean Corpuscular HGB Conc 30.8 g/dL (31.6-35.5); Mean Corpuscular Hemoglobin 31.4 pg (28.0-33.3); Mean Corpuscular Volume 101.8 fL (83.0-100.0); Mean Platelet Volume 9.7 fL (9.4-12.4); Platelet Count 251 K/mcL (140-400); Red Blood Count 2.74 M/mcL (4.19-5.50); Red Cell Distribution Width 14.6 % (11.5-14.5); White Blood Count 9.2 K/mcL (4.3-11.1)
[2019-08-15 06:19] LABS: Calcium 9.7 mg/dL (8.6-10.3); Potassium 5.3 mEq/L (3.5-5.1)
[2019-08-15] MEDS ORDERED: *HR* Heparin 10,000 UNIT/10 ML VIAL IV PRN (08:13)
[2019-08-15] MEDS ORDERED: 0.9 % Sodium Chloride 250 ML IVC PRN (08:13)
[2019-08-15] MEDS ORDERED: 0.9 % Sodium Chloride 1,000 ML PRIME SCH (08:15)
[2019-08-15] MEDS: Insulin LISPRO 300 UNITS/3 ML VIAL SQ SCH ×4 (08:32→22:37)
[2019-08-15] MEDS: Furosemide 40 MG/4 ML VIAL IVP SCH ×2 (08:36→16:45)
[2019-08-15] MEDS: hydrALAZINE 25 MG TABLET PO SCH ×3 (08:36→16:45)
[2019-08-15] MEDS: carvediloL 6.25 MG TABLET PO SCH ×2 (08:36→16:45)
[2019-08-15] MEDS: NIFEdipine XL (24 HR) 60 MG TAB.ER.24 PO SCH ×2 (08:37→22:45)
[2019-08-15] MEDS: cefTRIAXone 1,000 MG in 0.9 % Sodium Chloride Mini Bag 100 ML IVPB SCH (08:37)
[2019-08-15] MEDS: Aspirin 81 MG TAB.CHEW PO SCH (08:37)
[2019-08-15] MEDS: Azithromycin 250 MG TABLET PO SCH (08:38)
[2019-08-15] MEDS ORDERED: NON-FORMULARY MEDICATION 1 EACH EACH (Duloxetine Hcl 60 MG) PO SCH (09:00)
[2019-08-15 20:14] LABS: Bilirubin,Urine Negative (Negative); Blood,Urine Trace (Negative); Clarity,Urine Cloudy (Clear); Color,Urine Yellow (Yellow); Glucose,Urine (UA) 250 mg/dL (Normal); Ketones,Urine Negative (Negative); Leukocyte Esterase,Urine Negative (Negative); Nitrite,Urine Negative (Negative); Protein,Urine >=1000 mg/dL (Neg-Trace); Specific Gravity,Urine 1.025 (1.010-1.025); Urobilinogen,Urine Normal (Normal)
[2019-08-15 20:16] LABS: Bacteria,Urine None Seen per hpf (None-Few); Hyaline Casts,Urine None Seen per lpf (None-Few); Squamous Epithelial Cell,Urine Many per lpf (None-Few)
[2019-08-16] MEDS: *HR* Heparin 5,000 UNIT/ML VIAL SQ SCH (06:11)
[2019-08-16 07:35] LABS: Hematocrit 26.6 % (37.5-50.1); Hemoglobin 8.3 g/dL (12.9-16.9); Mean Corpuscular HGB Conc 31.2 g/dL (31.6-35.5); Mean Corpuscular Hemoglobin 31.4 pg (28.0-33.3); Mean Corpuscular Volume 100.8 fL (83.0-100.0); Mean Platelet Volume 9.9 fL (9.4-12.4); Platelet Count 295 K/mcL (140-400); Red Blood Count 2.64 M/mcL (4.19-5.50); Red Cell Distribution Width 14.3 % (11.5-14.5); White Blood Count 8.7 K/mcL (4.3-11.1)
[2019-08-16 08:54] LABS: Calcium 9.2 mg/dL (8.6-10.3); Potassium 4.5 mEq/L (3.5-5.1)
[2019-08-16] MEDS ORDERED: NON-FORMULARY MEDICATION 1 EACH EACH (Pravastatin Sodium [Pravachol] 40 MG) PO SCH (09:00)
[2019-08-16] MEDS: Furosemide 40 MG/4 ML VIAL IVP SCH (10:48)
[2019-08-16] MEDS: hydrALAZINE 25 MG TABLET PO SCH ×2 (10:48→12:48)
[2019-08-16] MEDS: NIFEdipine XL (24 HR) 60 MG TAB.ER.24 PO SCH (10:48)
[2019-08-16] MEDS: Azithromycin 250 MG TABLET PO SCH (10:48)
[2019-08-16] MEDS: Aspirin 81 MG TAB.CHEW PO SCH (10:48)
[2019-08-16] MEDS: carvediloL 6.25 MG TABLET PO SCH (10:49)
[2019-08-16] MEDS: cefTRIAXone 1,000 MG in 0.9 % Sodium Chloride Mini Bag 100 ML IVPB SCH (10:49)
[2019-08-16] MEDS: Insulin LISPRO 300 UNITS/3 ML VIAL SQ SCH ×2 (10:50→12:51)
[2019-08-16 11:31] VITALS: BP 166/76
[2019-08-16] MEDS ORDERED: Furosemide 40 MG TABLET PO SCH (17:00)
== END 2019-08-16 13:40 | disposition home or self-care (01) | DRG 280 ==
LOC: 2ANU 14:19 → EMEROOARM 14:19 → SUATTDRO 18:13 → 2ANU 18:33
PROVIDERS: ADMIT Family Medicine; ATTEND Family Medicine

== ENCOUNTER 2019-09-14 10:20 | Observation (INO) ==
[2019-09-14 10:52] LABS: Basophils % 0.3 %; Eosinophils # 0.5 K/mcL (0.0-0.6); Eosinophils % 3.9 %; Hematocrit 27.9 % (37.5-50.1); Hemoglobin 8.7 g/dL (12.9-16.9); Immature Granulocytes % 0.3 % (0-4); Lymphocytes # 0.7 K/mcL (0.6-4.6); Lymphocytes % 5.9 %; Mean Corpuscular HGB Conc 31.2 g/dL (31.6-35.5); Mean Corpuscular Hemoglobin 31.8 pg (28.0-33.3); Mean Corpuscular Volume 101.8 fL (83.0-100.0); Mean Platelet Volume 9.6 fL (9.4-12.4); Monocytes # 0.8 K/mcL (0.0-1.3); Monocytes % 7.1 %; Neutrophils # 9.4 K/mcL (1.6-8.9); Platelet Count 239 K/mcL (140-400); Red Blood Count 2.74 M/mcL (4.19-5.50); Red Cell Distribution Width 15.9 % (11.5-14.5); Segmented Neutrophils % 82.5 %; White Blood Count 11.4 K/mcL (4.3-11.1)
[2019-09-14 10:57] LABS: Prothrombin Time 11.3 Seconds (9.4-12.1)
[2019-09-14 11:00] LABS: Activated Partial Thrombo Time 34.9 Seconds (26.0-36.0)
[2019-09-14] MEDS ORDERED: levoFLOXacin 750 MG/150 ML 750 MG/150 ML BAG IVPB ONE (11:25)
[2019-09-14] MEDS ORDERED: Cefepime HCl 2,000 MG in Water for inj. (sterile) 20 ML IVP ONE (11:25)
[2019-09-14 12:21] LABS: Calcium 9.2 mg/dL (8.6-10.3); Potassium 5.1 mEq/L (3.5-5.1); Troponin I 0.03 ng/mL (< 0.04)
[2019-09-14] MEDS ORDERED: Naloxone 0.4 MG/ML INJ IVP PRN (12:27)
[2019-09-14] MEDS ORDERED: *HR* HYDROcodone/Acet 5/325 mg TABLET PO PRN (12:29)
[2019-09-14] MEDS ORDERED: *HR* Dextrose 50 % in Water (Syg) 50 ML SYRINGE IVP PRN (12:32)
[2019-09-14] MEDS ORDERED: Dextrose Gel 15 GM/37.5 ML TUBE PO PRN ×2 (12:32)
[2019-09-14] MEDS ORDERED: D5% in Water 1,000 ML IVC PRN (12:32)
[2019-09-14] MEDS ORDERED: Ipratropium/Albuterol Neb 3 ML IH PRN (12:50)
[2019-09-14] MEDS ORDERED: 0.9 % Sodium Chloride 250 ML IVC PRN (14:42)
[2019-09-14] MEDS: Furosemide 40 MG/4 ML VIAL IVP SCH ×2 (14:44→17:48)
[2019-09-14] MEDS ORDERED: 0.9 % Sodium Chloride 1,000 ML PRIME SCH (14:45)
[2019-09-14] MEDS: Budesonide/Formoterol 160/4.5 1 PUFF INH IH SCH ×2 (15:19→20:36)
[2019-09-14] MEDS: hydrALAZINE 25 MG TABLET PO SCH ×2 (15:32→20:56)
[2019-09-14 16:06] LABS: Hepatitis B Surface Antibody < 3.10 mIU/mL
[2019-09-14 16:18] LABS: Hepatitis B Surface Antigen Nonreactive (Nonreactive)
[2019-09-14] MEDS: carvediloL 6.25 MG TABLET PO SCH (16:31)
[2019-09-14] MEDS ORDERED: hydrALAZINE 25 MG TABLET PO SCH (17:00)
[2019-09-14] MEDS: Insulin LISPRO 300 UNITS/3 ML VIAL SQ SCH (17:34)
[2019-09-14] MEDS: *HR* Heparin 5,000 UNIT/ML VIAL SQ SCH (17:48)
[2019-09-14] MEDS: NIFEdipine XL (24 HR) 60 MG TAB.ER.24 PO SCH (20:56)
[2019-09-14] MEDS: Insulin DETEMIR 100 UNIT/ML X5UNITS SQ SCH (20:56)
[2019-09-14] MEDS ORDERED: Insulin LISPRO 300 UNITS/3 ML VIAL SQ SCH (21:00)
[2019-09-14] MEDS ORDERED: *HR* Promethazine 25 MG/ML VIAL IVP ONE (22:33)
[2019-09-15 02:42] LABS: Basophils % 0.4 %; Eosinophils # 0.5 K/mcL (0.0-0.6); Hematocrit 25.5 % (37.5-50.1); Hemoglobin 7.9 g/dL (12.9-16.9); Immature Granulocytes % 0.3 % (0-4); Lymphocytes # 0.9 K/mcL (0.6-4.6); Lymphocytes % 11.3 %; Mean Corpuscular Volume 103.2 fL (83.0-100.0); Mean Platelet Volume 9.7 fL (9.4-12.4); Monocytes # 0.5 K/mcL (0.0-1.3); Neutrophils # 5.8 K/mcL (1.6-8.9); Platelet Count 198 K/mcL (140-400); Red Blood Count 2.47 M/mcL (4.19-5.50); Red Cell Distribution Width 15.6 % (11.5-14.5); White Blood Count 7.7 K/mcL (4.3-11.1)
[2019-09-15 03:03] LABS: Calcium 9.3 mg/dL (8.6-10.3); Phosphorous 4.1 mg/dL (2.7-4.5); Potassium 4.2 mEq/L (3.5-5.1)
[2019-09-15] MEDS: *HR* Heparin 5,000 UNIT/ML VIAL SQ SCH (05:48)
[2019-09-15] MEDS: Budesonide/Formoterol 160/4.5 1 PUFF INH IH SCH (07:12)
[2019-09-15] MEDS ORDERED: 0.9 % Sodium Chloride 250 ML IVC PRN (08:01)
[2019-09-15] MEDS: Furosemide 40 MG/4 ML VIAL IVP SCH (08:20)
[2019-09-15] MEDS: Insulin LISPRO 300 UNITS/3 ML VIAL SQ SCH ×3 (08:20→13:33)
[2019-09-15] MEDS: NIFEdipine XL (24 HR) 60 MG TAB.ER.24 PO SCH (08:21)
[2019-09-15] MEDS: hydrALAZINE 25 MG TABLET PO SCH ×2 (08:21→15:43)
[2019-09-15] MEDS: carvediloL 6.25 MG TABLET PO SCH (08:21)
[2019-09-15] MEDS: Insulin DETEMIR 100 UNIT/ML X5UNITS SQ SCH (08:21)
[2019-09-15] MEDS ORDERED: Azithromycin 500 MG in 0.9 % Sodium Chloride 250 ML IVPB SCH (09:00)
[2019-09-15] MEDS ORDERED: Azithromycin 250 MG TABLET PO SCH (09:00)
[2019-09-15] MEDS ORDERED: cefTRIAXone 1,000 MG in Water for inj. (sterile) 10 ML IVP SCH (09:00)
[2019-09-15] MEDS ORDERED: Renal Vitamin 1 CAP CAPSULE PO SCH (09:00)
[2019-09-15] MEDS ORDERED: cefTRIAXone 1,000 MG in 0.9 % Sodium Chloride Mini Bag 100 ML IVPB SCH (09:00)
[2019-09-15 09:16] LABS: Estimated Average Glucose 137 mg/dl
[2019-09-15 15:13] VITALS: BP 187/83
== END 2019-09-15 16:58 | disposition home or self-care (01) ==
LOC: 2ANU 10:20 → EMEROOARM 10:20 → SUATTDRO 13:37 → 2ANU 14:33
PROVIDERS: ADMIT Student in an Organized Health Care Education/Training Program; ATTEND Family Medicine

== ENCOUNTER 2019-11-04 12:11 | Observation (INO) ==
[2019-11-04] MEDS ORDERED: Ipratropium/Albuterol Neb 3 ML IH ONE (12:25)
[2019-11-04] MEDS ORDERED: methylPREDNISolone 125 MG/2 ML VIAL IVP ONE (12:25)
[2019-11-04] MEDS ORDERED: Furosemide 40 MG/4 ML VIAL IVP ONE (12:39)
[2019-11-04 12:50] LABS: INR 1.1; Prothrombin Time 12.4 Seconds (9.4-12.1)
[2019-11-04 12:52] LABS: Activated Partial Thrombo Time 37.8 Seconds (26.0-36.0)
[2019-11-04 13:00] LABS: Basophils # 0.1 K/mcL (0.0-0.2); Basophils % 0.5 %; Eosinophils # 0.2 K/mcL (0.0-0.6); Eosinophils % 2.2 %; Hematocrit 32.1 % (37.5-50.1); Hemoglobin 9.7 g/dL (12.9-16.9); Immature Granulocytes % 0.6 % (0-4); Lymphocytes # 0.8 K/mcL (0.6-4.6); Lymphocytes % 7.7 %; Mean Corpuscular HGB Conc 30.2 g/dL (31.6-35.5); Mean Corpuscular Hemoglobin 31.8 pg (28.0-33.3); Mean Corpuscular Volume 105.2 fL (83.0-100.0); Mean Platelet Volume 9.8 fL (9.4-12.4); Monocytes # 0.9 K/mcL (0.0-1.3); Monocytes % 8.5 %; Neutrophils # 8.6 K/mcL (1.6-8.9); Platelet Count 250 K/mcL (140-400); Red Blood Count 3.05 M/mcL (4.19-5.50); Red Cell Distribution Width 15.6 % (11.5-14.5); Segmented Neutrophils % 80.5 %; White Blood Count 10.7 K/mcL (4.3-11.1)
[2019-11-04 13:06] LABS: Potassium 5.5 mEq/L (3.5-5.1)
[2019-11-04 13:16] LABS: Troponin I 0.05 ng/mL (< 0.04)
[2019-11-04] MEDS ORDERED: Azithromycin 500 MG in 0.9 % Sodium Chloride 250 ML IVPB ONE (13:26)
[2019-11-04] MEDS ORDERED: Piperacillin/Tazobactam 3.375 GM in Water for inj. (sterile) 20 ML IVP ONE (13:27)
[2019-11-04] MEDS ORDERED: Aminoglycoside Consult 1 EACH MC ONE (13:55)
[2019-11-04] MEDS ORDERED: Ondansetron 4 MG/2 ML VIAL IVP PRN (14:18)
[2019-11-04] MEDS ORDERED: Naloxone 0.4 MG/ML INJ IVP PRN (14:18)
[2019-11-04] MEDS ORDERED: 0.9 % Sodium Chloride 250 ML IVC PRN (14:29)
[2019-11-04] MEDS ORDERED: 0.9 % Sodium Chloride 1,000 ML PRIME SCH (14:30)
[2019-11-04] MEDS ORDERED: D5% in Water 1,000 ML IVC PRN (14:48)
[2019-11-04] MEDS ORDERED: *HR* Dextrose 50 % in Water (Syg) 50 ML SYRINGE IVP PRN (14:48)
[2019-11-04] MEDS ORDERED: Dextrose Gel 15 GM/37.5 ML TUBE PO PRN ×2 (14:48)
[2019-11-04 15:43] LABS: Hepatitis B Surface Antibody 3.61 mIU/mL
[2019-11-04 15:55] LABS: Hepatitis B Surface Antigen Nonreactive (Nonreactive)
[2019-11-04] MEDS: Ipratropium/Albuterol Neb 3 ML IH SCH ×2 (16:03→21:35)
[2019-11-04] MEDS: Insulin LISPRO 300 UNITS/3 ML VIAL SQ SCH ×2 (18:03→20:54)
[2019-11-05] MEDS: Piperacillin/Tazobactam 3.375 GM in 0.9 % Sodium Chloride Mini Bag 100 ML IVPB SCH ×2 (01:37→13:20)
[2019-11-05] MEDS: Ipratropium/Albuterol Neb 3 ML IH SCH ×4 (04:26→21:39)
[2019-11-05] MEDS ORDERED: *HR* HYDROcodone/Acet 5/325 mg TABLET PO ONE (05:03)
[2019-11-05 05:37] LABS: Calcium 9.3 mg/dL (8.6-10.3); Potassium 6.3 mEq/L (3.5-5.1)
[2019-11-05 06:32] LABS: Basophils % 0.2 %; Hematocrit 28.8 % (37.5-50.1); Hemoglobin 8.9 g/dL (12.9-16.9); Immature Granulocytes % 0.5 % (0-4); Lymphocytes # 0.3 K/mcL (0.6-4.6); Lymphocytes % 4.6 %; Mean Corpuscular HGB Conc 30.9 g/dL (31.6-35.5); Mean Corpuscular Hemoglobin 31.8 pg (28.0-33.3); Mean Corpuscular Volume 102.9 fL (83.0-100.0); Mean Platelet Volume 9.8 fL (9.4-12.4); Monocytes # 0.5 K/mcL (0.0-1.3); Monocytes % 7.7 %; Neutrophils # 5.7 K/mcL (1.6-8.9); Platelet Count 208 K/mcL (140-400); Red Cell Distribution Width 15.4 % (11.5-14.5); White Blood Count 6.5 K/mcL (4.3-11.1)
[2019-11-05] MEDS ORDERED: 0.9 % Sodium Chloride 250 ML IVC PRN (07:50)
[2019-11-05] MEDS: Insulin LISPRO 300 UNITS/3 ML VIAL SQ SCH ×4 (08:04→21:04)
[2019-11-05] MEDS: hydrALAZINE 25 MG TABLET PO SCH ×2 (13:20→21:03)
[2019-11-05] MEDS: *HR* HYDROcodone/Acet 5/325 mg TABLET PO PRN (16:21)
[2019-11-05] MEDS: Cholecalciferol (D-3) 1,000 UNIT (25MCG) TABLET PO SCH (21:03)
[2019-11-05] MEDS: Insulin DETEMIR 100 UNIT/ML X5UNITS SQ SCH (21:03)
[2019-11-05] MEDS: NIFEdipine XL (24 HR) 60 MG TAB.ER.24 PO SCH (21:03)
[2019-11-05] MEDS ORDERED: Acetaminophen 325 MG TABLET PO ONE (21:10)
[2019-11-06] MEDS: Piperacillin/Tazobactam 3.375 GM in 0.9 % Sodium Chloride Mini Bag 100 ML IVPB SCH (02:13)
[2019-11-06] MEDS: Levalbuterol Neb 1.25 MG/3 ML IH SCH ×4 (04:07→15:38)
[2019-11-06] MEDS ORDERED: 0.9 % Sodium Chloride 250 ML IVC PRN (06:51)
[2019-11-06] MEDS: Insulin LISPRO 300 UNITS/3 ML VIAL SQ SCH ×2 (07:45→14:41)
[2019-11-06] MEDS: Cholecalciferol (D-3) 1,000 UNIT (25MCG) TABLET PO SCH (07:49)
[2019-11-06] MEDS: hydrALAZINE 25 MG TABLET PO SCH ×2 (07:50→14:38)
[2019-11-06] MEDS: Insulin DETEMIR 100 UNIT/ML X5UNITS SQ SCH (07:50)
[2019-11-06] MEDS ORDERED: Multivit/Ca/Min/Fe/FA 1 TAB TABLET PO SCH (09:00)
[2019-11-06] MEDS ORDERED: Renal Vitamin 1 CAP CAPSULE PO SCH (09:00)
[2019-11-06 09:29] LABS: Basophils % 0.6 %; Eosinophils # 0.2 K/mcL (0.0-0.6); Eosinophils % 3.7 %; Hematocrit 31.6 % (37.5-50.1); Hemoglobin 9.6 g/dL (12.9-16.9); Immature Granulocytes % 0.5 % (0-4); Lymphocytes % 14.9 %; Mean Corpuscular HGB Conc 30.4 g/dL (31.6-35.5); Mean Corpuscular Hemoglobin 31.2 pg (28.0-33.3); Mean Corpuscular Volume 102.6 fL (83.0-100.0); Mean Platelet Volume 9.6 fL (9.4-12.4); Monocytes # 0.4 K/mcL (0.0-1.3); Monocytes % 6.1 %; Neutrophils # 4.9 K/mcL (1.6-8.9); Platelet Count 254 K/mcL (140-400); Red Blood Count 3.08 M/mcL (4.19-5.50); Red Cell Distribution Width 15.1 % (11.5-14.5); Segmented Neutrophils % 74.2 %; White Blood Count 6.6 K/mcL (4.3-11.1)
[2019-11-06 09:48] LABS: Calcium 9.3 mg/dL (8.6-10.3); Potassium 4.2 mEq/L (3.5-5.1)
[2019-11-06 13:36] VITALS: BP 130/65
[2019-11-06] MEDS ORDERED: Amoxicillin/Clavulanate 500 MG TABLET PO SCH (14:00)
[2019-11-06] MEDS: *HR* HYDROcodone/Acet 5/325 mg TABLET PO PRN (14:39)
[2019-11-06] MEDS: NIFEdipine XL (24 HR) 60 MG TAB.ER.24 PO SCH (14:51)
== END 2019-11-06 15:58 | disposition home or self-care (01) ==
LOC: 2ANU 12:11 → EMEROOARM 12:11 → SUATTDRO 13:54 → 2ANU 15:33
PROVIDERS: ADMIT Internal Medicine; ATTEND Family Medicine

== ENCOUNTER 2019-11-19 15:29 | Inpatient (IN) ==
[2019-11-19 16:19] LABS: Basophils # 0.1 K/mcL (0.0-0.2); Basophils % 0.4 %; Eosinophils # 0.3 K/mcL (0.0-0.6); Eosinophils % 2.2 %; Hematocrit 34.2 % (37.5-50.1); Hemoglobin 10.7 g/dL (12.9-16.9); Immature Granulocytes % 1.7 % (0-4); Lymphocytes # 0.9 K/mcL (0.6-4.6); Lymphocytes % 7.2 %; Mean Corpuscular HGB Conc 31.3 g/dL (31.6-35.5); Mean Corpuscular Hemoglobin 31.4 pg (28.0-33.3); Mean Corpuscular Volume 100.3 fL (83.0-100.0); Mean Platelet Volume 9.6 fL (9.4-12.4); Monocytes # 0.9 K/mcL (0.0-1.3); Monocytes % 7.2 %; Neutrophils # 9.9 K/mcL (1.6-8.9); Platelet Count 340 K/mcL (140-400); Red Blood Count 3.41 M/mcL (4.19-5.50); Red Cell Distribution Width 14.6 % (11.5-14.5); Segmented Neutrophils % 81.3 %; White Blood Count 12.1 K/mcL (4.3-11.1)
[2019-11-19 16:36] LABS: Albumin 3.6 g/dL (3.5-5.7); Bilirubin,Total 0.3 mg/dL (0.3-1.0); Calcium 9.4 mg/dL (8.6-10.3); Globulin 3.7 g/dL (2.4-3.5); Potassium 3.5 mEq/L (3.5-5.1); Total Protein 7.3 g/dL (6.4-8.9); Troponin I 0.06 ng/mL (< 0.04)
[2019-11-19] MEDS ORDERED: 0.9 % Sodium Chloride 500 ML IVC STA (16:57)
[2019-11-19] MEDS ORDERED: Isovue-370 500 ML BOTTLE IVP ONE (17:47)
[2019-11-19] MEDS ORDERED: Acetaminophen 325 MG TABLET PO PRN (20:49)
[2019-11-19] MEDS ORDERED: Ondansetron 4 MG/2 ML VIAL IVP PRN (20:49)
[2019-11-19] MEDS ORDERED: Naloxone 0.4 MG/ML INJ IVP PRN (20:49)
[2019-11-19] MEDS ORDERED: (Patiromer Calcium Sorbitex [Veltassa] 8.4 GM) PO SCH (22:15)
[2019-11-19] MEDS ORDERED: Dextrose Gel 15 GM/37.5 ML TUBE PO PRN ×2 (22:36)
[2019-11-19] MEDS ORDERED: D5% in Water 1,000 ML IVC PRN (22:36)
[2019-11-19] MEDS ORDERED: *HR* Dextrose 50 % in Water (Syg) 50 ML SYRINGE IVP PRN (22:36)
[2019-11-19] MEDS: Insulin LISPRO 300 UNITS/3 ML VIAL SQ SCH (23:03)
[2019-11-19] MEDS: hydrALAZINE 25 MG TABLET PO SCH (23:27)
[2019-11-19] MEDS: NIFEdipine XL (24 HR) 60 MG TAB.ER.24 PO SCH (23:27)
[2019-11-19] MEDS: Insulin DETEMIR 100 UNIT/ML X5UNITS SQ SCH (23:29)
[2019-11-19] MEDS: *HR* Heparin 5,000 UNIT/ML VIAL SQ SCH (23:30)
[2019-11-20 01:36] LABS: INR 1.1
[2019-11-20 01:40] LABS: Basophils % 0.4 %; Eosinophils # 0.3 K/mcL (0.0-0.6); Eosinophils % 2.6 %; Hematocrit 30.7 % (37.5-50.1); Hemoglobin 9.4 g/dL (12.9-16.9); Immature Granulocytes % 1.1 % (0-4); Lymphocytes % 10.9 %; Mean Corpuscular HGB Conc 30.6 g/dL (31.6-35.5); Mean Corpuscular Volume 101.3 fL (83.0-100.0); Mean Platelet Volume 9.8 fL (9.4-12.4); Monocytes # 0.6 K/mcL (0.0-1.3); Monocytes % 6.7 %; Neutrophils # 7.4 K/mcL (1.6-8.9); Platelet Count 288 K/mcL (140-400); Red Blood Count 3.03 M/mcL (4.19-5.50); Red Cell Distribution Width 14.7 % (11.5-14.5); Segmented Neutrophils % 78.3 %; White Blood Count 9.4 K/mcL (4.3-11.1)
[2019-11-20 01:58] LABS: Phosphorous 4.5 mg/dL (2.7-4.5); Potassium 4.2 mEq/L (3.5-5.1)
[2019-11-20] MEDS: *HR* Metoprolol 5 MG/5 ML VIAL IVP PRN ×2 (03:43→14:32)
[2019-11-20] MEDS: *HR* Heparin 5,000 UNIT/ML VIAL SQ SCH ×3 (05:58→21:02)
[2019-11-20] MEDS: Insulin LISPRO 300 UNITS/3 ML VIAL SQ SCH ×6 (07:52→20:57)
[2019-11-20] MEDS: NIFEdipine XL (24 HR) 60 MG TAB.ER.24 PO SCH ×2 (07:53→20:56)
[2019-11-20] MEDS: Cholecalciferol (D-3) 1,000 UNIT (25MCG) TABLET PO SCH ×2 (07:53→20:57)
[2019-11-20] MEDS: hydrALAZINE 25 MG TABLET PO SCH ×3 (07:53→21:19)
[2019-11-20] MEDS: Furosemide 40 MG TABLET PO SCH ×2 (07:53→20:57)
[2019-11-20] MEDS: Insulin DETEMIR 100 UNIT/ML X5UNITS SQ SCH ×2 (08:01→20:57)
[2019-11-20] MEDS ORDERED: Perflutren Lipid Microsphere 1.3 ML in 0.9 % Sodium Chloride 8.7 ML IVP ONE (08:33)
[2019-11-20] MEDS: Aspirin Enteric Coated 81 MG Tablet PO SCH (12:49)
[2019-11-20] MEDS ORDERED: DilTIAZem 50 MG in 0.9 % Sodium Chloride 40 ML IVC SCH ×2 (17:30→18:09)
[2019-11-20] MEDS: DilTIAZem 50 MG in 0.9 % Sodium Chloride 40 ML IVC SCH (18:18)
[2019-11-21] MEDS: DilTIAZem 50 MG in 0.9 % Sodium Chloride 40 ML IVC SCH ×2 (00:01→13:06)
[2019-11-21 02:37] LABS: Basophils # 0.1 K/mcL (0.0-0.2); Basophils % 0.6 %; Eosinophils # 0.4 K/mcL (0.0-0.6); Eosinophils % 3.8 %; Hematocrit 29.7 % (37.5-50.1); Hemoglobin 9.2 g/dL (12.9-16.9); Immature Granulocytes % 1.2 % (0-4); Lymphocytes # 1.3 K/mcL (0.6-4.6); Lymphocytes % 14.1 %; Mean Corpuscular Hemoglobin 31.4 pg (28.0-33.3); Mean Corpuscular Volume 101.4 fL (83.0-100.0); Mean Platelet Volume 9.8 fL (9.4-12.4); Monocytes # 0.7 K/mcL (0.0-1.3); Monocytes % 7.7 %; Neutrophils # 6.8 K/mcL (1.6-8.9); Platelet Count 310 K/mcL (140-400); Red Blood Count 2.93 M/mcL (4.19-5.50); Red Cell Distribution Width 14.9 % (11.5-14.5); Segmented Neutrophils % 72.6 %; White Blood Count 9.3 K/mcL (4.3-11.1)
[2019-11-21 02:58] LABS: Albumin 3.3 g/dL (3.5-5.7); Calcium 9.1 mg/dL (8.6-10.3); Magnesium 2.1 mg/dL (1.6-2.6); Phosphorous 5.5 mg/dL (2.7-4.5); Potassium 4.6 mEq/L (3.5-5.1)
[2019-11-21] MEDS: *HR* Heparin 5,000 UNIT/ML VIAL SQ SCH ×3 (05:15→20:37)
[2019-11-21] MEDS ORDERED: 0.9 % Sodium Chloride 250 ML IVC PRN (07:14)
[2019-11-21] MEDS ORDERED: 0.9 % Sodium Chloride 1,000 ML PRIME SCH (07:15)
[2019-11-21] MEDS: NIFEdipine XL (24 HR) 60 MG TAB.ER.24 PO SCH ×2 (09:03→20:37)
[2019-11-21] MEDS: Cholecalciferol (D-3) 1,000 UNIT (25MCG) TABLET PO SCH ×2 (09:04→20:37)
[2019-11-21] MEDS: Furosemide 40 MG TABLET PO SCH ×2 (09:04→20:37)
[2019-11-21] MEDS: Aspirin Enteric Coated 81 MG Tablet PO SCH (09:04)
[2019-11-21] MEDS: Insulin LISPRO 300 UNITS/3 ML VIAL SQ SCH ×4 (09:04→20:31)
[2019-11-21] MEDS: Insulin DETEMIR 100 UNIT/ML X5UNITS SQ SCH ×2 (09:15→20:38)
[2019-11-21] MEDS: *HR* HYDROcodone/Acet 5/325 mg TABLET PO PRN ×2 (09:15→22:21)
[2019-11-21] MEDS ORDERED: Metoprolol XL (24 HR) Succ 50 MG TAB.ER.24H PO SCH ×2 (12:45→21:00)
[2019-11-21] MEDS ORDERED: Amiodarone Premix 150 MG/100 ML BAG IVPB ONE (20:43)
[2019-11-21] MEDS ORDERED: Amiodarone Premix 360 MG/200 ML BAG IVC ONE (20:43)
[2019-11-21] MEDS ORDERED: Amiodarone Premix 360 MG/200 ML BAG IVC SCH (20:45)
[2019-11-21] MEDS: *HR* Rivaroxaban 10 MG TABLET PO SCH (22:22)
[2019-11-22 02:56] LABS: Calcium 9.4 mg/dL (8.6-10.3); Potassium 5.4 mEq/L (3.5-5.1)
[2019-11-22] MEDS: Cholecalciferol (D-3) 1,000 UNIT (25MCG) TABLET PO SCH ×2 (08:10→20:50)
[2019-11-22] MEDS: Aspirin Enteric Coated 81 MG Tablet PO SCH (08:10)
[2019-11-22] MEDS: Insulin LISPRO 300 UNITS/3 ML VIAL SQ SCH ×4 (08:11→20:51)
[2019-11-22] MEDS: Furosemide 40 MG TABLET PO SCH ×2 (08:11→20:51)
[2019-11-22] MEDS: Metoprolol XL (24 HR) Succ 50 MG TAB.ER.24H PO SCH ×2 (08:51→08:54)
[2019-11-22] MEDS: Insulin DETEMIR 100 UNIT/ML X5UNITS SQ SCH ×2 (08:58→20:51)
[2019-11-22] MEDS: *HR* Rivaroxaban 10 MG TABLET PO SCH (17:25)
[2019-11-22] MEDS: Apixaban 5 MG TABLET PO SCH (20:50)
[2019-11-22] MEDS: *HR* HYDROcodone/Acet 5/325 mg TABLET PO PRN (20:50)
[2019-11-22] MEDS ORDERED: DilTIAZem CD (24hr) 120 MG CAP.ER.24H PO SCH (21:00)
[2019-11-23 07:33] VITALS: BP 153/90
[2019-11-23] MEDS ORDERED: Metoprolol XL (24 HR) Succ 50 MG TAB.ER.24H PO SCH ×2 (08:23→09:00)
[2019-11-23] MEDS ORDERED: DilTIAZem CD (24hr) 120 MG CAP.ER.24H PO SCH ×2 (08:30→09:00)
[2019-11-23] MEDS: Insulin LISPRO 300 UNITS/3 ML VIAL SQ SCH (09:08)
[2019-11-23] MEDS: Insulin DETEMIR 100 UNIT/ML X5UNITS SQ SCH (09:10)
[2019-11-23] MEDS: Furosemide 40 MG TABLET PO SCH (09:58)
[2019-11-23] MEDS: Aspirin Enteric Coated 81 MG Tablet PO SCH (09:59)
[2019-11-23] MEDS: Cholecalciferol (D-3) 1,000 UNIT (25MCG) TABLET PO SCH (09:59)
[2019-11-23] MEDS: Apixaban 5 MG TABLET PO SCH (09:59)
== END 2019-11-23 11:10 | disposition home or self-care (01) | DRG 312 ==
LOC: 2ANU 15:29 → EMEROOARM 15:29 → 2ANU 20:50 → 2NENU 11-21 22:24
PROVIDERS: ADMIT Student in an Organized Health Care Education/Training Program; ATTEND Internal Medicine

== ENCOUNTER 2019-11-25 04:47 | Inpatient (IN) ==
[2019-11-25] MEDS ORDERED: Isovue-370 500 ML BOTTLE IVP ONE (05:06)
[2019-11-25 05:34] LABS: INR 1.1
[2019-11-25 05:36] LABS: Activated Partial Thrombo Time 35.2 Seconds (26.0-36.0)
[2019-11-25 05:51] LABS: Calcium 9.6 mg/dL (8.6-10.3); Potassium 4.4 mEq/L (3.5-5.1)
[2019-11-25 05:57] LABS: Troponin I 0.04 ng/mL (< 0.04)
[2019-11-25 06:04] LABS: Basophils % 0.5 %; Eosinophils # 0.1 K/mcL (0.0-0.6); Eosinophils % 1.5 %; Hematocrit 31.6 % (37.5-50.1); Hemoglobin 9.5 g/dL (12.9-16.9); Immature Granulocytes % 0.7 % (0-4); Lymphocytes # 0.5 K/mcL (0.6-4.6); Lymphocytes % 5.6 %; Mean Corpuscular HGB Conc 30.1 g/dL (31.6-35.5); Mean Corpuscular Volume 103.3 fL (83.0-100.0); Mean Platelet Volume 9.9 fL (9.4-12.4); Monocytes # 0.8 K/mcL (0.0-1.3); Monocytes % 9.2 %; Neutrophils # 7.2 K/mcL (1.6-8.9); Platelet Count 309 K/mcL (140-400); Red Blood Count 3.06 M/mcL (4.19-5.50); Red Cell Distribution Width 15.6 % (11.5-14.5); Segmented Neutrophils % 82.5 %; White Blood Count 8.7 K/mcL (4.3-11.1)
[2019-11-25] MEDS ORDERED: Naloxone 0.4 MG/ML INJ IVP PRN ×2 (07:22→18:00)
[2019-11-25] MEDS ORDERED: D5% in Water 1,000 ML IVC PRN (07:25)
[2019-11-25] MEDS ORDERED: Dextrose Gel 15 GM/37.5 ML TUBE PO PRN ×2 (07:25)
[2019-11-25] MEDS ORDERED: CeFAZolin Syr 2,000MG/20 ML 2,000 MG/20 ML SYRINGE IVPB ONE (09:41)
[2019-11-25] MEDS: Insulin LISPRO 300 UNITS/3 ML VIAL SQ SCH ×3 (10:36→16:35)
[2019-11-25] MEDS ORDERED: *HR* LORazepam 2 MG/ML VIAL IVP ONE (13:33)
[2019-11-25] MEDS ORDERED: *HR* HYDROcodone/Acet 5/325 mg TABLET PO PRN (13:41)
[2019-11-25] MEDS: *HR* Dextrose 50 % in Water (Syg) 50 ML SYRINGE IVP PRN ×2 (13:56→15:17)
[2019-11-25] MEDS: PATIROMER PO SCH (15:01)
[2019-11-25] MEDS ORDERED: *HR* FentaNYL (PF) 250 MCG/5 ML VIAL ONE (15:42)
[2019-11-25] MEDS ORDERED: *HR* Propofol 200 MG/20 ML VIAL IVP ONE (15:42)
[2019-11-25] MEDS ORDERED: Ondansetron 4 MG/2 ML VIAL ONE (15:43)
[2019-11-25] MEDS ORDERED: *HR* PHENYLEPHRINE 1,000 MCG/10 ML SYRINGE IVP ONE (15:43)
[2019-11-25] MEDS ORDERED: *HR* Succinylcholine 200 MG/10 ML VIAL IVP ONE (15:43)
[2019-11-25] MEDS ORDERED: Dexamethasone 4 MG/ML VIAL ONE (15:43)
[2019-11-25] MEDS ORDERED: Famotidine 20 MG/2 ML VIAL ONE (15:43)
[2019-11-25] MEDS ORDERED: Lidocaine 2% Syringe 100 MG/5 ML ONE (15:46)
[2019-11-25] MEDS ORDERED: Heparin 1,000 UNITS/500 mL 500 ML ONE (15:54)
[2019-11-25] MEDS ORDERED: Acetaminophen IV 1,000 MG/100 ML INFUS..BTL ONE (15:56)
[2019-11-25] MEDS ORDERED: Ondansetron 4 MG/2 ML VIAL IVP ONE (16:04)
[2019-11-25] MEDS ORDERED: *HR* FentaNYL (PF) 100 MCG/2 ML VIAL IVP PRN (16:04)
[2019-11-25] MEDS ORDERED: *HR* HYDROmorphone PF 0.5 MG/0.5 ML SYRINGE IVP PRN (16:04)
[2019-11-25] MEDS ORDERED: *HR* Promethazine 25 MG/ML VIAL IVP PRN (16:04)
[2019-11-25 16:41] LABS: ABG Base Excess 5 mEq/L (-2 to 3); ABG Chloride 101 mEq/L (98-107); ABG Glucose 50 mg/dL (60-95); ABG HCO3 32 mEq/L (21-27); ABG Ionized Calcium 1.23 mmol/L (1.15-1.35); ABG Oxygen Saturation 100 % (95-98); ABG PCO2 65 mmHg (35-45); ABG PH 7.31 pH Units (7.32-7.45); ABG PO2 195 mmHg (85-104); ABG TCO2 34 mEq/L (20-26)
[2019-11-25] MEDS ORDERED: *HR* Dextrose 50 % in Water (Syg) 50 ML SYRINGE ONE (16:45)
[2019-11-25] MEDS: *HR* Labetalol 20 MG/4 ML SYRINGE IVP PRN ×2 (18:11→18:21)
[2019-11-25] MEDS ORDERED: Apixaban 2.5 MG TABLET PO SCH (21:00)
[2019-11-25] MEDS ORDERED: Insulin DETEMIR 100 UNIT/ML X5UNITS SQ SCH (21:00)
[2019-11-25] MEDS: Cholecalciferol (D-3) 1,000 UNIT (25MCG) TABLET PO SCH (21:20)
[2019-11-25] MEDS: Furosemide 40 MG TABLET PO SCH (21:20)
[2019-11-26 00:41] LABS: Basophils % 0.3 %; Hematocrit 31.7 % (37.5-50.1); Hemoglobin 9.7 g/dL (12.9-16.9); Immature Granulocytes % 0.8 % (0-4); Lymphocytes # 0.3 K/mcL (0.6-4.6); Lymphocytes % 2.1 %; Mean Corpuscular HGB Conc 30.6 g/dL (31.6-35.5); Mean Corpuscular Hemoglobin 32.3 pg (28.0-33.3); Mean Corpuscular Volume 105.7 fL (83.0-100.0); Mean Platelet Volume 9.8 fL (9.4-12.4); Monocytes # 0.3 K/mcL (0.0-1.3); Monocytes % 2.4 %; Platelet Count 258 K/mcL (140-400); Red Cell Distribution Width 15.6 % (11.5-14.5); Segmented Neutrophils % 94.4 %
[2019-11-26 00:42] LABS: Neutrophils # 12.5 K/mcL (1.6-8.9); White Blood Count 13.2 K/mcL (4.3-11.1)
[2019-11-26 01:01] LABS: Calcium 9.6 mg/dL (8.6-10.3); Phosphorous 7.2 mg/dL (2.7-4.5); Potassium 5.8 mEq/L (3.5-5.1)
[2019-11-26] MEDS ORDERED: 0.9 % Sodium Chloride 250 ML IVC PRN (07:25)
[2019-11-26] MEDS ORDERED: 0.9 % Sodium Chloride 1,000 ML PRIME SCH (07:30)
[2019-11-26] MEDS: Renal Vitamin 1 CAP CAPSULE PO SCH (09:28)
[2019-11-26] MEDS: Furosemide 40 MG TABLET PO SCH ×2 (09:29→20:48)
[2019-11-26] MEDS: Apixaban 5 MG TABLET PO SCH ×2 (09:29→20:47)
[2019-11-26] MEDS: DilTIAZem CD (24hr) 120 MG CAP.ER.24H PO SCH (09:29)
[2019-11-26] MEDS: Cholecalciferol (D-3) 1,000 UNIT (25MCG) TABLET PO SCH (09:32)
[2019-11-26] MEDS: Insulin LISPRO 300 UNITS/3 ML VIAL SQ SCH ×2 (09:32→13:04)
[2019-11-26] MEDS ORDERED: 0.9 % Sodium Chloride 500 ML ONE ×2 (10:58→11:37)
[2019-11-26] MEDS ORDERED: *HR* FentaNYL (PF) 100 MCG/2 ML VIAL IVP ONE (11:16)
[2019-11-26] MEDS ORDERED: Isovue-300 50ML VIAL IVP ONE (12:10)
[2019-11-26] MEDS: Metoprolol XL (24 HR) Succ 50 MG TAB.ER.24H PO SCH ×2 (13:03→20:47)
[2019-11-26] MEDS: Insulin DETEMIR 100 UNIT/ML X5UNITS SQ SCH (23:57)
[2019-11-27 04:17] LABS: Basophils % 0.3 %; Eosinophils # 0.2 K/mcL (0.0-0.6); Eosinophils % 1.8 %; Hematocrit 28.4 % (37.5-50.1); Hemoglobin 8.7 g/dL (12.9-16.9); Immature Granulocytes % 0.5 % (0-4); Lymphocytes # 1.1 K/mcL (0.6-4.6); Lymphocytes % 10.8 %; Mean Corpuscular HGB Conc 30.6 g/dL (31.6-35.5); Mean Corpuscular Hemoglobin 32.1 pg (28.0-33.3); Mean Corpuscular Volume 104.8 fL (83.0-100.0); Mean Platelet Volume 9.8 fL (9.4-12.4); Monocytes % 9.8 %; Platelet Count 288 K/mcL (140-400); Red Blood Count 2.71 M/mcL (4.19-5.50); Red Cell Distribution Width 15.9 % (11.5-14.5); Segmented Neutrophils % 76.8 %; White Blood Count 10.4 K/mcL (4.3-11.1)
[2019-11-27 04:28] LABS: Calcium 9.3 mg/dL (8.6-10.3); Potassium 4.9 mEq/L (3.5-5.1)
[2019-11-27] MEDS: *HR* OxyCODONE/APAP 7.5/325 TABLET PO PRN ×2 (04:52→09:01)
[2019-11-27] MEDS: Insulin LISPRO 300 UNITS/3 ML VIAL SQ SCH ×4 (08:36→16:59)
[2019-11-27] MEDS: Metoprolol XL (24 HR) Succ 50 MG TAB.ER.24H PO SCH ×2 (08:45→20:43)
[2019-11-27] MEDS: Renal Vitamin 1 CAP CAPSULE PO SCH (08:45)
[2019-11-27] MEDS: DilTIAZem CD (24hr) 120 MG CAP.ER.24H PO SCH (08:45)
[2019-11-27] MEDS: Cholecalciferol (D-3) 1,000 UNIT (25MCG) TABLET PO SCH ×3 (08:46→20:43)
[2019-11-27] MEDS: Furosemide 40 MG TABLET PO SCH ×2 (08:46→20:43)
[2019-11-27] MEDS: Apixaban 5 MG TABLET PO SCH ×2 (08:49→20:43)
[2019-11-27] MEDS: PATIROMER PO SCH (09:00)
[2019-11-27] MEDS: Insulin DETEMIR 100 UNIT/ML X5UNITS SQ SCH ×2 (09:59→20:44)
[2019-11-27] MEDS: polyethylene glycoL 3350 17 GM POWD.PACK PO SCH (12:40)
[2019-11-27] MEDS ORDERED: Acetaminophen 325 MG TABLET PO ONE (20:53)
[2019-11-28 02:23] LABS: Basophils % 0.4 %; Eosinophils # 0.3 K/mcL (0.0-0.6); Eosinophils % 3.1 %; Hematocrit 29.1 % (37.5-50.1); Hemoglobin 8.8 g/dL (12.9-16.9); Immature Granulocytes % 0.4 % (0-4); Lymphocytes % 10.4 %; Mean Corpuscular HGB Conc 30.2 g/dL (31.6-35.5); Mean Corpuscular Volume 105.8 fL (83.0-100.0); Mean Platelet Volume 9.8 fL (9.4-12.4); Monocytes % 10.5 %; Neutrophils # 7.2 K/mcL (1.6-8.9); Platelet Count 288 K/mcL (140-400); Red Blood Count 2.75 M/mcL (4.19-5.50); Red Cell Distribution Width 15.8 % (11.5-14.5); Segmented Neutrophils % 75.2 %; White Blood Count 9.6 K/mcL (4.3-11.1)
[2019-11-28 04:19] LABS: Calcium 9.2 mg/dL (8.6-10.3); Potassium 5.1 mEq/L (3.5-5.1)
[2019-11-28] MEDS: Metoprolol XL (24 HR) Succ 50 MG TAB.ER.24H PO SCH (08:12)
[2019-11-28] MEDS: Renal Vitamin 1 CAP CAPSULE PO SCH (08:12)
[2019-11-28] MEDS: Apixaban 5 MG TABLET PO SCH (08:12)
[2019-11-28] MEDS: Cholecalciferol (D-3) 1,000 UNIT (25MCG) TABLET PO SCH (08:12)
[2019-11-28] MEDS: Insulin LISPRO 300 UNITS/3 ML VIAL SQ SCH ×2 (08:13→13:06)
[2019-11-28] MEDS: polyethylene glycoL 3350 17 GM POWD.PACK PO SCH (08:13)
[2019-11-28] MEDS: Insulin DETEMIR 100 UNIT/ML X5UNITS SQ SCH (08:14)
[2019-11-28] MEDS: DilTIAZem CD (24hr) 120 MG CAP.ER.24H PO SCH (08:14)
[2019-11-28] MEDS: Furosemide 40 MG TABLET PO SCH (08:14)
[2019-11-28] MEDS ORDERED: 0.9 % Sodium Chloride 250 ML IVC PRN (08:59)
[2019-11-28] MEDS ORDERED: 0.9 % Sodium Chloride 1,000 ML PRIME SCH (09:00)
[2019-11-28 17:59] VITALS: BP 149/79
[2019-11-30] MEDS ORDERED: Ergocalciferol (VIT D2) 50,000 UNIT (1.25MG) CAP PO SCH (09:00)
== END 2019-11-28 16:58 | disposition home or self-care (01) | DRG 270 ==
LOC: 2ANU 04:47 → EMEROOARM 04:47 → SUATTDRO 06:56 → 2ANU 07:55 → SUATTDRO 13:44
PROVIDERS: ADMIT Family Medicine; ATTEND Internal Medicine

== ENCOUNTER 2019-12-07 02:23 | Inpatient (IN) ==
[2019-12-07] MEDS ORDERED: Isovue-370 500 ML BOTTLE IVP ONE (03:33)
[2019-12-07] MEDS ORDERED: Furosemide 40 MG/4 ML VIAL IVP ONE (03:34)
[2019-12-07 04:41] LABS: Basophils # 0.1 K/mcL (0.0-0.2); Basophils % 0.4 %; Eosinophils # 0.3 K/mcL (0.0-0.6); Eosinophils % 1.9 %; Hematocrit 29.8 % (37.5-50.1); Hemoglobin 8.7 g/dL (12.9-16.9); Immature Granulocytes % 1.2 % (0-4); Lymphocytes # 0.6 K/mcL (0.6-4.6); Lymphocytes % 4.7 %; Mean Corpuscular HGB Conc 29.2 g/dL (31.6-35.5); Mean Corpuscular Hemoglobin 30.9 pg (28.0-33.3); Mean Corpuscular Volume 105.7 fL (83.0-100.0); Mean Platelet Volume 10.4 fL (9.4-12.4); Monocytes # 0.9 K/mcL (0.0-1.3); Monocytes % 6.7 %; Neutrophils # 11.1 K/mcL (1.6-8.9); Platelet Count 247 K/mcL (140-400); Red Blood Count 2.82 M/mcL (4.19-5.50); Red Cell Distribution Width 15.1 % (11.5-14.5); Segmented Neutrophils % 85.1 %; White Blood Count 13.1 K/mcL (4.3-11.1)
[2019-12-07 04:45] LABS: INR 1.2
[2019-12-07 04:48] LABS: Activated Partial Thrombo Time 31.5 Seconds (26.0-36.0)
[2019-12-07 05:14] LABS: Calcium 9.9 mg/dL (8.6-10.3); Potassium 5.6 mEq/L (3.5-5.1); Troponin I 0.04 ng/mL (< 0.04)
[2019-12-07] MEDS ORDERED: Azithromycin 500 MG in D5% in Water 250 ML IVPB ONE (05:14)
[2019-12-07] MEDS ORDERED: Piperacillin/Tazobactam 3.375 GM in Water for inj. (sterile) 20 ML IVP ONE (05:14)
[2019-12-07] MEDS ORDERED: hydrOXYzine pamoate 25 MG CAPSULE PO ONE (05:15)
[2019-12-07] MEDS ORDERED: Azithromycin 500 MG VIAL ONE (05:23)
[2019-12-07] MEDS ORDERED: Naloxone 0.4 MG/ML INJ IVP PRN (07:14)
[2019-12-07] MEDS ORDERED: Ondansetron 4 MG/2 ML VIAL IVP PRN (07:14)
[2019-12-07] MEDS ORDERED: 0.9 % Sodium Chloride 250 ML IVC PRN (07:19)
[2019-12-07] MEDS ORDERED: D5% in Water 1,000 ML IVC PRN (07:30)
[2019-12-07] MEDS ORDERED: Dextrose Gel 15 GM/37.5 ML TUBE PO PRN ×2 (07:30)
[2019-12-07] MEDS ORDERED: 0.9 % Sodium Chloride 1,000 ML PRIME SCH (07:30)
[2019-12-07] MEDS ORDERED: Ipratropium/Albuterol Neb 3 ML IH PRN (08:34)
[2019-12-07] MEDS ORDERED: Apixaban 2.5 MG TABLET PO SCH (09:00)
[2019-12-07] MEDS ORDERED: Ergocalciferol (VIT D2) 50,000 UNIT (1.25MG) CAP PO SCH (09:00)
[2019-12-07] MEDS ORDERED: Furosemide 40 MG TABLET PO SCH (09:00)
[2019-12-07 09:23] LABS: Hepatitis B Surface Antibody < 3.10 mIU/mL
[2019-12-07 09:35] LABS: Hepatitis B Surface Antigen Nonreactive (Nonreactive)
[2019-12-07] MEDS ORDERED: *HR* Heparin 10,000 UNIT/10 ML VIAL ONE (10:31)
[2019-12-07] MEDS: Insulin LISPRO 300 UNITS/3 ML VIAL SQ SCH ×4 (10:33→21:16)
[2019-12-07] MEDS: polyethylene glycoL 3350 17 GM POWD.PACK PO SCH (10:33)
[2019-12-07] MEDS: DilTIAZem CD (24hr) 120 MG CAP.ER.24H PO SCH (10:34)
[2019-12-07] MEDS: Cholecalciferol (D-3) 1,000 UNIT (25MCG) TABLET PO SCH ×2 (10:34→20:59)
[2019-12-07] MEDS: Renal Vitamin 1 CAP CAPSULE PO SCH (10:35)
[2019-12-07] MEDS: Furosemide 40 MG/4 ML VIAL IVP SCH ×2 (10:35→16:28)
[2019-12-07] MEDS: Insulin DETEMIR 100 UNIT/ML X5UNITS SQ SCH ×2 (10:35→21:16)
[2019-12-07] MEDS: Metoprolol XL (24 HR) Succ 50 MG TAB.ER.24H PO SCH ×2 (10:35→20:59)
[2019-12-07 10:48] LABS: ABG Base Excess 4 mEq/L (-2 to 3); ABG HCO3 28 mEq/L (21-27); ABG Oxygen Saturation 96 % (95-98); ABG PCO2 41 mmHg (35-45); ABG PH 7.45 pH Units (7.32-7.45); ABG PO2 77 mmHg (85-104); ABG TCO2 29 mEq/L (20-26)
[2019-12-07 11:25] LABS: Estimated Average Glucose 163 mg/dl
[2019-12-07] MEDS: *HR* Dextrose 50 % in Water (Syg) 50 ML SYRINGE IVP PRN ×2 (12:40→16:32)
[2019-12-07] MEDS: Apixaban 5 MG TABLET PO SCH (20:58)
[2019-12-08 05:38] LABS: Basophils # 0.1 K/mcL (0.0-0.2); Basophils % 0.5 %; Eosinophils # 0.5 K/mcL (0.0-0.6); Eosinophils % 4.3 %; Hematocrit 29.5 % (37.5-50.1); Hemoglobin 8.9 g/dL (12.9-16.9); Lymphocytes % 8.7 %; Mean Corpuscular HGB Conc 30.2 g/dL (31.6-35.5); Mean Corpuscular Hemoglobin 31.3 pg (28.0-33.3); Mean Corpuscular Volume 103.9 fL (83.0-100.0); Mean Platelet Volume 9.9 fL (9.4-12.4); Monocytes % 8.8 %; Neutrophils # 8.4 K/mcL (1.6-8.9); Platelet Count 267 K/mcL (140-400); Red Blood Count 2.84 M/mcL (4.19-5.50); Red Cell Distribution Width 15.2 % (11.5-14.5); Segmented Neutrophils % 76.7 %; White Blood Count 10.9 K/mcL (4.3-11.1)
[2019-12-08 06:07] LABS: Calcium 9.6 mg/dL (8.6-10.3); Potassium 4.3 mEq/L (3.5-5.1)
[2019-12-08 06:34] LABS: Phosphorous 5.1 mg/dL (2.7-4.5)
[2019-12-08] MEDS ORDERED: 0.9 % Sodium Chloride 250 ML IVC PRN (07:11)
[2019-12-08] MEDS ORDERED: Azithromycin 500 MG in 0.9 % Sodium Chloride 250 ML IVPB SCH (08:00)
[2019-12-08] MEDS: Insulin LISPRO 300 UNITS/3 ML VIAL SQ SCH ×4 (08:03→21:44)
[2019-12-08] MEDS: Renal Vitamin 1 CAP CAPSULE PO SCH (08:14)
[2019-12-08] MEDS: DilTIAZem CD (24hr) 120 MG CAP.ER.24H PO SCH (08:14)
[2019-12-08] MEDS: Apixaban 5 MG TABLET PO SCH ×2 (08:15→21:48)
[2019-12-08] MEDS: polyethylene glycoL 3350 17 GM POWD.PACK PO SCH (08:15)
[2019-12-08] MEDS: Furosemide 40 MG/4 ML VIAL IVP SCH ×2 (08:16→17:16)
[2019-12-08] MEDS: Metoprolol XL (24 HR) Succ 50 MG TAB.ER.24H PO SCH ×2 (08:17→21:48)
[2019-12-08] MEDS: Cholecalciferol (D-3) 1,000 UNIT (25MCG) TABLET PO SCH ×2 (08:17→21:48)
[2019-12-08] MEDS ORDERED: cefTRIAXone 1,000 MG in Water for inj. (sterile) 10 ML IVP SCH (09:00)
[2019-12-08] MEDS: cefTRIAXone 1,000 MG in Water for inj. (sterile) 10 ML IVP SCH (14:18)
[2019-12-08] MEDS: *HR* HYDROcodone/Acet 5/325 mg TABLET PO PRN (14:18)
[2019-12-09 05:44] LABS: Hematocrit 27.7 % (37.5-50.1); Hemoglobin 8.1 g/dL (12.9-16.9); Mean Corpuscular HGB Conc 29.2 g/dL (31.6-35.5); Mean Corpuscular Hemoglobin 31.2 pg (28.0-33.3); Mean Corpuscular Volume 106.5 fL (83.0-100.0); Mean Platelet Volume 9.9 fL (9.4-12.4); Platelet Count 225 K/mcL (140-400); Red Cell Distribution Width 15.3 % (11.5-14.5); White Blood Count 10.4 K/mcL (4.3-11.1)
[2019-12-09 06:00] LABS: Calcium 9.3 mg/dL (8.6-10.3); Potassium 4.7 mEq/L (3.5-5.1)
[2019-12-09] MEDS: Renal Vitamin 1 CAP CAPSULE PO SCH (07:56)
[2019-12-09] MEDS: polyethylene glycoL 3350 17 GM POWD.PACK PO SCH (07:56)
[2019-12-09] MEDS: Furosemide 40 MG/4 ML VIAL IVP SCH ×2 (07:56→17:37)
[2019-12-09] MEDS: Cholecalciferol (D-3) 1,000 UNIT (25MCG) TABLET PO SCH ×2 (07:57→21:13)
[2019-12-09] MEDS: Apixaban 5 MG TABLET PO SCH ×2 (07:57→21:13)
[2019-12-09] MEDS: Metoprolol XL (24 HR) Succ 50 MG TAB.ER.24H PO SCH ×2 (07:57→21:14)
[2019-12-09] MEDS: DilTIAZem CD (24hr) 120 MG CAP.ER.24H PO SCH (07:58)
[2019-12-09] MEDS: *HR* HYDROcodone/Acet 5/325 mg TABLET PO PRN ×2 (08:00→14:21)
[2019-12-09] MEDS: Insulin LISPRO 300 UNITS/3 ML VIAL SQ SCH ×4 (08:00→21:14)
[2019-12-09] MEDS ORDERED: Azithromycin 500 MG in 0.9 % Sodium Chloride 250 ML IVPB SCH (13:00)
[2019-12-09] MEDS: cefTRIAXone 1,000 MG in Water for inj. (sterile) 10 ML IVP SCH (13:32)
[2019-12-10 05:02] LABS: Hemoglobin 8.1 g/dL (12.9-16.9); Mean Corpuscular Hemoglobin 31.2 pg (28.0-33.3); Mean Corpuscular Volume 103.8 fL (83.0-100.0); Mean Platelet Volume 9.7 fL (9.4-12.4); Platelet Count 222 K/mcL (140-400); Red Cell Distribution Width 15.4 % (11.5-14.5); White Blood Count 10.3 K/mcL (4.3-11.1)
[2019-12-10 05:21] LABS: Calcium 9.7 mg/dL (8.6-10.3); Potassium 5.2 mEq/L (3.5-5.1)
[2019-12-10] MEDS ORDERED: 0.9 % Sodium Chloride 250 ML IVC PRN (07:04)
[2019-12-10] MEDS: *HR* HYDROcodone/Acet 5/325 mg TABLET PO PRN (08:39)
[2019-12-10 12:40] VITALS: BP 159/81
[2019-12-10] MEDS: DilTIAZem CD (24hr) 120 MG CAP.ER.24H PO SCH (12:59)
[2019-12-10] MEDS: Insulin LISPRO 300 UNITS/3 ML VIAL SQ SCH ×2 (12:59→13:00)
[2019-12-10] MEDS: Apixaban 5 MG TABLET PO SCH (12:59)
[2019-12-10] MEDS: polyethylene glycoL 3350 17 GM POWD.PACK PO SCH (12:59)
[2019-12-10] MEDS: Furosemide 40 MG/4 ML VIAL IVP SCH (12:59)
[2019-12-10] MEDS ORDERED: Azithromycin 250 MG TABLET PO SCH (13:00)
[2019-12-10] MEDS: Metoprolol XL (24 HR) Succ 50 MG TAB.ER.24H PO SCH (13:00)
[2019-12-10] MEDS: Cholecalciferol (D-3) 1,000 UNIT (25MCG) TABLET PO SCH (13:00)
[2019-12-10] MEDS: Renal Vitamin 1 CAP CAPSULE PO SCH (13:00)
[2019-12-10] MEDS: cefTRIAXone 1,000 MG in Water for inj. (sterile) 10 ML IVP SCH (13:03)
== END 2019-12-10 15:41 | disposition home or self-care (01) ==
LOC: 2NENU 02:23 → EMEROOARM 02:23 → 2NENU 07:40 → 3ANU 23:59 → SUATTDRO 12-08 15:45
PROVIDERS: ADMIT Internal Medicine; ATTEND Internal Medicine

== ENCOUNTER 2019-12-14 16:11 | Inpatient (IN) ==
[~2019-12-14 16:11] MED LIST: *HR* Dextrose 50 % in Water (Syg) 50 ML SYRINGE IVC ONE; *HR* Norepinephrine 4 MG/4 ML VIAL IVC ONE; *HR* Rocuronium Bromide 100 MG/10 ML VIAL IVC ONE; D5% in Water 250 ML IV BAG IV ONE
[2019-12-14] MEDS ORDERED: Calcium Gluconate 1gm/50mL 1 GM/50 ML BAG IVPB ONE ×3 (16:19→16:47)
[2019-12-14] MEDS ORDERED: *HR* Promethazine 25 MG/ML VIAL ONE (16:30)
[2019-12-14] MEDS ORDERED: *HR* Atropine Sulfate 1 MG/10 ML SYRINGE IVP STA (16:31)
[2019-12-14] MEDS ORDERED: *HR* Promethazine 25 MG/ML VIAL IVP ONE (16:32)
[2019-12-14] MEDS ORDERED: 0.9 % Sodium Chloride 250 ML ONE (16:42)
[2019-12-14 16:47] LABS: Hematocrit 29.3 % (37.5-50.1); Hemoglobin 8.7 g/dL (12.9-16.9); Mean Corpuscular HGB Conc 29.7 g/dL (31.6-35.5); Mean Corpuscular Hemoglobin 31.6 pg (28.0-33.3); Mean Corpuscular Volume 106.5 fL (83.0-100.0); Mean Platelet Volume 11.1 fL (9.4-12.4); Nucleated Red Blood Cells 1.2 /100 WBC (0); Platelet Count 369 K/mcL (140-400); Red Blood Count 2.75 M/mcL (4.19-5.50); Red Cell Distribution Width 16.4 % (11.5-14.5)
[2019-12-14] MEDS: Norepinephrine 4 MG in 0.9 % Sodium Chloride 250 ML IVC SCH (16:47)
[2019-12-14] MEDS ORDERED: Dexmedetomidine HCl 400 MCG/100 ML MLS IVC ONE (16:48)
[2019-12-14 16:52] LABS: White Blood Count 19.9 K/mcL (4.3-11.1)
[2019-12-14] MEDS ORDERED: *HR* EPINEPHrine 100 MCG/10 ML SYRINGE IVP ONE (16:53)
[2019-12-14] MEDS ORDERED: Dexmedetomidine HCl 400 MCG/100 ML MLS IVC SCH (17:00)
[2019-12-14 17:01] LABS: Troponin I 0.05 ng/mL (< 0.04)
[2019-12-14] MEDS ORDERED: Piperacillin/Tazobactam 3.375 GM in Water for inj. (sterile) 20 ML IVP ONE (17:01)
[2019-12-14] MEDS ORDERED: Calcium Gluconate 1gm/50mL 1 GM/50 ML BAG IVPB STA (17:03)
[2019-12-14 17:05] LABS: BUN/Creatinine Ratio 10 (6-26); Blood Urea Nitrogen 98 mg/dL (8-23); Carbon Dioxide 13 mEq/L (23-29); Chloride 92 mEq/L (98-107); Glucose 134 mg/dL (70-105); Magnesium 2.8 mg/dL (1.6-2.6); Osmolality,Calculated 310 (280-300); Potassium 8.1 mEq/L (3.5-5.1); Sodium 134 mEq/L (136-145); eGFR For African Americans 7 (> 60); eGFR For Non-African Americans 5 (> 60)
[2019-12-14 17:14] LABS: Lymphocytes # 0.8 K/mcL (0.6-4.6); Monocytes # 1.2 K/mcL (0.0-1.3); Neutrophils # 15.9 K/mcL (1.6-8.9); Platelet Estimate Normal (Normal)
[2019-12-14 17:21] LABS: Hypochromasia Present (Not Present); Large Platelets Present (Not Present); Microcytosis Present (Not Present)
[2019-12-14] MEDS ORDERED: Sodium Bicarbonate 50 MEQ/50 ML VIAL IVP ONE ×3 (17:21→18:49)
[2019-12-14] MEDS: FentaNYL (PF) 1,000 MCG in 0.9 % Sodium Chloride 80 ML IVC SCH (17:24)
[2019-12-14] MEDS ORDERED: *HR* Dextrose 50 % in Water (Syg) 50 ML SYRINGE IVP ONE (17:27)
[2019-12-14] MEDS ORDERED: Insulin Human Regular 10 UNIT in 0.9 % Sodium Chloride 10 ML IV STA (17:32)
[2019-12-14 17:33] LABS: ABG Base Excess -6 mEq/L (-2 to 3); ABG HCO3 21 mEq/L (21-27); ABG Oxygen Saturation 100 % (95-98); ABG PCO2 44 mmHg (35-45); ABG PH 7.27 pH Units (7.32-7.45); ABG PO2 263 mmHg (85-104); ABG TCO2 22 mEq/L (20-26); Blood Gas Modality ASSIST CONTROL; Blood Gas VT 480 cc
[2019-12-14] MEDS ORDERED: Sodium Bicarbonate 50 MEQ/50 ML VIAL ONE (18:42)
[2019-12-14] MEDS ORDERED: Naloxone 0.4 MG/ML INJ IVP PRN (19:17)
[2019-12-14 19:27] LABS: C-Reactive Protein 154 mg/L (Less than 10); Ferritin > 1500 ng/mL (20-250); Thyroid Stimulating Hormone 3.527 mcIU/mL (0.340-5.600)
[2019-12-14] MEDS ORDERED: 0.9 % Sodium Chloride 250 ML IVC PRN (19:36)
[2019-12-14] MEDS ORDERED: *HR* Heparin 10,000 UNIT/10 ML VIAL IV PRN (19:36)
[2019-12-14] MEDS ORDERED: 0.9 % Sodium Chloride 1,000 ML PRIME SCH (19:45)
[2019-12-14] MEDS ORDERED: Artificial Tears SOLN 15 ML BOTTLE BOTH EYES PRN (20:10)
[2019-12-14] MEDS ORDERED: Dextrose Gel 15 GM/37.5 ML TUBE PO PRN ×2 (20:17)
[2019-12-14] MEDS ORDERED: D5% in Water 1,000 ML IVC PRN (20:17)
[2019-12-14 20:43] LABS: Hepatitis B Surface Antibody < 3.10 mIU/mL
[2019-12-14 20:54] LABS: Hepatitis B Surface Antigen Nonreactive (Nonreactive)
[2019-12-14] MEDS ORDERED: Vancomycin 1 EACH in 0.9 % Sodium Chloride 250 ML IVPB PRN (21:00)
[2019-12-14 21:08] LABS: Bilirubin,Urine Negative (Negative); Blood,Urine Negative (Negative); Clarity,Urine Cloudy (Clear); Color,Urine Yellow (Yellow); Glucose,Urine (UA) 250 mg/dL (Normal); Ketones,Urine Negative (Negative); Leukocyte Esterase,Urine Negative (Negative); Nitrite,Urine Negative (Negative); Protein,Urine >=300 mg/dL (Neg-Trace); Specific Gravity,Urine 1.021 (1.010-1.025); Urobilinogen,Urine Normal (Normal)
[2019-12-14 21:10] LABS: Bacteria,Urine None Seen per hpf (None-Few); Squamous Epithelial Cell,Urine Many per lpf (None-Few); WBC,Urine 15-30 per hpf (0-3)
[2019-12-14] MEDS: *HR* Heparin 5,000 UNIT/ML VIAL SQ SCH (21:22)
[2019-12-14] MEDS: Chlorhexidine Rinse 15 ML MOUTHWASH MM SCH (21:22)
[2019-12-14 21:37] LABS: Granular Casts,Urine Many per lpf (None Seen); Hyaline Casts,Urine Moderate per lpf (None-Few)
[2019-12-14 22:09] LABS: ABG Base Excess -3 mEq/L (-2 to 3); ABG HCO3 22 mEq/L (21-27); ABG Oxygen Saturation 99 % (95-98); ABG PCO2 40 mmHg (35-45); ABG PH 7.35 pH Units (7.32-7.45); ABG PO2 148 mmHg (85-104); ABG TCO2 24 mEq/L (20-26); Blood Gas Modality ASSIST CONTROL; Blood Gas VT 480 cc
[2019-12-14 22:42] LABS: Alanine Aminotransferase 4430 Units/L (7-52); Albumin 3.5 g/dL (3.5-5.7); Albumin/Globulin Ratio 1.2 (1.1-2.2); Alkaline Phosphatase 133 Units/L (34-104); Aspartate Amino Transferase > 3000 Units/L (13-39); BUN/Creatinine Ratio 11 (6-26); Bilirubin,Total 0.7 mg/dL (0.3-1.0); Blood Urea Nitrogen 101 mg/dL (8-23); Calcium 9.8 mg/dL (8.6-10.3); Carbon Dioxide 21 mEq/L (23-29); Chloride 89 mEq/L (98-107); Glucose 289 mg/dL (70-105); Osmolality,Calculated 322 (280-300); Potassium 6.7 mEq/L (3.5-5.1); Sodium 135 mEq/L (136-145); Total Protein 6.5 g/dL (6.4-8.9); eGFR For African Americans 7 (> 60); eGFR For Non-African Americans 6 (> 60)
[2019-12-15] MEDS: Insulin LISPRO 300 UNITS/3 ML VIAL SQ SCH ×4 (00:32→18:07)
[2019-12-15] MEDS: FentaNYL (PF) 1,000 MCG in 0.9 % Sodium Chloride 80 ML IVC SCH ×2 (00:35→06:08)
[2019-12-15] MEDS: Artificial Tears SOLN 15 ML BOTTLE BOTH EYES SCH ×6 (02:12→19:59)
[2019-12-15 03:43] LABS: Basophils # 0.1 K/mcL (0.0-0.2); Basophils % 0.4 %; Eosinophils # 0.1 K/mcL (0.0-0.6); Eosinophils % 0.3 %; Hematocrit 24.9 % (37.5-50.1); Hemoglobin 7.6 g/dL (12.9-16.9); Immature Granulocytes % 4.3 % (0-4); Lymphocytes # 0.8 K/mcL (0.6-4.6); Lymphocytes % 5.1 %; Mean Corpuscular HGB Conc 30.5 g/dL (31.6-35.5); Mean Corpuscular Hemoglobin 30.8 pg (28.0-33.3); Mean Corpuscular Volume 100.8 fL (83.0-100.0); Monocytes # 0.3 K/mcL (0.0-1.3); Neutrophils # 14.4 K/mcL (1.6-8.9); Nucleated Red Blood Cells 1.8 /100 WBC (0); Platelet Count 278 K/mcL (140-400); Red Blood Count 2.47 M/mcL (4.19-5.50); Red Cell Distribution Width 15.9 % (11.5-14.5); Segmented Neutrophils % 87.9 %; White Blood Count 16.4 K/mcL (4.3-11.1)
[2019-12-15 04:11] LABS: Calcium 9.6 mg/dL (8.6-10.3); Potassium 4.4 mEq/L (3.5-5.1); Troponin I 0.13 ng/mL (< 0.04)
[2019-12-15 04:19] LABS: ABG Base Excess 5 mEq/L (-2 to 3); ABG HCO3 30 mEq/L (21-27); ABG Oxygen Saturation 98 % (95-98); ABG PCO2 45 mmHg (35-45); ABG PH 7.43 pH Units (7.32-7.45); ABG PO2 98 mmHg (85-104); ABG TCO2 31 mEq/L (20-26); Blood Gas Modality ASSIST CONTROL; Blood Gas VT 480 cc
[2019-12-15 04:30] LABS: Folate > 22.3 ng/mL (3.0-16.0); Vitamin B12 > 1500 pg/mL (250-1100)
[2019-12-15] MEDS: Piperacillin/Tazobactam 3.375 GM in 0.9 % Sodium Chloride Mini Bag 100 ML IVPB SCH ×2 (05:55→16:17)
[2019-12-15] MEDS: *HR* Heparin 5,000 UNIT/ML VIAL SQ SCH (05:56)
[2019-12-15] MEDS: Dexmedetomidine HCl 400 MCG/100 ML MLS IVC SCH ×2 (06:08→18:05)
[2019-12-15] MEDS ORDERED: 0.9 % Sodium Chloride 250 ML IVC PRN (07:26)
[2019-12-15] MEDS ORDERED: *HR* Heparin 10,000 UNIT/10 ML VIAL IV PRN (07:26)
[2019-12-15] MEDS: Pantoprazole 40 MG VIAL IVP SCH (08:09)
[2019-12-15] MEDS: Aspirin 81 MG TAB.CHEW PO SCH (08:09)
[2019-12-15] MEDS: Chlorhexidine Rinse 15 ML MOUTHWASH MM SCH ×2 (09:23→19:58)
[2019-12-15] MEDS ORDERED: Ergocalciferol (VIT D2) 50,000 UNIT (1.25MG) CAP PO SCH (10:45)
[2019-12-15 15:40] LABS: Calcium 9.6 mg/dL (8.6-10.3); Phosphorous 4.3 mg/dL (2.7-4.5); Potassium 4.3 mEq/L (3.5-5.1)
[2019-12-15 16:12] LABS: Acinetobacter baumannii by PCR Not Detected (Not Detect); Candida albicans by PCR Not Detected (Not Detect); Candida glabrata by PCR Not Detected (Not Detect); Candida krusei by PCR Not Detected (Not Detect); Candida parapsilosis by PCR Not Detected (Not Detect); Candida tropicalis by PCR Not Detected (Not Detect); Enterobacter cloacae Cmplx PCR Not Detected (Not Detect); Enterobacteriaceae by PCR Not Detected (Not Detect); Enterococcus by PCR Not Detected (Not Detect); Escherichia coli by PCR Not Detected (Not Detect); Klebsiella oxytoca by PCR Not Detected (Not Detect); Klebsiella pneumoniae by PCR Not Detected (Not Detect); Proteus by PCR Not Detected (Not Detect); Pseudomonas aeruginosa by PCR Not Detected (Not Detect); Serratia marcescens by PCR Not Detected (Not Detect); Staphylococcus aureus by PCR Not Detected (Not Detect); Staphylococcus by PCR DETECTED (Not Detect); Streptococcus agalactiae(B)PCR Not Detected (Not Detect); Streptococcus by PCR Not Detected (Not Detect); Streptococcus pneumoniae PCR Not Detected (Not Detect); Streptococcus pyogenes (A) PCR Not Detected (Not Detect); mecA Methicillin-Resist Gene DETECTED (Not Detect); vanA/B Vancomycin-Resist Genes Not Detected (Not Detect)
[2019-12-15] MEDS: Norepinephrine 4 MG in 0.9 % Sodium Chloride 250 ML IVC SCH (19:53)
[2019-12-15] MEDS: Apixaban 2.5 MG TABLET PO SCH (19:59)
[2019-12-15] MEDS: Cholecalciferol (D-3) 1,000 UNIT (25MCG) TABLET PO SCH (19:59)
[2019-12-15] MEDS: *HR* Dextrose 50 % in Water (Syg) 50 ML SYRINGE IVP PRN (20:00)
[2019-12-16] MEDS: Artificial Tears SOLN 15 ML BOTTLE BOTH EYES SCH ×6 (00:42→21:47)
[2019-12-16] MEDS: Insulin LISPRO 300 UNITS/3 ML VIAL SQ SCH ×4 (00:43→17:08)
[2019-12-16] MEDS: Dexmedetomidine HCl 400 MCG/100 ML MLS IVC SCH ×7 (02:45→22:43)
[2019-12-16] MEDS: *HR* Dextrose 50 % in Water (Syg) 50 ML SYRINGE IVP PRN (03:36)
[2019-12-16] MEDS: Piperacillin/Tazobactam 3.375 GM in 0.9 % Sodium Chloride Mini Bag 100 ML IVPB SCH ×2 (05:11→15:49)
[2019-12-16] MEDS ORDERED: Haloperidol Lactate 5 MG/ML VIAL IVP ONE ×3 (06:27→22:30)
[2019-12-16] MEDS ORDERED: OLANZapine 10 MG VIAL IM ONE (08:58)
[2019-12-16] MEDS: Apixaban 2.5 MG TABLET PO SCH ×2 (09:51→21:47)
[2019-12-16] MEDS: Pantoprazole 40 MG VIAL IVP SCH (09:51)
[2019-12-16] MEDS: Aspirin 81 MG TAB.CHEW PO SCH (09:51)
[2019-12-16] MEDS: Chlorhexidine Rinse 15 ML MOUTHWASH MM SCH ×2 (09:51→21:47)
[2019-12-16] MEDS: Renal Vitamin 1 CAP CAPSULE PO SCH (09:51)
[2019-12-16] MEDS: Cholecalciferol (D-3) 1,000 UNIT (25MCG) TABLET PO SCH ×2 (09:52→21:48)
[2019-12-16 10:05] LABS: Basophils # 0.1 K/mcL (0.0-0.2); Basophils % 0.5 %; Eosinophils # 0.2 K/mcL (0.0-0.6); Eosinophils % 1.5 %; Hematocrit 26.4 % (37.5-50.1); Hemoglobin 7.9 g/dL (12.9-16.9); Lymphocytes # 0.7 K/mcL (0.6-4.6); Lymphocytes % 4.8 %; Mean Corpuscular HGB Conc 29.9 g/dL (31.6-35.5); Mean Corpuscular Volume 103.5 fL (83.0-100.0); Monocytes # 0.8 K/mcL (0.0-1.3); Neutrophils # 12.5 K/mcL (1.6-8.9); Nucleated Red Blood Cells 1.3 /100 WBC (0); Platelet Count 259 K/mcL (140-400); Red Blood Count 2.55 M/mcL (4.19-5.50); Red Cell Distribution Width 15.9 % (11.5-14.5); Segmented Neutrophils % 83.2 %; White Blood Count 15.1 K/mcL (4.3-11.1)
[2019-12-16 10:24] LABS: Albumin 3.1 g/dL (3.5-5.7); Bilirubin,Total 0.7 mg/dL (0.3-1.0); Calcium 9.4 mg/dL (8.6-10.3); Phosphorous 4.8 mg/dL (2.7-4.5); Potassium 5.1 mEq/L (3.5-5.1); Total Protein 6.1 g/dL (6.4-8.9); Troponin I 0.13 ng/mL (< 0.04)
[2019-12-16] MEDS: QUEtiapine Fumarate 25 MG TABLET PO SCH ×2 (10:55→21:47)
[2019-12-16 11:35] LABS: Bilirubin,Direct 0.1 mg/dL (0.0-0.2); Bilirubin,Indirect 0.6 mg/dL (0.0-1.0)
[2019-12-16] MEDS: Metoprolol XL (24 HR) Succ 25 MG TAB.ER.24H PO SCH (12:48)
[2019-12-16 13:05] LABS: INR 1.8; Prothrombin Time 19.9 Seconds (9.4-12.1)
[2019-12-16] MEDS ORDERED: Lactulose Oral Soln 20 GM/30 ML UDC PO SCH (17:45)
[2019-12-16] MEDS ORDERED: Lactulose 200 GM, Sodium Chloride IRRigation 700 ML RC ONE (17:51)
[2019-12-16 19:10] LABS: VBG HCO3 29 mEq/L (21-27); VBG PCO2 56 mmHg (41-51); VBG PH 7.32 pH Units (7.32-7.42); VBG PO2 49 mmHg (25-50)
[2019-12-17] MEDS: Artificial Tears SOLN 15 ML BOTTLE BOTH EYES SCH ×6 (00:03→20:00)
[2019-12-17] MEDS: Insulin LISPRO 300 UNITS/3 ML VIAL SQ SCH ×4 (00:03→17:06)
[2019-12-17] MEDS ORDERED: Ziprasidone 10 MG in Water for inj. (sterile) 0.5 ML IM ONE (01:05)
[2019-12-17 02:58] LABS: Hemoglobin 7.6 g/dL (12.9-16.9); INR 1.6; Mean Corpuscular HGB Conc 30.4 g/dL (31.6-35.5); Mean Corpuscular Hemoglobin 31.4 pg (28.0-33.3); Mean Corpuscular Volume 103.3 fL (83.0-100.0); Mean Platelet Volume 10.2 fL (9.4-12.4); Platelet Count 260 K/mcL (140-400); Prothrombin Time 17.9 Seconds (9.4-12.1); Red Blood Count 2.42 M/mcL (4.19-5.50); Red Cell Distribution Width 15.9 % (11.5-14.5); White Blood Count 15.5 K/mcL (4.3-11.1)
[2019-12-17] MEDS ORDERED: Lactulose Oral Soln 20 GM/30 ML UDC PO ONE (03:11)
[2019-12-17 03:20] LABS: Hepatitis B Surface Antigen Nonreactive (Nonreactive)
[2019-12-17 03:33] LABS: Albumin 3.3 g/dL (3.5-5.7); Albumin/Globulin Ratio 1.2 (1.1-2.2); Bilirubin,Total 0.6 mg/dL (0.3-1.0); Calcium 9.7 mg/dL (8.6-10.3); Globulin 2.8 g/dL (2.4-3.5); Potassium 4.6 mEq/L (3.5-5.1); Total Protein 6.1 g/dL (6.4-8.9)
[2019-12-17 03:49] LABS: Hepatitis B Core IgM Nonreactive (Nonreactive)
[2019-12-17 03:50] LABS: Hepatitis A Antibody IgM Nonreactive (Nonreactive); Hepatitis C Virus Antibody Nonreactive (Nonreactive)
[2019-12-17] MEDS: Piperacillin/Tazobactam 3.375 GM in 0.9 % Sodium Chloride Mini Bag 100 ML IVPB SCH ×2 (04:04→17:03)
[2019-12-17] MEDS: Dexmedetomidine HCl 400 MCG/100 ML MLS IVC SCH ×3 (05:17→11:24)
[2019-12-17] MEDS ORDERED: 0.9 % Sodium Chloride 250 ML IVC PRN ×2 (07:23→15:54)
[2019-12-17] MEDS ORDERED: *HR* Heparin 10,000 UNIT/10 ML VIAL IV PRN (07:23)
[2019-12-17] MEDS ORDERED: 0.9 % Sodium Chloride 1,000 ML PRIME SCH ×2 (07:30→15:54)
[2019-12-17] MEDS ORDERED: Thiamine (B-1) 100 MG, Folic Acid 1 MG, MVI, adult with vitamin K 10 ML in 0.9 % Sodi... IVPB SCH ×2 (07:36→18:00)
[2019-12-17] MEDS: QUEtiapine Fumarate 25 MG TABLET PO SCH ×2 (07:55→20:02)
[2019-12-17] MEDS: Apixaban 2.5 MG TABLET PO SCH (07:57)
[2019-12-17] MEDS: Cholecalciferol (D-3) 1,000 UNIT (25MCG) TABLET PO SCH ×2 (07:58→20:02)
[2019-12-17] MEDS: Renal Vitamin 1 CAP CAPSULE PO SCH (08:01)
[2019-12-17] MEDS: Chlorhexidine Rinse 15 ML MOUTHWASH MM SCH ×2 (08:05→20:12)
[2019-12-17] MEDS: Aspirin 81 MG TAB.CHEW PO SCH (08:05)
[2019-12-17] MEDS: Metoprolol XL (24 HR) Succ 25 MG TAB.ER.24H PO SCH (08:05)
[2019-12-17] MEDS ORDERED: *HR* LORazepam 2 MG/ML VIAL IVP PRN ×3 (08:07→15:54)
[2019-12-17] MEDS ORDERED: Vancomycin 1 EACH in 0.9 % Sodium Chloride 250 ML IVPB PRN ×2 (11:00→15:54)
[2019-12-17] MEDS: Lactulose Oral Soln 20 GM/30 ML UDC PO SCH ×3 (13:39→20:12)
[2019-12-17] MEDS ORDERED: Naloxone 0.4 MG/ML INJ IVP PRN (15:54)
[2019-12-17] MEDS ORDERED: Artificial Tears SOLN 15 ML BOTTLE BOTH EYES PRN (15:54)
[2019-12-17] MEDS ORDERED: Dextrose Gel 15 GM/37.5 ML TUBE PO PRN ×2 (15:54)
[2019-12-17] MEDS ORDERED: *HR* Dextrose 50 % in Water (Syg) 50 ML SYRINGE IVP PRN (15:54)
[2019-12-17] MEDS ORDERED: D5% in Water 1,000 ML IVC PRN (15:54)
[2019-12-17] MEDS ORDERED: Dexmedetomidine HCl 400 MCG/100 ML MLS IVC SCH (15:54)
[2019-12-17] MEDS: Apixaban 5 MG TABLET PO SCH (20:02)
[2019-12-17] MEDS ORDERED: *HR* LORazepam 2 MG/ML VIAL IVP ONE (20:30)
[2019-12-17] MEDS ORDERED: Apixaban 5 MG TABLET PO SCH (21:00)
[2019-12-18] MEDS: Insulin LISPRO 300 UNITS/3 ML VIAL SQ SCH ×4 (00:01→18:10)
[2019-12-18] MEDS ORDERED: *HR* LORazepam 2 MG/ML VIAL IVP ONE ×2 (00:29→03:56)
[2019-12-18 01:43] LABS: Hematocrit 26.4 % (37.5-50.1); Hemoglobin 7.9 g/dL (12.9-16.9); Mean Corpuscular HGB Conc 29.9 g/dL (31.6-35.5); Mean Corpuscular Hemoglobin 31.2 pg (28.0-33.3); Mean Corpuscular Volume 104.3 fL (83.0-100.0); Mean Platelet Volume 9.9 fL (9.4-12.4); Platelet Count 254 K/mcL (140-400); Red Blood Count 2.53 M/mcL (4.19-5.50); Red Cell Distribution Width 15.9 % (11.5-14.5); White Blood Count 13.1 K/mcL (4.3-11.1)
[2019-12-18 01:44] LABS: Basophils # 0.1 K/mcL (0.0-0.2); Basophils % 0.5 %; Eosinophils # 0.4 K/mcL (0.0-0.6); Eosinophils % 3.3 %; Hematocrit 27.3 % (37.5-50.1); Hemoglobin 7.9 g/dL (12.9-16.9); Immature Granulocytes % 3.5 % (0-4); Mean Corpuscular HGB Conc 28.9 g/dL (31.6-35.5); Mean Corpuscular Hemoglobin 30.3 pg (28.0-33.3); Mean Corpuscular Volume 104.6 fL (83.0-100.0); Mean Platelet Volume 10.2 fL (9.4-12.4); Monocytes # 0.9 K/mcL (0.0-1.3); Nucleated Red Blood Cells 0.6 /100 WBC (0); Platelet Count 270 K/mcL (140-400); Red Blood Count 2.61 M/mcL (4.19-5.50); Red Cell Distribution Width 15.9 % (11.5-14.5); White Blood Count 12.9 K/mcL (4.3-11.1)
[2019-12-18 01:45] LABS: Lymphocytes # 0.7 K/mcL (0.6-4.6); Lymphocytes % 5.7 %; Monocytes % 7.2 %; Neutrophils # 10.1 K/mcL (1.6-8.9); Segmented Neutrophils % 79.8 %
[2019-12-18 02:07] LABS: Albumin 3.4 g/dL (3.5-5.7); Albumin/Globulin Ratio 1.1 (1.1-2.2); Calcium 9.8 mg/dL (8.6-10.3); Globulin 3.2 g/dL (2.4-3.5); Magnesium 2.1 mg/dL (1.6-2.6); Phosphorous 3.7 mg/dL (2.7-4.5); Potassium 3.9 mEq/L (3.5-5.1); Total Protein 6.6 g/dL (6.4-8.9)
[2019-12-18 02:21] LABS: Anisocytosis 1+ (Not Present); Hypochromasia Present (Not Present); Platelet Estimate Normal (Normal); Polychromasia 1+ (Not Present)
[2019-12-18] MEDS: Piperacillin/Tazobactam 3.375 GM in 0.9 % Sodium Chloride Mini Bag 100 ML IVPB SCH ×2 (04:25→17:32)
[2019-12-18] MEDS: Artificial Tears SOLN 15 ML BOTTLE BOTH EYES SCH ×4 (04:32→14:21)
[2019-12-18] MEDS: Apixaban 5 MG TABLET PO SCH ×2 (08:56→21:42)
[2019-12-18] MEDS: Lactulose Oral Soln 20 GM/30 ML UDC PO SCH ×3 (08:56→21:42)
[2019-12-18] MEDS: Metoprolol XL (24 HR) Succ 25 MG TAB.ER.24H PO SCH (08:56)
[2019-12-18] MEDS: DilTIAZem CD (24hr) 120 MG CAP.ER.24H PO SCH (08:59)
[2019-12-18] MEDS: Renal Vitamin 1 CAP CAPSULE PO SCH (08:59)
[2019-12-18] MEDS: Aspirin 81 MG TAB.CHEW PO SCH (08:59)
[2019-12-18] MEDS: Chlorhexidine Rinse 15 ML MOUTHWASH MM SCH (08:59)
[2019-12-18] MEDS: Cholecalciferol (D-3) 1,000 UNIT (25MCG) TABLET PO SCH ×2 (09:00→21:42)
[2019-12-18] MEDS: QUEtiapine Fumarate 25 MG TABLET PO SCH (09:00)
[2019-12-18] MEDS ORDERED: Lactulose 200 GM, Sodium Chloride IRRigation 700 ML RC ONE (12:14)
[2019-12-18] MEDS: Haloperidol Lactate 5 MG/ML VIAL IVP SCH ×2 (12:37→21:43)
[2019-12-18] MEDS ORDERED: Haloperidol Lactate 5 MG/ML VIAL IVP ONE (17:21)
[2019-12-18] MEDS ORDERED: *HR* HYDROmorphone (PF) 1 MG/ML SYRINGE IVP ONE (18:05)
[2019-12-18] MEDS ORDERED: Apixaban 5 MG TABLET PO SCH ×2 (21:00)
[2019-12-18] MEDS ORDERED: *HR* Metoprolol 5 MG/5 ML VIAL IVP ONE ×2 (22:56→23:12)
[2019-12-19] MEDS ORDERED: Haloperidol Lactate 5 MG/ML VIAL IVP ONE ×2 (01:13→11:42)
[2019-12-19 03:00] LABS: Basophils % 0.2 %; Eosinophils # 0.5 K/mcL (0.0-0.6); Eosinophils % 2.5 %; Hemoglobin 7.7 g/dL (12.9-16.9); Immature Granulocytes % 1.9 % (0-4); Lymphocytes # 0.9 K/mcL (0.6-4.6); Lymphocytes % 4.8 %; Mean Corpuscular HGB Conc 29.6 g/dL (31.6-35.5); Mean Corpuscular Hemoglobin 31.2 pg (28.0-33.3); Mean Corpuscular Volume 105.3 fL (83.0-100.0); Mean Platelet Volume 9.5 fL (9.4-12.4); Monocytes # 1.4 K/mcL (0.0-1.3); Monocytes % 7.6 %; Neutrophils # 14.7 K/mcL (1.6-8.9); Nucleated Red Blood Cells 0.5 /100 WBC (0); Platelet Count 257 K/mcL (140-400); Red Blood Count 2.47 M/mcL (4.19-5.50); Red Cell Distribution Width 16.4 % (11.5-14.5); White Blood Count 17.7 K/mcL (4.3-11.1)
[2019-12-19 03:22] LABS: Calcium 9.5 mg/dL (8.6-10.3); Potassium 4.7 mEq/L (3.5-5.1)
[2019-12-19] MEDS: Insulin LISPRO 300 UNITS/3 ML VIAL SQ SCH ×5 (04:45→23:58)
[2019-12-19] MEDS: Piperacillin/Tazobactam 3.375 GM in 0.9 % Sodium Chloride Mini Bag 100 ML IVPB SCH ×2 (04:46→18:03)
[2019-12-19] MEDS ORDERED: 0.9 % Sodium Chloride 250 ML IVC PRN (08:12)
[2019-12-19] MEDS: Haloperidol Lactate 5 MG/ML VIAL IVP SCH ×3 (08:33→23:57)
[2019-12-19] MEDS ORDERED: *HR* HYDROmorphone (PF) 1 MG/ML SYRINGE IVP ONE (11:40)
[2019-12-19] MEDS: Aspirin 81 MG TAB.CHEW PO SCH (12:16)
[2019-12-19] MEDS: Renal Vitamin 1 CAP CAPSULE PO SCH (12:29)
[2019-12-19] MEDS: DilTIAZem CD (24hr) 120 MG CAP.ER.24H PO SCH (12:29)
[2019-12-19] MEDS: Cholecalciferol (D-3) 1,000 UNIT (25MCG) TABLET PO SCH ×2 (12:29→21:10)
[2019-12-19] MEDS: Lactulose Oral Soln 20 GM/30 ML UDC PO SCH ×3 (12:29→21:10)
[2019-12-19] MEDS: Metoprolol XL (24 HR) Succ 25 MG TAB.ER.24H PO SCH (12:29)
[2019-12-19] MEDS: Apixaban 5 MG TABLET PO SCH ×2 (12:29→21:10)
[2019-12-19] MEDS ORDERED: *HR* LORazepam 2 MG/ML VIAL IVP ONE (13:41)
[2019-12-20] MEDS: Piperacillin/Tazobactam 3.375 GM in 0.9 % Sodium Chloride Mini Bag 100 ML IVPB SCH ×2 (05:46→15:47)
[2019-12-20 06:52] LABS: Hematocrit 29.2 % (37.5-50.1); Hemoglobin 8.1 g/dL (12.9-16.9); Mean Corpuscular HGB Conc 27.7 g/dL (31.6-35.5); Mean Corpuscular Hemoglobin 30.8 pg (28.0-33.3); Mean Platelet Volume 9.3 fL (9.4-12.4); Platelet Count 267 K/mcL (140-400); Red Blood Count 2.63 M/mcL (4.19-5.50); Red Cell Distribution Width 17.3 % (11.5-14.5)
[2019-12-20 07:09] LABS: Calcium 9.1 mg/dL (8.6-10.3); Potassium 5.4 mEq/L (3.5-5.1)
[2019-12-20 07:19] LABS: INR 1.4
[2019-12-20 07:34] LABS: Albumin 3.8 g/dL (3.5-5.7); Albumin/Globulin Ratio 1.2 (1.1-2.2); Bilirubin,Total 0.8 mg/dL (0.3-1.0); Calcium 9.1 mg/dL (8.6-10.3); Globulin 3.1 g/dL (2.4-3.5); Potassium 5.3 mEq/L (3.5-5.1); Total Protein 6.9 g/dL (6.4-8.9)
[2019-12-20] MEDS ORDERED: Aminoglycoside Consult 1 EACH MC ONE (08:36)
[2019-12-20] MEDS: Insulin LISPRO 300 UNITS/3 ML VIAL SQ SCH ×3 (10:14→17:33)
[2019-12-20] MEDS ORDERED: Dexmedetomidine HCl 400 MCG/100 ML MLS IVC SCH (10:30)
[2019-12-20] MEDS ORDERED: *HR* LORazepam 2 MG/ML VIAL IVP ONE ×3 (11:49→23:09)
[2019-12-20] MEDS: Aspirin 81 MG TAB.CHEW PO SCH (11:51)
[2019-12-20] MEDS: DilTIAZem CD (24hr) 120 MG CAP.ER.24H PO SCH (11:51)
[2019-12-20] MEDS: Apixaban 5 MG TABLET PO SCH ×2 (11:51→19:34)
[2019-12-20] MEDS: Lactulose Oral Soln 20 GM/30 ML UDC PO SCH ×3 (11:51→19:34)
[2019-12-20] MEDS: Metoprolol XL (24 HR) Succ 25 MG TAB.ER.24H PO SCH (11:52)
[2019-12-20] MEDS: Cholecalciferol (D-3) 1,000 UNIT (25MCG) TABLET PO SCH ×2 (11:52→19:35)
[2019-12-20] MEDS: Renal Vitamin 1 CAP CAPSULE PO SCH (11:52)
[2019-12-20] MEDS: Dexmedetomidine HCl 400 MCG/100 ML MLS IVC SCH ×4 (13:21→22:53)
[2019-12-20] MEDS ORDERED: QUEtiapine Fumarate 25 MG TABLET PO ONE (15:06)
[2019-12-20] MEDS ORDERED: Haloperidol Lactate 5 MG/ML VIAL IM ONE (20:11)
[2019-12-20] MEDS ORDERED: *HR* LORazepam 2 MG/ML VIAL ONE (23:10)
[2019-12-21] MEDS: Insulin LISPRO 300 UNITS/3 ML VIAL SQ SCH ×3 (00:54→12:43)
[2019-12-21] MEDS: Dexmedetomidine HCl 400 MCG/100 ML MLS IVC SCH ×7 (02:09→23:57)
[2019-12-21 03:58] LABS: Hemoglobin 7.6 g/dL (12.9-16.9); Mean Platelet Volume 9.8 fL (9.4-12.4); Red Cell Distribution Width 17.8 % (11.5-14.5)
[2019-12-21 03:59] LABS: Hematocrit 26.1 % (37.5-50.1); Mean Corpuscular HGB Conc 29.1 g/dL (31.6-35.5); Mean Corpuscular Hemoglobin 30.9 pg (28.0-33.3); Mean Corpuscular Volume 106.1 fL (83.0-100.0); Platelet Count 199 K/mcL (140-400); Red Blood Count 2.46 M/mcL (4.19-5.50); White Blood Count 11.9 K/mcL (4.3-11.1)
[2019-12-21 04:18] LABS: Calcium 8.8 mg/dL (8.6-10.3)
[2019-12-21] MEDS: Piperacillin/Tazobactam 3.375 GM in 0.9 % Sodium Chloride Mini Bag 100 ML IVPB SCH (04:43)
[2019-12-21] MEDS: Aspirin 81 MG TAB.CHEW PO SCH (07:37)
[2019-12-21] MEDS: Renal Vitamin 1 CAP CAPSULE PO SCH (07:37)
[2019-12-21] MEDS: Apixaban 5 MG TABLET PO SCH (07:37)
[2019-12-21] MEDS: Lactulose Oral Soln 20 GM/30 ML UDC PO SCH (07:37)
[2019-12-21] MEDS: DilTIAZem CD (24hr) 120 MG CAP.ER.24H PO SCH (07:37)
[2019-12-21] MEDS: Metoprolol XL (24 HR) Succ 25 MG TAB.ER.24H PO SCH (07:38)
[2019-12-21] MEDS: Cholecalciferol (D-3) 1,000 UNIT (25MCG) TABLET PO SCH (07:38)
[2019-12-21] MEDS ORDERED: QUEtiapine Fumarate 25 MG TABLET PO ONE (10:06)
[2019-12-21] MEDS: QUEtiapine Fumarate 25 MG TABLET PO SCH (10:30)
[2019-12-21] MEDS ORDERED: *HR* LORazepam 2 MG/ML VIAL IVP PRN (14:59)
[2019-12-21] MEDS ORDERED: *HR* FentaNYL (PF) 100 MCG/2 ML VIAL IVP ONE (15:04)
[2019-12-21] MEDS: *HR* FentaNYL (PF) 100 MCG/2 ML VIAL IVP PRN ×3 (16:23→20:11)
[2019-12-21 20:18] VITALS: BP 139/58
[2019-12-21] MEDS: *HR* LORazepam 2 MG/ML VIAL IVP PRN (23:58)
[2019-12-22] MEDS: *HR* LORazepam 2 MG/ML VIAL IVP PRN ×2 (03:22→09:08)
[2019-12-22] MEDS: Dexmedetomidine HCl 400 MCG/100 ML MLS IVC SCH ×2 (03:23→07:25)
[2019-12-22] MEDS: QUEtiapine Fumarate 25 MG TABLET PO SCH ×2 (07:21→08:46)
[2019-12-22] MEDS: *HR* FentaNYL (PF) 100 MCG/2 ML VIAL IVP PRN (09:15)
== END 2019-12-22 10:57 | disposition hospice, inpatient (51) ==
LOC: EMEROOARM 16:11 → SUATTDRO 19:10 → 2NENU 19:10 → ICNU 12-16 21:29 → 3NENU 12-17 18:44
PROVIDERS: ADMIT Pediatrics; ATTEND Student in an Organized Health Care Education/Training Program

== ENCOUNTER 2019-12-22 10:14 | Inpatient (IN) ==
[2019-12-22] MEDS: *HR* FentaNYL (PF) 100 MCG/2 ML VIAL IVP PRN ×4 (13:06→18:38)
[2019-12-22] MEDS: *HR* LORazepam 2 MG/ML VIAL IVP PRN ×8 (13:07→23:58)
[2019-12-22] MEDS: Haloperidol Lactate 5 MG/ML VIAL IVP PRN ×5 (14:01→23:59)
[2019-12-22] MEDS ORDERED: Atropine Sulfate 1% 40 DROP/2 ML BOTTLE SL PRN (14:32)
[2019-12-22] MEDS ORDERED: Bisacodyl 10 MG RECTAL SUPPOSITORY RC PRN (14:32)
[2019-12-22] MEDS ORDERED: FentaNYL (PF) 1,000 MCG in 0.9 % Sodium Chloride 80 ML IVC SCH (14:45)
[2019-12-22 19:38] VITALS: BP 137/66
== END 2019-12-23 05:30 | disposition expired | DRG 951 ==
LOC: 2ANU 11:52
PROVIDERS: ADMIT Internal Medicine Hospice and Palliative Medicine; ATTEND Internal Medicine Hospice and Palliative Medicine